=== PATIENT | male | born 1965 | race Two or more races ===

== ENCOUNTER 2020-04-27 15:51 | Outpatient (REF) | payer OTHER, SELFPAY | END 2020-04-27 15:52 | disposition home or self-care (01) | LOC: HO.LAB 15:51 | PROVIDERS: Visit Provider Internal Medicine | DX: Z20.828 Contact with and (suspected) exposure to other viral communicable diseases (principal) | CPT/HCPCS: 87635 ==

== ENCOUNTER 2021-02-22 12:59 | Outpatient (REF) | payer OTHER, SELFPAY ==
[2021-02-22 15:09] LABS: Syphilis Screen Reactive (Nonreactive)
[2021-02-23 03:35] LABS: ~HepC Num1 0.11 S/CO (0.00-0.79); ~Hepatitis C Antibody Nonreactive (Nonreactive)
[2021-02-23 04:58] LABS: CT PCR NOT DETECTED (Not Detect.); NG PCR NOT DETECTED (Not Detect.)
[2021-02-23 12:07] LABS: Absolute CD3 Count 1286 cells/uL (840-3060); Absolute CD4 Count 747 cells/uL (490-1740); Absolute CD8 Count 544 cells/uL (180-1170); Absolute Lymphocytes 1945 cells/uL (850-3900); CD4 CD8 Ratio 1.37 (0.86-5.00); Percent CD3 Cells 66 % (57-85); Percent CD4 Cells 38 % (30-61); Percent CD8 Cells 28 % (12-42)
[2021-02-24 18:51] LABS: HIV RNA PCR Qn Copies <20 DETECTED copies/mL (NOT DETECTED); HIV RNA PCR Qn Log Copies <1.30 DETECTED (NOT DETECTED)
[2021-03-03 10:35] LABS: RPR Quantitative Reactive 1:32 (Nonreactive); T.Pallidum Particle Agg Test Reactive (Nonreactive)
== END 2021-02-22 13:00 | disposition home or self-care (01) ==
LOC: HO.LAB 12:59
PROVIDERS: PCP Internal Medicine; Visit Provider Internal Medicine
DX: B20 Human immunodeficiency virus [HIV] disease (principal)
CPT/HCPCS: 36415; 86359; 86360; 86592; 86780; 86803; 87491; 87536; 87591; 88112; 99212

== ENCOUNTER 2021-03-01 10:39 | Outpatient (REF) | payer OTHER, SELFPAY ==
[2021-03-01 11:29] LABS: MANUAL DIFF FLAG NO
[2021-03-01 11:42] LABS: Basophils Percent Auto 0.4 % (0-2); Eosinophils Absolute Auto 0.2 X10*3/uL (0.0-0.4); Eosinophils Percent Auto 3.4 % (0-4); Hematocrit 44.2 % (42-52); Hemoglobin 15.4 g/dl (14.0-18.0); Imm Gran Abs Auto 0.01 X10*3/uL (0.00-0.03); Imm Gran Pct Auto 0.2 % (0.0-0.4); Lymphocytes Absolute Auto 2.5 X10*3/uL (1.2-4.9); Lymphocytes Percent Auto 46.9 % (20-40); Mean Corpuscular HGB Conc 34.8 g/dl (31.0-36.0); Mean Corpuscular Hemoglobin 32.6 pg (27.0-33.0); Mean Corpuscular Volume 93.6 fL (80-98); Mean Platelet Volume 10.1 fL (9.4-12.4); Monocytes Absolute Auto 0.5 X10*3/uL (0.1-1.2); Monocytes Percent Auto 8.5 % (2-11); Neutrophils Absolute Auto 2.2 X10*3/uL (2.0-8.3); Neutrophils Percent Auto 40.6 % (45-73); Platelet Count 171 X10*3/uL (160-400); Red Blood Count 4.72 X10*6/uL (4.60-5.80); White Blood Count 5.3 X10*3/uL (4.8-10.8)
[2021-03-01 11:52] LABS: Alanine Aminotransferase 21 U/L (0-40); Albumin Level 4.5 g/dL (3.5-5.0); Alkaline Phosphatase 111 U/L (39-117); Anion Gap 14 (12-20); Aspartate Amino Transferase 24 U/L (5-37); Bilirubin Total 0.7 mg/dL (0.0-1.0); Blood Urea Nitrogen 16 mg/dL (9-16); Calcium 9.5 mg/dL (8.4-10.2); Carbon Dioxide 25 mmol/L (22-29); Chloride 107 mmol/L (96-108); Cholesterol 174 mg/dL; Estimated Glomerular Filt Rate > 60; Glucose Fasting 106 mg/dL (60-99); HDL Cholesterol 37 mg/dL; LDL Cholesterol Calculated 105 mg/dl; Potassium 4.9 mmol/L (3.3-5.1); Sodium 141 mmol/L (135-145); Triglycerides 161 mg/dL; Uric Acid 8.1 mg/dL (3.4-7.0)
[2021-03-05 13:55] LABS: Vitamin D 25-OH, D2 <4 ng/mL; Vitamin D 25-OH, D3 29 ng/mL; Vitamin D 25-OH, Total 29 ng/mL (30-100)
== END 2021-03-01 10:40 | disposition home or self-care (01) ==
LOC: HO.LAB 10:39
PROVIDERS: PCP Internal Medicine; Visit Provider Internal Medicine
DX: E55.9 Vitamin D deficiency, unspecified (principal); M10.9 Gout, unspecified; E78.5 Hyperlipidemia, unspecified; B20 Human immunodeficiency virus [HIV] disease; D64.9 Anemia, unspecified
CPT/HCPCS: 36415; 80053; 80061; 82306; 84550; 85025

== ENCOUNTER → 2021-03-10 13:43 | Outpatient (BNVA) | payer OTHER, SELFPAY | PROVIDERS: Visit Provider Internal Medicine | DX: A53.9 Syphilis, unspecified (principal) | CPT/HCPCS: 96372; 99212 ==

== ENCOUNTER → 2021-08-03 14:01 | Outpatient (BNVA) | payer OTHER, SELFPAY | PROVIDERS: Visit Provider Internal Medicine | DX: B20 Human immunodeficiency virus [HIV] disease (principal) | CPT/HCPCS: 99212 ==

== ENCOUNTER 2021-08-18 14:05 | Outpatient (REF) | payer OTHER, SELFPAY ==
[2021-08-18 15:50] LABS: Syphilis Screen Reactive (Nonreactive)
[2021-08-19 14:46] LABS: Absolute CD3 Count 1901 cells/uL (840-3060); Absolute CD4 Count 1135 cells/uL (490-1740); Absolute CD8 Count 766 cells/uL (180-1170); Absolute Lymphocytes 2837 cells/uL (850-3900); CD4 CD8 Ratio 1.48 (0.86-5.00); Percent CD3 Cells 67 % (57-85); Percent CD4 Cells 40 % (30-61); Percent CD8 Cells 27 % (12-42)
[2021-08-21 14:06] LABS: HIV RNA PCR Qn Copies <20 Copies/mL; HIV RNA PCR Qn Log Copies <1.30 Log cps/mL
[2021-08-26 14:54] LABS: RPR Quantitative Reactive 1:16 (Nonreactive); T.Pallidum Particle Agg Test Reactive (Nonreactive)
== END 2021-08-18 14:06 | disposition home or self-care (01) ==
LOC: HO.LAB 14:05
PROVIDERS: PCP Internal Medicine; Visit Provider Internal Medicine
DX: B20 Human immunodeficiency virus [HIV] disease (principal)
CPT/HCPCS: 36415; 86359; 86360; 86592; 86780; 87536

== ENCOUNTER → 2021-08-31 14:10 | Outpatient (BNVA) | payer OTHER, SELFPAY | PROVIDERS: PCP Internal Medicine; Visit Provider Internal Medicine | DX: B20 Human immunodeficiency virus [HIV] disease (principal); A53.9 Syphilis, unspecified; Z23 Encounter for immunization | CPT/HCPCS: 90471; 90732; 99212 ==

== ENCOUNTER 2021-09-02 10:03 | Outpatient (REF) | payer OTHER, SELFPAY ==
--- NOTE | ~2021-09-02 | XR_ITS ---
EXAMINATION: XR CHEST CLINICAL INFORMATION: R06.00 - Dyspnea, unspecified COMPARISON: Chest radiographs 08/03/2019, 04/03/2019, CT abdomen 01/23/2018. TECHNIQUE: 2 views of the chest were obtained. FINDINGS: There is no airspace consolidation, groundglass opacity, or effusion. The heart is normal in size and the vascularity is normal. There are some old calcified granulomata again noted periphery left mid lung zone and left base similar to prior studies. The hilar and mediastinal contours are normal. No acute bony abnormality. XR/XR chest 2V IMPRESSION: No acute intrathoracic disease.
[2021-09-02 12:46] LABS: Alanine Aminotransferase 17 U/L (0-40); Albumin Level 4.5 g/dL (3.5-5.0); Alkaline Phosphatase 96 U/L (39-117); Anion Gap 14 (12-20); Aspartate Amino Transferase 24 U/L (5-37); Blood Urea Nitrogen 22 mg/dL (9-16); Calcium 9.4 mg/dL (8.4-10.2); Carbon Dioxide 25 mmol/L (22-29); Chloride 106 mmol/L (96-108); Cholesterol 169 mg/dL; Estimated Glomerular Filt Rate 57; Glucose Fasting 84 mg/dL (60-99); HDL Cholesterol 42 mg/dL; LDL Cholesterol Calculated 103 mg/dl; Potassium 4.9 mmol/L (3.3-5.1); Sodium 140 mmol/L (135-145); Total Protein 6.8 g/dL (6.5-8.0); Triglycerides 124 mg/dL
== END 2021-09-02 10:04 | disposition home or self-care (01) ==
LOC: HO.XRAY 10:03
PROVIDERS: PCP Internal Medicine; Visit Provider Internal Medicine
DX: R06.00 Dyspnea, unspecified (principal); B20 Human immunodeficiency virus [HIV] disease; E78.5 Hyperlipidemia, unspecified
CPT/HCPCS: 36415; 71046; 80053; 80061

== ENCOUNTER 2021-09-27 14:04 | Outpatient (REF) | payer OTHER, SELFPAY ==
[2021-09-27 14:27] LABS: MANUAL DIFF FLAG NO
[2021-09-27 14:55] LABS: Basophils Percent Auto 0.6 % (0-2); Eosinophils Absolute Auto 0.2 X10*3/uL (0.0-0.4); Eosinophils Percent Auto 2.9 % (0-4); Hematocrit 47.2 % (42.0-52.0); Hemoglobin 16.4 g/dl (14.0-18.0); Imm Gran Abs Auto 0.03 X10*3/uL (0.00-0.03); Imm Gran Pct Auto 0.5 % (0.0-0.4); Lymphocytes Absolute Auto 1.9 X10*3/uL (1.2-4.9); Lymphocytes Percent Auto 29.8 % (20-40); Mean Corpuscular HGB Conc 34.7 g/dl (31.0-36.0); Mean Corpuscular Hemoglobin 32.9 pg (27.0-33.0); Mean Corpuscular Volume 94.6 fL (80.0-98.0); Mean Platelet Volume 9.9 fL (9.4-12.4); Monocytes Absolute Auto 0.4 X10*3/uL (0.1-1.2); Monocytes Percent Auto 6.3 % (2-11); Neutrophils Absolute Auto 3.8 x10*3/uL (2.0-8.3); Neutrophils Percent Auto 59.9 % (45-73); Platelet Count 193 X10*3/uL (160-400); Red Blood Count 4.99 X10*6/uL (4.60-5.80); Red Cell Distribution Width 13.2 % (11.0-16.0); White Blood Count 6.3 X10*3/uL (4.8-10.8)
[2021-09-27 15:11] LABS: Appearance Urine CLEAR; Color Urine YELLOW; Glucose Urine UA NEG (NEG); Leukocyte Esterase Urine NEG (NEG); Nitrite Urine NEG (NEG); PH 5.5 (5.0-8.0); Specific Gravity - Urine >= 1.030 (1.005-1.025); Urine Blood NEG (NEG); Urine Ketones NEG (NEG); Urine Protein NEG (NEG-TRACE)
[2021-09-27 15:17] LABS: Uric Acid 8.6 mg/dL (3.4-7.0)
[2021-09-27 15:37] LABS: Vitamin D 25-OH Total 17.8 ng/mL (>30)
== END 2021-09-27 14:05 | disposition home or self-care (01) ==
LOC: HO.LAB 14:04
PROVIDERS: Absent Provider Internal Medicine; PCP Internal Medicine; Visit Provider Nurse Practitioner Family
DX: D64.9 Anemia, unspecified (principal); M10.9 Gout, unspecified; E55.9 Vitamin D deficiency, unspecified; M54.9 Dorsalgia, unspecified; R80.9 Proteinuria, unspecified
CPT/HCPCS: 36415; 81003; 82306; 84550; 85025

== ENCOUNTER 2021-12-07 16:45 | Outpatient (REF) | payer OTHER, SELFPAY ==
--- NOTE | ~2021-12-07 | XR_ITS ---
EXAMINATION: X-RAY RIGHT SHOULDER X-RAY LEFT SHOULDER CLINICAL INFORMATION: Pain. COMPARISON: Radiograph of the left shoulder dated from 07/25/2019. TECHNIQUE: 4 views of each shoulder were obtained. FINDINGS: Right shoulder: No acute fracture or malalignment. The humeral head is well-seated in the glenoid. The acromioclavicular joint is maintained. No abnormal soft tissue calcifications. Left shoulder: No acute fracture or malalignment. The humeral head is well-seated in the glenoid. The acromioclavicular joint is within normal limits. No abnormal soft tissue calcification. Others: Redemonstration of calcified granulomas in the lungs. XR/XR shoulder RT min 2V IMPRESSION: No significant radiographic abnormality in the shoulders. If pain persists, recommend correlation with a CT or MR if clinically indicated.
--- NOTE | ~2021-12-07 | XR_ITS ---
EXAMINATION: X-RAY RIGHT SHOULDER X-RAY LEFT SHOULDER CLINICAL INFORMATION: Pain. COMPARISON: Radiograph of the left shoulder dated from 07/25/2019. TECHNIQUE: 4 views of each shoulder were obtained. FINDINGS: Right shoulder: No acute fracture or malalignment. The humeral head is well-seated in the glenoid. The acromioclavicular joint is maintained. No abnormal soft tissue calcifications. Left shoulder: No acute fracture or malalignment. The humeral head is well-seated in the glenoid. The acromioclavicular joint is within normal limits. No abnormal soft tissue calcification. Others: Redemonstration of calcified granulomas in the lungs. XR/XR shoulder LT min 2V IMPRESSION: No significant radiographic abnormality in the shoulders. If pain persists, recommend correlation with a CT or MR if clinically indicated.
[2021-12-07 17:53] LABS: Alanine Aminotransferase 26 U/L (0-40); Albumin Level 4.5 g/dL (3.5-5.0); Alkaline Phosphatase 96 U/L (39-117); Anion Gap 13 (12-20); Aspartate Amino Transferase 25 U/L (5-37); Bilirubin Total 0.7 mg/dL (0.0-1.0); Blood Urea Nitrogen 21 mg/dL (9-16); Calcium 9.5 mg/dL (8.4-10.2); Carbon Dioxide 28 mmol/L (22-29); Chloride 104 mmol/L (96-108); Estimated Glomerular Filt Rate > 60; Glucose Fasting 102 mg/dL (60-99); Potassium 4.6 mmol/L (3.3-5.1); Sodium 140 mmol/L (135-145)
[2021-12-08 03:08] LABS: CT PCR NOT DETECTED (Not Detect.); NG PCR NOT DETECTED (Not Detect.)
[2021-12-08 06:49] LABS: HBS Num1 68.75 mIU/mL (0-7.99); HBc Num1 2.01 S/CO (0.00-0.79); HBsAGNum1 0.17 S/CO (0.00-0.99); Hepatitis B Surface Antigen Negative (Negative); ~HepC Num1 0.06 S/CO (0.00-0.79); ~Hepatitis B Surface Antibody REACTIVE (Nonreactive); ~Hepatitis C Antibody Nonreactive (Nonreactive)
[2021-12-08 06:55] LABS: HBc Num2 1.92 S/CO; HBc Num3 2.01 S/CO; Hepatitis B Core Antibody Reactive (Nonreactive)
== END 2021-12-07 16:46 | disposition home or self-care (01) ==
LOC: HO.LAB 16:45
PROVIDERS: PCP Internal Medicine; Visit Provider Internal Medicine
DX: Z11.3 Encounter for screening for infections with a predominantly sexual mode of transmission (principal); M54.9 Dorsalgia, unspecified; M25.511 Pain in right shoulder; M25.512 Pain in left shoulder
CPT/HCPCS: 73030; 80053; 86704; 86706; 86803; 87340; 87491; 87591

== ENCOUNTER 2022-01-01 14:11 | Emergency (ER) | payer OTHER, SELFPAY ==
--- NOTE | 2022-01-01 | ECG_ITS ---
Test Reason : PALPITATIONS Blood Pressure : / mmHG Vent. Rate : 086 BPM Atrial Rate : 086 BPM P-R Int : 164 ms QRS Dur : 090 ms QT Int : 354 ms P-R-T Axes : 055 -15 015 degrees QTc Int : 423 ms Normal sinus rhythm Normal ECG When compared with ECG of 04-JUN-2019 15:16, No significant change was found Referred By: Generic ED Physician Electronically Signed By:JOSE L ALANIS
--- NOTE | ~2022-01-01 | CT_ITS ---
EXAMINATION: CT ABDOMEN AND PELVIS WITHOUT CONTRAST CLINICAL INFORMATION: Epigastric pain COMPARISON: CT abdomen pelvis 01/23/2018 TECHNIQUE: Multidetector volumetric imaging was performed from the superior aspect of the liver through the pubic symphysis. Sagittal and coronal reformatted images were obtained on the technologist's workstation. This CT examination was performed using dose optimization techniques as appropriate, variously including the following: *Automated exposure control *Adjustment of mA and/or kV according to patient size (this includes techniques or standardized protocols for targeted exams where dose is matched to indication/reason for exam; i.e. extremities or head) *Use of iterative reconstruction technique DLP: 682 mGy-cm FINDINGS: LUNG BASES: Mild bibasilar atelectasis. Small calcified granulomas in the right and left lung are noted. LIVER, GALLBLADDER, AND BILIARY TREE: The liver is normal in size, shape, and attenuation. No focal hepatic lesion or biliary ductal dilatation is present. The gallbladder is unremarkable with no evidence of radiopaque gallstones, gallbladder wall thickening, or obvious pericholecystic inflammatory changes. PANCREAS: Unremarkable. SPLEEN: Unremarkable. ADRENAL GLANDS: Unremarkable. KIDNEYS AND URETERS: The kidneys are normal in size, shape, and attenuation. No hydronephrosis, hydroureter, or calculi seen. No perinephric stranding. BLADDER: Unremarkable. GASTROINTESTINAL TRACT: No dilated bowel loops. No bowel wall thickening. Mild luminal narrowing of the distal stomach/gastric antrum favored due to peristalsis. No surrounding inflammatory change or definite mural thickening. Moderate fluid and air-filled distention of the body the stomach. Small amount of fluid seen within the nondilated colon. Correlate clinically with diarrheal state. Appendix is normal. No ascites or free air. ABDOMINAL WALL: Small fat-containing inguinal hernias. LYMPH NODES: No lymphadenopathy. Slightly hazy simba appearance of the root of the mesentery, unchanged and nonspecific. VASCULAR: Normal caliber abdominal aorta. PELVIC VISCERA: Unremarkable. OSSEOUS STRUCTURES: No acute fracture or suspicious osseous lesion. Mild multilevel degenerative disc disease. Miscellaneous: Small 1.3 cm subdermal nodule in the midline lower abdominal wall/pelvis, likely sebaceous or epidermal inclusion cyst and unchanged. Correlate with exam. CT/CT abdomen pelvis wo con IMPRESSION: 1. No acute intra-abdominal process identified. 2. Apparent narrowing of the distal stomach, favored secondary to peristalsis. No appreciable perigastric inflammatory change or definite mural thickening. If concern for gastritis/peptic ulcer disease or partial gastric outlet obstruction. Consider GI consultation. 3. Small amount of fluid seen within the colon. Correlate clinically with diarrheal state.
[2022-01-01 14:31] VITALS: BP 131/64; PULSE 88; RESP 16; TEMP 36.8; O2SAT 98; BMI 29.0
[2022-01-01 20:00] VITALS: BP 120/67; PULSE 87; RESP 16; TEMP 36.7; O2SAT 96
--- NOTE | 2022-01-01 20:27 | ED_ITS ---
HPI - Chest Pain General Chief Complaint: Chest Pain Stated Complaint: heart palpitations Time Seen by Provider: 01/01/22 17:44 Source: patient Mode of arrival: ambulatory Limitations: no limitations History of Present Illness HPI narrative: Patient comes to the emergency room complaining of epigastric pain that started approximately 12 hours ago. Patient states is intermittent, at this time is very severe and sharp, burning sensation, radiating up the chest. Patient states that he usually binge drinks 2 days a week, last time was 2 days ago. Patient had episode of vomiting, no diarrhea. Related Data Home Medications Medication Instructions Recorded Confirmed colchicine 0.6 mg tablet 0.6 mg PO DAILY 06/23/20 12/07/21 hydrocortisone 2.5 % topical cream 1 appl topical BID PRN 06/23/20 12/07/21 triamcinolone acetonide 0.5 % 1 appl topical BID 06/23/20 12/07/21 topical cream Previous Rx's Medication Instructions Recorded clotrimazole 1 % topical cream 1 appl topical BID 30 days #45 02/22/21 (Lotrimin AF (clotrimazole)) grams albuterol sulfate 90 mcg/actuation 2 puff inhalation Q6H PRN 02/27/21 aerosol inhaler bronchospasm 30 days #8.5 grams omeprazole 20 mg capsule,delayed 20 mg PO BID #30 caps 03/01/21 release valacyclovir 1 gram tablet 1,000 mg PO TID 5 days #15 tabs 04/26/21 (Valtrex) pneumococcal 23-dwight ps vaccine 25 0.5 ml IM ONCE 30 days #0.5 mL 08/30/21 mcg/0.5 mL injection solution (Pneumovax-23) diclofenac sodium 75 mg 75 mg PO BID #20 tabs 09/02/21 tablet,delayed release tizanidine 2 mg tablet 2 mg PO Q12H PRN muscle spasticity 09/02/21 #10 tabs bictegravir 50 mg-emtricitabine 1 tab PO DAILY 90 days #90 tabs 09/08/21 200 mg-tenofovir alafenam 25 mg tablet (Biktarvy) allopurinol 100 mg tablet 100 mg PO DAILY 90 days #90 tabs 10/12/21 escitalopram oxalate 5 mg tablet 5 mg PO DAILY 90 days #90 tabs 10/23/21 nitroglycerin 0.4 % (w/w) rectal 1 inch TX BID 30 days #30 grams 12/07/21 ointment (Rectiv) cholecalciferol (vitamin D3) 25 25 mcg PO DAILY 90 days #90 caps 12/24/21 mcg (1,000 unit) capsule hydrocortisone 2.5 % topical cream 1 appl TX BID PRN hemorrhoids 30 12/27/21 with perineal applicator days #30 grams (Proctosol HC) pantoprazole 20 mg tablet,delayed 20 mg PO DAILY #20 tabs 01/02/22 release (Protonix) Allergies Allergy/AdvReac Type Severity Reaction Status Date / Time No Known Allergies Allergy Verified 12/07/21 16:24 [No Known Allergies*] Review of Systems Review of Systems: Constitutional : No Weight loss, No Fever, No Chills, No Night Sweats, No Fatigue, No Malaise ENT/Mouth : No Hearing loss, No Ear Pain, No Nasal Congestion, No Sinus Pain, No Hoarseness, No sore throat, No Rhinorrhea, No Swallowing Difficulty Eyes: No Eye Pain, No Swelling, No Redness, No Foreign Body, No Discharge, No Vision Changes Cardiovascular : No Chest Pain, No SOB, No Dyspnea on Exertion, No Orthopnea, No Edema, No Palpitations Respiratory : No Cough, No Sputum, No Wheezing, No Smoke Exposure, No Dyspnea Gastrointestinal : Complaining of nausea and 1 episode of vomiting No Diarrhea, No Constipation, complaining of epigastric pain, burning sensation radiating of the chest. No Hematochezia, No Melena Genitourinary : no irregular bleeding, No Dysuria, No Urinary Frequency, No Hematuria, No Urinary Incontinence, No Urgency, No Flank Pain, No Urinary Flow Changes, No Hesitancy Musculoskeletal : No joint pain, No Myalgias, No Joint Swelling Skin : No Skin Lesions, No rash Neuro : No Weakness, No Numbness, No Paresthesias, No Loss of Consciousness, No Dizziness, No Headache Psych : No Anxiety/Panic, No Depression, No SI/HI/AH/VH, No Social Issues, Heme/Lymph: No Bruising, No Bleeding,No Lymphadenopathy Endocrine : No Polyuria, No Polydipsia, No Temperature Intolerance PMFSH Past Medical History Medical History Anxiety Gout Hand numbness HIV (human immunodeficiency virus infection) Left shoulder pain Right shoulder pain Screen for STD (sexually transmitted disease) Syphilis Surgical History No pertinent past surgical history Family History Family History Father ALS (amyotrophic lateral sclerosis) Diabetes Hypertension Mother Liver cirrhosis Brother Liver cirrhosis Sister Hyperlipidemia Paternal Grandmother Cancer Paternal Aunt Cancer Family/Other FH: mental illness Social History Social History Household Members: Friend(s) Housing: House Alcohol intake: current Alcohol intake frequency: holidays/special occasions only Alcohol type: hard liquor Patient Tobacco Use Status: Current someday Tobacco user Cigarettes Per Day: 2 Years Smoked: 30 e-Cigarette/Vaping Use: Never Used Use of substances other than those prescribed or required for medical reasons: No Advance Directives: No Advance Directives Information Provided: Yes service: No Current occupational status: unemployed Cognitive needs: No Hearing needs: No Vision needs: No Physical Exam Vital Signs: Vital Signs: Last Vital Signs Temp 98.2 F 01/02/22 00:20 Pulse 79 01/02/22 00:20 Resp 16 01/02/22 00:20 BP 124/77 01/02/22 00:20 Pulse Ox 98 01/02/22 00:20 O2 Del Method 01/02/22 00:20 BMI result Body Mass Index 29.0 Const: Other: Appearance: Alert. Oriented X3. No acute distress. Eyes: Pupils equal, round and reactive to light. ENT: Pharynx normal. Neck: Normal inspection. Neck supple. No lymph nodes noted. No crepitus CVS: Normal heart rate and rhythm. Pulses normal. Normal S1 and S2 Respiratory: No respiratory distress. Breath sounds normal. No Wheezing. No rales Abdomen: Soft , tenderness to palpation in epigastric area, no guarding, no rebound, no peritoneal signs Skin: Skin warm and dry. Normal skin color. Normal skin turgor. Extremities: No lower extremity edema. No Lacerations. No Rash Neuro: Oriented X 3. No motor deficit. No sensory deficit. Moving all extremities. No slurred speech. CN 2 through 12 grossly intact Psych: calm, cooperative, normal affect Course Course Course Narrative: Patient is getting IV fluids. All the labs and imaging pending. Ulcer versus pancreatitis is suspected. Patient is known to binge drink occasionally and also is currently taking Biktary . Also, patient getting IV morphine, famotidine and Zofran. Patient has epigastric pain, likely secondary to alcohol intake. CT scan does not show acute pancreatitis, however he was not without contrast. I discussed the patient with Dr. Chauhan, patient does not meet any criteria for acute pancreatitis, patient likely has alcoholic gastritis. Patient will be sent home. MDM - Chest Pain Lab Data Result diagrams: 01/01/22 21:10 01/01/22 21:10 Labs: Lab Results 01/01/22 01/01/22 01/01/22 Range/Units 21:10 21:10 21:10 WBC 12.2 H (4.8-10.8) X10*3/uL RBC 4.92 (4.60-5.80) X10*6/uL Hgb 15.7 (14.0-18.0) g/dl Hct 44.8 (42.0-52.0) % MCV 91.1 (80.0-98.0) fL MCH 31.9 (27.0-33.0) pg MCHC 35.0 (31.0-36.0) g/dl RDW 12.5 (11.0-16.0) % Plt Count 169 (160-400) X10*3/uL MPV 10.0 (9.4-12.4) fL Immature Gran % (Auto) 0.4 (0.0-0.4) % Neut % (Auto) 84.9 H (45-73) % Lymph % (Auto) 9.5 L (20-40) % [place] % (Auto) 4.3 (2-11) % Eos % (Auto) 0.7 (0-4) % Baso % (Auto) 0.2 (0-2) % Lymph # (Auto) 1.2 (1.2-4.9) X10*3/uL [place] # (Auto) 0.5 (0.1-1.2) X10*3/uL Eos # (Auto) 0.1 (0.0-0.4) X10*3/uL Baso # (Auto) 0.0 (0.0-0.2) X10*3/uL Abs Immat Gran (auto) 0.05 H (0.00-0.03) X10*3/uL Absolute Neuts (auto) 10.3 H (2.0-8.3) x10*3/uL Absolute Nucleated RBC 0.000 (0.0-0.012) X10*3/uL Nucleated RBC % (auto) 0.0 (0.0-0.2) /100WBC Sodium 138 (135-145) mmol/L Potassium 4.3 (3.3-5.1) mmol/L Chloride 103 (96-108) mmol/L Carbon Dioxide 24 (22-29) mmol/L Anion Gap 15 (12-20) BUN 21 H (9-16) mg/dL Creatinine 1.06 (0.5-1.4) mg/dL Estim Creat Clear Calc 84.8 Estimated GFR > 60 Random Glucose 111 (60-115) mg/dL Calcium 9.1 (8.4-10.2) mg/dL Total Bilirubin 1.0 (0.0-1.0) mg/dL Direct Bilirubin 0.3 (0.0-0.5) mg/dL AST 29 (5-37) U/L ALT 24 (0-40) U/L Alkaline Phosphatase 106 (39-117) U/L Troponin I High Sens < 3.5 (<3.5-35.0) ng/L Total Protein 6.8 (6.5-8.0) g/dL Albumin 4.4 (3.5-5.0) g/dL Triglycerides 196 mg/dL Lipase 133 H (8-78) U/L Discharge Plan Discharge Clinical Impression: Gastritis Patient Disposition: Home, Self-Care Instructions: Gastritis (ED) Additional Instructions: Please follow-up with your primary care physician tomorrow. If you have any worsening or new symptoms, please return to the emergency room or call 911 Prescriptions: New pantoprazole [Protonix] 20 mg tablet,delayed release (DR/EC) 20 mg PO DAILY Qty: 20 0RF No Action albuterol sulfate 90 mcg/actuation HFA aerosol inhaler 2 puff inhalation Q6H PRN (Reason: bronchospasm) 30 Days Qty: 8.5 6RF omeprazole 20 mg capsule,delayed release(DR/EC) 20 mg PO BID Qty: 30 6RF valacyclovir [Valtrex] 1 gram tablet 1,000 mg PO TID 5 Days Qty: 15 0RF Pneumovax-23 25 mcg/0.5 mL solution 0.5 ml IM ONCE 30 Days Qty: 0.5 0RF Biktarvy 50-200-25 mg tablet 1 tab PO DAILY 90 Days Qty: 90 1RF allopurinol 100 mg tablet 100 mg PO DAILY 90 Days Qty: 90 1RF escitalopram oxalate 5 mg tablet 5 mg PO DAILY 90 Days Qty: 90 1RF cholecalciferol (vitamin D3) 25 mcg (1,000 unit) capsule 25 mcg PO DAILY 90 Days Qty: 90 0RF hydrocortisone [Proctosol HC] 2.5 % cream with perineal applicator 1 appl TX BID PRN (Reason: hemorrhoids) 30 Days Qty: 30 6RF triamcinolone acetonide 0.5 % cream 1 appl topical BID colchicine 0.6 mg tablet 0.6 mg PO DAILY hydrocortisone 2.5 % cream 1 appl topical BID PRN tizanidine 2 mg tablet 2 mg PO Q12H PRN (Reason: muscle spasticity) Qty: 10 0RF diclofenac sodium 75 mg tablet,delayed release (DR/EC) 75 mg PO BID Qty: 20 0RF Rectiv 0.4 % (w/w) ointment 1 inch TX BID 30 Days Qty: 30 0RF clotrimazole [Lotrimin AF (clotrimazole)] 1 % cream 1 appl topical BID 30 Days Qty: 45 11RF Referrals: Juan Luis Morton [Physician] - 5 days
[2022-01-01 21:19] LABS: MANUAL DIFF FLAG NO
[2022-01-01] MEDS: ondansetron HCL 4 MG/2 ML VIAL IVPUSH (21:22)
[2022-01-01] MEDS: Famotidine/PF 20 MG/2 ML VIAL IVPUSH (21:22)
[2022-01-01] MEDS: Morphine Sulfate 4 MG/ML CARTRIDGE IVPUSH (21:22)
[2022-01-01] MEDS: 0.9 % Sodium Chloride 1,000 ML 999 ML IVCONT (21:23)
--- NOTE | 2022-01-01 21:27 | PC.NURSE ---
patient a&ox3, residential monitor intact nsr 80s, vss, iv inserted, labs drawn, pt medicated per order, will continue to monitor.
[2022-01-01 21:32] LABS: Basophils Percent Auto 0.2 % (0-2); Eosinophils Absolute Auto 0.1 X10*3/uL (0.0-0.4); Eosinophils Percent Auto 0.7 % (0-4); Hematocrit 44.8 % (42.0-52.0); Hemoglobin 15.7 g/dl (14.0-18.0); Imm Gran Abs Auto 0.05 X10*3/uL (0.00-0.03); Imm Gran Pct Auto 0.4 % (0.0-0.4); Lymphocytes Absolute Auto 1.2 X10*3/uL (1.2-4.9); Lymphocytes Percent Auto 9.5 % (20-40); Mean Corpuscular Hemoglobin 31.9 pg (27.0-33.0); Mean Corpuscular Volume 91.1 fL (80.0-98.0); Monocytes Absolute Auto 0.5 X10*3/uL (0.1-1.2); Monocytes Percent Auto 4.3 % (2-11); Neutrophils Absolute Auto 10.3 x10*3/uL (2.0-8.3); Neutrophils Percent Auto 84.9 % (45-73); Platelet Count 169 X10*3/uL (160-400); Red Blood Count 4.92 X10*6/uL (4.60-5.80); Red Cell Distribution Width 12.5 % (11.0-16.0); White Blood Count 12.2 X10*3/uL (4.8-10.8)
[2022-01-01 21:39] LABS: Alanine Aminotransferase 24 U/L (0-40); Albumin Level 4.4 g/dL (3.5-5.0); Alkaline Phosphatase 106 U/L (39-117); Anion Gap 15 (12-20); Aspartate Amino Transferase 29 U/L (5-37); Bilirubin Direct 0.3 mg/dL (0.0-0.5); Blood Urea Nitrogen 21 mg/dL (9-16); Calcium 9.1 mg/dL (8.4-10.2); Carbon Dioxide 24 mmol/L (22-29); Chloride 103 mmol/L (96-108); Creatinine Clr Calc Pharmacy 84.8; Estimated Glomerular Filt Rate > 60; Glucose Random 111 mg/dL (60-115); Lipase 133 U/L (8-78); Potassium 4.3 mmol/L (3.3-5.1); Sodium 138 mmol/L (135-145); Total Protein 6.8 g/dL (6.5-8.0)
[2022-01-01 21:44] LABS: Troponin-I High Sensitivity < 3.5 ng/L (<3.5-35.0)
[2022-01-01 22:18] LABS: Triglycerides 196 mg/dL
[2022-01-02 00:20] VITALS: BP 124/77; PULSE 79; RESP 16; TEMP 36.8; O2SAT 98
== END 2022-01-02 03:09 | disposition home or self-care (01) ==
PROVIDERS: Emergency Provider Emergency Medicine; PCP Internal Medicine
DX: K29.70 Gastritis, unspecified, without bleeding (principal); R10.13 Epigastric pain; F17.200 Nicotine dependence, unspecified, uncomplicated; B20 Human immunodeficiency virus [HIV] disease
CPT/HCPCS: 36415; 74176; 80048; 80076; 83690; 84478; 84484; 85025; 93005; 96361; 96374; 96375; 99284; J2270; J2405

== ENCOUNTER 2022-01-02 14:17 | Emergency (ER) | payer OTHER, SELFPAY ==
[2022-01-02 15:15] VITALS: BP 124/72; PULSE 72; RESP 18; TEMP 36.7; O2SAT 98; BMI 27.8
[2022-01-02 15:32] LABS: MANUAL DIFF FLAG NO
[2022-01-02 15:37] LABS: Basophils Percent Auto 0.3 % (0-2); Eosinophils Absolute Auto 0.1 X10*3/uL (0.0-0.4); Eosinophils Percent Auto 1.7 % (0-4); Hematocrit 42.7 % (42.0-52.0); Hemoglobin 14.9 g/dl (14.0-18.0); Imm Gran Abs Auto 0.03 X10*3/uL (0.00-0.03); Imm Gran Pct Auto 0.5 % (0.0-0.4); Lymphocytes Absolute Auto 1.1 X10*3/uL (1.2-4.9); Lymphocytes Percent Auto 16.4 % (20-40); Mean Corpuscular HGB Conc 34.9 g/dl (31.0-36.0); Mean Corpuscular Hemoglobin 32.7 pg (27.0-33.0); Mean Corpuscular Volume 93.6 fL (80.0-98.0); Mean Platelet Volume 9.4 fL (9.4-12.4); Monocytes Absolute Auto 0.5 X10*3/uL (0.1-1.2); Monocytes Percent Auto 7.4 % (2-11); Neutrophils Absolute Auto 4.8 x10*3/uL (2.0-8.3); Neutrophils Percent Auto 73.7 % (45-73); Platelet Count 141 X10*3/uL (160-400); Red Blood Count 4.56 X10*6/uL (4.60-5.80); Red Cell Distribution Width 12.6 % (11.0-16.0); White Blood Count 6.5 X10*3/uL (4.8-10.8)
[2022-01-02 16:05] LABS: Alanine Aminotransferase 28 U/L (0-40); Albumin Level 4.3 g/dL (3.5-5.0); Alkaline Phosphatase 95 U/L (39-117); Anion Gap 13 (12-20); Aspartate Amino Transferase 31 U/L (5-37); Blood Urea Nitrogen 17 mg/dL (9-16); Calcium 8.8 mg/dL (8.4-10.2); Carbon Dioxide 25 mmol/L (22-29); Chloride 104 mmol/L (96-108); Creatinine Clr Calc Pharmacy 78.2; Estimated Glomerular Filt Rate > 60; Glucose Random 99 mg/dL (60-115); Potassium 4.2 mmol/L (3.3-5.1); Sodium 138 mmol/L (135-145); Total Protein 6.5 g/dL (6.5-8.0)
== END 2022-01-02 23:17 | disposition left against medical advice (07) ==
PROVIDERS: Emergency Medicine; Emergency Provider Emergency Medicine; PCP Internal Medicine
DX: K29.70 Gastritis, unspecified, without bleeding (principal); R10.9 Unspecified abdominal pain
CPT/HCPCS: 36415; 80053; 85025; 99281; 99283

== ENCOUNTER → 2022-01-04 15:22 | Outpatient (BNVA) | payer OTHER, SELFPAY | PROVIDERS: PCP Internal Medicine; Visit Provider Internal Medicine | DX: R10.9 Unspecified abdominal pain (principal) | CPT/HCPCS: 99212 ==

== ENCOUNTER 2022-02-11 09:28 | Outpatient (REF) | payer OTHER, SELFPAY ==
[2022-02-11 11:22] LABS: Alanine Aminotransferase 33 U/L (0-40); Albumin Level 4.3 g/dL (3.5-5.0); Alkaline Phosphatase 101 U/L (39-117); Anion Gap 14 (12-20); Aspartate Amino Transferase 34 U/L (5-37); Blood Urea Nitrogen 15 mg/dL (9-16); Calcium 8.9 mg/dL (8.4-10.2); Carbon Dioxide 23 mmol/L (22-29); Chloride 107 mmol/L (96-108); Estimated Glomerular Filt Rate > 60; Glucose Fasting 100 mg/dL (60-99); Potassium 4.2 mmol/L (3.3-5.1); Sodium 140 mmol/L (135-145); Total Protein 6.7 g/dL (6.5-8.0); Uric Acid 7.8 mg/dL (3.4-7.0)
[2022-02-11 11:41] LABS: Syphilis Screen Reactive (Nonreactive)
[2022-02-14 11:32] LABS: Absolute CD3 Count 1467 cells/uL (840-3060); Absolute CD4 Count 821 cells/uL (490-1740); Absolute CD8 Count 657 cells/uL (180-1170); Absolute Lymphocytes 2141 cells/uL (850-3900); CD4 CD8 Ratio 1.25 (0.86-5.00); Percent CD3 Cells 69 % (57-85); Percent CD4 Cells 38 % (30-61); Percent CD8 Cells 31 % (12-42)
[2022-02-15 13:32] LABS: HIV RNA PCR Qn Copies 30 copies/mL (NOT DETECTED); HIV RNA PCR Qn Log Copies 1.48 (NOT DETECTED)
[2022-02-18 09:24] LABS: RPR Quantitative Reactive 1:2 (Nonreactive)
[2022-02-18 09:25] LABS: T.Pallidum Particle Agg Test Reactive (Nonreactive)
== END 2022-02-11 09:29 | disposition home or self-care (01) ==
LOC: HO.LAB 09:28
PROVIDERS: Internal Medicine; PCP Internal Medicine; Visit Provider Internal Medicine
DX: Z13.89 Encounter for screening for other disorder (principal)
CPT/HCPCS: 36415; 80053; 84550; 86359; 86360; 86592; 86780; 87536

== ENCOUNTER 2022-02-11 09:34 | Day surgery (SDC) | payer OTHER, SELFPAY ==
[2022-02-07 12:36] VITALS: BMI 28.3
--- NOTE | 2022-02-10 10:03 | HO.ANESPROP2 ---
Documented by User: Eunice Yi NP 02/10/22 10:05 HPI - Anesthesia Eval Consult details Narrative: 56yo M for Upper Endoscopy and Colonoscopy [facility] Active Problems Active Problems: All Active Problems (Updated 02/07/22 @ 12:28 by Jing Singleton RN) Back pain (Acute) Abdominal pain (Acute) Anxiety (Acute) Gout (Acute) Right shoulder pain (Acute) Left shoulder pain (Acute) Hand numbness (Acute) Screen for STD (sexually transmitted disease) (Acute) HIV (human immunodeficiency virus infection) (Acute) Syphilis (Acute) Past Medical History Medical History Abdominal pain Anxiety Gout Hand numbness HIV (human immunodeficiency virus infection) HTN (hypertension) Left shoulder pain Right shoulder pain Screen for STD (sexually transmitted disease) Syphilis Family History Family History Father ALS (amyotrophic lateral sclerosis) Diabetes Hypertension Mother Liver cirrhosis Brother Liver cirrhosis Sister Hyperlipidemia Paternal Grandmother Cancer Paternal Aunt Cancer Family/Other FH: mental illness Surgical History Surgical History H/O colonoscopy History of bronchoscopy History of esophagogastroduodenoscopy (EGD) Social History Social History Household Members: Friend(s) Housing: House Alcohol intake: current Alcohol intake frequency: holidays/special occasions only Alcohol type: hard liquor Patient Tobacco Use Status: Current someday Tobacco user Cigarettes Per Day: 2 Years Smoked: 30 e-Cigarette/Vaping Use: Never Used Use of substances other than those prescribed or required for medical reasons: No Are you DNR?: No Advance Directives: No Advance Directives Information Provided: Yes service: No Current occupational status: unemployed Cognitive needs: No Hearing needs: No Vision needs: No Meds Allergies Allergy/AdvReac Type Severity Reaction Status Date / Time No Known Allergies Allergy Verified 01/02/22 15:14 [No Known Allergies*] Home Medications Medication Instructions Recorded Confirmed Last Taken Type colchicine 0.6 mg tablet 0.6 mg PO DAILY 06/23/20 02/07/22 Unknown History hydrocortisone 2.5 % topical cream 1 appl topical BID PRN Muscle Spasm 06/23/20 02/07/22 Unknown History triamcinolone acetonide 0.5 % 1 appl topical BID 06/23/20 12/07/21 Unknown History topical cream Exam Exam Date and Time: February 10, 2022 1003 Height,Weight and Vital Signs: Height 5 ft 9 in Weight 87.09 kg Pertinent Lab Results Pertinent Lab Results: Laboratory Tests 01/02/22 01/02/22 15:20 15:20 WBC 6.5 Hgb 14.9 Hct 42.7 Plt Count 141 L Sodium 138 Potassium 4.2 Chloride 104 Carbon Dioxide 25 BUN 17 H Creatinine 1.13 Narrative Narrative: EKG 12/2021 Vent. Rate : 086 BPM ? ? Atrial Rate : 086 BPM ?? P-R Int : 164 ms? QRS Dur : 090 ms ? ? QT Int : 354 ms ? ? ? P-R-T Axes : 055 -15 015 degrees ?? QTc Int : 423 ms ? Normal sinus rhythm Normal ECG When compared with ECG of 04-JUN-2019 15:16, No significant change was found Assessment and Plan Assessment Anesthesia Assessment: Chart Reviewed Documented by User: Geoffrey Ashby MD 02/11/22 10:24 [facility] Past Medical History Medical History Abdominal pain Anxiety Gout Hand numbness HIV (human immunodeficiency virus infection) HTN (hypertension) Left shoulder pain Right shoulder pain Screen for STD (sexually transmitted disease) Syphilis Family History Family History Father ALS (amyotrophic lateral sclerosis) Diabetes Hypertension Mother Liver cirrhosis Brother Liver cirrhosis Sister Hyperlipidemia Paternal Grandmother Cancer Paternal Aunt Cancer Family/Other FH: mental illness Family history of problems with anesthesia: No Surgical History Surgical History H/O colonoscopy History of bronchoscopy History of esophagogastroduodenoscopy (EGD) History of Problems with Anesthesia: No Social History Social History Household Members: Friend(s) Housing: House Alcohol intake: current Alcohol intake frequency: holidays/special occasions only Alcohol type: hard liquor Patient Tobacco Use Status: Current someday Tobacco user Cigarettes Per Day: 2 Years Smoked: 30 e-Cigarette/Vaping Use: Never Used Use of substances other than those prescribed or required for medical reasons: No Are you DNR?: No Advance Directives: No Advance Directives Information Provided: Yes service: No Current occupational status: unemployed Cognitive needs: No Hearing needs: No Vision needs: No Meds Allergies Allergy/AdvReac Type Severity Reaction Status Date / Time No Known Allergies Allergy Verified 01/02/22 15:14 [No Known Allergies*] Home Medications Medication Instructions Recorded Confirmed Last Taken Type colchicine 0.6 mg tablet 0.6 mg PO DAILY 06/23/20 02/07/22 Unknown History hydrocortisone 2.5 % topical cream 1 appl topical BID PRN Muscle Spasm 06/23/20 02/07/22 Unknown History triamcinolone acetonide 0.5 % 1 appl topical BID 06/23/20 12/07/21 Unknown History topical cream Exam Airway Mallampati Class: II TM Dist: >3cm Neck ROM: Full Assessment and Plan Assessment Anesthesia Assessment: Anesthesia Plan Discussed Final Anesthetic Review Family History of Problems with Anesthesia: No History of Problems with Anesthesia: No NPO: Yes ASA Class: II Final Preanesthetic Review: No Changes in Pt Med Stat, Meds/Allgs Chart Reviewed, Consent Obtained/Reviewed and Anes Risks/Benef Reviewed Patient Risk: Low Procedure Risk: Low Anesthetic Plan Anesthetic Plan: MAC: Disposition: Standard PACU
[2022-02-11 10:12] VITALS: BMI 28.3
[2022-02-11] MEDS: Lactated Ringers 1,000 ML 100 ML IVCONT (10:36)
--- NOTE | 2022-02-11 10:40 | MHC.SHP ---
Pre-Procedural Eval Section A Date of Service: 02/11/22 Section B Chief Complaint: rectal bleeding,abnormal findings Details of Present Illness: see H&P no changes Relevant Family History (Specify if Yes): No Relevant Social History: None Present Medications: see Short Stay Collaborative assessment Medical History: No relevant PMH History of Previous Operations: No relevant previous surgery Allergies: Allergies Allergy/AdvReac Type Severity Reaction Status Date / Time No Known Allergies Allergy Verified 01/02/22 15:14 [No Known Allergies*] Review of Systems Sugical H&P ROS: Negative: Constitution, Cardiovascular, Respiratory, Neurological, Psychiatric, Hem-Onc, Allergic/Immunologic, Gastrointestinal, Genitourinary, Musculoskeletal, Integumentary, Endocrine and Eyes/Ears/Nose/Throat Exam Surgical H&P Exam: Normal: HEENT, Normal: Heart, Normal: Lungs, Normal: Extremities, Normal: Abdomen, Normal: Skin and Normal: Neurological Plan Diagnosis/Plan: Unchanged I have reviewed the history and physical and performed a pertinent physical examination on my patient. No changes have occurred unless specified.
--- NOTE | 2022-02-11 11:23 | PM.OP ---
Brief Operative Note Date of Service: 02/11/22 Pre-op diagnosis: abnl ct, bleeding Post-op diagnosis: same Procedure: egd, colon Surgeon: Frankie Vences Anesthesia: MAC Was an Lunch Wagon Operator used for this Procedure?: No Estimated blood loss (mL): 5 Pathology: other Condition: stable Disposition: PACU
[2022-02-11 11:26] VITALS: BP 101/57; PULSE 94; RESP 16; TEMP 36.4; O2SAT 95
[2022-02-11 11:41] VITALS: BP 97/62; PULSE 73; RESP 18; O2SAT 96
[2022-02-11 11:56] VITALS: BP 143/87; PULSE 69; RESP 18; TEMP 36.4; O2SAT 99
--- NOTE | 2022-02-11 22:10 | OP_ITS ---
SURGEON: Frankie Vences MD INDICATIONS: 1. Abnormal CT scan of the stomach. 2. Rectal bleeding. PREOPERATIVE DIAGNOSIS: POSTOPERATIVE DIAGNOSIS: PROCEDURE PERFORMED: Upper endoscopy with biopsy, colonoscopy to the terminal ileum with biopsy. ESTIMATED BLOOD LOSS: COMPLICATIONS: ANESTHESIA: ASSISTANTS: SPECIMENS: MEDICATIONS: Monitored anesthesia care. DESCRIPTION OF PROCEDURE: History and physical was performed. The risks and benefits of the procedure were explained to the patient. Informed consent was obtained. The patient was placed in the left lateral decubitus position. The Olympus video gastroscope was introduced into the esophagus, stomach, and duodenum. Examination was performed. The scope was removed. He tolerated the procedure well and was repositioned for colonoscopy. Digital rectal exam was performed and was found to be normal. The Olympus pediatric video colonoscope was introduced into the rectum and advanced to the cecum without difficulty. The cecum was identified by transillumination, palpation, and identification of ileocecal valve. Examination was performed. The scope was removed. He tolerated both procedures well and was returned to recovery area in stable condition. FINDINGS: UPPER ENDOSCOPY: 1. Esophagus: The esophagus was normal. There was no esophagitis. 2. Stomach: The stomach was normal. 3. Duodenum: The bulb and second portion were normal. Biopsies were obtained from the antrum and the GE junction. COLONOSCOPY: The terminal ileum was normal. The visualized colonic mucosa was normal. There was some stool coating mucosa, that limiting sensitivity examination for detection of small polyps. This was washed and suctioned. No polyps were identified. Retroflexed examination showed moderate-sized internal hemorrhoids. There was mild sigmoid diverticulosis. IMPRESSION: 1. Normal upper endoscopy. 2. Normal colonoscopy. RECOMMENDATIONS: Follow up the biopsy results. 10 year screening colonoscopy. MD PB Barboza/WILLI / [id number] MTDD
== END 2022-02-11 12:43 | disposition home or self-care (01) ==
PROVIDERS: PCP Internal Medicine; Visit Provider Internal Medicine Gastroenterology
PROC: (CPT 45380; principal; 2022-02-11 10:50)
DX: R19.4 Change in bowel habit (principal); K62.5 Hemorrhage of anus and rectum; K57.30 Diverticulosis of large intestine without perforation or abscess without bleeding; K64.8 Other hemorrhoids; K29.50 Unspecified chronic gastritis without bleeding; K21.9 Gastro-esophageal reflux disease without esophagitis; K76.0 Fatty (change of) liver, not elsewhere classified; I10 Essential (primary) hypertension; B20 Human immunodeficiency virus [HIV] disease; M10.9 Gout, unspecified; F41.1 Generalized anxiety disorder; Z79.899 Other long term (current) drug therapy; Z87.01 Personal history of pneumonia (recurrent); F17.210 Nicotine dependence, cigarettes, uncomplicated
CPT/HCPCS: 45380; 43239; 36415; 80053; 84550; 86359; 86360; 86592; 86780; 87536; 88305; 88342; J2250

== ENCOUNTER 2022-02-17 09:00 | Outpatient (REF) | payer OTHER, SELFPAY ==
--- NOTE | 2022-02-17 09:04 | EMG_ITS ---
Bilateral median and ulnar, motor and sensory studies were performed. Bilateral radial sensory studies were performed and paraspinal muscles were tested. IMPRESSION: 1. 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 2. Mild bilateral ulnar neuropathy across cubital tunnel. MD JESI Evans/WILLI / [id number]
[2022-02-17 12:45] LABS: CT PCR NOT DETECTED (Not Detect.); NG PCR NOT DETECTED (Not Detect.)
== END 2022-02-17 09:01 | disposition home or self-care (01) ==
LOC: HO.NEURO 09:00
PROVIDERS: Absent Provider Internal Medicine; PCP Internal Medicine; Visit Provider Internal Medicine
DX: R20.0 Anesthesia of skin (principal)
CPT/HCPCS: 87491; 87591; 95886; 95911

== ENCOUNTER 2022-02-23 15:43 | Outpatient (REF) | payer OTHER, SELFPAY ==
[2022-02-23 17:15] LABS: Cholesterol 162 mg/dL; HDL Cholesterol 34 mg/dL; LDL Cholesterol Calculated 81 mg/dl; Triglycerides 235 mg/dL
[2022-02-23 17:32] LABS: PSA,Total (Free>4and<10) 0.49 ng/mL (0.00-4.00)
[2022-02-23 20:44] LABS: Reflex LDLD? No
[2022-02-25 06:59] LABS: Syphilis Screen Reactive (Nonreactive)
[2022-02-25 12:42] LABS: Absolute CD3 Count 1740 cells/uL (840-3060); Absolute CD4 Count 1020 cells/uL (490-1740); Absolute CD8 Count 729 cells/uL (180-1170); Absolute Lymphocytes 2496 cells/uL (850-3900); Percent CD3 Cells 70 % (57-85); Percent CD4 Cells 41 % (30-61); Percent CD8 Cells 29 % (12-42)
[2022-02-25 14:12] LABS: HIV RNA PCR Qn Copies NOT DETECTED copies/mL (NOT DETECTED); HIV RNA PCR Qn Log Copies NOT DETECTED (NOT DETECTED)
[2022-03-02 10:02] LABS: RPR Quantitative Reactive 1:2 (Nonreactive)
[2022-03-02 10:03] LABS: T.Pallidum Particle Agg Test Reactive (Nonreactive)
== END 2022-02-23 15:44 | disposition home or self-care (01) ==
LOC: HO.LAB 15:43
PROVIDERS: PCP Internal Medicine; Visit Provider Internal Medicine
DX: B20 Human immunodeficiency virus [HIV] disease (principal); R10.9 Unspecified abdominal pain; E78.5 Hyperlipidemia, unspecified; R20.0 Anesthesia of skin
CPT/HCPCS: 36415; 80061; 84153; 86359; 86360; 86592; 86780; 87536

== ENCOUNTER 2022-03-08 15:11 | Outpatient (REF) | payer OTHER, SELFPAY ==
[2022-03-08 17:43] LABS: Leukocytes Stool Qualitative NEGATIVE (NEGATIVE)
== END 2022-03-08 15:12 | disposition home or self-care (01) ==
LOC: HO.LNP 15:11
PROVIDERS: Visit Provider Internal Medicine
DX: B20 Human immunodeficiency virus [HIV] disease (principal); R19.7 Diarrhea, unspecified
CPT/HCPCS: 87338; 89055; 99212

== ENCOUNTER 2022-07-10 22:53 | Emergency (ER) | payer OTHER, SELFPAY ==
--- NOTE | ~2022-07-10 | CT_ITS ---
EXAMINATION: CT HEAD WITHOUT CONTRAST CLINICAL INFORMATION: Acute dizziness and left-sided weakness. COMPARISON: No similar priors. TECHNIQUE: Contiguous axial imaging was performed from the skull base to vertex without intravenous administration of contrast. This CT examination was performed using dose optimization techniques as appropriate, variously including the following: *Automated exposure control *Adjustment of mA and/or kV according to patient size (this includes techniques or standardized protocols for targeted exams where dose is matched to indication/reason for exam; i.e. extremities or head) *Use of iterative reconstruction technique DLP: 769 mGy-cm FINDINGS: There is no evidence of acute intracranial hemorrhage or edematous territorial infarction. There is no abnormal attenuation within the brain parenchyma. Parrish-white matter differentiation is preserved. The ventricles are normal in size and configuration. No evidence for obstructive hydrocephalus. No abnormal mass effect or midline shift. No extra-axial fluid collections. No acute soft tissue or osseous abnormalities. Mucosal thickening of the paranasal sinuses with partial opacification of the ethmoid air cells and inspissated mucus secretions in the left maxillary sinus. The mastoids and middle ear cavities are clear. CT/CT head/brain wo IV con IMPRESSION: No evidence of acute intracranial hemorrhage or edematous territorial infarction. Paranasal sinus disease.
[2022-07-10 22:58] VITALS: BP 126/71; BP 160/90; PULSE 88; PULSE 89; RESP 18; TEMP 36.6; O2SAT 97; O2SAT 99; BMI 27.8
--- NOTE | 2022-07-10 23:06 | ECG_ITS ---
Test Reason : DIZZINESS Blood Pressure : / mmHG Vent. Rate : 080 BPM Atrial Rate : 080 BPM P-R Int : 174 ms QRS Dur : 084 ms QT Int : 372 ms P-R-T Axes : 066 -01 042 degrees QTc Int : 429 ms Normal sinus rhythm Normal ECG When compared with ECG of 01-JAN-2022 14:28, No significant change was found Referred By: Andrea Contreras Electronically Signed By:Amado Mark
--- NOTE | 2022-07-10 23:09 | ED_ITS ---
HPI - Dizziness General Chief Complaint: Dizziness Stated Complaint: Dizziness Time Seen by Provider: 07/10/22 23:01 Source: patient Mode of arrival: ambulatory Limitations: no limitations History of Present Illness HPI Narrative: Patient with HIV undetectable viral load comes here with dizziness lightheadedness and left-sided feeling heavy. Apparently patient went to sleep at 21:00 woke up at 23:00 feeling left-sided heaviness with lightheadedness no chest pain or palpitation patient does have history of anxiety. In the ER patient was ambulatory without any weakness also had headache earlier no speech problem no shortness of breath or palpitation Related Data Home Medications Medication Instructions Recorded Confirmed colchicine 0.6 mg tablet 0.6 mg PO DAILY 06/23/20 03/30/22 hydrocortisone 2.5 % topical cream 1 appl topical BID PRN Muscle Spasm 06/23/20 03/30/22 triamcinolone acetonide 0.5 % 1 appl topical BID 06/23/20 03/30/22 topical cream valacyclovir 1 gram tablet 1,000 mg PO DAILY 03/30/22 03/30/22 (Valtrex) Previous Rx's Medication Instructions Recorded clotrimazole 1 % topical cream 1 appl topical BID 30 days #45 02/22/21 (Lotrimin AF (clotrimazole)) grams albuterol sulfate 90 mcg/actuation 2 puff inhalation Q6H PRN 02/27/21 aerosol inhaler bronchospasm 30 days #8.5 grams pneumococcal 23-dwight ps vaccine 25 0.5 ml IM ONCE 30 days #0.5 mL 08/30/21 mcg/0.5 mL injection solution (Pneumovax-23) nitroglycerin 0.4 % (w/w) rectal 1 inch OR BID 30 days #30 grams 12/07/21 ointment (Rectiv) pantoprazole 20 mg tablet,delayed 20 mg PO DAILY #20 tabs 01/02/22 release (Protonix) diclofenac sodium 75 mg 75 mg PO BID #20 tabs 02/23/22 tablet,delayed release tizanidine 2 mg tablet 2 mg PO Q12H PRN muscle spasticity 02/23/22 #10 tabs bictegravir 50 mg-emtricitabine 1 tab PO DAILY 90 days #90 tabs 03/08/22 200 mg-tenofovir alafenam 25 mg tablet (Biktarvy) fluconazole 100 mg tablet 100 mg PO DAILY 10 days #10 tabs 03/08/22 (Diflucan) cholecalciferol (vitamin D3) 25 25 mcg PO DAILY 90 days #90 caps 03/15/22 mcg (1,000 unit) capsule hydrocortisone 2.5 % topical cream 1 appl OR BID PRN hemorrhoids 30 03/30/22 with perineal applicator days #30 grams (Proctosol HC) lisinopril 2.5 mg tablet 2.5 mg PO DAILY 90 days #90 tabs 03/30/22 escitalopram oxalate 5 mg tablet 5 mg PO DAILY 90 days #90 tabs 04/25/22 allopurinol 100 mg tablet 100 mg PO DAILY 90 days #90 tabs 07/06/22 Allergies Allergy/AdvReac Type Severity Reaction Status Date / Time No Known Allergies Allergy Verified 03/30/22 12:48 [No Known Allergies*] Review of Systems Review of Systems: Yes all other systems are reviewed and are negative PMFSH Past Medical History Medical History Abdominal pain Anxiety Gout Hand numbness HIV (human immunodeficiency virus infection) HTN (hypertension) Hyperlipidemia Left shoulder pain Right shoulder pain Screen for STD (sexually transmitted disease) Syphilis Surgical History H/O colonoscopy History of bronchoscopy History of esophagogastroduodenoscopy (EGD) Family History Family History Father ALS (amyotrophic lateral sclerosis) Diabetes Hypertension Mother Liver cirrhosis Brother Liver cirrhosis Sister Hyperlipidemia Paternal Grandmother Cancer Paternal Aunt Cancer Family/Other FH: mental illness Social History Social History Household Members: Friend(s) Housing: House Alcohol intake: current Alcohol intake frequency: holidays/special occasions only Alcohol type: hard liquor Patient Tobacco Use Status: Current someday Tobacco user Cigarettes Per Day: 3 Years Smoked: 30 Smoked in Last 30 Days: Yes e-Cigarette/Vaping Use: Never Used Use of substances other than those prescribed or required for medical reasons: No Advance Directives: No Advance Directives Information Provided: Yes service: No Current occupational status: unemployed Cognitive needs: No Hearing needs: No Vision needs: No Physical Exam Vital Signs: Vital Signs: Last Vital Signs Temp 97.8 F 07/10/22 22:58 Pulse 89 07/10/22 22:58 Resp 18 07/10/22 22:58 BP 126/71 07/10/22 22:58 Pulse Ox 97 07/10/22 22:58 O2 Del Method 07/10/22 22:58 BMI result Body Mass Index 27.8 Appearance: Alert. Oriented X3. No acute distress. Eyes: PERRLA, No Nystagmus ENT: Pharynx normal. Oral Mucosa moist Neck: Normal inspection. Neck supple. CVS: Normal heart rate and rhythm. Pulses normal. Respiratory: No respiratory distress. Equal air entry bilateral, no wheezing/rales/rhonchi Abdomen: Soft and nontender. Bowel sounds are present, no mass palpable, no CVA tenderness Skin: Skin warm and dry. Normal skin color. Normal skin turgor. Extremities: No lower extremity edema. No calf tenderness Neuro: Oriented X 3. No motor deficit. No sensory deficit.No cerebellar signs , cranial nerves II-XII intact normal speech no pronator drift NIH Stroke Scale Internal: Initial- Upon Arrival Level of Consciousness: Alert Level of Consciousness Questions: Answers both questions correctly Level of Consciousness Commands: Performs both tasks correctly Best Gaze: Normal Visual: No visual loss Facial Palsy: Normal Motor Arm (Right): No drift Motor Arm (Left): No drift Motor Leg (Right): No drift Motor Leg (Left): No drift Limb Ataxia: Absent Sensory: Normal Best Language: No aphasia Dysarthia: Normal Extinction and Inattention: No abnormality Score: 0 Medical Decision Making Medical Decision Making [facility] Narrative: Patient nonspecific complaints with dizziness lightheadedness and left-sided numbness on examination there is no focal deficit no weakness noticed no sensory deficit CT scan of the head is negative. Will check the labs and will do orthostatics Lab Data [facility] Lab Attestation statement: I reviewed the patient's lab results. 07/10/22 23:25 07/10/22 23:25 Labs: Lab Results 07/10/22 07/10/22 07/10/22 Range/Units 23:25 23:25 23:25 WBC 8.5 (4.8-10.8) X10*3/uL RBC 4.74 (4.60-5.80) X10*6/uL Hgb 15.6 (14.0-18.0) g/dl Hct 43.7 (42.0-52.0) % MCV 92.2 (80.0-98.0) fL MCH 32.9 (27.0-33.0) pg MCHC 35.7 (31.0-36.0) g/dl RDW 12.7 (11.0-16.0) % Plt Count 195 D (160-400) X10*3/uL MPV 9.7 (9.4-12.4) fL Immature Gran % (Auto) 0.2 (0.0-0.4) % Neut % (Auto) 60.8 (45-73) % Lymph % (Auto) 30.3 (20-40) % Mccormick % (Auto) 6.0 (2-11) % Eos % (Auto) 2.0 (0-4) % Baso % (Auto) 0.7 (0-2) % Lymph # (Auto) 2.6 (1.2-4.9) X10*3/uL Mccormick # (Auto) 0.5 (0.1-1.2) X10*3/uL Eos # (Auto) 0.2 (0.0-0.4) X10*3/uL Baso # (Auto) 0.1 (0.0-0.2) X10*3/uL Abs Immat Gran (auto) 0.02 (0.00-0.03) X10*3/uL Absolute Neuts (auto) 5.2 (2.0-8.3) x10*3/uL Absolute Nucleated RBC 0.000 (0.0-0.012) X10*3/uL Nucleated RBC % (auto) 0.0 (0.0-0.2) /100WBC PT (10.0-13.1) SEC INR (0.9-1.1) Sodium 141 (135-145) mmol/L Potassium 4.3 (3.3-5.1) mmol/L Chloride 106 (96-108) mmol/L Carbon Dioxide 26 (22-29) mmol/L Anion Gap 13 (12-20) BUN 22 H (9-16) mg/dL Creatinine 1.36 (0.5-1.4) mg/dL Estim Creat Clear Calc 65.0 Estimated GFR 54 Random Glucose 94 (60-115) mg/dL Calcium 9.5 D (8.4-10.2) mg/dL Total Bilirubin 0.6 (0.0-1.0) mg/dL AST 31 (5-37) U/L ALT 30 (0-40) U/L Alkaline Phosphatase 114 (39-117) U/L Troponin I High Sens < 3.5 (<3.5-35.0) ng/L Total Protein 6.7 (6.5-8.0) g/dL Albumin 4.4 (3.5-5.0) g/dL 07/10/22 Range/Units 23:52 WBC (4.8-10.8) X10*3/uL RBC (4.60-5.80) X10*6/uL Hgb (14.0-18.0) g/dl Hct (42.0-52.0) % MCV (80.0-98.0) fL MCH (27.0-33.0) pg MCHC (31.0-36.0) g/dl RDW (11.0-16.0) % Plt Count (160-400) X10*3/uL MPV (9.4-12.4) fL Immature Gran % (Auto) (0.0-0.4) % Neut % (Auto) (45-73) % Lymph % (Auto) (20-40) % Mccormick % (Auto) (2-11) % Eos % (Auto) (0-4) % Baso % (Auto) (0-2) % Lymph # (Auto) (1.2-4.9) X10*3/uL Mccormick # (Auto) (0.1-1.2) X10*3/uL Eos # (Auto) (0.0-0.4) X10*3/uL Baso # (Auto) (0.0-0.2) X10*3/uL Abs Immat Gran (auto) (0.00-0.03) X10*3/uL Absolute Neuts (auto) (2.0-8.3) x10*3/uL Absolute Nucleated RBC (0.0-0.012) X10*3/uL Nucleated RBC % (auto) (0.0-0.2) /100WBC PT 11.3 (10.0-13.1) SEC INR 1.0 (0.9-1.1) Sodium (135-145) mmol/L Potassium (3.3-5.1) mmol/L Chloride (96-108) mmol/L Carbon Dioxide (22-29) mmol/L Anion Gap (12-20) BUN (9-16) mg/dL Creatinine (0.5-1.4) mg/dL Estim Creat Clear Calc Estimated GFR Random Glucose (60-115) mg/dL Calcium (8.4-10.2) mg/dL Total Bilirubin (0.0-1.0) mg/dL AST (5-37) U/L ALT (0-40) U/L Alkaline Phosphatase (39-117) U/L Troponin I High Sens (<3.5-35.0) ng/L Total Protein (6.5-8.0) g/dL Albumin (3.5-5.0) g/dL Independent Interpretation I performed an independent interpretation of an: EKG Interpretation: Normal sinus rhythm heart rate 80 beats per minute normal interval normal axis no acute ST-T changes no acute ischemia Discharge Plan Discharge Clinical Impression: Dizziness Patient Disposition: Home, Self-Care Instructions: Dizziness (ED) Additional Instructions: Cause of her dizziness not very clear likely anxiety Drink plenty of fluids Continue medications Follow-up with PCP Prescriptions: No Action albuterol sulfate 90 mcg/actuation HFA aerosol inhaler 2 puff inhalation Q6H PRN (Reason: bronchospasm) 30 Days Qty: 8.5 6RF Pneumovax-23 25 mcg/0.5 mL solution 0.5 ml IM ONCE 30 Days Qty: 0.5 0RF cholecalciferol (vitamin D3) 25 mcg (1,000 unit) capsule 25 mcg PO DAILY 90 Days Qty: 90 3RF escitalopram oxalate 5 mg tablet 5 mg PO DAILY 90 Days Qty: 90 1RF allopurinol 100 mg tablet 100 mg PO DAILY 90 Days Qty: 90 1RF pantoprazole [Protonix] 20 mg tablet,delayed release (DR/EC) 20 mg PO DAILY Qty: 20 0RF triamcinolone acetonide 0.5 % cream 1 appl topical BID colchicine 0.6 mg tablet 0.6 mg PO DAILY hydrocortisone 2.5 % cream 1 appl topical BID PRN (Reason: Muscle Spasm) Rectiv 0.4 % (w/w) ointment 1 inch OR BID 30 Days Qty: 30 0RF diclofenac sodium 75 mg tablet,delayed release (DR/EC) 75 mg PO BID Qty: 20 0RF tizanidine 2 mg tablet 2 mg PO Q12H PRN (Reason: muscle spasticity) Qty: 10 0RF valacyclovir [Valtrex] 1 gram tablet 1,000 mg PO DAILY lisinopril 2.5 mg tablet 2.5 mg PO DAILY 90 Days Qty: 90 1RF hydrocortisone [Proctosol HC] 2.5 % cream with perineal applicator 1 appl OR BID PRN (Reason: hemorrhoids) 30 Days Qty: 30 6RF clotrimazole [Lotrimin AF (clotrimazole)] 1 % cream 1 appl topical BID 30 Days Qty: 45 11RF fluconazole [Diflucan] 100 mg tablet 100 mg PO DAILY 10 Days Qty: 10 0RF Biktarvy 50-200-25 mg tablet 1 tab PO DAILY 90 Days Qty: 90 1RF
[2022-07-10 23:19] VITALS: BP 122/74; PULSE 74
[2022-07-10 23:30] LABS: Basophils Absolute Auto 0.1 X10*3/uL (0.0-0.2); Basophils Percent Auto 0.7 % (0-2); Eosinophils Absolute Auto 0.2 X10*3/uL (0.0-0.4); Hematocrit 43.7 % (42.0-52.0); Hemoglobin 15.6 g/dl (14.0-18.0); Imm Gran Abs Auto 0.02 X10*3/uL (0.00-0.03); Imm Gran Pct Auto 0.2 % (0.0-0.4); Lymphocytes Absolute Auto 2.6 X10*3/uL (1.2-4.9); Lymphocytes Percent Auto 30.3 % (20-40); MANUAL DIFF FLAG NO; Mean Corpuscular HGB Conc 35.7 g/dl (31.0-36.0); Mean Corpuscular Hemoglobin 32.9 pg (27.0-33.0); Mean Corpuscular Volume 92.2 fL (80.0-98.0); Mean Platelet Volume 9.7 fL (9.4-12.4); Monocytes Absolute Auto 0.5 X10*3/uL (0.1-1.2); Neutrophils Absolute Auto 5.2 x10*3/uL (2.0-8.3); Neutrophils Percent Auto 60.8 % (45-73); Platelet Count 195 X10*3/uL (160-400); Red Blood Count 4.74 X10*6/uL (4.60-5.80); Red Cell Distribution Width 12.7 % (11.0-16.0); White Blood Count 8.5 X10*3/uL (4.8-10.8)
[2022-07-10 23:46] LABS: Alanine Aminotransferase 30 U/L (0-40); Albumin Level 4.4 g/dL (3.5-5.0); Alkaline Phosphatase 114 U/L (39-117); Anion Gap 13 (12-20); Aspartate Amino Transferase 31 U/L (5-37); Bilirubin Total 0.6 mg/dL (0.0-1.0); Blood Urea Nitrogen 22 mg/dL (9-16); Calcium 9.5 mg/dL (8.4-10.2); Carbon Dioxide 26 mmol/L (22-29); Chloride 106 mmol/L (96-108); Estimated Glomerular Filt Rate 54; Glucose Random 94 mg/dL (60-115); Potassium 4.3 mmol/L (3.3-5.1); Sodium 141 mmol/L (135-145); Total Protein 6.7 g/dL (6.5-8.0)
[2022-07-10 23:53] LABS: Troponin-I High Sensitivity < 3.5 ng/L (<3.5-35.0)
[2022-07-11 00:02] LABS: Prothrombin Time 11.3 SEC (10.0-13.1)
[2022-07-11 00:17] VITALS: BP 121/65; PULSE 73; RESP 16; TEMP 36.4; O2SAT 97
[2022-07-11 00:18] VITALS: BP 133/80; PULSE 91
== END 2022-07-11 00:27 | disposition home or self-care (01) ==
PROVIDERS: Emergency Provider Internal Medicine
DX: R42 Dizziness and giddiness (principal); F17.210 Nicotine dependence, cigarettes, uncomplicated; Z71.6 Tobacco abuse counseling; Z79.899 Other long term (current) drug therapy
CPT/HCPCS: 36415; 70450; 80053; 84484; 85025; 85610; 93005; 99284

== ENCOUNTER 2022-07-13 14:07 | Outpatient (REF) | payer OTHER, SELFPAY ==
[2022-07-13 16:03] LABS: Uric Acid 7.6 mg/dL (3.4-7.0)
[2022-07-13 16:22] LABS: Vitamin D 25-OH Total 29.8 ng/mL (>30)
== END 2022-07-13 14:08 | disposition home or self-care (01) ==
LOC: HO.LAB 14:07
PROVIDERS: PCP Internal Medicine; Visit Provider Internal Medicine
DX: M10.9 Gout, unspecified (principal); E55.9 Vitamin D deficiency, unspecified
CPT/HCPCS: 36415; 82306; 84550

== ENCOUNTER 2022-08-01 13:40 | Outpatient (REF) | payer OTHER, SELFPAY ==
[2022-08-01 14:03] LABS: MANUAL DIFF FLAG NO
[2022-08-01 14:28] LABS: Basophils Percent Auto 0.6 % (0-2); Eosinophils Absolute Auto 0.2 X10*3/uL (0.0-0.4); Eosinophils Percent Auto 2.3 % (0-4); Hematocrit 44.1 % (42.0-52.0); Hemoglobin 15.7 g/dl (14.0-18.0); Imm Gran Abs Auto 0.03 X10*3/uL (0.00-0.03); Imm Gran Pct Auto 0.5 % (0.0-0.4); Lymphocytes Absolute Auto 2.2 X10*3/uL (1.2-4.9); Lymphocytes Percent Auto 33.1 % (20-40); Mean Corpuscular HGB Conc 35.6 g/dl (31.0-36.0); Mean Corpuscular Hemoglobin 32.8 pg (27.0-33.0); Mean Corpuscular Volume 92.1 fL (80.0-98.0); Mean Platelet Volume 10.1 fL (9.4-12.4); Monocytes Absolute Auto 0.3 X10*3/uL (0.1-1.2); Monocytes Percent Auto 5.2 % (2-11); Neutrophils Absolute Auto 3.8 x10*3/uL (2.0-8.3); Neutrophils Percent Auto 58.3 % (45-73); Platelet Count 184 X10*3/uL (160-400); Red Blood Count 4.79 X10*6/uL (4.60-5.80); Red Cell Distribution Width 12.2 % (11.0-16.0); White Blood Count 6.5 X10*3/uL (4.8-10.8)
[2022-08-01 14:29] LABS: Appearance Urine Clear; Color Urine Yellow; Glucose Urine UA Negative (Negative); Leukocyte Esterase Urine Negative (Negative); Nitrite Urine Negative (Negative); PH 5.5 (5.0-9.0); Urine Blood Negative (Negative); Urine Ketones Negative (Negative); Urine Protein Negative (Neg-Trace)
[2022-08-01 14:34] LABS: Bacteria Urine None Seen (None Seen); Hyaline Casts Urine 0-2 /LPF (0-2); RBC Urine 0-2 /HPF (0-2); Squamous Epithelial Cell Urine 0-2 /HPF (0-2); WBC Urine 0-5 /HPF (0-5)
[2022-08-01 15:07] LABS: Alanine Aminotransferase 19 U/L (0-40); Albumin Level 4.5 g/dL (3.5-5.0); Alkaline Phosphatase 107 U/L (39-117); Anion Gap 12 (12-20); Aspartate Amino Transferase 21 U/L (5-37); Bilirubin Direct 0.3 mg/dL (0.0-0.5); Bilirubin Total 1.1 mg/dL (0.0-1.0); Blood Urea Nitrogen 25 mg/dL (9-16); Calcium 9.4 mg/dL (8.4-10.2); Carbon Dioxide 24 mmol/L (22-29); Chloride 106 mmol/L (96-108); Cholesterol 198 mg/dL; Estimated Glomerular Filt Rate 56; Glucose Fasting 97 mg/dL (60-99); Glucose Random 97 mg/dL (60-115); HDL Cholesterol 35 mg/dL; LDL Cholesterol Calculated 128 mg/dl; Potassium 4.3 mmol/L (3.3-5.1); Sodium 138 mmol/L (135-145); Total Protein 6.9 g/dL (6.5-8.0); Triglycerides 178 mg/dL
[2022-08-01 15:20] LABS: Syphilis Screen Reactive (Nonreactive)
[2022-08-01 15:35] LABS: Leukocytes Stool Qualitative NEGATIVE (NEGATIVE)
[2022-08-01 16:38] LABS: Adenovirus F 40/41 Not Detected (Not Detect.); Astrovirus Not Detected (Not Detect.); Campylobacter Not Detected (Not Detect.); Cryptosporidium Not Detected (Not Detect.); Cyclospora cayetanensis Not Detected (Not Detect.); E. coli EAEC Not Detected (Not Detect.); E. coli EPEC Not Detected (Not Detect.); E. coli ETEC Not Detected (Not Detect.); E. coli STEC Not Detected (Not Detect.); Entamoeba histolytica Not Detected (Not Detect.); Giardia lamblia Not Detected (Not Detect.); Norovirus GI/GII Not Detected (Not Detect.); Plesiomonas shigelloides Not Detected (Not Detect.); Rotavirus A Not Detected (Not Detect.); Salmonella Not Detected (Not Detect.); Sapovirus Not Detected (Not Detect.); Shigella sp./EIEC Not Detected (Not Detect.); Vibrio Not Detected (Not Detect.); Vibrio Cholerae Not Detected (Not Detect.); Yersinia enterocolitica Not Detected (Not Detect.)
[2022-08-02 17:49] LABS: Hepatitis B Viral DNA Qn - cp <1.00 NOT DETECTED Log IU/mL (NOT DETECTED); Hepatitis B Viral DNA Qn-IU/mL <10 NOT DETECTED IU/mL (NOT DETECTED)
[2022-08-03 05:18] LABS: HBS Num1 58.66 mIU/mL (0-7.99); HBc Num1 2.57 S/CO (0.00-0.79); HBsAGNum1 0.27 S/CO (0.00-0.99); Hepatitis B Surface Antigen Negative (Negative); ~HepC Num1 0.06 S/CO (0.00-0.79); ~Hepatitis B Surface Antibody REACTIVE (Nonreactive); ~Hepatitis C Antibody Nonreactive (Nonreactive)
[2022-08-03 06:26] LABS: HBc Num2 2.64 S/CO; HBc Num3 2.57 S/CO; Hepatitis B Core Antibody Reactive (Nonreactive)
[2022-08-06 19:43] LABS: Hepatitis Delta Antibody NEGATIVE
[2022-08-07 15:11] LABS: RPR Quantitative Reactive 1:2 (Nonreactive); T.Pallidum Particle Agg Test Reactive (Nonreactive)
== END 2022-08-01 13:41 | disposition home or self-care (01) ==
LOC: HO.LAB 13:40
PROVIDERS: Internal Medicine Gastroenterology; Absent Provider Internal Medicine; PCP Internal Medicine; Visit Provider Internal Medicine
DX: B20 Human immunodeficiency virus [HIV] disease (principal); E78.5 Hyperlipidemia, unspecified
CPT/HCPCS: 36415; 80048; 80053; 80061; 80076; 81001; 82248; 85025; 86592; 86692; 86704; 86706; 86780; 86803; 87177; 87209; 87340; 87507; 87517; 89055

== ENCOUNTER 2022-08-12 14:06 | Outpatient (REF) | payer OTHER, SELFPAY ==
--- NOTE | ~2022-08-12 | US_ITS ---
EXAMINATION: US RETROPERITONEAL LIMITED (RENAL ONLY) CLINICAL INFORMATION: Chronic kidney disease stage III, proteinuria. COMPARISON: CT abdomen and pelvis 01/01/2022, x-ray of abdomen 11/30/2017, ultrasound abdomen 11/22/2017, ultrasound abdomen 03/29/2016 TECHNIQUE: Real-time imaging of the kidneys. FINDINGS: RIGHT KIDNEY: 10.7 x 6.5 x 5.8 cm (SAG x AP x TRV). The kidney is normal in size, contour, and echogenicity. Renal cortical thickness is normal. No focal parenchymal lesions or hydronephrosis. Nonobstructing 4 mm midpole stone. LEFT KIDNEY: 11.0 x 5.0 x 4.9 cm (SAG x AP x TRV). The kidney is normal in size, contour, and echogenicity. Renal cortical thickness is normal. No focal parenchymal lesions or hydronephrosis. Nonobstructing 4 mm midpole stone. ADDITIONAL FINDINGS: Incidentally seen splenomegaly with spleen measuring approximately 14.0 cm. US/US renal BI IMPRESSION: Bilateral nonobstructing nephrolithiasis. No hydronephrosis. Incidentally seen splenomegaly with spleen measuring approximately 14.0 cm.
--- NOTE | ~2022-08-12 | XR_ITS ---
EXAMINATION: XR CHEST 2 VIEWS CLINICAL INFORMATION: Cough. COMPARISON: Chest radiographs dated 09/02/2021. TECHNIQUE: Frontal and lateral views of the chest were obtained. FINDINGS: The heart, great vessels, pulmonary vasculature and mediastinum are normal. The lungs show no focal infiltrate, effusion or pneumothorax. There is no acute osseous abnormality. XR/XR chest 2V IMPRESSION: No active cardiopulmonary disease.
== END 2022-08-12 14:07 | disposition home or self-care (01) ==
LOC: HO.US 14:06
PROVIDERS: PCP Internal Medicine; Visit Provider Internal Medicine Nephrology
DX: R80.9 Proteinuria, unspecified (principal); N18.31 Chronic kidney disease, stage 3a; R05.9 Cough, unspecified; B20 Human immunodeficiency virus [HIV] disease
CPT/HCPCS: 71046; 76775; 99212

== ENCOUNTER 2022-09-27 06:48 | Outpatient (REF) | payer OTHER, SELFPAY ==
[2022-09-27 07:19] LABS: MANUAL DIFF FLAG NO
[2022-09-27 07:27] LABS: Basophils Absolute Auto 0.1 X10*3/uL (0.0-0.2); Basophils Percent Auto 0.7 % (0-2); Eosinophils Absolute Auto 0.2 X10*3/uL (0.0-0.4); Eosinophils Percent Auto 2.5 % (0-4); Hematocrit 43.4 % (42.0-52.0); Hemoglobin 15.3 g/dl (14.0-18.0); Imm Gran Abs Auto 0.02 X10*3/uL (0.00-0.03); Imm Gran Pct Auto 0.2 % (0.0-0.4); Lymphocytes Percent Auto 36.2 % (20-40); Mean Corpuscular HGB Conc 35.3 g/dl (31.0-36.0); Mean Corpuscular Hemoglobin 31.9 pg (27.0-33.0); Mean Corpuscular Volume 90.6 fL (80.0-98.0); Mean Platelet Volume 9.9 fL (9.4-12.4); Monocytes Absolute Auto 0.5 X10*3/uL (0.1-1.2); Monocytes Percent Auto 6.5 % (2-11); Neutrophils Absolute Auto 4.5 x10*3/uL (2.0-8.3); Neutrophils Percent Auto 53.9 % (45-73); Platelet Count 196 X10*3/uL (160-400); Red Blood Count 4.79 X10*6/uL (4.60-5.80); Red Cell Distribution Width 12.7 % (11.0-16.0); White Blood Count 8.3 X10*3/uL (4.8-10.8)
[2022-09-27 07:33] LABS: Prothrombin Time 11.3 SEC (10.0-13.1)
[2022-09-27 07:52] LABS: Anion Gap 13 (12-20); Blood Urea Nitrogen 19 mg/dL (9-16); Calcium 9.3 mg/dL (8.4-10.2); Carbon Dioxide 27 mmol/L (22-29); Chloride 105 mmol/L (96-108); Estimated Glomerular Filt Rate > 60; Phosphorus 3.4 mg/dL (2.7-4.5); Potassium 4.5 mmol/L (3.3-5.1); Sodium 140 mmol/L (135-145); Uric Acid 7.7 mg/dL (3.4-7.0)
[2022-09-27 08:06] LABS: Vitamin D 25-OH Total 35.1 ng/mL (>30)
[2022-09-27 08:37] LABS: Appearance Urine Clear; Color Urine Yellow; Glucose Urine UA Negative (Negative); Leukocyte Esterase Urine Negative (Negative); Nitrite Urine Negative (Negative); Urine Blood Negative (Negative); Urine Ketones Negative (Negative); Urine Protein Negative (Neg-Trace)
[2022-09-27 09:59] LABS: Creatinine Urine 128.14 mg/dL; Total Protein Urine Random < 7 mg/dL (<12)
[2022-09-28 04:48] LABS: Hepatitis B Surface Antigen Negative (Negative); ~HepC Num1 0.07 S/CO (0.00-0.79); ~Hepatitis C Antibody Nonreactive (Nonreactive)
[2022-09-29 11:19] LABS: Calcium (PTHI) 9.2 mg/dL (8.6-10.3); PTHI 85 pg/mL (16-77)
[2022-09-29 14:59] LABS: Complement C3 161 mg/dL (82-185)
[2022-09-30 22:54] LABS: Prot Elec - Albumin 4.6 g/dL (3.8-4.8); Prot Elec - Alpha1 0.3 g/dL (0.2-0.3); Prot Elec - Alpha2 0.8 g/dL (0.5-0.9); Prot Elec - Beta 1 0.4 g/dL (0.4-0.6); Prot Elec - Beta 2 0.3 g/dL (0.2-0.5); Prot Elec - Gamma 0.6 g/dL (0.8-1.7)
[2022-10-01 16:04] LABS: HIV RNA PCR Qn Copies 85 Copies/mL; HIV RNA PCR Qn Log Copies 1.93 Log cps/mL
[2022-10-06 16:03] LABS: Neutrophil Cyto Ab Screen NEGATIVE (NEGATIVE)
[2022-10-07 18:33] LABS: Phospholipase A2 IgG ELISA <4 RU/mL; Phospholipase A2 IgG IFA NEGATIVE (NEGATIVE)
== END 2022-09-27 06:49 | disposition home or self-care (01) ==
LOC: HO.LAB 06:48
PROVIDERS: PCP Internal Medicine; Visit Provider Internal Medicine Nephrology
DX: N18.31 Chronic kidney disease, stage 3a (principal)
CPT/HCPCS: 36415; 80051; 81003; 82306; 82310; 82550; 82565; 82595; 83520; 83970; 84100; 84156; 84165; 84520; 84550; 85025; 85610; 86036; 86037; 86160; 86255; 86803; 87340; 87536; 87900

== ENCOUNTER 2022-11-21 16:12 | Emergency (ER) | payer OTHER, SELFPAY ==
--- NOTE | ~2022-11-21 | XR_ITS ---
EXAMINATION: XR CHEST CLINICAL INFORMATION: Pneumonia. COMPARISON: Chest radiograph 08/12/2022. TECHNIQUE: Frontal view of the chest was obtained. FINDINGS: Normal appearance of the cardiomediastinal silhouette. Multiple new nodular-like opacities. No pleural effusion or pneumothorax. Redemonstration of scattered calcified granulomas. No acute osseous abnormalities. XR/XR chest 1V IMPRESSION: New nodular-like opacities favored to be infectious/inflammatory given rapid development compared to August 2022. Recommend a short-term follow-up chest CT to ensure resolution and rule out malignancy.
[2022-11-21 16:37] VITALS: BP 139/95; PULSE 90; RESP 20; TEMP 36.8; O2SAT 99; BMI 26.9
--- OUTSIDE RECORDS SUMMARY | 2022-11-21 17:31 | XMS_ITS ---
Author Name Frankie Vences Jr Address [address] [place] [address] Organization [facility] Address [address] [place] [address] Care Team Providers Care Windows Phone Developer Name Role Phone Frankie Vences Jr Unavailable PROBLEMS Type Condition ICD9-CM Code NEC32-QM Code Onset Dates Condition Status SNOMED Code Problem Diarrhea, unspecified type R19.7 Active 73601151 Problem Abnormal CT scan, stomach R93.3 Active [id number] 107 Problem Colon cancer screening Z12.11 Active 941031619 Problem Rectal bleeding K62.5 Active 11807711 Problem Epigastric pain R10.13 Active 29653469 ALLERGIES No Known Allergies ENCOUNTERS Encounter Location Date Diagnosis [facility] [address] [place] [phone] Aug, [facility] [address] [place] [phone] Jul, Diarrhea, unspecified type R19.7 [facility] [address] [place] [phone] Jul, [facility] [address] [place] [phone] Mar, [facility] [address] [place] [phone] Jan, Rectal bleeding K62.[address] scan R93.5 [facility] [address] [place] [phone] Dec, [facility] [address] [place] [phone] Dec, Abnormal CT scan, stomach R93.3 [facility] [address] [place] [phone] Dec, Rectal bleeding K62.5 [facility] [address] [place] [phone] Dec, [address] scan, stomach R93.3 and Rectal bleeding K62.5 [facility] [address] [place] [phone] Aug, [facility] [address] [place] [phone] Aug, [facility] [address] [place], [place] [phone] Jul, Rectal bleed K62.5 and Diarrhea R19.7 [facility] [address] [place] [phone] Jul, [facility] [address] [place] [phone] May, [facility] [address] [place] [phone] May, Diarrhea, unspecified type R19.7 and Rectal bleeding K62.5 [facility] [address] [place], [place] [id number] Jun, [facility] [address] [place] [phone] Jun, [facility] [address] [place] [phone] Mar, Epigastric pain R10.13 ; Rectal bleeding K62.5 and Colon cancer screening Z12.11 IMMUNIZATIONS No Known Immunizations SOCIAL HISTORY Qualifiers Date Current Smoker REASON FOR REFERRAL FUNCTIONAL STATUS PLAN OF CARE Activity Details VITAL SIGNS Weight 192 lbs 2022-01-05 Weight 195 lbs 2019-05-29 Weight 144 lbs 2016-03-24 Height 69 in 2022-01-05 Height 69 in 2019-05-29 Height 69 in 2016-03-24 BMI 28.35 kg/m2 2022-01-05 BMI 28.79 kg/m2 2019-05-29 BMI 21.26 kg/m2 2016-03-24 Heart Rate 76 /min 2016-03-24 Temperature 97.5 degrees Fahrenheit Blood pressure systolic 000 mm Hg Blood pressure diastolic 00 mm Hg 2021-12 MEDICATIONS Medication Instructions Dosage Frequency Start Date End Date Duration Status Allopurinol 100 MG 90 Active MiraLax (colon prep) 17 GM/SCOOP Orally begin at 5:00 p.m. the day before the procedure mixed with Gatorade or Crystal Light Dec, 1 day Active Biktarvy 50-200-25 MG TOME CALIXTO TABLETA TODOS LOS D? 30 Active Albuterol Sulfate 108 (90 Base) MCG/ACT Inhalation every 4 hrs 1 puff as needed 4h Active Pantoprazole Sodium 40 MG Orally Once a day 1 tablet 24h Dec, 90 days Active Flexeril 5 MG Orally Once a day 1 tablet at bedtime as needed 24h 30 day(s) Active Diclofenac Sodium 75 MG 10 Active Vitamin D High Potency 25 MCG (1000 UT) 90 Active valACYclovir HCl 1 GM TAKE 1 TABLET BY MOUTH TWICE A DAY 30 Active Omeprazole 20 MG Orally Once a day 1 24h Mar, Active Dulcolax (colon prep) 5 MG Orally two tablets twice a day for one day take at 3:00 p.m and 7:00p.m. Dec, 1 day Active Escitalopram Oxalate 5 MG 90 Active PROCEDURES Procedure Date Ordered Result Body Site Pt scrn tbco and id as user January 05, 2022 PATIENT NOT ELIG D/T ACTIVE DX HTN January 05, 2022 DOC MEDS VERIFIED W/PT OR RE January 05, 2022 UPPER GI ENDOSCOPY, BIOPSY Feb 11, 2022 COLORECTAL CA SCREEN DOC REV January 05, 2022 COLONOSCOPY AND BIOPSY Feb 11, 2022 COLONOSCOPY AND BIOPSY Aug 02, 2019 RESULTS Name Result Date Reference Range Leukocytes Stool Qualitative 2022-08-01 Leukocytes Stool Qualitative NEGATIVE NEGATIVE Ova and Parasite 2022-08-01 Ova and Parasite SEE NOTE GI PANEL 2022-08-01 Campylobacter Not Detected Not Detect. Plesiomonas shigelloides Not Detected Not Detect. Salmonella Not Detected Not Detect. Vibrio Not Detected Not Detect. Vibrio Cholerae Not Detected Not Detect. Yersinia enterocolitica Not Detected Not Detect. E. coli EAEC Not Detected Not Detect. E. coli EPEC Not Detected Not Detect. E. coli ETEC Not Detected Not Detect. E. coli STEC Not Detected Not Detect. E. coli O157 Not applicable Not Detect. Shigella sp./EIEC Not Detected Not Detect . Cryptosporidium Not Detected Not Detect. Cyclospora cayetanensis Not Detected Not Detect. Entamoeba histolytica Not Detected Not De tect. Giardia lamblia Not Detected Not Detect. Adenovirus F 40/41 Not Detected Not Detec t. Astrovirus Not Detected Not Detect. Norovirus GI/GII Not Detected Not Detect. Rotavirus A Not Detected Not Detect. Sapovirus Not Detected Not Detect. Pathology 2022-02-11 GI BIOPSY 2019-08-02 G.I. BIOPSY GI BIOPSY 2016-06-03 G.I. BIOPSY REASON FOR VISIT epigastric pain, stool tests, r/f request pantoprazole , pathology, abn ct stomach,rectal bleeding,please lock 01-05-2022 office note, medication, bowel prep, patient presents today for distal stomachnarrowing, recall colonoscopy, results, rectal bleeding, diarrhea, Miralax & Dulcolax, bowel prep, patient presents today for rectal bleeding, epigastric pain, screening, [phone], consultation Insurance Providers Health Insurance Type Health Plan Insurance Address Health Plan Insurance Phone Health Plan Insurance Name Health Plan Coverage Dates Member ID Patient Relationship to Subscriber Patient Address Patient Phone Patient Name Patient Date of Subscriber ID Subscriber Name Subscriber Date of Group No [facility] DON'T USE [address] DON'T USE DON'T USE [facility] [phone] [facility] DON'T USE eugenie MCDONALD [id number] [facility] [address] [address] [facility] [id number] [facility] self JACQUELINE MCDONALD [id number]
[2022-11-21 17:34] LABS: Hematocrit 44.7 % (42.0-52.0); Hemoglobin 15.5 g/dl (14.0-18.0); Mean Corpuscular HGB Conc 34.7 g/dl (31.0-36.0); Mean Corpuscular Hemoglobin 31.6 pg (27.0-33.0); Mean Platelet Volume 9.8 fL (9.4-12.4); Platelet Count 202 X10*3/uL (160-400); Red Blood Count 4.91 X10*6/uL (4.60-5.80); Red Cell Distribution Width 13.1 % (11.0-16.0); White Blood Count 10.9 X10*3/uL (4.8-10.8)
[2022-11-21 17:48] LABS: Anion Gap 11 (12-20); Blood Urea Nitrogen 19 mg/dL (9-16); Calcium 9.7 mg/dL (8.4-10.2); Carbon Dioxide 31 mmol/L (22-29); Chloride 104 mmol/L (96-108); Creatinine Clr Calc Pharmacy 61.4; Estimated Glomerular Filt Rate 56; Glucose Random 99 mg/dL (60-115); Potassium 4.9 mmol/L (3.3-5.1); Sodium 141 mmol/L (135-145)
--- NOTE | 2022-11-21 18:10 | ED.GENADULT ---
HPI - General Adult General Chief complaint: Weakness Stated complaint: weakness,anxiety Time Seen by Provider: 11/21/22 18:08 Source: patient Mode of arrival: ambulatory Limitations: no limitations History of Present Illness HPI narrative: Patient 57 years old with history of HIV CD4 count count of 1020 history of hypertension and anxiety with history of recurrent pneumonia patient was in [place] from 11/08-11/15 for pneumonia stayed in the hospital requiring antibiotics finished Zithromax 5 day course last week comes here as still having persistent cough which is mostly dry and slight shortness of breath no fever feels weak and tired. No fever Related Data Home Medications Medication Instructions Recorded Confirmed colchicine 0.6 mg tablet 0.6 mg PO DAILY 06/23/20 09/30/22 hydrocortisone 2.5 % topical cream 1 appl topical BID PRN Muscle Spasm 06/23/20 09/30/22 triamcinolone acetonide 0.5 % 1 appl topical BID 06/23/20 09/30/22 topical cream escitalopram oxalate 5 mg tablet 5 mg PO DAILY 11/21/22 (Lexapro) Previous Rx's Medication Instructions Recorded clotrimazole 1 % topical cream 1 appl topical BID 30 days #45 02/22/21 (Lotrimin AF (clotrimazole)) grams pneumococcal 23-dwight ps vaccine 25 0.5 ml IM ONCE 30 days #0.5 mL 08/30/21 mcg/0.5 mL injection solution (Pneumovax-23) nitroglycerin 0.4 % (w/w) rectal 1 inch NC BID 30 days #30 grams 12/07/21 ointment (Rectiv) pantoprazole 20 mg tablet,delayed 20 mg PO DAILY #20 tabs 01/02/22 release (Protonix) diclofenac sodium 75 mg 75 mg PO BID #20 tabs 02/23/22 tablet,delayed release cholecalciferol (vitamin D3) 25 25 mcg PO DAILY 90 days #90 caps 03/15/22 mcg (1,000 unit) capsule hydrocortisone 2.5 % topical cream 1 appl NC BID PRN hemorrhoids 30 03/30/22 with perineal applicator days #30 grams (Proctosol HC) bictegravir 50 mg-emtricitabine 1 tab PO DAILY 90 days #90 tabs 08/12/22 200 mg-tenofovir alafenam 25 mg tablet (Biktarvy) albuterol sulfate 90 mcg/actuation 2 puff inhalation Q6H PRN 09/30/22 aerosol inhaler bronchospasm 30 days #8.5 grams allopurinol 100 mg tablet 100 mg PO DAILY 90 days #90 tabs 09/30/22 diclofenac sodium 1 % topical gel 2 g topical QID PRN pain (scale 09/30/22 (Voltaren Arthritis Pain) score 7-10) 2 weeks #100 grams lisinopril 2.5 mg tablet 2.5 mg PO DAILY 90 days #90 tabs 09/30/22 prednisone 10 mg tablet 10 mg PO BID 5 days #10 tabs 09/30/22 valacyclovir 1 gram tablet 1,000 mg PO DAILY 30 days #30 tabs 09/30/22 (Valtrex) Allergies Allergy/AdvReac Type Severity Reaction Status Date / Time No Known Allergies Allergy Verified 09/30/22 14:13 [No Known Allergies*] Review of Systems Review of Systems: Yes all other systems are reviewed and are negative PMFSH Past Medical History Medical History Abdominal pain Anxiety Cough Gout Hand numbness HIV (human immunodeficiency virus infection) HTN (hypertension) Hyperlipidemia Left shoulder pain Right shoulder pain Screen for STD (sexually transmitted disease) Syphilis Surgical History H/O colonoscopy History of bronchoscopy History of esophagogastroduodenoscopy (EGD) Family History Family History Father ALS (amyotrophic lateral sclerosis) Diabetes Hypertension Mother Liver cirrhosis Brother Liver cirrhosis Sister Hyperlipidemia Paternal Grandmother Cancer Paternal Aunt Cancer Family/Other FH: mental illness Substance use disorder Social History Social History Household Members: Friend(s) and None Housing: Other Alcohol intake: current Alcohol intake frequency: holidays/special occasions only Alcohol type: hard liquor Patient Tobacco Use Status: Current someday Tobacco user Tobacco use type: Cigarette Years Smoked: 30 e-Cigarette/Vaping Use: Never Used Advance Directives: No Advance Directives Information Provided: Yes service: No Current occupational status: unemployed Cognitive needs: No Hearing needs: No Vision needs: No Physical Exam ED Vital Signs: Vital Signs - 24 hr 11/21/22 16:37 Temperature 98.3 F Pulse Rate 90 Respiratory Rate 20 Blood Pressure 139/95 H Pulse Oximetry 99 Oxygen Delivery Method Room Air BMI result Body Mass Index 26.9 Appearance: Alert. Oriented X3. No acute distress. Eyes: No pallor or icterus ENT: Pharynx normal. Oral Mucosa moist Neck: Normal inspection. Neck supple. CVS: Normal heart rate and rhythm. Pulses normal. Respiratory: No respiratory distress. Equal air entry bilateral, no wheezing/rales/rhonchi Abdomen: Soft and nontender. Bowel sounds are present, no mass palpable, no CVA tenderness Skin: Skin warm and dry. Normal skin color. Normal skin turgor. Extremities: No lower extremity edema. No calf tenderness Neuro: Oriented X 3. No motor deficit. Medical Decision Making Lab Data MDM Lab Attestation statement: I reviewed the patient's lab results. 11/21/22 17:28 11/21/22 17:28 Labs: Lab Results 11/21/22 11/21/22 Range/Units 17:28 17:28 WBC 10.9 H (4.8-10.8) X10*3/uL RBC 4.91 (4.60-5.80) X10*6/uL Hgb 15.5 (14.0-18.0) g/dl Hct 44.7 (42.0-52.0) % MCV 91.0 (80.0-98.0) fL MCH 31.6 (27.0-33.0) pg MCHC 34.7 (31.0-36.0) g/dl RDW 13.1 (11.0-16.0) % Plt Count 202 (160-400) X10*3/uL MPV 9.8 (9.4-12.4) fL Absolute Nucleated RBC 0.000 (0.0-0.012) X10*3/uL Nucleated RBC % (auto) 0.0 (0.0-0.2) /100WBC Sodium 141 (135-145) mmol/L Potassium 4.9 (3.3-5.1) mmol/L Chloride 104 (96-108) mmol/L Carbon Dioxide 31 H (22-29) mmol/L Anion Gap 11 L (12-20) BUN 19 H (9-16) mg/dL Creatinine 1.31 (0.5-1.4) mg/dL Estim Creat Clear Calc 61.4 Estimated GFR 56 Random Glucose 99 (60-115) mg/dL Calcium 9.7 (8.4-10.2) mg/dL Discharge Plan Discharge Clinical Impression: Acute bronchitis Patient Disposition: Home, Self-Care Instructions: Acute Bronchitis (ED) Additional Instructions: Continue inhaler 2 puffs every 4-6 hours as needed Continue cough drops Follow with PCP as needed Contin?e inhalando 2 inhalaciones cada 4-6 horas seg?n sea necesario Seguir pastillas para la tos Siga con PCP seg?n sea necesario Prescriptions: No Action Pneumovax-23 25 mcg/0.5 mL solution 0.5 ml IM ONCE 30 Days Qty: 0.5 0RF cholecalciferol (vitamin D3) 25 mcg (1,000 unit) capsule 25 mcg PO DAILY 90 Days Qty: 90 3RF pantoprazole [Protonix] 20 mg tablet,delayed release (DR/EC) 20 mg PO DAILY Qty: 20 0RF escitalopram oxalate [Lexapro] 5 mg tablet 5 mg PO DAILY triamcinolone acetonide 0.5 % cream 1 appl topical BID colchicine 0.6 mg tablet 0.6 mg PO DAILY hydrocortisone 2.5 % cream 1 appl topical BID PRN (Reason: Muscle Spasm) Rectiv 0.4 % (w/w) ointment 1 inch NC BID 30 Days Qty: 30 0RF diclofenac sodium 75 mg tablet,delayed release (DR/EC) 75 mg PO BID Qty: 20 0RF prednisone 10 mg tablet 10 mg PO BID 5 Days Qty: 10 0RF albuterol sulfate 90 mcg/actuation HFA aerosol inhaler 2 puff inhalation Q6H PRN (Reason: bronchospasm) 30 Days Qty: 8.5 6RF allopurinol 100 mg tablet 100 mg PO DAILY 90 Days Qty: 90 1RF valacyclovir [Valtrex] 1 gram tablet 1,000 mg PO DAILY 30 Days Qty: 30 5RF diclofenac sodium [Voltaren Arthritis Pain] 1 % gel 2 g topical QID PRN (Reason: pain (scale score 7-10)) 14 Days Qty: 100 0RF Rx Instructions: apply to single elbow, wrist or hand; for hand includes palm/fingers/back of hand lisinopril 2.5 mg tablet 2.5 mg PO DAILY 90 Days Qty: 90 1RF hydrocortisone [Proctosol HC] 2.5 % cream with perineal applicator 1 appl NC BID PRN (Reason: hemorrhoids) 30 Days Qty: 30 6RF clotrimazole [Lotrimin AF (clotrimazole)] 1 % cream 1 appl topical BID 30 Days Qty: 45 11RF Biktarvy 50-200-25 mg tablet 1 tab PO DAILY 90 Days Qty: 90 1RF Interventions: ED Discharge Assessment Last Done: 11/21/22 19:30 Discharge Date/Time: 11/21/22 19:31 Print Language: Setswana
== END 2022-11-21 19:31 | disposition home or self-care (01) ==
PROVIDERS: Emergency Provider Internal Medicine; PCP Internal Medicine
DX: J20.9 Acute bronchitis, unspecified (principal); I10 Essential (primary) hypertension; F17.210 Nicotine dependence, cigarettes, uncomplicated
CPT/HCPCS: 36415; 71045; 80048; 85027; 99282; 99283

== ENCOUNTER 2022-11-24 09:51 | Outpatient (REF) | payer OTHER, SELFPAY | END 2022-11-24 09:52 | disposition home or self-care (01) | LOC: HO.LAB 09:51 | PROVIDERS: PCP Internal Medicine; Visit Provider Internal Medicine | DX: Z13.89 Encounter for screening for other disorder (principal) ==

== ENCOUNTER 2022-12-05 11:44 | Outpatient (REF) | payer OTHER, SELFPAY ==
--- NOTE | ~2022-12-05 | CT_ITS ---
EXAMINATION: CT ABDOMEN AND PELVIS WITH CONTRAST CLINICAL INFORMATION: Evaluate for splenomegaly COMPARISON: Previous CT of the abdomen and pelvis December 2021 TECHNIQUE: Multidetector volumetric images were obtained from the superior aspect of the liver through the pubic symphysis following administration 85 mL of Omnipaque 350 intravenous contrast. Sagittal and coronal reformatted images were obtained on the technologist's workstation. Oral contrast: Yes This CT examination was performed using dose optimization techniques as appropriate, variously including the following: *Automated exposure control *Adjustment of mA and/or kV according to patient size (this includes techniques or standardized protocols for targeted exams where dose is matched to indication/reason for exam; i.e. extremities or head) *Use of iterative reconstruction technique DLP: 439 mGy-cm FINDINGS: LUNG BASES: See chest CT report from the same day LIVER, GALLBLADDER, AND BILIARY TREE: The liver is normal in size, shape, and attenuation. No focal hepatic lesion or biliary ductal dilatation is present. The gallbladder is unremarkable with no evidence of radiopaque gallstones, gallbladder wall thickening, or obvious pericholecystic inflammatory changes. PANCREAS: Unremarkable. SPLEEN: Unremarkable. The spleen is normal in size. No focal splenic lesion. ADRENAL GLANDS: Unremarkable. KIDNEYS AND URETERS: The kidneys are normal in size, shape, and attenuation. No hydronephrosis, hydroureter, or calculi seen. No perinephric stranding. BLADDER: Unremarkable. GASTROINTESTINAL TRACT: The small and large bowel are unremarkable. The appendix is unremarkable. ABDOMINAL WALL: Tiny umbilical hernia containing fat. Fat in both inguinal canals. Subcutaneous nodule in the anterior pelvis stable sagittal reconstructed image 67 series 5. LYMPH NODES: Normal. VASCULAR: Unremarkable. PELVIC VISCERA: Unremarkable. OSSEOUS STRUCTURES: Mild degenerative changes of the spine. CT/CT abdomen pelvis w IV con IMPRESSION: Normal-sized spleen. Fleischner guidelines were followed.
--- NOTE | ~2022-12-05 | CT_ITS ---
EXAMINATION: CT ANGIOGRAM OF THE CHEST WITH AND WITHOUT CONTRAST (CT PULMONARY ANGIOGRAM FOR PE) CLINICAL INFORMATION: Reason for Exam R06.02 - Shortness of breath COMPARISON: Previous chest x-ray most recent 12/05/2022 and chest CTA March 2016 TECHNIQUE: Prior to contrast administration, noncontrast localization images were obtained. Subsequently, multidetector volumetric imaging was performed from the thoracic inlet to below the diaphragms following the administration of 85 mL Omnipaque 350 intravenous contrast. No contrast reaction reported Sagittal, coronal, and MIP oblique sagittal reformatted images were obtained on the CT workstation, uploaded to PACS, and reviewed. This CT examination was performed using dose optimization techniques as appropriate, variously including the following: *Automated exposure control *Adjustment of mA and/or kV according to patient size (this includes techniques or standardized protocols for targeted exams where dose is matched to indication/reason for exam; i.e. extremities or head) *Use of iterative reconstruction technique Total exam dose-length product 124 mGy-cm FINDINGS: QUALITY OF STUDY/CONTRAST BOLUS: Satisfactory. PULMONARY ARTERIES: No pulmonary emboli. THORACIC AORTA: No aneurysm. LUNG: Calcified pulmonary nodules suggestive of calcified granulomas. These appear unchanged from March 2016 exam. There are increased interstitial markings with increased reticulation and parenchymal attenuation seen diffusely throughout the lungs. This appears improved from March 2016. There are scattered areas of mild bronchial wall thickening and increased peribronchial attenuation and small nodule or nodular opacities. For example, there is a 3 mm noncalcified right upper lobe nodule axial image 209 series 11 that is new and more ill-defined peribronchial nodular opacity in the right upper lobe measuring approximately 3 x 7 mm axial image 152 series 11. This may represent airways disease. There are 3 mm noncalcified right lower lobe nodule axial image 309 and 312 series 11. Comparison and with prior exam is limited due to dense airspace disease in this region on prior exam and nodule cannot be compared. Stable calcified nodules suggestive of calcified granulomas. PLEURA: No pleural effusion or pneumothorax. MEDIASTINUM: Normal heart size. No pericardial effusion. Diffuse shotty mediastinal lymphadenopathy. Small bilateral hilar lymph nodes. No enlarged lymph nodes seen. No evidence of septal bowing or right heart strain. CORONARY ARTERY CALCIFICATION: None visualized on this study. CHEST WALL/AXILLA: No axillary or internal mammary lymphadenopathy. OSSEOUS STRUCTURES: No acute or suspicious osseous abnormality. Mild degenerative changes of the spine. UPPER ABDOMEN: Unremarkable. No reflux of contrast into the hepatic veins to suggest elevated right heart pressures. CT/CT angio chest PE protocol IMPRESSION: No evidence of pulmonary embolism. Diffuse interstitial disease probably representing postinfectious or inflammatory scarring related to acute process March 2016. Question airways disease with scattered areas of the bronchial wall thickening and increased peribronchial attenuation and nodular opacities. Pulmonary consultation may be helpful. Small calcified pulmonary nodules probably representing calcified granulomas. Several small noncalcified nodules for example in the right upper lobe axial image 209 recent 11 and right lower lobe pulmonary nodules. These are difficult to compare with 2016 exam. VTE: negative
--- NOTE | ~2022-12-05 | XR_ITS ---
EXAMINATION: XR CHEST CLINICAL INFORMATION: Recent pneumonia COMPARISON: Previous chest x-ray most recent October 2022 TECHNIQUE: Frontal view of the chest was obtained. FINDINGS: The cardiac and mediastinal contours are stable. There is identified nodular opacities in the right lung appear less apparent. There is dense nodules seen in the left upper lobe measuring 4 mm that is stable compared to multiple prior exams and may represent a calcified granuloma. There are coarse lung markings questionable for interstitial lung disease. There is no pleural effusion or pneumothorax. No acute bone abnormality XR/XR chest 1V IMPRESSION: Small nodular opacities in the right lung on October 2022 chest x-ray to longer appreciated. Coarse lung markings and mild interstitial disease.
[2022-12-05] MEDS: iohexoL 350 MG/ML 100 ML INFUS..BTL 85 ML IV (15:14)
[2022-12-05] MEDS: Barium Sulfate Oral (Vanilla) 450 ML ORAL.SUSP 900 ML PO (15:15)
== END 2022-12-05 11:45 | disposition home or self-care (01) ==
LOC: HO.CT 11:44
PROVIDERS: PCP Internal Medicine; Visit Provider Internal Medicine
DX: R16.1 Splenomegaly, not elsewhere classified (principal); R06.02 Shortness of breath; J18.9 Pneumonia, unspecified organism
CPT/HCPCS: 71045; 71275; 74177; Q9967

== ENCOUNTER → 2022-12-12 13:48 | Outpatient (BNVA) | payer OTHER, SELFPAY | PROVIDERS: PCP Internal Medicine; Visit Provider Internal Medicine | DX: B20 Human immunodeficiency virus [HIV] disease (principal); R06.02 Shortness of breath; Z11.3 Encounter for screening for infections with a predominantly sexual mode of transmission | CPT/HCPCS: 99212 ==

== ENCOUNTER 2023-01-04 13:01 | Outpatient (REF) | payer OTHER, SELFPAY ==
--- NOTE | ~2023-01-04 | XR_ITS ---
EXAMINATION: XR KNEE, RIGHT CLINICAL INFORMATION: Right knee pain COMPARISON: None available. TECHNIQUE: Two views of the right knee. FINDINGS: Alignment is normal. Joint spaces are maintained. No joint effusion. There appears to be a subchondral cyst of the patella as well as small osteophyte of the inferior patella. No intra-articular osteochondral body. No fracture or subluxation. XR/XR knee RT 2V IMPRESSION: Mild osteoarthritis of the patellofemoral joint.
[2023-01-04 14:34] LABS: Anion Gap 14 (12-20); Blood Urea Nitrogen 23 mg/dL (9-16); Carbon Dioxide 27 mmol/L (22-29); Chloride 104 mmol/L (96-108); Estimated Glomerular Filt Rate > 60; Glucose Random 100 mg/dL (60-115); Potassium 4.9 mmol/L (3.3-5.1); Sodium 140 mmol/L (135-145); Uric Acid 6.2 mg/dL (3.4-7.0)
== END 2023-01-04 13:02 | disposition home or self-care (01) ==
LOC: HO.XRAY 13:01
PROVIDERS: PCP Internal Medicine; Visit Provider Physician Assistant
DX: M10.9 Gout, unspecified (principal); M25.561 Pain in right knee; R06.02 Shortness of breath; R91.8 Other nonspecific abnormal finding of lung field
CPT/HCPCS: 36415; 73560; 80048; 84550; 85025

== ENCOUNTER 2023-01-05 12:45 | Outpatient (REF) | payer OTHER, SELFPAY | END 2023-01-05 12:46 | disposition home or self-care (01) | LOC: HO.RESP 12:45 | PROVIDERS: PCP Internal Medicine; Visit Provider Physician Assistant | DX: R06.02 Shortness of breath (principal) | CPT/HCPCS: 94060; 94727; 94729 ==

== ENCOUNTER 2023-01-27 12:00 | Outpatient (REF) | payer OTHER, SELFPAY ==
[2023-01-27 12:17] LABS: MANUAL DIFF FLAG NO
[2023-01-27 12:50] LABS: Basophils Percent Auto 0.6 % (0-2); Eosinophils Absolute Auto 0.2 X10*3/uL (0.0-0.4); Eosinophils Percent Auto 3.2 % (0-4); Hemoglobin 14.5 g/dl (14.0-18.0); Imm Gran Abs Auto 0.02 X10*3/uL (0.00-0.03); Imm Gran Pct Auto 0.3 % (0.0-0.4); Lymphocytes Absolute Auto 2.5 X10*3/uL (1.2-4.9); Mean Corpuscular HGB Conc 35.4 g/dl (31.0-36.0); Mean Corpuscular Hemoglobin 32.7 pg (27.0-33.0); Mean Corpuscular Volume 92.3 fL (80.0-98.0); Monocytes Absolute Auto 0.4 X10*3/uL (0.1-1.2); Monocytes Percent Auto 5.8 % (2-11); Neutrophils Percent Auto 55.1 % (45-73); Platelet Count 182 X10*3/uL (160-400); Red Blood Count 4.44 X10*6/uL (4.60-5.80); Red Cell Distribution Width 12.7 % (11.0-16.0); White Blood Count 7.2 X10*3/uL (4.8-10.8)
[2023-01-27 13:31] LABS: Alanine Aminotransferase 33 U/L (0-40); Albumin Level 4.1 g/dL (3.5-5.0); Alkaline Phosphatase 99 U/L (39-117); Anion Gap 13 (12-20); Aspartate Amino Transferase 35 U/L (5-37); Bilirubin Direct 0.2 mg/dL (0.0-0.5); Bilirubin Total 0.7 mg/dL (0.0-1.0); Blood Urea Nitrogen 17 mg/dL (9-16); Calcium 9.1 mg/dL (8.4-10.2); Carbon Dioxide 24 mmol/L (22-29); Chloride 106 mmol/L (96-108); Estimated Glomerular Filt Rate > 60; Glucose Random 96 mg/dL (60-115); Potassium 4.1 mmol/L (3.3-5.1); Sodium 139 mmol/L (135-145); Total Protein 6.4 g/dL (6.5-8.0)
[2023-01-28 13:28] LABS: HIV RNA PCR Qn Copies <20 DETECTED copies/mL (NOT DETECTED); HIV RNA PCR Qn Log Copies <1.30 DETECTED (NOT DETECTED)
[2023-01-30 04:01] LABS: Syphilis Screen Reactive (Nonreactive)
[2023-01-30 04:15] LABS: ~HepC Num1 0.04 S/CO (0.00-0.79); ~Hepatitis C Antibody Nonreactive (Nonreactive)
[2023-01-30 10:38] LABS: Absolute CD3 Count 1836 cells/uL (840-3060); Absolute CD4 Count 1015 cells/uL (490-1740); Absolute CD8 Count 849 cells/uL (180-1170); Absolute Lymphocytes 2353 cells/uL (850-3900); Percent CD3 Cells 78 % (57-85); Percent CD4 Cells 43 % (30-61); Percent CD8 Cells 36 % (12-42)
[2023-02-06 10:59] LABS: RPR Quantitative Reactive 1:1 (Nonreactive)
[2023-02-06 11:00] LABS: T.Pallidum Particle Agg Test Reactive (Nonreactive)
== END 2023-01-27 12:01 | disposition home or self-care (01) ==
LOC: HO.LAB 12:00
PROVIDERS: PCP Internal Medicine; Visit Provider Internal Medicine
DX: B20 Human immunodeficiency virus [HIV] disease (principal)
CPT/HCPCS: 36415; 80048; 80076; 85025; 86359; 86360; 86592; 86780; 86803; 87536

== ENCOUNTER 2023-02-10 13:38 | Outpatient (AMB) | payer OTHER, SELFPAY ==
--- NOTE | 2023-02-10 13:37 | MHC.OFFVIS ---
Intake Vital Signs 02/10/23 13:45 Height 5 ft 9 in Weight 194 lb BMI 28.6 BP 138/80 Blood Pressure Location Lt brachial Position Sitting Pulse 100 Pulse Source Pulse Oximeter Pulse Oximetry (%) 98 Intake Visit Reasons: f/u 6 mth Stock Preparation Operator Required: Yes Stock Preparation Operator Name: Jf Jain CMA Information Interpreted: clinical only Allergies No Known Allergies [No Known Allergies*] Allergy (Verified 02/10/23 13:46) HPI f/u 6 mth HPI Details He is here for followup HIV care. He has no complaints. He takes Biktarvy. He has RPR 1:1 on 01/27 and has viral load undetectable and CD4 count 1015. He has creatinine unremarkable. [facility] Medical History Abdominal pain Anxiety Cough Gout Hand numbness HIV (human immunodeficiency virus infection) HTN (hypertension) Hyperlipidemia Left shoulder pain Right shoulder pain Screen for STD (sexually transmitted disease) Shortness of breath Syphilis Surgical History H/O colonoscopy History of bronchoscopy History of esophagogastroduodenoscopy (EGD) Family History Father ALS (amyotrophic lateral sclerosis) Diabetes Hypertension Mother Liver cirrhosis Brother Liver cirrhosis Sister Hyperlipidemia Paternal Grandmother Cancer Paternal Aunt Cancer Family/Other FH: mental illness Substance use disorder Social History Household Members: Friend(s) and None Housing: Other Alcohol intake: current Alcohol intake frequency: holidays/special occasions only Alcohol type: hard liquor Patient Tobacco Use Status: Current someday Tobacco user Tobacco use type: Cigarette Years Smoked: 30 e-Cigarette/Vaping Use: Never Used service: No Current occupational status: unemployed Cognitive needs: No Hearing needs: No Vision needs: No Review of Systems Const All systems reviewed & are unremarkable except as noted in HPI and below Physical Exam Vital Signs: Last Vital Signs Pulse 100 02/10/23 13:45 BP 138/80 02/10/23 13:45 Pulse Ox 98 02/10/23 13:45 BMI result Body Mass Index 28.6 Const General: cooperative Orientation/consciousness: patient oriented x3 HEENT Head: Yes normal to inspection Mouth: Normal oral and palatal mucosa present Eyes General: appearance normal, both eyes and all related structures Pupils: Equal, round and reactive pupils present Resp Effort & Inspection: normal respiratory effort Cardio Rate: regular rate Rhythm: regular rhythm GI Palpation (GI): Soft to palpation and nontender General: Yes no CVA tenderness Back/Spine/Pelvis Back: no CVA tenderness Skin General skin exam: no rashes or lesions noted Neuro General: patient oriented x3 Cranial nerves: Yes CN's II-XII intact bilaterally and Yes Equal, round and reactive pupils present Extrem General: Yes normal to inspection Psych Appearance: grossly normal Assessment & Plan Assessment & Plan (1) HIV (human immunodeficiency virus infection): Comment: He has been doing well and now has undetectable viral load. He is getting full STD check and rectal Pap today. Code(s): B20 - Human immunodeficiency virus [HIV] disease Plan: Check Pap test. Check oral,urine and rectal GC/chlamydia. Continue Biktarvy Check HIV viral load and CD4 count and syphilis testing end July. See in six months Orders: Orders Other Ref Test - [facility] [place], [place] 02/09/23 B20 - Human immunodeficiency virus [HIV] disease Other Ref Test - [facility] [place], [place] 02/10/23 B20 - Human immunodeficiency virus [HIV] disease Other Ref Test - [facility] [place], [place] 02/11/23 B20 - Human immunodeficiency virus [HIV] disease Other Ref Test - [facility] [place], [place] 07/13/23 B20 - Human immunodeficiency virus [HIV] disease Lymphocyte Subset Panel 3 5 Months B20 - Human immunodeficiency virus [HIV] disease Hepatitis C Antibody 5 Months B20 - Human immunodeficiency virus [HIV] disease HIV-1 RNA QN PCR Expanded 5 Months B20 - Human immunodeficiency virus [HIV] disease Syphilis Screen 5 Months B20 - Human immunodeficiency virus [HIV] disease Medications: Discontinued escitalopram oxalate 5 mg PO DAILY 90 days 90 tabs 1RF Coding Level of Care Code Est Pt Level 3 (13453) Diagnoses HIV (human immunodeficiency virus infection) B20
--- OUTSIDE RECORDS SUMMARY | 2023-02-10 13:40 | XMS_ITS ---
Author Name Frankie Vences Jr Address [address] [place] [address] Organization [facility] Address [address] [place] [address] Care Team Providers Care Purchasing And Claims Supervisor Name Role Phone Frankie Vences Jr Unavailable [phone] PROBLEMS Type Condition ICD9-CM Code XZO68-WX Code Onset Dates Condition Status SNOMED Code Problem Diarrhea, unspecified type R19.7 Active [id number] Problem Ab[address] CT scan, stomach R93.3 Active [id number] 107 Problem Colon cancer screening Z12.11 Active 781565486 Problem Rectal bleeding K62.5 Active 05852313 Problem Epigastric pain R10.13 Active [id number] ALLERGIES No Known Allergies ENCOUNTERS Encounter Location Date Diagnosis [facility] [address] [place] [phone] Aug, [facility] [address] [place] [phone] Jul, Diarrhea, unspecified type R19.7 [facility] [address] [place] [phone] Jul, [facility] [address] [place] [phone] Mar, [facility] Outpatient [address] [place] [id number] Jan, Rectal bleeding K62.[address] scan R93.5 [facility] [address] [place] [phone] Dec, [facility] [address] [place] [phone] Dec, Abnormal CT scan, stomach R93.3 [facility] [address] [place] [phone] Dec, Rectal bleeding K62.5 [facility] [address] [place] [phone] Dec, Abnormal CT scan, stomach R93.3 and Rectal bleeding K62.5 [facility] [address] [place] [phone] Aug, [facility] [address] [place] [phone] Aug, [facility] Outpatient [address] [place], [place] [id number] Jul, Rectal bleed K62.5 and Diarrhea R19.7 [facility] [address] [place] [phone] Jul, [facility] [address] [place] [phone] May, [facility] [address] [place] [phone] May, Diarrhea, unspecified type R19.7 and Rectal bleeding K62.5 [facility] Outpatient [address] [place], [place] [id number] Jun, [facility] [address] [place] [phone] Jun, [facility] [address] [place] [phone] Mar, Epigastric pain R10.13 ; Rectal bleeding [...] VERIFIED W/PT OR RE January 05, 2022 COLORECTAL CA SCREEN DOC REV January 05, 2022 UPPER GI ENDOSCOPY, BIOPSY Feb 11, 2022 COLONOSCOPY AND BIOPSY Aug 02, 2019 COLONOSCOPY AND BIOPSY Feb 11, 2022 RESULTS Name Result Date Reference Range Leukocytes [...] BIOPSY 2016-06-03 G.I. BIOPSY REASON FOR VISIT Patient presents today for epigastric pain, stool tests, r/f request pantoprazole , pathology, abn ct stomach,rectal bleeding, please lock 01-05-2022 office note, medication, bowel prep, patient presents today for distal stomach narrowing, recall colonoscopy, results, rectal bleeding, diarrhea, Miralax [...] Subscriber Name Subscriber Date of Group No [facility] [address] [address] [facility] [id number] [facility] self JACQUELINE MCDONALD [id number] [facility] DON'T USE [address] DON'T USE DON'T USE [facility] [address] [facility] DON'T USE self JACQUELINE MCDONALD [id number]
[2023-02-10 13:45] VITALS: BP 138/80; PULSE 100; O2SAT 98; BMI 28.6
== END 2023-02-10 14:18 | disposition home or self-care (01) ==
LOC: HO.HID 13:38
PROVIDERS: PCP Internal Medicine; Visit Provider Internal Medicine
DX: B20 Human immunodeficiency virus [HIV] disease (principal)
CPT/HCPCS: 99213

== ENCOUNTER 2023-02-10 13:38 | Outpatient (REF) | payer OTHER, SELFPAY ==
[2023-02-10 18:13] LABS: CT PCR NOT DETECTED (Not Detect.); NG PCR NOT DETECTED (Not Detect.)
== END 2023-02-10 13:39 | disposition home or self-care (01) ==
LOC: HO.LAB 13:38
PROVIDERS: PCP Internal Medicine; Visit Provider Internal Medicine
DX: B20 Human immunodeficiency virus [HIV] disease (principal); Z20.2 Contact with and (suspected) exposure to infections with a predominantly sexual mode of transmission
CPT/HCPCS: 0353U; 88112; 99212

== ENCOUNTER 2023-02-15 15:57 | Outpatient (AMB) | payer OTHER, SELFPAY ==
[2023-02-15 15:58] VITALS: BP 130/82; PULSE 75; O2SAT 99; BMI 28.5
--- NOTE | 2023-02-15 15:58 | A.OFFPC_ITS ---
Vital Signs 02/15/23 15:58 Height 5 ft 9 in Weight 193 lb BMI 28.5 BP 130/82 Blood Pressure Location Lt brachial Position Sitting Pulse 75 Pulse Source Pulse Oximeter Temp Source Skin Pulse Oximetry (%) 99 Oxygen Delivery Method Room Air Intake Visit Reasons: Physical Exam Intake Note: Patient is here today for a physical. 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 Ferryboat Ticket Taker Language: Sudanese Allergies No Known Allergies [No Known Allergies*] Allergy (Verified 02/15/23 16:33) Medication List - Last Reconciled 02/15/23 by ANNE-MARIE Rojo albuterol sulfate 90 mcg/actuation 2 puffs inhalation Q6H PRN 30 days allopurinol 100 mg PO DAILY 90 days qnbsjorva-jnqqmwaf-vcifwne ala 50-200-25 mg (Biktarvy) 1 tab PO DAILY 30 days cholecalciferol (vitamin D3) 25 mcg PO DAILY 90 days clotrimazole 1% (Lotrimin AF (clotrimazole)) 1 appl topical BID 30 days colchicine (gout) 0.6 mg PO DAILY diclofenac sodium 75 mg PO BID diclofenac sodium 1% (Voltaren Arthritis Pain) 2 grams topical QID PRN 2 weeks escitalopram oxalate (Lexapro) 5 mg PO DAILY hydrocortisone 2.5% 1 appl topical BID PRN hydrocortisone 2.5% (Proctosol HC) 1 appl [place] BID PRN 30 days nitroglycerin 0.4%(w/w) (Rectiv) 1 inch W[place] BID 30 days pantoprazole (Protonix) 20 mg PO DAILY pneumococcal 23-dwight ps vaccine (Pneumovax-23) 0.5 mL IM ONCE 30 days triamcinolone acetonide 0.5% 1 appl topical BID valacyclovir (Valtrex) 1,000 mg PO DAILY 30 days Tobacco use date assessed: 02/15/23 Dental Screening Dental Screen Date: 02/15/23 Did you have a dental visit in the last 12 months?: No Did you have a dental problem in the last 6 months where you did not have access to dental care?: No Was dental information given to patient?: Patient has dentist HPI Physical Exam HPI Details Patient is a 57-year-old male who presents today for physical exam. Patient of Dr. Dominique. Medical history significant for HIV-followed by infectious disease, anxiety, gout, hyperlipidemia, proteinuria-followed by nephrology Dr. Cardozo, lung nodules-will be seen pulmonology, right knee pain, back pain. Reports ongoing right knee pain, recently had x-ray with osteoarthritis interested in physical therapy referral, eating diclofenac with some improvement pain reports intermittent swelling of the knee. Pain is worse with ambulation. In addition he reports ongoing right lower back pain for long time now, reports intermittent spasming sensation, interested in physical therapy referral. Reports smoking 1.5 packs cigarettes per day, reports unable to tolerate nicotine gum, reports being on nicotine patch in the past, declined nicotine replacement therapy at present, encouraged smoking cessation. In addition patient reports ongoing right tongue lesion for very long time now which is not improving, reports not painful, reports some pain when bites on it. Reports hard time falling asleep and staying asleep for the past some time now, did not use anything for this. Up-to-date with tetanus vaccine. Colonoscopy normal 0 01/2022 and repeat in 10 years. Patient will call for an eye exam. Patient denies shortness of breath or chest pain. Patient is a Sudanese-speaking and [employer] was helping with interpretation. 12/2022 XR/XR knee RT 2V IMPRESSION: Mild osteoarthritis of the patellofemoral joint. [facility] Medical History (Updated 02/15/23 @ 16:59 by ANNE-MARIE Rojo) Abdominal pain Anxiety Cough Gout Hand numbness HIV (human immunodeficiency virus infection) HTN (hypertension) Hyperlipidemia Left shoulder pain Pneumonia Right shoulder pain Screen for STD (sexually transmitted disease) Shortness of breath Syphilis Surgical History (Updated 02/15/23 @ 17:17 by ANNE-MARIE Rojo) H/O colonoscopy History of bronchoscopy History of esophagogastroduodenoscopy (EGD) Family History Father ALS (amyotrophic lateral sclerosis) Diabetes Hypertension Mother Liver cirrhosis Brother Liver cirrhosis Sister Hyperlipidemia Paternal Grandmother Cancer Paternal Aunt Cancer Family/Other FH: mental illness Substance use disorder Social History Household Members: Friend(s) and None Housing: Other Alcohol intake: current Alcohol intake frequency: holidays/special occasions only Alcohol type: hard liquor Patient Tobacco Use Status: Current someday Tobacco user Tobacco use type: Cigarette Years Smoked: 30 e-Cigarette/Vaping Use: Never Used service: No Current occupational status: unemployed Cognitive needs: No Hearing needs: No Vision needs: No Questionnaire PHQ-9 Over the last 2 weeks, how often have you been bothered by any of the following problems? 1. Little interest or pleasure in doing things: not at all 2. Feeling down, depressed, or hopeless: several days 3. Trouble falling or staying asleep, or sleeping too much: several days 4. Feeling tired or having little energy: not at all 5. Poor appetite or overeating: several days 6. Feeling bad about yourself - or that you are a failure or have let yourself or your family down: not at all 7. Trouble concentrating on things, such as reading the newspaper or watching television: not at all 8. Moving or speaking so slowly that other people could have noticed. Or the opposite - being so fidgety or restless that you have been moving around a lot more than usual: not at all 9. Thoughts that you would be better off or of hurting yourself in some way: not at all Total score: 3 Depression Screening Interpretation: Negative 50144 - PHQ-9 Billing: Yes Source: Developed by Drs. Juan Luis Payne, Elsy Tadeo, Raymon Franco and colleagues, with an educational brinda from [employer]. Thrive Questionnaire Date Thrive assessed: 08/01/22 AUDIT C Alcohol Use Questionnaire (AUDIT-C) 1. How often do you have a drink containing alcohol?: 2-3 times a week 2. How many drinks containing alcohol do you have on a typical day when you are drinking?: 1 or 2 3. How often do you have six or more drinks on one occasion?: Never Total Score: 3 Score Reviewed/Action Taken: Yes CRISTOBAL-7 AMB Questionnaire CRISTOBAL-7 Date CRISTOBAL - 7 assessed: 02/15/23 Feeling nervous, anxious, or on edge: 3 = Nearly every day Not being able to stop or control worryin = Nearly every day Worrying too much about different things: 0 = Not at all Trouble relaxin = Not at all Being so restless that it is hard to sit still: 0 = Not at all Becoming easily annoyed or irritable: 0 = Not at all Feeling afraid as if something awful might happen: 0 = Not at all Total CRISTOBAL-7 score (0-4 normal; 5-9 mild; 10-14 moderate; 15-21 severe): 6 Source: Developed by Drs. Juan Luis Payne, Elsy Tadeo, Raymon Franco and colleagues, with an educational brinda from [employer]. CRISTOBAL-7 Assessment Billing CRISTOBAL-7 Assessment Tool: CRISTOBAL-7 Assessment 67936 Review of Systems Const Denies body aches, Denies chills, Denies fever(s) and Denies headache(s) Eyes Denies change in vision ENT Denies dizziness, Denies otalgia, Denies headache(s), Denies nasal discharge, Denies sinus pain and Denies sore throat Card Denies chest pain, Denies edema, Denies lightheadedness and Denies dyspnea Resp Denies cough, Denies dyspnea and Denies wheezing GI Denies abdominal pain, Denies constipation, Denies diarrhea, Denies nausea and Denies vomiting Denies dysuria Musc Reports back pain, Denies myalgias and Reports arthralgias Skin/Breast Denies rash Neuro Denies dizziness and Denies headache(s) Aller/Immun Denies wheezing Physical exam (Primary Care) Vital Signs: Last Vital Signs Pulse 75 02/15/23 15:58 BP 130/82 02/15/23 15:58 Pulse Ox 99 02/15/23 15:58 Oxygen Delivery Method Room Air 02/15/23 15:58 BMI result Body Mass Index 28.5 Tobacco/Smoking Status: Tobacco use Status Tobacco use date assessed 02/15/23 02/15/23 16:00 Patient Tobacco Use Status Current someday Tobacco 02/15/23 16:00 Tobacco use type Cigarette 02/15/23 16:00 e-Cigarette/Vaping Use Never Used 02/15/23 16:00 PHQ-9: PHQ-9 Score PHQ-9: Total score 3 02/15/23 16:38 Depression Screening Interpretation: Negative Thrive Assessment: Date of Thrive Assessment Date Thrive assessed 08/01/22 02/15/23 16:00 Const General: cooperative and no acute distress Orientation/consciousness: patient oriented x3 HENMT Other: Right lateral tongue with round raised lesion about 8mm, no discharge noted, no signs of infection noted Head: Yes normocephalic and Yes atraumatic Ears: TM's normal bilaterally Face and sinus: Yes sinuses nontender Mouth: oropharynx normal and moist mucous membranes Throat: Yes posterior oropharynx normal Eyes General: appearance normal, both eyes and all related structures Pupils: Equal, round and reactive pupils present EOM: EOMs intact bilaterally Neck Neck: Yes normal visual inspection, Yes full ROM and Yes no lymphadenopathy Thyroid: Thyroid normal Resp Effort & Inspection: normal respiratory effort and able to speak in complete sentences Auscultation: clear to auscultation bilaterally, no crackles, no rales, no rhonchi and no wheezes Cardio Rate: regular rate Rhythm: regular rhythm Heart sounds: S1 normal heart sound present, S2 normal heart sound present and no murmurs GI Palpation (GI): Soft to palpation, not firm, nontender, no guarding, not rigid and no hepatosplenomegaly Auscultation: normal bowel sounds General: No CVA tenderness Back/Spine/Pelvis Back: No CVA tenderness Thoracic/Lumbar Spine: No paraspinal muscle tenderness, No thoracic spinal tenderness and No lumbar spinal tenderness Skin General skin exam: no rashes or lesions noted Neuro General: patient oriented x3 Cranial nerves: Yes Equal, round and reactive pupils present Gait exam (Neuro): Normal gait present Extrem General: Yes full ROM and No edema Right lower extremity: knee Details: normal to inspection and normal ROM; no tenderness, no swelling, no crepitus and no unusual warmth Assessment and Plan Assessment & Plan (1) Tongue lesion: Code(s): K14.8 - Other diseases of tongue Plan: Right lateral tongue with round raised lesion about 8mm, no discharge noted, no signs of infection noted ENT referral for an evaluation and treatment (2) Screening for prostate cancer: Code(s): Z12.5 - Encounter for screening for malignant neoplasm of prostate (3) Adult general medical exam: Code(s): Z00.00 - Encounter for general adult medical examination without abnormal findings Plan: Patient would like to check his testosterone level as, blood work ordered (4) Right knee pain: Code(s): M25.561 - Pain in right knee Plan: Physical therapy referral Continue diclofenac b.i.d. p.r.n. Orthopedic referral (5) Proteinuria: Code(s): R80.9 - Proteinuria, unspecified Plan: Continue to follow-up with nephrology (6) Back pain: Code(s): M54.9 - Dorsalgia, unspecified Plan: Continue diclofenac b.i.d. p.r.n. Physical therapy referral (7) Anxiety: Code(s): F41.9 - Anxiety disorder, unspecified Plan: Continue escitalopram 5 mg daily Orders: Orders Prostate Specific Antigen Today Z12.5 - Encounter for screening for malignant neoplasm of prostate TSH reflex Free T4 Today Z00.00 - Encounter for general adult medical examination without abnormal findings Vitamin B12 and Folate Today Z00.00 - Encounter for general adult medical examination without abnormal findings Testosterone, Total Today Z00.00 - Encounter for general adult medical examination without abnormal findings PT Evaluation and Treatment Today M25.561 - Pain in right knee PT Evaluation and Treatment Today M54.9 - Dorsalgia, unspecified Referrals Orthopedics Referral M25.561 - Pain in right knee Ear/Nose/Throat Referral K14.8 - Other diseases of tongue Medications: Discontinued escitalopram oxalate 5 mg PO DAILY 90 days 90 tabs 1RF Coding Level of Care Code Est Pt Prev Care 40-64y(17562) Diagnoses Tongue lesion K14.8 Screening for prostate cancer Z12.5 Adult general medical exam Z00.00 Right knee pain M25.561 Proteinuria R80.9 Back pain M54.9 Anxiety F41.9 Additional Codes CRISTOBAL-7 Assessment Billing - CRISTOBAL-7 Assessment Tool: CRISTOBAL-7 Assessment 99942 ([id number])
== END 2023-02-15 17:08 | disposition home or self-care (01) ==
PROVIDERS: PCP Internal Medicine; Visit Provider Nurse Practitioner Family
DX: Z00.00 Encounter for general adult medical examination without abnormal findings (principal); F41.9 Anxiety disorder, unspecified; K14.8 Other diseases of tongue; Z12.5 Encounter for screening for malignant neoplasm of prostate; M25.561 Pain in right knee; R80.9 Proteinuria, unspecified; M54.9 Dorsalgia, unspecified
CPT/HCPCS: 99396

== ENCOUNTER 2023-02-21 08:45 | Outpatient (REF) | payer OTHER, SELFPAY ==
[2023-02-21 10:59] LABS: TSH reflex Free T4 2.31 uIU/mL (0.32-4.0)
[2023-02-21 11:24] LABS: Prostate Specific Antigen 0.53 ng/mL (<0.05-4.0); Vitamin B12 358 pg/mL (200-900)
[2023-02-25 12:32] LABS: Testosterone, Total 418 ng/dL (250-1100)
== END 2023-02-21 08:46 | disposition home or self-care (01) ==
LOC: HO.LAB 08:45
PROVIDERS: Absent Provider Nurse Practitioner Family; PCP Internal Medicine; Visit Provider Internal Medicine Pulmonary Disease
DX: Z00.00 Encounter for general adult medical examination without abnormal findings (principal); Z12.5 Encounter for screening for malignant neoplasm of prostate; J84.9 Interstitial pulmonary disease, unspecified; R91.8 Other nonspecific abnormal finding of lung field
CPT/HCPCS: 36415; 82607; 82746; 84153; 84403; 84443; 99202

== ENCOUNTER 2023-02-21 08:45 | Outpatient (AMB) | payer OTHER, SELFPAY ==
--- NOTE | 2023-02-21 08:53 | MHC.OFFVIS ---
Intake Vital Signs 02/21/23 08:54 Height 5 ft 9 in Weight 197 lb 5.019 oz BMI 29.1 BP 132/74 Blood Pressure Location Lt brachial Position Sitting Pulse 73 Pulse Source Pulse Oximeter Pulse Oximetry (%) 98 Oxygen Delivery Method Room Air Intake Visit Reasons: Abnormal CT scan Allergies No Known Allergies [No Known Allergies*] Allergy (Verified 02/21/23 08:59) HPI Abnormal CT scan HPI Details 57-year-old gentleman, active social smoker 1 pack lasting about a week, with underlying history of HIV on HAART, removed pneumonia in 2016 with post infection changes, referred after recent bout of pneumonia and a follow-up CT scan showed pulmonary nodules and interstitial changes, not significantly different from 2016. Patient denies any significant dyspnea on exertion, cough, or sputum production. He did have a pulmonary function testing that showed mild decrease in diffusion capacity. 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 He denies family history of lung disease. [facility] Medical History (Updated 02/21/23 @ 09:45 by David Jeong MD) Abdominal pain Anxiety Cough Gout Hand numbness HIV (human immunodeficiency virus infection) HTN (hypertension) Hyperlipidemia Left shoulder pain Pneumonia Right shoulder pain Screen for STD (sexually transmitted disease) Shortness of breath Syphilis Surgical History (Updated 02/15/23 @ 17:17 by ANNE-MARIE Rojo) H/O colonoscopy History of bronchoscopy History of esophagogastroduodenoscopy (EGD) Family History Father ALS (amyotrophic lateral sclerosis) Diabetes Hypertension Mother Liver cirrhosis Brother Liver cirrhosis Sister Hyperlipidemia Paternal Grandmother Cancer Paternal Aunt Cancer Family/Other FH: mental illness Substance use disorder Social History Household Members: Friend(s) and None Housing: Other Alcohol intake: current Alcohol intake frequency: holidays/special occasions only Alcohol type: hard liquor Patient Tobacco Use Status: Current someday Tobacco user Tobacco use type: Cigarette Years Smoked: 30 e-Cigarette/Vaping Use: Never Used service: No Current occupational status: unemployed Cognitive needs: No Hearing needs: No Vision needs: No Review of Systems Const Denies daytime sleepiness, Denies excessive sweating, Denies fatigue, Denies fever(s), Denies lethargy, Denies malaise, Denies night sweats, Denies snoring and Denies weight loss Eyes Denies blurry vision and Denies itchy eyes ENT Denies nasal congestion, Denies post nasal drip, Denies sinus pain, Denies sinus pressure and Denies other ( Thrush) Card Denies chest pain, Denies pedal edema, Denies dyspnea, Denies orthopnea and Denies paroxysmal nocturnal dyspnea Resp Denies cough, Denies hemoptysis, Denies excessive phlegm production, Denies dyspnea, Denies snoring and Denies wheezing GI Denies abdominal pain and Denies heartburn Musc Denies myalgias, Denies arthralgias and Denies joint swelling Skin/Breast Denies rash Neuro Denies memory loss and Denies seizure-like activity Psych Denies abnormal sleep pattern, Denies anxiety and Denies memory loss Endo Denies excessive sweating, Denies fatigue and Denies heat intolerance Ganga/Lymph Denies easy bruising Aller/Immun Denies itchy eyes, Denies seasonal rhinorrhea and Denies wheezing Physical Exam Vital Signs: Last Vital Signs Pulse 73 02/21/23 08:54 BP 132/74 02/21/23 08:54 Pulse Ox 98 02/21/23 08:54 Oxygen Delivery Method Room Air 02/21/23 08:54 BMI result Body Mass Index 29.1 Const General: no acute distress and alert Nutritional Appearance: not obese Orientation/consciousness: Other orientation findings ( oriented) HEENT Head: Yes atraumatic Eyes General: appearance normal, both eyes and all related structures Sclerae: sclerae normal EOM: EOMs intact bilaterally Neck Neck: Yes supple Lymphatic: no lymphadenopathy noted Resp Effort & Inspection: normal respiratory effort and no use of accessory muscles Auscultation: clear to auscultation bilaterally Cardio Rate: regular rate Rhythm: regular rhythm Heart sounds: no gallops, no murmurs and no rubs Skin General skin exam: other ( warm) Extrem General: No clubbing, No cyanosis and No edema Assessment & Plan Assessment & Plan (1) ILD (interstitial lung disease): Code(s): J84.9 - Interstitial pulmonary disease, unspecified (2) Lung nodules: Code(s): R91.8 - Other nonspecific abnormal finding of lung field Plan Results of CT chest and pulmonary function test reviewed. 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 Will repeat CT chest in 6 months. Orders: Orders CT chest wo IV con 08/14/23 J84.9 - Interstitial pulmonary disease, unspecified Medications: Discontinued escitalopram oxalate 5 mg PO DAILY 90 days 90 tabs 1RF Coding Level of Care Code New Pt Level 4 (46425) Diagnoses ILD (interstitial lung disease) J84.9 Lung nodules R91.8
[2023-02-21 08:54] VITALS: BP 132/74; PULSE 73; O2SAT 98; BMI 29.1
== END 2023-02-21 09:17 | disposition home or self-care (01) ==
PROVIDERS: PCP Internal Medicine; Visit Provider Internal Medicine Pulmonary Disease
DX: J84.9 Interstitial pulmonary disease, unspecified (principal); R91.8 Other nonspecific abnormal finding of lung field
CPT/HCPCS: 99204

== ENCOUNTER 2023-04-06 08:52 | Outpatient (REF) | payer OTHER, SELFPAY | END 2023-04-06 08:53 | disposition home or self-care (01) | LOC: HO.HOSX 08:52 | PROVIDERS: Visit Provider Physician Assistant | DX: M17.11 Unilateral primary osteoarthritis, right knee (principal); M25.562 Pain in left knee | CPT/HCPCS: 73560; 73565 ==

== ENCOUNTER 2023-04-06 08:58 | Outpatient (AMB) | payer OTHER, SELFPAY ==
--- NOTE | 2023-04-06 09:27 | MHC.OFFVIS ---
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 Patient reports pain has been present for many years. States suffering from gout and has been having flare ups in right knee. No other tx. Finds little relief with diclofenac. 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 His pain is aggravated with stair use. He also c/o flareups in his right knee. He finds mild relief with diclofenac. He has not had any treatment in the past. He has a history of gout. [facility] Medical History (Updated 04/06/23 @ 10:31 by Kalani Mancia PA-C) Pneumonia Shortness of breath Cough Hyperlipidemia HTN (hypertension) Abdominal pain Anxiety Gout Right shoulder pain Left shoulder pain Hand numbness Screen for STD (sexually transmitted disease) Syphilis HIV (human immunodeficiency virus infection) Surgical History History of bronchoscopy History of esophagogastroduodenoscopy (EGD) H/O colonoscopy Family History Father ALS (amyotrophic lateral sclerosis) Diabetes Hypertension Mother Liver cirrhosis Brother Liver cirrhosis Sister Hyperlipidemia Paternal Grandmother Cancer Paternal Aunt Cancer Family/Other FH: mental illness Substance use disorder Social History Household Members: Friend(s) and None Housing: Other Alcohol intake: current Alcohol intake frequency: holidays/special occasions only Alcohol type: hard liquor Patient Tobacco Use Status: Current someday Tobacco user Tobacco use type: Cigarette Years Smoked: 30 e-Cigarette/Vaping Use: Never Used service: No Current occupational status: unemployed Cognitive needs: No Hearing needs: No Vision needs: No Review of Systems Const All systems reviewed & are unremarkable except as noted in HPI and below Physical Exam Vital Signs: BMI result Body Mass Index 29.1 Const General: cooperative, healthy appearing, comfortable, no acute distress, well developed and alert Orientation/consciousness: patient oriented x3 HEENT Head: Yes normal to inspection, Yes normocephalic and Yes atraumatic Eyes General: appearance normal, both eyes and all related structures Resp Effort & Inspection: normal respiratory effort and able to speak in complete sentences Cardio Rate: regular rate Peripheral pulses: Peripheral pulses 2+ throughout GI Palpation (GI): Soft to palpation Skin Lesions: no lesions Rashes: no rashes Neuro General: patient oriented x3 Extrem Other: Right knee: Skin intact, no erythema or joint effusion. Medial and lateral retropatellar tenderness present. Full ROM with crepitus. Negative Luis Antonio?s. No ligamentous laxity. NVI. Results Reviewed Results Reviewed: Xrays were obtained in the office today and personally reviewed by me of the right knee show mild pf oa Assessment & Plan Assessment & Plan (1) Patellofemoral arthritis of right knee: Code(s): M17.11 - Unilateral primary osteoarthritis, right knee Plan We discussed options which include PT, NSAIDs and injections. The patient will defer on the injection today and proceed with PT and NSAIDs. He was also fit for a Janumet knee brace today. If symptoms persist, the patient will contact me for an injection, otherwise, PRN. Orders: Orders XR knee standing BI Today M25.561 - Pain in right knee, M25.562 - Pain in left knee XR knee RT 1V Today M25.561 - Pain in right knee PT Evaluation and Treatment Today M17.11 - Unilateral primary osteoarthritis, right knee Patient Instructions: Scribed for Kalani Mancia PA-C, by Glenn Pisano emergency medicine medical director, on 04/06/2023 at 10:00 AM EST. I, Kalani Mancia PA-C, have personally reviewed and agree with the information entered by the scribe. Coding Level of Care Code New Pt Level 3 (15419) Diagnoses Patellofemoral arthritis of right knee M17.11
[2023-04-06 10:06] VITALS: BMI 29.1
== END 2023-04-06 11:14 | disposition home or self-care (01) ==
PROVIDERS: PCP Internal Medicine; Visit Provider Physician Assistant
DX: M17.11 Unilateral primary osteoarthritis, right knee (principal)
CPT/HCPCS: 99203

== ENCOUNTER 2023-04-06 10:48 | Outpatient (REF) | payer OTHER, SELFPAY ==
[2023-04-06 11:02] LABS: MANUAL DIFF FLAG NO
[2023-04-06 11:22] LABS: Basophils Percent Auto 0.6 % (0-2); Eosinophils Absolute Auto 0.2 X10*3/uL (0.0-0.4); Eosinophils Percent Auto 2.4 % (0-4); Hematocrit 41.5 % (42.0-52.0); Hemoglobin 14.7 g/dl (14.0-18.0); Imm Gran Abs Auto 0.03 X10*3/uL (0.00-0.03); Imm Gran Pct Auto 0.4 % (0.0-0.4); Lymphocytes Absolute Auto 2.2 X10*3/uL (1.2-4.9); Lymphocytes Percent Auto 30.5 % (20-40); Mean Corpuscular HGB Conc 35.4 g/dl (31.0-36.0); Mean Corpuscular Hemoglobin 32.5 pg (27.0-33.0); Mean Corpuscular Volume 91.6 fL (80.0-98.0); Mean Platelet Volume 10.9 fL (9.4-12.4); Monocytes Absolute Auto 0.4 X10*3/uL (0.1-1.2); Monocytes Percent Auto 6.1 % (2-11); Neutrophils Absolute Auto 4.3 x10*3/uL (2.0-8.3); Platelet Count 171 X10*3/uL (160-400); Red Blood Count 4.53 X10*6/uL (4.60-5.80); White Blood Count 7.2 X10*3/uL (4.8-10.8)
[2023-04-06 12:23] LABS: Alanine Aminotransferase 34 U/L (0-40); Albumin Level 4.4 g/dL (3.5-5.0); Alkaline Phosphatase 103 U/L (39-117); Anion Gap 13 (12-20); Aspartate Amino Transferase 29 U/L (5-37); Bilirubin Direct 0.2 mg/dL (0.0-0.5); Bilirubin Total 0.8 mg/dL (0.0-1.0); Blood Urea Nitrogen 20 mg/dL (9-16); Calcium 9.3 mg/dL (8.4-10.2); Carbon Dioxide 25 mmol/L (22-29); Chloride 106 mmol/L (96-108); Estimated Glomerular Filt Rate > 60; Glucose Random 81 mg/dL (60-115); Potassium 3.8 mmol/L (3.3-5.1); Sodium 140 mmol/L (135-145); Total Protein 6.7 g/dL (6.5-8.0)
[2023-04-07 10:24] LABS: Absolute CD3 Count 1379 cells/uL (840-3060); Absolute CD4 Count 823 cells/uL (490-1740); Absolute CD8 Count 558 cells/uL (180-1170); Absolute Lymphocytes 2388 cells/uL (850-3900); CD4 CD8 Ratio 1.47 (0.86-5.00); Percent CD3 Cells 58 % (57-85); Percent CD4 Cells 34 % (30-61); Percent CD8 Cells 23 % (12-42)
[2023-04-07 10:45] LABS: Syphilis Screen Reactive (Nonreactive)
[2023-04-07 10:49] LABS: ~HepC Num1 0.03 S/CO (0.00-0.79); ~Hepatitis C Antibody Nonreactive (Nonreactive)
[2023-04-08 12:03] LABS: Hepatitis B Viral DNA Qn - cp NOT DETECTED Log IU/mL (NOT DETECTED); Hepatitis B Viral DNA Qn-IU/mL NOT DETECTED (NOT DETECTED)
[2023-04-08 21:13] LABS: HIV RNA PCR Qn Copies 26 copies/mL (NOT DETECTED); HIV RNA PCR Qn Log Copies 1.41 (NOT DETECTED)
[2023-04-16 14:43] LABS: RPR Quantitative Non-Reactive (Nonreactive)
[2023-04-16 14:44] LABS: T.Pallidum Particle Agg Test Reactive (Nonreactive)
== END 2023-04-06 10:49 | disposition home or self-care (01) ==
LOC: HO.LAB 10:48
PROVIDERS: PCP Internal Medicine; Visit Provider Internal Medicine
DX: B20 Human immunodeficiency virus [HIV] disease (principal); A53.9 Syphilis, unspecified
CPT/HCPCS: 36415; 80048; 80076; 85025; 86359; 86360; 86592; 86780; 86803; 87517; 87536

== ENCOUNTER 2023-04-11 11:02 | Outpatient (RCR) | payer OTHER, SELFPAY ==
--- NOTE | 2023-04-11 13:21 | MHC.PT.EP ---
[facility] [place] Office [place] Office [place] Office [address] [phone] F: [phone] F: [phone] F: [phone] F: [phone] Physical Therapy Plan of Care Date of Evaluation: 04/11/23 Date of Surgery: Diagnosis: pain in R knee Assessment: Patient is a 57 year old R handed male who presents with s/s consistent with R knee pain. He works with daily job demands including. Patient past medical history is.. Current impairments include pain, balance, ROM, strength, activity tolerance and functional mobility. Functional limitations include decreased ability to walk, stand, negotiate stairs and perform higher level activities. Patient is motivated with good rehab potential. Skilled PT will address impairments and functional limitations in order to achieve goals. Frequency and Duration: The patient will be seen 2x/week for 5 weeks Short Term Goals: I with HEP - 2 week Full pain free AROM - 3 weeks 90/90 lacking 20 or less - 3 weeks Clinical Laboratory Scientist Goals: LEFS 69/80 - 5 weeks Pain free stair negotiation - 5 weeks Able to stand and walk > 1 hour without increased pain - 5 weeks Knee strength 4+/5 grossly - 5 weeks Treatment Plan: Modalities to reduce pain, spasms and effusion. Manual therapy to restore motion and function. Therapeutic exercise to improve strength and flexibility. Neuromuscular re-education for posture and balance. Therapeutic activities to return to functional activities of daily living. Electronically signed by: Chaparro Lutz, PT Please sign and return to therapist. Thank you for your referral.
--- NOTE | 2023-07-18 08:02 | MHC.PT.DC ---
[facility] Office [place] [facility] [place] [facility] [address] Hector Santos [address] [facility] [phone] F: [phone] F: [phone] F: [phone] F: [phone] Physical Therapy Discharge Report Diagnosis: pain in R knee Date of Surgery: Date of Evaluation: 04/11/23 Date of Discharge: 04/19/23 Treatments to Date: 1 Cancellations to Date: No Shows to Date: Discharge Status: Patient Elected to Stop Discharge Summary: Pt did not return after evaluation. Electronically signed by: Chaparro Lutz PT Please sign and return to therapist. Thank you for your referral.
== END 2023-07-18 08:02 | disposition home or self-care (01) ==
LOC: HO.PTCHIC 11:02
PROVIDERS: PCP Internal Medicine; Visit Provider Nurse Practitioner Family
DX: M25.561 Pain in right knee (principal)
CPT/HCPCS: 97110; 97163

== ENCOUNTER 2023-04-13 11:26 | Emergency (ER) | payer OTHER, SELFPAY ==
--- NOTE | ~2023-04-13 | XR_ITS ---
EXAMINATION: XR CHEST CLINICAL INFORMATION: Chest pain. COMPARISON: 12/05/2022 TECHNIQUE: 2 views of the chest were obtained. FINDINGS: The lungs are moderately expanded. No focal consolidation. No pleural effusion. Cardiac silhouette is unchanged. XR/XR chest 2V IMPRESSION: No acute abnormality.
[2023-04-13 11:49] VITALS: BP 144/81; PULSE 86; RESP 19; TEMP 36.6; O2SAT 98; BMI 27.8
--- NOTE | 2023-04-13 11:52 | ECG_ITS ---
Test Reason : PAIN Blood Pressure : / mmHG Vent. Rate : 088 BPM Atrial Rate : 088 BPM P-R Int : 160 ms QRS Dur : 084 ms QT Int : 360 ms P-R-T Axes : 065 -10 051 degrees QTc Int : 435 ms Normal sinus rhythm Normal ECG When compared with ECG of 10-JUL-2022 23:04, No significant change was found Referred By: Cas Retana Electronically Signed By:LORENE DECKER MD
--- NOTE | 2023-04-13 11:52 | ED.GENADULT ---
HPI - General Adult General Chief complaint: Upper Respiratory Symptoms Stated complaint: cough,sob Time Seen by Provider: 04/13/23 17:04 Source: patient, RN notes reviewed and language interpreter Mode of arrival: ambulatory Limitations: language barrier History of Present Illness HPI narrative: 57-year-old male presents for evaluation of cough, shortness of breath. He reports he has chest pain worse with coughing His symptoms started 5 days ago. The patient reports a history of HIV but is currently being treated and his viral load is undetectable Denies any fevers, chills His cough productive Denies any recent travel, no leg swelling Related Data Home Medications Medication Instructions Recorded Confirmed colchicine (gout) 0.6 mg tablet 0.6 mg PO DAILY 06/23/20 02/15/23 hydrocortisone 2.5 % topical cream 1 appl topical BID PRN Muscle Spasm 06/23/20 02/15/23 triamcinolone acetonide 0.5 % 1 appl topical BID 06/23/20 02/15/23 topical cream escitalopram oxalate 5 mg tablet 5 mg PO DAILY 11/21/22 02/15/23 (Lexapro) Previous Rx's Medication Instructions Recorded clotrimazole 1 % topical cream 1 appl topical BID 30 days #45 02/22/21 (Lotrimin AF (clotrimazole)) grams pneumococcal 23-dwight ps vaccine 25 0.5 ml IM ONCE 30 days #0.5 mL 08/30/21 mcg/0.5 mL injection solution (Pneumovax-23) nitroglycerin 0.4 % (w/w) rectal 1 inch IA BID 30 days #30 grams 12/07/21 ointment (Rectiv) pantoprazole 20 mg tablet,delayed 20 mg PO DAILY #20 tabs 01/02/22 release (Protonix) hydrocortisone 2.5 % topical cream 1 appl IA BID PRN hemorrhoids 30 03/30/22 with perineal applicator days #30 grams (Proctosol HC) albuterol sulfate 90 mcg/actuation 2 puff inhalation Q6H PRN 09/30/22 aerosol inhaler bronchospasm 30 days #8.5 grams allopurinol 100 mg tablet 100 mg PO DAILY 90 days #90 tabs 09/30/22 diclofenac sodium 1 % topical gel 2 g topical QID PRN pain (scale 09/30/22 (Voltaren Arthritis Pain) score 7-10) 2 weeks #100 grams bictegravir 50 mg-emtricitabine 1 tab PO DAILY 30 days #30 tabs 12/12/22 200 mg-tenofovir alafenam 25 mg tablet (Biktarvy) valacyclovir 1 gram tablet 1,000 mg PO DAILY 30 days #30 tabs 12/12/22 (Valtrex) cholecalciferol (vitamin D3) 25 25 mcg PO DAILY 90 days #90 caps 01/28/23 mcg (1,000 unit) capsule diclofenac sodium 75 mg 75 mg PO BID #20 tabs 04/07/23 tablet,delayed release azithromycin 250 mg tablet See Rx Instructions PO .COMPLEX #6 04/13/23 tabs prednisone 20 mg tablet 40 mg (2 x 20 mg) PO DAILY #10 tabs 04/13/23 Allergies Allergy/AdvReac Type Severity Reaction Status Date / Time No Known Allergies Allergy Verified 02/21/23 08:59 [No Known Allergies*] Review of Systems Constitutional: Constitutional: Denies chills and Denies fever(s) Cardiovascular: Cardiovascular: Denies chest pain and Reports dyspnea Respiratory: Respiratory: Reports cough, Reports pain with cough and Reports dyspnea Gastrointestinal: Gastrointestinal: Denies abdominal pain, Denies nausea and Denies vomiting Musculoskeletal: Musculoskeletal: Denies back pain [facility] Past Medical History Medical History (Updated 04/13/23 @ 17:06 by Cas Retana) Pneumonia Shortness of breath Cough Hyperlipidemia HTN (hypertension) Abdominal pain Anxiety Gout Right shoulder pain Left shoulder pain Hand numbness Screen for STD (sexually transmitted disease) Syphilis HIV (human immunodeficiency virus infection) Surgical History History of bronchoscopy History of esophagogastroduodenoscopy (EGD) H/O colonoscopy Family History Family History Father ALS (amyotrophic lateral sclerosis) Diabetes Hypertension Mother Liver cirrhosis Brother Liver cirrhosis Sister Hyperlipidemia Paternal Grandmother Cancer Paternal Aunt Cancer Family/Other FH: mental illness Substance use disorder Social History Social History Household Members: Friend(s) and None Housing: Other Alcohol intake: current Alcohol intake frequency: holidays/special occasions only Alcohol type: hard liquor Patient Tobacco Use Status: Current someday Tobacco user Tobacco use type: Cigarette Years Smoked: 30 e-Cigarette/Vaping Use: Never Used service: No Current occupational status: unemployed Cognitive needs: No Hearing needs: No Vision needs: No Physical Exam ED Vital Signs: Vital Signs - 24 hr 04/13/23 11:49 Temperature 98 F Pulse Rate 86 Respiratory Rate 19 Blood Pressure 144/81 H Pulse Oximetry 98 Oxygen Delivery Method Room Air BMI result Body Mass Index 27.8 Const General: healthy appearing, comfortable, no acute distress, alert and awake Nutritional Appearance: well nourished Orientation/consciousness: patient oriented x3 HENMT Head: Yes normocephalic and Yes atraumatic Throat: Yes posterior oropharynx normal Eyes Eyelids: Yes eyelids normal Conjunctivae: conjunctivae normal Sclerae: sclerae normal Corneas: corneas normal Pupils: Equal, round and reactive pupils present EOM: EOMs intact bilaterally Neck Neck: Yes full ROM Resp Effort & Inspection: normal respiratory effort, able to speak in complete sentences, no audible wheezes and not labored Auscultation: clear to auscultation bilaterally Skin General skin exam: no rashes or lesions noted and elasticity normal Neuro General: patient oriented x3 Cranial nerves: Yes Equal, round and reactive pupils present and Yes Bilaterally intact EOM present Cognition (Neuro): normal cognition Extrem Other: Moving all extremities well without any obvious deformities Course Course Course Narrative: RME- 57 year old male presents for evaluation of cough and chest pain. He reports he was treated for pneumonia 3 months ago in [place]. Plan for covid test, chest x-ray and ekg. Patient reports he is HIV positive with an undetectable viral load Medical Decision Making Medical Decision Making [facility] Narrative: 57-year-old male presents for evaluation of cough, congestion and chest pain with coughing. His EKG is nonischemic and unchanged from July of this past year. Chest x-ray is clear, viral swab is negative for COVID. Plan to discharge the patient with azithromycin prednisone to treat upper respiratory infection. His vital signs are stable, no evidence of sepsis Differential Diagnosis Differential Diagnoses: The differential diagnosis associated with the presentation includes Upper respiratory infection Pneumonia Bronchitis COVID-19 Lab Data Labs: Lab Results 04/13/23 Range/Units 11:58 COVID-19 (RONALD) Negative (Negative) COVID-19 Clin Com See Note Independent Interpretation I performed an independent interpretation of an: EKG (Normal sinus rhythm with a rate of [address] changes) and Plain X-Ray (No infiltrates) Radiology Impression Discussion of test interpretation with radiology: I have reviewed the radiologist's reading. (No acute abnormality) Discharge Plan Discharge Clinical Impression: Upper respiratory infection Patient Disposition: Home, Self-Care Instructions: Upper Respiratory Infection (ED) Additional Instructions: Your workup in the emergency department today was reassuring Take the azithromycin and prednisone as directed Follow-up with your primary doctor Return for new or worsening symptoms Prescriptions: New azithromycin 250 mg tablet See Rx Instructions .ROUTE .COMPLEX Qty: 6 0RF Rx Instructions: For 250 mg dose pack: take 500 mg today (day 1), then 250 mg for 4 days (days 2-5) prednisone 20 mg tablet 40 mg PO DAILY Qty: 10 0RF No Action Pneumovax-23 25 mcg/0.5 mL solution 0.5 ml IM ONCE 30 Days Qty: 0.5 0RF cholecalciferol (vitamin D3) 25 mcg (1,000 unit) capsule 25 mcg PO DAILY 90 Days Qty: 90 3RF diclofenac sodium 75 mg tablet,delayed release (DR/EC) 75 mg PO BID Qty: 20 0RF pantoprazole [Protonix] 20 mg tablet,delayed release (DR/EC) 20 mg PO DAILY Qty: 20 0RF escitalopram oxalate [Lexapro] 5 mg tablet 5 mg PO DAILY triamcinolone acetonide 0.5 % cream 1 appl topical BID colchicine (gout) 0.6 mg tablet 0.6 mg PO DAILY hydrocortisone 2.5 % cream 1 appl topical BID PRN (Reason: Muscle Spasm) Rectiv 0.4 % (w/w) ointment 1 inch IA BID 30 Days Qty: 30 0RF albuterol sulfate 90 mcg/actuation HFA aerosol inhaler 2 puff inhalation Q6H PRN (Reason: bronchospasm) 30 Days Qty: 8.5 6RF allopurinol 100 mg tablet 100 mg PO DAILY 90 Days Qty: 90 1RF diclofenac sodium [Voltaren Arthritis Pain] 1 % gel 2 g topical QID PRN (Reason: pain (scale score 7-10)) 14 Days Qty: 100 0RF Rx Instructions: apply to single elbow, wrist or hand; for hand includes palm/fingers/back of hand hydrocortisone [Proctosol HC] 2.5 % cream with perineal applicator 1 appl IA BID PRN (Reason: hemorrhoids) 30 Days Qty: 30 6RF clotrimazole [Lotrimin AF (clotrimazole)] 1 % cream 1 appl topical BID 30 Days Qty: 45 11RF Biktarvy 50-200-25 mg tablet 1 tab PO DAILY 30 Days Qty: 30 5RF valacyclovir [Valtrex] 1 gram tablet 1,000 mg PO DAILY 30 Days Qty: 30 5RF
[2023-04-13 12:31] LABS: COVID-19 Test Negative (Negative); IDNOW Serial# BCCEAD1C
--- OUTSIDE RECORDS SUMMARY | 2023-04-13 17:12 | XMS_ITS | Patient Health Record ---
Author Name Unknown Organization [facility] Address [address] [place] [address] Care Team Providers Care Story Editor Name Role Phone Meagan De La Cruz Primary Care Provider Unavailab Grace Avila Frankie Unavailable ALLERGIES No Known Allergies RESULTS Component Value Reference Range Notes Leukocytes Stool Qualitative Reviewed date:08/04/2022 08:38:08 AM Interpretation: Performing Lab:[facility], [address] [place] [id number] Notes/Report: Leukocytes Stool Qualitative NEGATIVE NEGATIVE Ova and Parasite Reviewed date:08/15/2022 08:19:53 AM Interpretation: Performing Lab:[address] [id number] Notes/Report: Ova and Parasite SEE NOTE OVA AND PARASITES, CONC AND PERM SMEAR Micro Number: [id number] Test Status: Final Specimen Source: Stool Specimen Quality: Adequate CONCENTRATION 1: No ova or parasites seen TRICHROME 1: No ova or parasites seen Routine Ova and Parasite exam may not detect some parasites that occasionally cause diarrheal illness. Cryptosporidium Antigen and/or Cyclospora and Isospora Exam may be ordered to detect these parasites. One negative sample does not necessarily rule out the presence of a parasitic infection. For additional information, please refer to https://education.[employer]/faq/KGX795 (This link is being provided for informational/ educational purposes only.) THIS TEST WAS PERFORMED AT: [employer] [facility] [address] [place] [phone] WISAM HANKS MD GI PANEL Reviewed date:08/04/2022 08:38:18 AM Interpretation: Performing Lab:[facility], [address] [place] [address], [place] [address] Notes/Report: Campylobacter Not Detected Not Detect. Plesiomonas shigelloides [...] E. coli O157 Not applicable Not Detect. E. coli containing the O157 antigen are a subset of Shiga-like toxin-producing E. coli (STEC). Shigella sp./EIEC Not Detected Not Detect. Cryptosporidium Not Detected Not Detect. Cyclospora cayetanensis Not Detected Not Detect. Entamoeba histolytica Not Detected Not Detect. Giardia lamblia Not Detected Not Detect. Adenovirus F 40/41 Not Detected Not Detect. Astrovirus Not Detected Not Detect. Norovirus GI/GII Not Detected Not Detect. Rotavirus A Not Detected Not Detect. Sapovirus Not Detected Not Detect. All results must be correlated with clinical findings. Negative results do not exclude the possibility of gastrointestinal infection and should not be used as the sole basis for diagnosis, treatment, or other management decisions. Virus, bacteria, and parasite nucleic acid may persist in vivo independently of organism viability. Additionally, some organisms may be carried symptomatically. Detection of organism targets does not imply that the corresponding organisms are infectious or are the causative agents for clinical symptoms. There is a risk of false negative values due to the presence of sequence variants in the gene targets of the assay, amplification inhibitors in specimens, or inadequate numbers of organisms for amplification. The identification of several diarrheagenic E. coli pathotypes has historically relied upon phenotypic characteristics. This panel targets genetic determinants characteristic of most pathogenic strains, but may not detect all strains having phenotypic characteristics of a pathotype. The performance of this test has not been established for monitoring treatment of infection with any of the panel organisms. This assay is performed by Multiplexed PCR, utilizing the [employer] Array. REASON FOR REFERRAL No Information MEDICATIONS Medication SIG (Take, Route, Frequency, Duration) Notes Start Date End Date Status Diclofenac Sodium 75 MG Oral for 10 Active Dulcolax (colon prep) 5 MG take at 3:00 p.m and 7:00p.m. Orally two tablets twice a day for one day for 1 day 01/06/2022 Active Allopurinol 100 MG Oral for 90 Active MiraLax (colon prep) 17 GM/SCOOP mixed with Gatorade or Crystal Light Orally begin at 5:00 p.m. the day before the procedure for 1 day 01/05/2022 Active Escitalopram Oxalate 5 MG Oral for 90 Active Vitamin D High Potency 25 MCG (1000 UT) Oral for 90 Active valACYclovir HCl 1 GM TAKE 1 TABLET BY M OUTH TWICE A DAY Oral for 30 Active Pantoprazole Sodium 40 MG 1 tablet Orall y Once a day for 90 days 01/11/2022 Active Biktarvy 50-200-25 MG TOME CALIXTO TABLETA T ODOS LOS D? Oral for 30 Active Omeprazole 20 MG 1 Orally Once a day 03/24/2016 Active Albuterol Sulfate 108 (90 Base) MCG/ACT 1 puff as needed Inhalation every 4 hrs Active Flexeril 5 MG 1 tablet at bedtime as needed Orally Once a day for 30 day(s) Active IMMUNIZATIONS Vaccine Route Administration Date Status Comme nts Influenza Unknown 01/05/2022 Refused SOCIAL HISTORY Tobacco Use: Social History Observation Description Date Details (start date - stop date) Current Smoker NA - NA Sex Assigned At : Social History Observation Description Sex Assigned At Unknown Tobacco Use/Smoking Question Answer Notes Patient is a current smoker How often do you smoke cigarettes? some days, bu t not every day How many cigarettes a day do you smoke? 5 or les s Alcohol Screen Question Answer Notes Did you have a drink contain ing alcohol in the past year? Yes How often did you have a dri nk containing alcohol in the past year? 2 to 3 times a week (3 points) How many drinks did you have on a typical day when you were drinking in the past year? 5 or 6 drinks (2 points) Points 5 Interpretation Positive PROBLEMS Problem Type ICD Code Onset Dates Problem Status W/U Status Risk SNOMED Code Notes Problem Epigastric pain (R10.13) Active confirmed 97048600 Problem Rectal bleeding (K62.5) Active confirmed 67258144 Problem Colon cancer screening (Z12.11) Active confirmed 174596529 Problem Diarrhea, unspecified type (R19.7) Active confirmed 07982960 Problem Abnormal CT scan, stomach (R93.3) Active confirmed 890218990 Encounters Encounter Location Date Provider Diagnosis [facility] [address] [place] [phone] 03/09/[address] [facility] [address] [place] [address] 07/06/[address] [facility] [address] [place] [phone] 07/12/2022 Frankie Vences Jr Diarrhea, unspecified type R19.7 [facility] [address] [place] [phone] 08/04/[address] [facility] [address] [place] [phone] 02/14/[address] [facility] [address] [place] [phone] 03/07/2023 Frankie Vences Jr ASSESSMENTS Encounter Date Diagnosis Assessment Notes Treatment Notes Treatment Clinical Notes 07/12/2022 Diarrhea, unspecified type (ICD-10 - R19.7) PLAN OF TREATMENT Pending Test Test Name Order Date STOOL WBC 07/12/2022 OVA & PARASITES (O&P) 07/12/2022 GI PANEL 07/12/2022 Future Test Test Name Order Date UPPER GI ENDOSCOPY 03/24/2016 COLONOSCOPY 03/24/2016 COLONOSCOPY 05/29/2019 UPPER GI ENDOSCOPY 01/05/2022 COLONOSCOPY 01/05/2022 Next Appt Details Provider Name:Frankie queen Jr, 08/09/2023 09:00:00 AM, [address], [address], [place], [address], Insurance Providers Payer Name Payer Address Payer Phone Subscriber Number Group Number Insured Name Patient Relationship to Insured Coverage Start Date Coverage End Date [facility] [employer] [facility] [address] [address] [place], [place] [id number] JACQUELINE MCDONALD Self - patient is the insured MEDICAL (GENERAL) HISTORY Medical History History ICD Code hypertension HIV fatty liver Pneumonia Gout Anxiety Surgical History Surgery Date(Month/Year)
== END 2023-04-13 17:34 | disposition home or self-care (01) ==
PROVIDERS: Physician Assistant; Emergency Provider Emergency Medicine; PCP Internal Medicine
DX: J06.9 Acute upper respiratory infection, unspecified (principal); R05.9 Cough, unspecified; Z11.52 Encounter for screening for COVID-19; B20 Human immunodeficiency virus [HIV] disease; E78.5 Hyperlipidemia, unspecified; F17.210 Nicotine dependence, cigarettes, uncomplicated
CPT/HCPCS: 71046; 87635; 93005; 99283

== ENCOUNTER 2023-04-14 14:21 | Emergency (ER) | payer OTHER, SELFPAY ==
[2023-04-14 14:48] VITALS: BP 156/98; PULSE 90; PULSE 94; RESP 19; TEMP 36.3; O2SAT 98; BMI 28.0
--- NOTE | 2023-04-14 14:52 | ECG_ITS ---
Test Reason : shortness of breath Blood Pressure : / mmHG Vent. Rate : 088 BPM Atrial Rate : 088 BPM P-R Int : 194 ms QRS Dur : 090 ms QT Int : 356 ms P-R-T Axes : 074 -10 028 degrees QTc Int : 430 ms Normal sinus rhythm Normal ECG When compared with ECG of 13-APR-2023 11:54, No significant change was found Referred By: Cas Retana Electronically Signed By:LORENE DECKER MD
--- NOTE | 2023-04-14 14:52 | ED.GENADULT ---
HPI - General Adult General Chief complaint: Allergic Reaction Stated complaint: INCREASED WORK OF BREATHING Time Seen by Provider: 04/14/23 15:20 Source: patient, EMS and science interpreter Mode of arrival: EMS Limitations: language barrier History of Present Illness HPI narrative: Patient is a 57 year old assigned male at with a history of HIV presenting to the emergency department today after feeling like he was going to pass out. Patient states that he took is prescribed medication for his lung infection and felt like he was going to pass out. Patient states that his throat got tight and his body felt heavy. Patient denies any dizziness, lightheadedness, abdominal pain, nausea, vomiting, fever, chills, blurry vision, double vision, loss of vision, chest pain, difficulty breathing, shortness of breath, back pain, night sweats, pain with urination, increased urinary frequency, increased urinary urgency, blood in his urine or stool, syncope, recent trauma or falls, bowel incontinence, bladder incontinence, bowel retention, bladder retention, or any other complaints at this time. Relieving factors: none Exacerbating factors: none Associated symptoms: denies other symptoms Treatments prior to arrival: none Related Data Home Medications Medication Instructions Recorded Confirmed colchicine (gout) 0.6 mg tablet 0.6 mg PO DAILY 06/23/20 02/15/23 hydrocortisone 2.5 % topical cream 1 appl topical BID PRN Muscle Spasm 06/23/20 02/15/23 triamcinolone acetonide 0.5 % 1 appl topical BID 06/23/20 02/15/23 topical cream escitalopram oxalate 5 mg tablet 5 mg PO DAILY 11/21/22 02/15/23 (Lexapro) Previous Rx's Medication Instructions Recorded clotrimazole 1 % topical cream 1 appl topical BID 30 days #45 02/22/21 (Lotrimin AF (clotrimazole)) grams pneumococcal 23-dwight ps vaccine 25 0.5 ml IM ONCE 30 days #0.5 mL 08/30/21 mcg/0.5 mL injection solution (Pneumovax-23) nitroglycerin 0.4 % (w/w) rectal 1 inch IA BID 30 days #30 grams 12/07/21 ointment (Rectiv) pantoprazole 20 mg tablet,delayed 20 mg PO DAILY #20 tabs 01/02/22 release (Protonix) hydrocortisone 2.5 % topical cream 1 appl IA BID PRN hemorrhoids 30 03/30/22 with perineal applicator days #30 grams (Proctosol HC) albuterol sulfate 90 mcg/actuation 2 puff inhalation Q6H PRN 09/30/22 aerosol inhaler bronchospasm 30 days #8.5 grams allopurinol 100 mg tablet 100 mg PO DAILY 90 days #90 tabs 09/30/22 diclofenac sodium 1 % topical gel 2 g topical QID PRN pain (scale 09/30/22 (Voltaren Arthritis Pain) score 7-10) 2 weeks #100 grams bictegravir 50 mg-emtricitabine 1 tab PO DAILY 30 days #30 tabs 12/12/22 200 mg-tenofovir alafenam 25 mg tablet (Biktarvy) valacyclovir 1 gram tablet 1,000 mg PO DAILY 30 days #30 tabs 12/12/22 (Valtrex) cholecalciferol (vitamin D3) 25 25 mcg PO DAILY 90 days #90 caps 01/28/23 mcg (1,000 unit) capsule diclofenac sodium 75 mg 75 mg PO BID #20 tabs 04/07/23 tablet,delayed release azithromycin 250 mg tablet See Rx Instructions PO .COMPLEX #6 04/13/23 tabs prednisone 20 mg tablet 40 mg (2 x 20 mg) PO DAILY #10 tabs 04/13/23 Allergies Allergy/AdvReac Type Severity Reaction Status Date / Time No Known Allergies Allergy Verified 02/21/23 08:59 [No Known Allergies*] Review of Systems Constitutional: Constitutional: Reports no additional constitutional complaints, Denies chills, Denies fever(s) and Denies night sweats Eyes: Eyes: Reports no additional eye complaints, Denies blurry vision, Denies change in vision, Denies diplopia, Denies eye discharge, Denies loss of vision and Denies eye pain ENT: Denies dizziness Cardiovascular: Cardiovascular: Reports no additional cardiovascular complaints, Denies chest pain, Denies lightheadedness, Denies Loss of Consciousness and Denies dyspnea Respiratory: Respiratory: Reports no additional respiratory complaints and Denies dyspnea Gastrointestinal: Gastrointestinal: Reports no additional gastrointestinal complaints, Denies abdominal pain, Denies melena, Denies hematochezia, Denies change in bowel habits and Denies change in stool character Genitourinary: Genitourinary: Reports no additional male genitourinary complaints, Denies hematuria, Denies oliguria, Denies difficulty urinating, Denies dysuria, Denies urinary frequency, Denies urinary hesitancy, Denies urinary incontinence and Denies urinary urgency Musculoskeletal: Musculoskeletal: Reports no additional musculoskeletal complaints, Denies numbness and Denies tingling Neurologic: Denies dizziness, Denies loss of vision, Denies numbness and Denies tingling Psychiatric: Psychiatric: Reports no additional psychiatric complaints Endocrine: Endocrine: Reports no additional endocrine complaints Hematologic/Lymphatic: Hematologic/Lymphatic: Reports no additional hematologic/lymphatic complaints Allergic/Immunologic: Allergic/Immunologic: Reports no additional allergic/immunologic complaints [facility] Past Medical History Attestation statement: The following information was validated with the patient. Source: old records reviewed and nursing notes reviewed Medical History Pneumonia Shortness of breath Cough Hyperlipidemia HTN (hypertension) Abdominal pain Anxiety Gout Right shoulder pain Left shoulder pain Hand numbness Screen for STD (sexually transmitted disease) Syphilis HIV (human immunodeficiency virus infection) Surgical History History of bronchoscopy History of esophagogastroduodenoscopy (EGD) H/O colonoscopy Family History Family History Father ALS (amyotrophic lateral sclerosis) Diabetes Hypertension Mother Liver cirrhosis Brother Liver cirrhosis Sister Hyperlipidemia Paternal Grandmother Cancer Paternal Aunt Cancer Family/Other FH: mental illness Substance use disorder Social History Social History Household Members: Friend(s) and None Housing: Other Alcohol intake: current Alcohol intake frequency: holidays/special occasions only Alcohol type: hard liquor Patient Tobacco Use Status: Current someday Tobacco user Tobacco use type: Cigarette Years Smoked: 30 e-Cigarette/Vaping Use: Never Used Advance Directives: No Advance Directives Information Provided: No service: No Current occupational status: unemployed Cognitive needs: No Hearing needs: No Vision needs: No Physical Exam ED Vital Signs: Vital Signs - 24 hr 04/14/23 14:48 Temperature 97.4 F Pulse Rate 90 Respiratory Rate 19 Blood Pressure 156/98 H Pulse Oximetry 98 Oxygen Delivery Method Room Air BMI result Body Mass Index 28.0 Const General: cooperative, no acute distress, alert and awake Nutritional Appearance: well nourished Orientation/consciousness: patient oriented x3 Limitations: no limitations HENMT Head: Yes normal to inspection and Yes atraumatic Ears: hearing grossly normal bilaterally and external ears normal General nose exam: Normal external nose present, no nasal discharge noted and no epistaxis Face and sinus: Yes normal facial exam, No abrasion and No laceration Mouth: Normal oral and palatal mucosa present, no drooling and no muffled voice Eyes General: appearance normal, both eyes and all related structures Periorbital: periorbital findings normal Eyelids: Yes eyelids normal Conjunctivae: conjunctivae normal Pupils: Equal, round and reactive pupils present EOM: EOMs intact bilaterally Neck Neck: Yes normal visual inspection, Yes full ROM and Yes no lymphadenopathy Chest Chest palpation & inspection: normal inspection of the chest Resp Effort & Inspection: normal respiratory effort and able to speak in complete sentences GI Inspection: Yes normal to inspection Neuro General: patient oriented x3 and moves all extremities Cranial nerves: Yes Equal, round and reactive pupils present Cognition (Neuro): normal cognition Motor exam (neuro): 5/5 motor strength present throughout Sensory Exam: Normal double simultaneous stimulation for sensation Coordination: [id number] test normal Extrem General: Yes normal to inspection, Yes full ROM and Yes capillary refill normal Psych Appearance: grossly normal Mental Status: mental status grossly normal Affect: normal affect Attitude: cooperative Thought process: Normal thought process present Thought content: Normal thought content present Insight: Good insight present (Psych) Course Course Course Narrative: RME- 57 year old male presents for evaluation of I felt like I was going to pass out. Patient was seen here yesterday and diagnosed with an upper respiratory infection. He was discharged with prednisone and Azithromycin. He reports that after taking them today, he felt like he was going to pass out and still feels that way. Plan for labs and ekg. Chest x-ray and viral swabs comepleted yesterday. Medical Decision Making Medical Decision Making [facility] Narrative: Patient is a 57 year old assigned male at with a history of HIV presenting to the emergency department today after an episode of near syncope. Patient's physical exam was unremarkable. Patient's blood work was unremarkable. Patient's EKG was unremarkable. Patient's clinical presentation is most consistent with anxiety. I explained my physical exam findings as well as all test results to the patient. I answered all questions asked by the patient. I stressed the importance of the patient taking his medication as prescribed. I stressed the importance of the patient following up with his primary care provider. I stressed the importance of the patient returning to the emergency department immediately if his symptoms were to worsen or if he were to develop any dizziness, shortness of breath, difficulty breathing, chest pain, blurry vision, loss of vision, nausea, vomiting, abdominal pain, fever, chills, back pain, or any other complaints. Patient verbalized agreement and understanding with this treatment plan and discharge. Differential Diagnosis Differential Diagnoses: The differential diagnosis associated with the presentation includes Anxiety Medication reaction Lab Data MDM Lab Attestation statement: I reviewed the patient's lab results. My interpretation of these studies and their corresponding values is that they are grossly normal. 04/14/23 15:15 04/14/23 15:15 Labs: Lab Results 04/14/23 Range/Units 15:15 WBC 8.7 (4.8-10.8) X10*3/uL RBC 4.70 (4.60-5.80) X10*6/uL Hgb 15.2 (14.0-18.0) g/dl Hct 42.0 (42.0-52.0) % MCV 89.4 (80.0-98.0) fL MCH 32.3 (27.0-33.0) pg MCHC 36.2 H (31.0-36.0) g/dl RDW 12.5 (11.0-16.0) % Plt Count 156 L (160-400) X10*3/uL MPV 9.8 (9.4-12.4) fL Immature Gran % (Auto) 0.3 (0.0-0.4) % Neut % (Auto) 76.0 H (45-73) % Lymph % (Auto) 20.7 (20-40) % Billings % (Auto) 2.7 (2-11) % Eos % (Auto) 0.1 (0-4) % Baso % (Auto) 0.2 (0-2) % Lymph # (Auto) 1.8 (1.2-4.9) X10*3/uL Billings # (Auto) 0.2 (0.1-1.2) X10*3/uL Eos # (Auto) 0.0 (0.0-0.4) X10*3/uL Baso # (Auto) 0.0 (0.0-0.2) X10*3/uL Abs Immat Gran (auto) 0.03 (0.00-0.03) X10*3/uL Absolute Neuts (auto) 6.6 (2.0-8.3) x10*3/uL Absolute Nucleated RBC 0.000 (0.0-0.012) X10*3/uL Nucleated RBC % (auto) 0.0 (0.0-0.2) /100WBC Sodium 139 (135-145) mmol/L Potassium 4.1 (3.3-5.1) mmol/L Chloride 107 (96-108) mmol/L Carbon Dioxide 23 (22-29) mmol/L Anion Gap 13 (12-20) BUN 17 H (9-16) mg/dL Creatinine 1.06 (0.5-1.4) mg/dL Estim Creat Clear Calc 82.5 Estimated GFR > 60 Random Glucose 125 H (60-115) mg/dL Calcium 9.9 D (8.4-10.2) mg/dL Total Bilirubin 0.6 (0.0-1.0) mg/dL AST 31 (5-37) U/L ALT 34 (0-40) U/L Alkaline Phosphatase 107 (39-117) U/L Total Protein 7.3 (6.5-8.0) g/dL Albumin 4.5 (3.5-5.0) g/dL Lipase 59 (8-78) U/L Independent Interpretation I performed an independent interpretation of an: EKG Interpretation: Vent. Rate: 088 BPM Atrial Rate: 088 BPM P-R Int: 194 ms QRS Dur: 090 ms QT Int: 356 ms P-R-T Axes: 074 -10 028 degrees QTc Int: 430 ms Normal sinus rhythm Normal ECG When compared with ECG of 13-APR-2023 11:54, No significant change was found DD/ 1509 Independent Historian Clinical information obtained from an independent historian. History obtained from or confirmed by: EMS (EMS provided additional history and confirmed the history provided by the patient.) Discharge Plan Discharge Clinical Impression: Anxiety Patient Disposition: Home, Self-Care Instructions: Anxiety (ED) Additional Instructions: Follow up with your primary care provider. Return to the emergency department immediately if your symptoms worsen or if you develop any dizziness, shortness of breath, difficulty breathing, chest pain, blurry vision, loss of vision, nausea, vomiting, abdominal pain, fever, chills, back pain, or any other complaints. Shamika un seguimiento con mai proveedor de atenci?n primaria. Regrese al departamento de emergencias inmediatamente si nelson s?ntomas empeoran o si presenta mareos, dificultad para respirar, dificultad para respirar, dolor en el pecho, visi?n borrosa, p?rdida de la visi?n, n?useas, v?mitos, dolor abdominal, fiebre, escalofr?os, dolor de espalda o cualquier otras quejas. Prescriptions: No Action Pneumovax-23 25 mcg/0.5 mL solution 0.5 ml IM ONCE 30 Days Qty: 0.5 0RF cholecalciferol (vitamin D3) 25 mcg (1,000 unit) capsule 25 mcg PO DAILY 90 Days Qty: 90 3RF diclofenac sodium 75 mg tablet,delayed release (DR/EC) 75 mg PO BID Qty: 20 0RF pantoprazole [Protonix] 20 mg tablet,delayed release (DR/EC) 20 mg PO DAILY Qty: 20 0RF escitalopram oxalate [Lexapro] 5 mg tablet 5 mg PO DAILY azithromycin 250 mg tablet See Rx Instructions .ROUTE .COMPLEX Qty: 6 0RF Rx Instructions: For 250 mg dose pack: take 500 mg today (day 1), then 250 mg for 4 days (days 2-5) prednisone 20 mg tablet 40 mg PO DAILY Qty: 10 0RF triamcinolone acetonide 0.5 % cream 1 appl topical BID colchicine (gout) 0.6 mg tablet 0.6 mg PO DAILY hydrocortisone 2.5 % cream 1 appl topical BID PRN (Reason: Muscle Spasm) Rectiv 0.4 % (w/w) ointment 1 inch IA BID 30 Days Qty: 30 0RF albuterol sulfate 90 mcg/actuation HFA aerosol inhaler 2 puff inhalation Q6H PRN (Reason: bronchospasm) 30 Days Qty: 8.5 6RF allopurinol 100 mg tablet 100 mg PO DAILY 90 Days Qty: 90 1RF diclofenac sodium [Voltaren Arthritis Pain] 1 % gel 2 g topical QID PRN (Reason: pain (scale score 7-10)) 14 Days Qty: 100 0RF Rx Instructions: apply to single elbow, wrist or hand; for hand includes palm/fingers/back of hand hydrocortisone [Proctosol HC] 2.5 % cream with perineal applicator 1 appl IA BID PRN (Reason: hemorrhoids) 30 Days Qty: 30 6RF clotrimazole [Lotrimin AF (clotrimazole)] 1 % cream 1 appl topical BID 30 Days Qty: 45 11RF Biktarvy 50-200-25 mg tablet 1 tab PO DAILY 30 Days Qty: 30 5RF valacyclovir [Valtrex] 1 gram tablet 1,000 mg PO DAILY 30 Days Qty: 30 5RF Referrals: Meagan De La Cruz MD [Primary Care Provider] - Interventions: ED Discharge Assessment Last Done: 04/14/23 16:21 Discharge Date/Time: 04/14/23 16:23 Print Language: Latvian
[2023-04-14 15:19] LABS: MANUAL DIFF FLAG NO
--- OUTSIDE RECORDS SUMMARY | 2023-04-14 15:21 | XMS_ITS | Patient Health Record ---
Author Name Unknown Organization [facility] Address [address] [place] [address] Care Team Providers Care Technical Support Representative Name Role Phone Meagan De La Cruz Primary Care Provider Unavailab Grace Avila Frankie Unavailable [phone] ALLERGIES No Known Allergies RESULTS Component Value Reference Range Notes Leukocytes Stool Qualitative Reviewed date:08/04/2022 08:38:08 AM Interpretation: Performing Lab:[facility], [address] [place] [id number] Notes/Report: Leukocytes Stool Qualitative NEGATIVE NEGATIVE Ova and Parasite Reviewed date:08/15/2022 08:19:53 AM Interpretation: Performing Lab:[address] [phone] Notes/Report: Ova and Parasite SEE NOTE OVA AND PARASITES, CONC AND PERM SMEAR Micro Number: [id number] Test Status: Final Specimen Source: Stool Specimen [...] infection. For additional information, please refer to https://education.[employer]estander/faq/QUX109 (This link is being provided for informational/ educational purposes only.) THIS TEST WAS PERFORMED AT: [facility] [address] [place] [phone] WISAM HANKS MD GI PANEL Reviewed date:08/04/2022 08:38:18 AM Interpretation: Performing Lab:[facility], [address] [place] [address], [place] [address] Notes/Report: Campylobacter Not Detected Not Detect. Plesiomonas [...] is performed by Multiplexed PCR, utilizing the Pramana Array. REASON FOR REFERRAL No Information MEDICATIONS [...] Notes Problem Epigastric pain (R10.13) Active confirmed 62431071 Problem Rectal bleeding (K62.5) Active confirmed 62697958 Problem Colon cancer screening (Z12.11) Active confirmed 313177155 Problem Diarrhea, unspecified type (R19.7) Active confirmed 76107453 Problem Abnormal CT scan, stomach (R93.3) Active confirmed [id number] Encounters Encounter Location Date Provider Diagnosis [facility] [address] [place] [phone] 03/09/2023 Frankie Vences Jr [facility] [address] [place] [address] 07/06/2022 Frankie Vences Jr [facility] [address] [place] [phone] 07/12/2022 Frankie Vences Jr Diarrhea, unspecified type R19.7 [facility] [address] [place] [phone] 08/04/2022 Frankie Vences Jr [facility] [address] [place] [phone] 02/14/2023 Frankie Vences Jr [facility] [address] [place] [phone] 03/07/2023 Frankie Vences Jr ASSESSMENTS Encounter Date [...] Name:Frankie queen Jr, 08/09/2023 09:00:00 AM, [address] [facility], [address], [place], [address], Insurance Providers Payer Name Payer Address Payer Phone Subscriber Number Group Number Insured Name Patient Relationship to Insured Coverage Start Date Coverage End Date [facility] [employer] [facility] [address] [address] [place], [place] [id number] JACQUELINE MCDONALD Self - patient is the insured MEDICAL (GENERAL) HISTORY Medical History History ICD Code hypertension HIV fatty liver Pneumonia Gout Anxiety Surgical History Surgery Date(Month/Year)
[2023-04-14 15:22] LABS: Basophils Percent Auto 0.2 % (0-2); Eosinophils Percent Auto 0.1 % (0-4); Hemoglobin 15.2 g/dl (14.0-18.0); Imm Gran Abs Auto 0.03 X10*3/uL (0.00-0.03); Imm Gran Pct Auto 0.3 % (0.0-0.4); Lymphocytes Absolute Auto 1.8 X10*3/uL (1.2-4.9); Lymphocytes Percent Auto 20.7 % (20-40); Mean Corpuscular HGB Conc 36.2 g/dl (31.0-36.0); Mean Corpuscular Hemoglobin 32.3 pg (27.0-33.0); Mean Corpuscular Volume 89.4 fL (80.0-98.0); Mean Platelet Volume 9.8 fL (9.4-12.4); Monocytes Absolute Auto 0.2 X10*3/uL (0.1-1.2); Monocytes Percent Auto 2.7 % (2-11); Neutrophils Absolute Auto 6.6 x10*3/uL (2.0-8.3); Platelet Count 156 X10*3/uL (160-400); Red Cell Distribution Width 12.5 % (11.0-16.0); White Blood Count 8.7 X10*3/uL (4.8-10.8)
[2023-04-14 15:37] LABS: Alanine Aminotransferase 34 U/L (0-40); Albumin Level 4.5 g/dL (3.5-5.0); Alkaline Phosphatase 107 U/L (39-117); Anion Gap 13 (12-20); Aspartate Amino Transferase 31 U/L (5-37); Bilirubin Total 0.6 mg/dL (0.0-1.0); Blood Urea Nitrogen 17 mg/dL (9-16); Calcium 9.9 mg/dL (8.4-10.2); Carbon Dioxide 23 mmol/L (22-29); Chloride 107 mmol/L (96-108); Creatinine Clr Calc Pharmacy 82.5; Estimated Glomerular Filt Rate > 60; Glucose Random 125 mg/dL (60-115); Lipase 59 U/L (8-78); Potassium 4.1 mmol/L (3.3-5.1); Sodium 139 mmol/L (135-145); Total Protein 7.3 g/dL (6.5-8.0)
== END 2023-04-14 16:23 | disposition home or self-care (01) ==
PROVIDERS: Physician Assistant; Emergency Provider Emergency Medicine; PCP Internal Medicine
DX: F41.9 Anxiety disorder, unspecified (principal); B20 Human immunodeficiency virus [HIV] disease; I10 Essential (primary) hypertension; E78.5 Hyperlipidemia, unspecified; J84.9 Interstitial pulmonary disease, unspecified; F17.210 Nicotine dependence, cigarettes, uncomplicated
CPT/HCPCS: 36415; 80053; 83690; 85025; 93005; 99283

== ENCOUNTER 2023-04-17 13:28 | Outpatient (AMB) | payer OTHER, SELFPAY ==
--- NOTE | 2023-04-17 13:34 | A.OFFVIS_ITS ---
Intake Vital Signs 04/17/23 13:48 Height 5 ft 9 in Weight 192 lb BMI 28.4 BP 140/88 H Blood Pressure Location Lt brachial Position Sitting Pulse 72 Pulse Source Pulse Oximeter Pulse Oximetry (%) 96 Intake Visit Reasons: rectal pap/gc test repeat Interactive Art Director Required: Yes Interactive Art Director Name: Jf Jain CMA Allergies No Known Allergies [No Known Allergies*] Allergy (Verified 04/17/23 13:50) HPI rectal pap/gc test repeat HPI Details He is here for followup rectal discomfort and Pap. He has had Pap with not enough cells in January. He has STD risk and wants GC and chlamydia testing due to discomfort/screening. He has had cough and saw ER twice and had Zmax and steroids and CXR normal. [facility]LY [facility], [facility] Medical History Pneumonia Shortness of breath Cough Hyperlipidemia HTN (hypertension) Abdominal pain Anxiety Gout Right shoulder pain Left shoulder pain Hand numbness Screen for STD (sexually transmitted disease) Syphilis HIV (human immunodeficiency virus infection) Surgical History History of bronchoscopy History of esophagogastroduodenoscopy (EGD) H/O colonoscopy Family History Father ALS (amyotrophic lateral sclerosis) Diabetes Hypertension Mother Liver cirrhosis Brother Liver cirrhosis Sister Hyperlipidemia Paternal Grandmother Cancer Paternal Aunt Cancer Family/Other FH: mental illness Substance use disorder Social History Household Members: Friend(s) and None Housing: Other Alcohol intake: current Alcohol intake frequency: holidays/special occasions only Alcohol type: hard liquor Patient Tobacco Use Status: Current someday Tobacco user Tobacco use type: Cigarette Years Smoked: 30 e-Cigarette/Vaping Use: Never Used service: No Current occupational status: unemployed Cognitive needs: No Hearing needs: No Vision needs: No Review of Systems Const All systems reviewed & are unremarkable except as noted in HPI and below Physical Exam Vital Signs: Last Vital Signs Pulse 72 04/17/23 13:48 BP 140/88 H 04/17/23 13:48 Pulse Ox 96 04/17/23 13:48 BMI result Body Mass Index 28.4 Const General: cooperative Orientation/consciousness: patient oriented x3 HEENT Head: Yes normal to inspection Mouth: Normal oral and palatal mucosa present Eyes General: appearance normal, both eyes and all related structures Pupils: Equal, round and reactive pupils present Resp Effort & Inspection: normal respiratory effort Cardio Rate: regular rate Rhythm: regular rhythm GI Palpation (GI): Soft to palpation and nontender Rectal Exam - Male: Yes Visual inspection abnormal (hemorrhoids,difficult to insert Pap swab) General: Yes no CVA tenderness Back/Spine/Pelvis Back: no CVA tenderness Skin General skin exam: no rashes or lesions noted Neuro General: patient oriented x3 Cranial nerves: Yes CN's II-XII intact bilaterally and Yes Equal, round and reactive pupils present Extrem General: Yes normal to inspection Psych Appearance: grossly normal Assessment & Plan Assessment & Plan (1) HIV (human immunodeficiency virus infection): Comment: He has been doing well and now has undetectable viral load. He is getting full STD check and rectal Pap today. Code(s): B20 - Human immunodeficiency virus [HIV] disease Plan: See in August or September 2023 with labs before. If rectal Pap still not enough cells see [facility] [place] or [place]. Orders: Orders Other Ref Test - Misc 2 Days B20 - Human immunodeficiency virus [HIV] disease Other Ref Test - Misc Today B20 - Human immunodeficiency virus [HIV] disease Other Ref Test - Misc 1 Day B20 - Human immunodeficiency virus [HIV] disease Pap Smear Today B20 - Human immunodeficiency virus [HIV] disease Coding Level of Care Code Est Pt Level 3 (03070) Diagnoses HIV (human immunodeficiency virus infection) B20
[2023-04-17 13:48] VITALS: BP 140/88; PULSE 72; O2SAT 96; BMI 28.4
== END 2023-04-17 14:12 | disposition home or self-care (01) ==
PROVIDERS: PCP Internal Medicine; Visit Provider Internal Medicine
DX: B20 Human immunodeficiency virus [HIV] disease (principal)
CPT/HCPCS: 99213

== ENCOUNTER 2023-04-17 13:28 | Outpatient (REF) | payer OTHER, SELFPAY ==
[2023-04-17 18:22] LABS: CT PCR NOT DETECTED (Not Detect.); NG PCR NOT DETECTED (Not Detect.)
== END 2023-04-17 13:29 | disposition home or self-care (01) ==
LOC: HO.LAB 13:28
PROVIDERS: PCP Internal Medicine; Visit Provider Internal Medicine
DX: B20 Human immunodeficiency virus [HIV] disease (principal); R05.9 Cough, unspecified
CPT/HCPCS: 0353U; 99212

== ENCOUNTER 2023-04-17 15:30 | Outpatient (REF) | payer OTHER, SELFPAY | END 2023-04-17 15:31 | disposition home or self-care (01) | LOC: HO.LNP 15:30 | PROVIDERS: Visit Provider Internal Medicine | DX: B20 Human immunodeficiency virus [HIV] disease (principal) | CPT/HCPCS: 87491; 87591; 88112 ==

== ENCOUNTER 2023-05-05 14:45 | Outpatient (AMB) | payer OTHER, SELFPAY ==
--- OUTSIDE RECORDS SUMMARY | 2023-05-05 14:47 | XMS_ITS | Patient Health Record ---
Author Name Unknown Organization [facility] Address [address] [place] [address] Care Team Providers Care Gas Station Manager Name Role Phone Meagan De La Cruz Primary Care Provider Unavailab Garce Avila Frankie Unavailable ALLERGIES No Known Allergies RESULTS Component Value Reference Range Notes Leukocytes Stool Qualitative Reviewed date:08/04/2022 08:38:08 AM Interpretation: Performing Lab:[facility], [address] [place] [id number] Notes/Report: Leukocytes Stool Qualitative NEGATIVE NEGATIVE Ova and Parasite Reviewed date:08/15/2022 08:19:53 AM Interpretation: Performing Lab:[address] [address] Notes/Report: Ova and Parasite SEE NOTE OVA AND PARASITES, CONC AND PERM SMEAR Micro Number: [id number] Test Status: Final Specimen Source: Stool Specimen [...] infection. For additional information, please refer to https://education.Cabeo/faq/QXH683 (This link is being provided for informational/ educational purposes only.) THIS TEST WAS PERFORMED AT: [facility] [address] [place] [phone] WISAM HANKS MD GI PANEL Reviewed date:08/04/2022 08:38:18 AM Interpretation: Performing Lab:[facility], [address] [place] [address], [place] [address] Notes/Report: Campylobacter Not Detected Not Detect. Plesiomonas [...] is performed by Multiplexed PCR, utilizing the Logical Lighting Array. REASON FOR REFERRAL No Information MEDICATIONS [...] Notes Problem Epigastric pain (R10.13) Active confirmed 36385550 Problem Rectal bleeding (K62.5) Active confirmed 40124805 Problem Colon cancer screening (Z12.11) Active confirmed 702283047 Problem Diarrhea, unspecified type (R19.7) Active confirmed 08599499 Problem Abnormal CT scan, stomach (R93.3) Active confirmed [id number] Encounters Encounter Location Date Provider Diagnosis [facility] [address] [place] [phone] 03/09/2023 Frankie Vences Jr [facility] [address] [place] [address] 07/06/2022 Frankie Vences Jr [facility] [address] [place] [phone] 07/12/2022 Frankie Vences Jr Diarrhea, unspecified type R19.7 [facility] [address] [place] [phone] 08/04/2022 Frankie Vences Jr [facility] [address] [place] [phone] 02/14/2023 Frankie Vences Jr [facility] [address] [place] [phone] 03/07/2023 Frankie Vences Jr ASSESSMENTS Encounter Date [...] Name:Frankie queen Jr, 08/09/2023 09:00:00 AM, [address] [address] [facility], [address], [place], [address], Insurance Providers Payer Name Payer Address Payer Phone Subscriber Number Group Number Insured Name Patient Relationship to Insured Coverage Start Date Coverage End Date [facility] [address] [address] [place], [place] [id number] JACQUELINE MCDONALD Self - patient is the insured MEDICAL (GENERAL) HISTORY Medical History History ICD Code hypertension HIV fatty liver Pneumonia Gout Anxiety Surgical History Surgery Date(Month/Year)
[2023-05-05 14:55] VITALS: BP 124/80; PULSE 65; BMI 28.4
--- NOTE | 2023-05-05 14:55 | HO.NEPHOV ---
Intake Vital Signs 05/05/23 14:55 Height 5 ft 9 in Weight 192 lb 2 oz BMI 28.4 BP 124/80 Blood Pressure Location Rt brachial Position Sitting Pulse 65 Pulse Source Pulse Oximeter Intake Visit Reasons: CKD - Conf through CW Gasoline Tester Required: Yes Gasoline Tester Name: Octavio [id number] Accompanied by: Self / Same As Patient Allergies No Known Allergies [No Known Allergies*] Allergy (Verified 05/05/23 15:00) HPI HPI Comments History of Present Illness Details I had the privilege of seeing Brian in follow up for proteinuria. Gasoline Tester was available throughout the patient encounter. He has HIV and is on anti retrovirals which he claims to be compliant .He denies neuropathy , retinopathy, CAD, CVA, CHF, KISHAN , PAD , hepatitis or carotid stenosis. He is not on ACEI. He has H/O gout but does not take NSAID's regularly. He denies any nausea, vomiting, diarrhea, SOB, edema, PND, orthopnea, hematuria, hearing deficits. He does not take SGLT2i. He has no sinusitis, epistaxis, photosensitivity, bone pain, sore throat , hemoptysis, skin lesions or recent antibiotic intake. He denied any active complaints at the time of this office visit Assessment & Plan Assessment & Plan (1) Proteinuria: Code(s): R80.9 - Proteinuria, unspecified Qualifiers: Proteinuria type: other Qualified Code(s): R80.8 - Other proteinuria (2) HIV (human immunodeficiency virus infection): Code(s): B20 - Human immunodeficiency virus [HIV] disease Plan Has had some protein in the urine BP has been at goal; Last urine no significant protein Doesn't take NSAID's. On uric acid lowering medications DDx- HIVAN vs other etiology; Last serum creatinine 1.06 Not on ACEI. NO renal stones; Maintain good hydration No medication changes done today; Labs ordered Answered all questions; F/U given Time spent reviewing all data/encounter/ documentation 31 minutes Orders: Orders Hepatitis B Surface Antibody 05/05/23 R80.9 - Proteinuria, unspecified Hepatitis B Core Antibody 05/05/23 R80.9 - Proteinuria, unspecified Hepatitis C Antibody Reflex 05/05/23 R80.9 - Proteinuria, unspecified Blood Urea Nitrogen 05/05/23 R80.9 - Proteinuria, unspecified Creatinine 05/05/23 R80.9 - Proteinuria, unspecified Protein, 24 Hr Urine Group 05/05/23 B20 - Human immunodeficiency virus [HIV] disease, R80.9 - Proteinuria, unspecified Hepatitis B Surface Antigen 05/05/23 R80.9 - Proteinuria, unspecified Electrolytes 05/05/23 R80.9 - Proteinuria, unspecified Calcium 05/05/23 R80.9 - Proteinuria, unspecified Coding Level of Care Code Est Pt Level 3 (76637) Diagnoses Other proteinuria R80.8 Proteinuria type: other HIV (human immunodeficiency virus infection) B20 [facility] Medical History Pneumonia Shortness of breath Cough Hyperlipidemia HTN (hypertension) Abdominal pain Anxiety Gout Right shoulder pain Left shoulder pain Hand numbness Screen for STD (sexually transmitted disease) Syphilis HIV (human immunodeficiency virus infection) Surgical History History of bronchoscopy History of esophagogastroduodenoscopy (EGD) H/O colonoscopy Family History Father ALS (amyotrophic lateral sclerosis) Diabetes Hypertension Mother Liver cirrhosis Brother Liver cirrhosis Sister Hyperlipidemia Paternal Grandmother Cancer Paternal Aunt Cancer Family/Other FH: mental illness Substance use disorder Social History Household Members: Friend(s) and None Housing: Other Alcohol intake: current Alcohol intake frequency: holidays/special occasions only Alcohol type: hard liquor Patient Tobacco Use Status: Current someday Tobacco user Tobacco use type: Cigarette Years Smoked: 30 e-Cigarette/Vaping Use: Never Used service: No Current occupational status: unemployed Cognitive needs: No Hearing needs: No Vision needs: No
== END 2023-05-05 15:56 | disposition home or self-care (01) ==
LOC: HO.HKA 14:45
PROVIDERS: PCP Internal Medicine; Visit Provider Internal Medicine Nephrology
DX: R80.8 Other proteinuria (principal); B20 Human immunodeficiency virus [HIV] disease
CPT/HCPCS: 99214

== ENCOUNTER → 2023-05-05 14:45 | Outpatient (BNVA) | payer OTHER, SELFPAY | PROVIDERS: PCP Internal Medicine; Visit Provider Internal Medicine Nephrology | DX: R80.8 Other proteinuria (principal); B20 Human immunodeficiency virus [HIV] disease | CPT/HCPCS: 99212 ==

== ENCOUNTER 2023-05-24 15:00 | Outpatient (AMB) | payer OTHER, SELFPAY ==
--- NOTE | 2023-05-24 15:04 | A.OFFVIS_ITS ---
Intake Vital Signs 05/24/23 15:37 Height 5 ft 9 in Weight 194 lb BMI 28.6 BP 127/75 Blood Pressure Location Lt brachial Position Sitting Pulse 80 Intake Visit Reasons: Diseases of anus- Anal pap Intake Note: Patient is seen in office for evaluation and treatment of disease of the anus/anal pap. Patient c/o: Allergies No Known Allergies [No Known Allergies*] Allergy (Verified 05/24/23 15:12) Medication List - Last Reconciled 05/24/23 by Kentrell Tse MD albuterol sulfate 90 mcg/actuation 2 puffs inhalation Q6H PRN 30 days allopurinol 100 mg PO DAILY 90 days nqyemxcwr-qzwjeton-kcxwrpk ala 50-200-25 mg (Biktarvy) 1 tab PO DAILY 30 days cholecalciferol (vitamin D3) 25 mcg PO DAILY 90 days clotrimazole 1% (Lotrimin AF (clotrimazole)) 1 appl topical BID 30 days colchicine (gout) 0.6 mg PO DAILY diclofenac sodium 75 mg PO BID diclofenac sodium 1% (Voltaren Arthritis Pain) 2 grams topical QID PRN 2 weeks escitalopram oxalate (Lexapro) 5 mg PO DAILY hydrocortisone 2.5% 1 appl topical BID PRN hydrocortisone 2.5% (Proctosol HC) 1 appl AK BID PRN 30 days lorazepam (Ativan) 1 mg (2 x 0.5 mg) PO DAILY PRN 1 day nitroglycerin 0.4%(w/w) (Rectiv) 1 inch AK BID 30 days pantoprazole (Protonix) 20 mg PO DAILY valacyclovir (Valtrex) 1,000 mg PO DAILY 30 days HPI Diseases of anus- Anal pap HPI Details 57-year-old male referred to me for an a nal Pap smear. He has known HIV and apparently had a history of an anal lesion in the past. He is being followed by Dr. Villatoro and referred for a Pap smear. He had Pap smears before which were nonconclusive. He admits to engaging in receptive intercourse. He had a colonoscopy last year with Dr. Vences and this was unremarkable. He says he has hemorrhoids and says that he has periodic passage of bright blood per rectum. Denies any frequent swelling or pain. [facility] Medical History (Updated 05/24/23 @ 15:35 by Kentrell Tse MD) Bleeding hemorrhoids Pneumonia Shortness of breath Cough Hyperlipidemia HTN (hypertension) Abdominal pain Anxiety Gout Right shoulder pain Left shoulder pain Hand numbness Screen for STD (sexually transmitted disease) Syphilis HIV (human immunodeficiency virus infection) Surgical History History of bronchoscopy History of esophagogastroduodenoscopy (EGD) H/O colonoscopy Family History Father ALS (amyotrophic lateral sclerosis) Diabetes Hypertension Mother Liver cirrhosis Brother Liver cirrhosis Sister Hyperlipidemia Paternal Grandmother Cancer Paternal Aunt Cancer Family/Other FH: mental illness Substance use disorder Household Members: Friend(s) and None Housing: Other Alcohol intake: current Alcohol intake frequency: holidays/special occasions only Alcohol type: hard liquor Patient Tobacco Use Status: Current someday Tobacco user Tobacco use type: Cigarette Years Smoked: 30 e-Cigarette/Vaping Use: Never Used service: No Current occupational status: unemployed Cognitive needs: No Hearing needs: No Vision needs: No Review of Systems Const Denies chills and Denies fever(s) Card Denies chest pain, Denies dyspnea and Denies dyspnea on exertion Resp Denies cough, Denies dyspnea and Denies dyspnea on exertion GI Reports hematochezia and Denies change in bowel habits Denies hematuria and Denies difficulty urinating Musc Denies back pain and Denies limited range of motion Neuro Denies focal weakness and Denies convulsions Psych Denies depression and Denies mood swings Physical Exam Const General: comfortable and no acute distress Orientation/consciousness: patient oriented x3 Neck Neck: Yes no lymphadenopathy Resp Auscultation: clear to auscultation bilaterally Cardio Rhythm: regular rhythm GI Other: Rectal exam shows internal external margins, moderate-sized, no bleeding, anoscopy as described Anal Pap also done Palpation (GI): Soft to palpation, nontender and no guarding Neuro General: patient oriented x3 Office Procedures Anoscopy He was in dell-knife position. An anal Pap was done using a Cytobrush prior to anoscopy. The anoscope was gently inserted. A full examination of the anal canal was done. Internal external hemorrhoids which were moderate size, no other lesions, no bleeding, no induration. No fissures or ulcers. [id number] Assessment & Plan Assessment & Plan (1) Anal lesion: Code(s): K62.9 - Disease of anus and rectum, unspecified Plan: He was referred to me for anal Pap. Anoscopy did not reveal any obvious anal lesions except for hemorrhoids. This was done in the office. I will forward the results to his primary care physician as well as to Dr. Villatoro. (2) Bleeding hemorrhoids: Code(s): K64.9 - Unspecified hemorrhoids Plan: He has prominent internal and external hemorrhoids. I explained to him the option of hemorrhoidectomy. I reviewed the risks, benefits, and alternatives. He will follow up with me down the line if he feels that he will go for hemorrhoidectomy with severe symptoms. Orders: Orders Pap Smear Today K62.9 - Disease of anus and rectum, unspecified Coding Level of Care Code New Pt Level 4 (84662) Diagnoses Anal lesion K62.9 Bleeding hemorrhoids K64.9 CPT Codes Details - CPT: 57267-Jdpshvyk ([id number])
[2023-05-24 15:37] VITALS: BP 127/75; PULSE 80; BMI 28.6
== END 2023-05-24 15:37 | disposition home or self-care (01) ==
PROVIDERS: PCP Internal Medicine; Referring Provider Internal Medicine; Visit Provider Surgery
DX: K62.9 Disease of anus and rectum, unspecified (principal); K64.9 Unspecified hemorrhoids
CPT/HCPCS: 46600; 99204

== ENCOUNTER 2023-05-24 15:00 | Outpatient (REF) | payer OTHER, SELFPAY ==
[2023-06-04 04:24] LABS: HPV MRNA E6/E7 Rectal DETECTED
[2023-06-07 09:23] LABS: HPV 16 RNA, Rectal NOT DETECTED; HPV 18/45 RNA Rectal NOT DETECTED
== END 2023-05-24 15:01 | disposition home or self-care (01) ==
LOC: HO.LNP 15:00
PROVIDERS: PCP Internal Medicine; Referring Provider Internal Medicine; Visit Provider Surgery
DX: Z11.51 Encounter for screening for human papillomavirus (HPV) (principal); K62.9 Disease of anus and rectum, unspecified; K64.9 Unspecified hemorrhoids
CPT/HCPCS: 46600; 87624; 87625; 88112; 99202

== ENCOUNTER 2023-08-04 11:45 | Outpatient (AMB) | payer OTHER, SELFPAY ==
--- NOTE | 2023-08-04 11:47 | HO.NEPHOV_ITS ---
HPI HPI Comments History of Present Illness Details I had the privilege of seeing Brian in follow up for proteinuria. Per Assessment Nurse was available throughout the patient encounter. He has HIV and is on anti retrovirals which he claims to be compliant .He denies neuropathy , retinopathy, CAD, CVA, CHF, KISHAN , PAD , hepatitis or carotid stenosis. He is not on ACEI. He has H/O gout but does not take NSAID's regularly. He denies any nausea, vomiting, diarrhea, SOB, edema, PND, orthopnea, hematuria, hearing deficits. He does not take SGLT2i. He has no sinusitis, epistaxis, photosensitivity, bone pain, sore throat , hemoptysis, skin lesions or recent antibiotic intake. He denied any active complaints at the time of this office visit . He has not had any blood work or urine studies recently [facility] Medical History (Updated 08/04/23 @ 12:00 by Jose J Cardozo MD) Bleeding hemorrhoids Pneumonia Shortness of breath Cough Hyperlipidemia HTN (hypertension) Abdominal pain Anxiety Gout Right shoulder pain Left shoulder pain Hand numbness Screen for STD (sexually transmitted disease) Syphilis HIV (human immunodeficiency virus infection) Surgical History History of bronchoscopy History of esophagogastroduodenoscopy (EGD) H/O colonoscopy Family History Father ALS (amyotrophic lateral sclerosis) Diabetes Hypertension Mother Liver cirrhosis Brother Liver cirrhosis Sister Hyperlipidemia Paternal Grandmother Cancer Paternal Aunt Cancer Family/Other FH: mental illness Substance use disorder Social History Household Members: Friend(s) and None Housing: Other Alcohol intake: current Alcohol intake frequency: holidays/special occasions only Alcohol type: hard liquor Patient Tobacco Use Status: Current someday Tobacco user Tobacco use type: Cigarette Years Smoked: 30 e-Cigarette/Vaping Use: Never Used service: No Current occupational status: unemployed Cognitive needs: No Hearing needs: No Vision needs: No Vital Signs 08/04/23 11:48 Height 5 ft 9 in Weight 193 lb 4 oz BMI 28.5 BP 124/82 Blood Pressure Location Lt brachial Position Sitting Pulse 82 Pulse Source Pulse Oximeter Pulse Oximetry (%) 99 Oxygen Delivery Method Room Air Physical Exam Vital Signs: Last Vital Signs Pulse 82 08/04/23 11:48 BP 124/82 08/04/23 11:48 Pulse Ox 99 08/04/23 11:48 Oxygen Delivery Method Room Air 08/04/23 11:48 BMI result Body Mass Index 28.5 Const General: comfortable and no acute distress Orientation/consciousness: patient oriented x3 HEENT Head: Yes normocephalic Mouth: Normal oral and palatal mucosa present Eyes EOM: EOMs intact bilaterally Neck Neck: Yes supple Resp Auscultation: clear to auscultation bilaterally Cardio Jugular venous distension: no JVD Rate: regular rate GI Palpation (GI): Soft to palpation Auscultation: normal bowel sounds General: Yes no CVA tenderness Back/Spine/Pelvis Back: no CVA tenderness Skin General skin exam: no rashes or lesions noted Neuro General: patient oriented x3 and moves all extremities Extrem General: Yes no pedal edema Assessment & Plan Assessment & Plan (1) CKD (chronic kidney disease) stage 2, GFR 60-89 ml/min: Code(s): N18.2 - Chronic kidney disease, stage 2 (mild) Plan Has had some protein in the urine BP has been at goal; Last urine no significant protein Doesn't take NSAID's. On uric acid lowering medications DDx- HIVAN vs other etiology; Last serum creatinine 1.06 Not on ACEI. NO renal stones; Maintain good hydration No medication changes done today; Labs ordered Answered all questions; F/U given Orders: Orders Creatinine Today N18.2 - Chronic kidney disease, stage 2 (mild) Electrolytes Today N18.2 - Chronic kidney disease, stage 2 (mild) Protein Creatinine Ratio, Ur Today N18.2 - Chronic kidney disease, stage 2 (mild) Blood Urea Nitrogen Today N18.2 - Chronic kidney disease, stage 2 (mild) Uric Acid Today N18.2 - Chronic kidney disease, stage 2 (mild) Medications: Discontinued diclofenac sodium Discontinued Reason: Doctor's Order 75 mg PO BID 20 tabs 0RF M54.9 - Dorsalgia, unspecified Coding Level of Care Code Est Pt Level 3 (92030) Diagnoses CKD (chronic kidney disease) stage 2, GFR 60-89 ml/min N18.2 Results Reviewed Nephrology Results: Hgb 15.2 g/dl (14.0-18.0) 04/14/23 WBC 8.7 X10*3/uL (4.8-10.8) 04/14/23 Plt Count 156 X10*3/uL (160-400) L 04/14/23 Sodium 139 mmol/L (135-145) 04/14/23 Potassium 4.1 mmol/L (3.3-5.1) 04/14/23 Chloride 107 mmol/L (96-108) 04/14/23 Carbon Dioxide 23 mmol/L (22-29) 04/14/23 BUN 17 mg/dL (9-16) H 04/14/23 Creatinine 1.06 mg/dL (0.5-1.4) 04/14/23 Calcium 9.9 mg/dL (8.4-10.2) 04/14/23
[2023-08-04 11:48] VITALS: BP 124/82; PULSE 82; O2SAT 99; BMI 28.5
== END 2023-08-04 12:06 | disposition home or self-care (01) ==
PROVIDERS: PCP Internal Medicine; Visit Provider Internal Medicine Nephrology
DX: N18.2 Chronic kidney disease, stage 2 (mild) (principal)
CPT/HCPCS: 99213

== ENCOUNTER 2023-08-04 12:12 | Outpatient (REF) | payer OTHER, SELFPAY ==
[2023-08-04 15:01] LABS: Creatinine Urine 49.53 mg/dL; Total Protein Urine Random < 7 mg/dL (<12)
[2023-08-04 15:11] LABS: Anion Gap 11 (12-20); Blood Urea Nitrogen 21 mg/dL (9-16); Carbon Dioxide 28 mmol/L (22-29); Chloride 103 mmol/L (96-108); Estimated Glomerular Filt Rate > 60; Potassium 4.3 mmol/L (3.3-5.1); Sodium 138 mmol/L (135-145)
== END 2023-08-04 12:13 | disposition home or self-care (01) ==
LOC: HO.LAB 12:12
PROVIDERS: Visit Provider Internal Medicine Nephrology
DX: N18.2 Chronic kidney disease, stage 2 (mild) (principal); J84.9 Interstitial pulmonary disease, unspecified
CPT/HCPCS: 36415; 80051; 82565; 82570; 84156; 84520; 84550

== ENCOUNTER 2023-08-04 12:40 | Outpatient (REF) | payer OTHER, SELFPAY ==
--- NOTE | ~2023-08-04 | CT_ITS ---
EXAMINATION: CT CHEST WITHOUT CONTRAST CLINICAL INFORMATION: Interstitial pulmonary disease. COMPARISON: 12/05/2022 TECHNIQUE: Multidetector volumetric CT imaging of the chest was done. Axial MIP volume rendering provided. Sagittal and coronal reformatted images were obtained. This CT examination was performed using dose optimization techniques as appropriate, variously including the following: *Automated exposure control *Adjustment of mA and/or kV according to patient size (this includes techniques or standardized protocols for targeted exams where dose is matched to indication/reason for exam; i.e. extremities or head) *Use of iterative reconstruction technique DLP: 170 mGy-cm FINDINGS: LUNGS: Mild to moderate centrilobular emphysema. Bilateral subpleural reticular changes with interstitial thickening, bronchiectasis and peripheral/subpleural groundglass opacities. No evidence of honeycombing. Few small nodules seen on the prior exam have resolved. No suspicious pulmonary nodule. No airspace consolidation. Central airways are patent. MEDIASTINUM: Imaged thyroid gland is heterogeneous. No bulky axillary, hilar or mediastinal lymphadenopathy. Great vessels are of normal caliber. Heart size is normal. No pericardial effusion. CORONARY ARTERY CALCIFICATION: None visualized on this study. PLEURA: There is no pleural effusion. No pleural mass or thickening. CHEST WALL: Gynecomastia. UPPER ABDOMEN: Unremarkable. OSSEOUS STRUCTURES: No destructive bone lesions. CT/CT chest wo IV con IMPRESSION: Interstitial lung disease in a pattern suggestive of nonspecific interstitial pneumonitis. No suspicious pulmonary nodule. No airspace consolidation.
== END 2023-08-04 12:41 | disposition home or self-care (01) ==
LOC: HO.CT 12:40
PROVIDERS: PCP Internal Medicine; Visit Provider Internal Medicine Pulmonary Disease
DX: J84.9 Interstitial pulmonary disease, unspecified (principal); R80.9 Proteinuria, unspecified; N18.2 Chronic kidney disease, stage 2 (mild); Z79.899 Other long term (current) drug therapy
CPT/HCPCS: 71250; 99212

== ENCOUNTER 2023-08-14 09:23 | Outpatient (REF) | payer OTHER, SELFPAY | END 2023-08-14 09:24 | disposition home or self-care (01) | LOC: HO.LNP 09:23 | PROVIDERS: Visit Provider Surgery | DX: K62.9 Disease of anus and rectum, unspecified (principal); B20 Human immunodeficiency virus [HIV] disease | CPT/HCPCS: 88112 ==

== ENCOUNTER 2023-08-14 13:20 | Outpatient (AMB) | payer OTHER, SELFPAY ==
--- NOTE | 2023-08-14 14:38 | A.OFFVIS_ITS ---
Intake Vital Signs 08/14/23 14:39 Height 5 ft 9 in Weight 193 lb BMI 28.5 BP 142/76 H Blood Pressure Location Rt brachial Position Sitting Pulse 74 Intake Visit Reasons: yearly follow-up anal pap Intake Note: This patient presents for a yearly follow-up assessment for anal pap. Pt c/o; reports rectal bleeding. Die Maker Apprentice Required: Yes Die Maker Apprentice Language: Machine Operator General Name: Keerthi Information Interpreted: non-clinical & clinical Accompanied by: Self / Same As Patient Allergies No Known Allergies [No Known Allergies*] Allergy (Verified 08/14/23 14:40) HPI yearly follow-up anal pap HPI0 Details He is here for an anal Pap smear. He has known HIV and apparently had a history of an anal lesion in the past. He is being followed by Dr. Irving bryan nd referred for a Pap smear. He had Pap smears before which were nonconclusive. I actually had done an anal Pap smear last May, but this was inconclusive. He admits to engaging in receptive intercourse. He had a colonoscopy in [address] Vences and this was unremarkable. He says he has hemorrhoids and says that he has periodic passage of bright blood per rectum. He denies any anal pain. [facility] Medical History Bleeding hemorrhoids Pneumonia Shortness of breath Cough Hyperlipidemia HTN (hypertension) Abdominal pain Anxiety Gout Right shoulder pain Left shoulder pain Hand numbness Screen for STD (sexually transmitted disease) Syphilis HIV (human immunodeficiency virus infection) Surgical History History of bronchoscopy History of esophagogastroduodenoscopy (EGD) H/O colonoscopy Family History Father ALS (amyotrophic lateral sclerosis) Diabetes Hypertension Mother Liver cirrhosis Brother Liver cirrhosis Sister Hyperlipidemia Paternal Grandmother Cancer Paternal Aunt Cancer Family/Other FH: mental illness Substance use disorder Social History Household Members: Friend(s) and None Housing: Other Alcohol intake: current Alcohol intake frequency: holidays/special occasions only Alcohol type: hard liquor Patient Tobacco Use Status: Current someday Tobacco user Tobacco use type: Cigarette Years Smoked: 30 e-Cigarette/Vaping Use: Never Used service: No Current occupational status: unemployed Cognitive needs: No Hearing needs: No Vision needs: No Review of Systems Const Denies chills and Denies fever(s) Card Denies chest pain, Denies dyspnea and Denies dyspnea on exertion Resp Denies cough, Denies dyspnea and Denies dyspnea on exertion GI Reports hematochezia and Denies change in bowel habits Denies hematuria and Denies difficulty urinating Musc Denies back pain and Denies limited range of motion Neuro Denies focal weakness and Denies convulsions Psych Denies depression and Denies mood swings Physical Exam Vital Signs: Last Vital Signs Pulse 74 08/14/23 14:39 BP 142/76 H 08/14/23 14:39 BMI result Body Mass Index 28.5 Const General: comfortable and no acute distress Orientation/consciousness: patient oriented x3 Neck Neck: Yes no lymphadenopathy Resp Auscultation: clear to auscultation bilaterally Cardio Rhythm: regular rhythm GI Other: Rectal exam shows external hemorrhoids both the left and right side Palpation (GI): Soft to palpation, nontender and no guarding Neuro General: patient oriented x3 Office Procedures Anoscopy Before doing the anoscopy, I had done anal Pap smear. He was in prone dell- knife position. I used the cytology brush started this into the anal canal. This was rotated multiple times into the anal canal to collect epithelial cells. This was then removed and was dipped into the thin prep. I then proceeded to do the anoscopic exam. I inserted the anoscopy carefully. I examined the entire anal canal. He did moderate-sized internal external hemorrhoids on both the left and right side. There was no bleeding. There were no obvious lesions. There was no induration on digital exam. There were no ulcers or fissures. [id number] Assessment & Plan Assessment & Plan (1) Anal lesion: Code(s): K62.9 - Disease of anus and rectum, unspecified Plan: He has history of anal lesion. He is HIV positive. I had done the anal Pap smear as described above. Anoscopic exam after the Pap smear did not reveal any lesion except for internal external hemorrhoids I will review his Pap smear results. We will send this to his primary care physician as well as Dr. Villatoro. Orders: Orders Pap Smear Today K62.9 - Disease of anus and rectum, unspecified Coding Level of Care Code Est Pt Level 3 (59389) Diagnoses Anal lesion K62.9 CPT Codes Details - CPT: 37613-[id number] ([id number])
[2023-08-14 14:39] VITALS: BP 142/76; PULSE 74; BMI 28.5
== END 2023-08-14 15:17 | disposition home or self-care (01) ==
PROVIDERS: PCP Internal Medicine; Visit Provider Surgery
DX: K62.9 Disease of anus and rectum, unspecified (principal); K64.8 Other hemorrhoids
CPT/HCPCS: 46600; 99213

== ENCOUNTER → 2023-08-14 13:20 | Outpatient (BNVA) | payer OTHER, SELFPAY | PROVIDERS: PCP Internal Medicine; Visit Provider Surgery | DX: K62.9 Disease of anus and rectum, unspecified (principal) | CPT/HCPCS: 46600; 99212 ==

== ENCOUNTER 2023-08-14 15:02 | Outpatient (AMB) | payer OTHER, SELFPAY ==
--- NOTE | 2023-08-14 15:33 | MHC.PC.OV ---
Vital Signs 08/14/23 15:34 Height 5 ft 9 in Weight 193 lb 2 oz BMI 28.5 BP 134/78 Blood Pressure Location Lt brachial Position Sitting Pulse 70 Pulse Source Pulse Oximeter Pulse Oximetry (%) 99 Oxygen Delivery Method Room Air Intake Visit Reasons: ulcer inside mouth Intake Note: Dr. Dominique's patient is here regarding a possible ulcer on the right side of the mouth, present for one week. The patient also mentioned that the dentist couldn't proceed with placing a crown due to potential pain or infection. 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: Yes 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 Helper Language: Faroese Accompanied by: Self / Same As Patient Allergies No Known Allergies [No Known Allergies*] Allergy (Verified 08/14/23 15:53) Medication List - Last Reconciled 08/14/23 by Jasmeet Chahal PA-C albuterol sulfate 90 mcg/actuation 2 puffs inhalation Q6H PRN 30 days allopurinol 100 mg PO DAILY 90 days nzfyumyob-vtehxvlb-ngtercf ala 50-200-25 mg (Biktarvy) 1 tab PO DAILY 30 days cholecalciferol (vitamin D3) 25 mcg PO DAILY 90 days clotrimazole 1% (Lotrimin AF (clotrimazole)) 1 appl topical BID 30 days colchicine 0.6 mg PO DAILY diclofenac sodium 1% (Voltaren Arthritis Pain) 2 grams topical QID PRN 2 weeks escitalopram oxalate (Lexapro) 5 mg PO DAILY hydrocortisone 2.5% 1 appl topical BID PRN hydrocortisone 2.5% (Proctosol HC) 1 appl MI BID PRN 30 days lorazepam (Ativan) 1 mg (2 x 0.5 mg) PO DAILY PRN 1 day nitroglycerin 0.4%(w/w) (Rectiv) 1 inch MI BID 30 days pantoprazole (Protonix) 20 mg PO DAILY valacyclovir (Valtrex) 1,000 mg PO DAILY 30 days Tobacco use date assessed: 08/14/23 Dental Screening Dental Screen Date: 08/14/23 Did you have a dental visit in the last 12 months?: Yes Did you have a dental problem in the last 6 months where you did not have access to dental care?: No Was dental information given to patient?: Patient has dentist HPI ulcer inside mouth HPI Details Patient is a 57 year old male here today for a problem visit. Patient is Faroese-speaking only thus used a remote optical store manager. This is the 1st time I am meeting this 57-year-old male with a past medical history significant for HIV, hyperlipidemia, gout, interstitial lung disease. He reports he has noted a oral lesion in his mouth over last several months that has gotten bigger. He has seen his dentist tried and was told to follow-up with his PCP. He reports he has a molar that is bothering him on the same side of his tongue lesion. He has upcoming appointment with ENT specialty in September of 2023 to evaluate this tongue lesion. [facility] Medical History Bleeding hemorrhoids Pneumonia Shortness of breath Cough Hyperlipidemia HTN (hypertension) Abdominal pain Anxiety Gout Right shoulder pain Left shoulder pain Hand numbness Screen for STD (sexually transmitted disease) Syphilis HIV (human immunodeficiency virus infection) Surgical History History of bronchoscopy History of esophagogastroduodenoscopy (EGD) H/O colonoscopy Family History Father ALS (amyotrophic lateral sclerosis) Diabetes Hypertension Mother Liver cirrhosis Brother Liver cirrhosis Sister Hyperlipidemia Paternal Grandmother Cancer Paternal Aunt Cancer Family/Other FH: mental illness Substance use disorder Social History Household Members: Friend(s) and None Housing: Other Alcohol intake: current Alcohol intake frequency: holidays/special occasions only Alcohol type: hard liquor Patient Tobacco Use Status: Current someday Tobacco user Tobacco use type: Cigarette Years Smoked: 30 e-Cigarette/Vaping Use: Never Used service: No Current occupational status: unemployed Cognitive needs: No Hearing needs: No Vision needs: No Questionnaire PHQ-9 Over the last 2 weeks, how often have you been bothered by any of the following problems? 1. Little interest or pleasure in doing things: not at all 2. Feeling down, depressed, or hopeless: not at all 3. Trouble falling or staying asleep, or sleeping too much: not at all 4. Feeling tired or having little energy: not at all 5. Poor appetite or overeating: not at all 6. Feeling bad about yourself - or that you are a failure or have let yourself or your family down: not at all 7. Trouble concentrating on things, such as reading the newspaper or watching television: not at all 8. Moving or speaking so slowly that other people could have noticed. Or the opposite - being so fidgety or restless that you have been moving around a lot more than usual: not at all 9. Thoughts that you would be better off or of hurting yourself in some way: not at all Total score: 0 Depression Screening Interpretation: Negative Depression Screening Done: Yes Source: Developed by Drs. Juan Luis Payne, Elsy Tadeo, Raymon Franco and colleagues, with an educational brinda from [employer]. Thrive Questionnaire Date Thrive assessed: 08/14/23 I am a: Patient What is your living situation today?: I have a steady place to live Within the past 12 months, did the food you bought not last and you didn't have the money to get more?: Never true Within the past 12 months, did you worry whether your food would run out before you got money to buy more?: Never true Do you have trouble paying for medicines?: No Do you have trouble getting transportation to medical appointments?: No Do you have trouble paying your heating and electricity bill?: No Do you have trouble taking care of your child, family member or friend?: No Do you have trouble with day-to-day activities such as bathing, preparing meals, shopping, managing finances, etc.?: No Are you currently unemployed and looking for a job?: No Are you interested in more education?: No Please select the resources that you would like help with: None Currently or been in a relationship where the following occur: no concerns reported THRIVE Score: 0 AUDIT C Alcohol Use Questionnaire (AUDIT-C) 1. How often do you have a drink containing alcohol?: 2-3 times a week 2. How many drinks containing alcohol do you have on a typical day when you are drinking?: 1 or 2 3. How often do you have six or more drinks on one occasion?: Never Total Score: 3 Score Reviewed/Action Taken: Yes CRISTOBAL-7 AMB Questionnaire CRISTOBAL-7 Date CRISTOBAL - 7 assessed: 02/12/24 Feeling nervous, anxious, or on edge: 0 = Not at all Not being able to stop or control worryin = Not at all Worrying too much about different things: 0 = Not at all Trouble relaxin = Not at all Being so restless that it is hard to sit still: 0 = Not at all Becoming easily annoyed or irritable: 0 = Not at all Feeling afraid as if something awful might happen: 0 = Not at all Total CRISTOBAL-7 score (0-4 normal; 5-9 mild; 10-14 moderate; 15-21 severe): 0 Source: Developed by Drs. Juan Luis Payne, Elsy Tadeo, Raymon Franco and colleagues, with an educational brinda from [employer]. CRISTOBAL-7 Assessment Billing CRISTOBAL-7 Assessment Tool: CRISTOBAL-7 Assessment 09609 Review of Systems Const Denies headache(s) Eyes Denies loss of vision ENT Denies vertigo, Denies dizziness, Denies headache(s) and Denies sore throat Card Denies chest pain, Denies leg edema and Denies lightheadedness Resp Denies cough, Denies hemoptysis and Denies wheezing GI Denies abdominal pain, Denies melena, Denies constipation, Denies diarrhea and Denies vomiting Denies dysuria, Denies urinary frequency and Denies urinary urgency Musc Denies arthralgias, Denies joint swelling, Denies numbness and Denies tingling Neuro Denies Abnormal speech present, Denies behavioral changes, Denies vertigo, Denies dizziness, Denies headache(s), Denies loss of vision, Denies memory loss, Denies numbness and Denies tingling Psych Denies anxiety, Denies behavioral changes, Denies depression, Denies memory loss and Denies panic attacks Ganga/Lymph Denies easy bleeding and Denies easy bruising Aller/Immun Denies wheezing Physical exam (Primary Care) Vital Signs: Last Vital Signs Pulse 70 08/14/23 15:34 BP 134/78 08/14/23 15:34 Pulse Ox 99 08/14/23 15:34 Oxygen Delivery Method Room Air 08/14/23 15:34 BMI result Body Mass Index 28.5 Tobacco/Smoking Status: Tobacco use Status Tobacco use date assessed 08/14/23 08/14/23 15:42 Patient Tobacco Use Status Current someday Tobacco 08/14/23 15:34 Tobacco use type Cigarette 08/14/23 15:34 e-Cigarette/Vaping Use Never Used 08/14/23 15:34 PHQ-9: PHQ-9 Score PHQ-9: Total score 0 08/15/23 07:23 Depression Screening Interpretation: Negative Thrive Assessment: Date of Thrive Assessment Date Thrive assessed 08/14/23 08/14/23 15:42 Currently or been in a relationship where the following occur: no concerns reported Const General: healthy appearing, no acute distress, alert and awake Nutritional Appearance: well nourished Orientation/consciousness: oriented to person, oriented to place and oriented to time HENMT Ears: TM's normal bilaterally General nose exam: Normal nasal mucous membranes and turbinates present Mouth/tongue images: 1. CIRCULAR RAISED SMOOTH APPEARING CYSTIC LIKE LESION OVER RIGHT LATERAL ASPECT OF TONGUE Eyes Conjunctivae: conjunctivae normal Sclerae: sclerae normal Pupils: Equal, round and reactive pupils present Neck Neck: Yes no lymphadenopathy and Yes no JVD Thyroid: Thyroid normal Carotids: no bruits Resp Effort & Inspection: normal respiratory effort and not tachypneic Auscultation: no crackles, no rales, no rhonchi and no wheezes Cardio Rate: regular rate Rhythm: regular rhythm Heart sounds: no murmurs and normal S1 and S2 GI Palpation (GI): Soft to palpation, nontender, no hepatomegaly and no splenomegaly Auscultation: normal bowel sounds Skin General skin exam: no rashes or lesions noted and dry skin Neuro General: oriented to person, oriented to place and oriented to time Cranial nerves: Yes Equal, round and reactive pupils present Speech: No Abnormal speech present Gait exam (Neuro): Normal gait present Motor exam (neuro): no tremor noted Extrem Right upper extremity: full ROM Left upper extremity: full ROM Right lower extremity: full ROM; no edema Left lower extremity: full ROM; no edema Psych Mental Status: mental status grossly normal Speech and movement: Normal speech and movement present Affect: normal affect Attitude: cooperative Thought process: Normal thought process present Assessment and Plan Assessment & Plan (1) Tongue lesion: Code(s): K14.8 - Other diseases of tongue Plan: As noted physical exam has had a right tongue lesion over last several months. Has upcoming appointment with ENT for evaluation and possible removal. (2) Pain, dental: Code(s): K08.89 - Other specified disorders of teeth and supporting structures Plan: Due to dental pain will supply patient with antibiotic and prednisone to help reduce his pain. Willing to supply patient with short-term script for tramadol to use on a p.r.n. basis for his dental pain. Advised on using NSAID and/or Tylenol as first-line agent for his pain Medications: New prednisone take 3 tabs 3 days , take 2 tabs x 3 days take 1 tabs x 3 days 10 mg PO DIRECTED 9 days 18 tabs 0RF K08.89 - Other specified disorders of teeth and supporting structures tramadol 50 mg PO DAILY 10 days PRN 10 tabs 0RF pain K08.89 - Other specified disorders of teeth and supporting structures amoxicillin 500 mg PO Q8H 7 days 21 tabs 0RF K08.89 - Other specified disorders of teeth and supporting structures Coding Level of Care Code Est Pt Level 3 (15896) Diagnoses Tongue lesion K14.8 Pain, dental K08.89 Additional Codes CRISTOBAL-7 Assessment Billing - CRISTOBAL-7 Assessment Tool: CRISTOBAL-7 Assessment 93376 ([id number])
[2023-08-14 15:34] VITALS: BP 134/78; PULSE 70; O2SAT 99; BMI 28.5
== END 2023-08-14 16:14 | disposition home or self-care (01) ==
PROVIDERS: PCP Internal Medicine; Visit Provider Physician Assistant
DX: B20 Human immunodeficiency virus [HIV] disease (principal); K14.8 Other diseases of tongue; K08.89 Other specified disorders of teeth and supporting structures
CPT/HCPCS: 99213

== ENCOUNTER 2023-08-30 13:02 | Outpatient (AMB) | payer OTHER, SELFPAY ==
[2023-08-30 13:51] VITALS: BP 122/77; PULSE 83; O2SAT 97; BMI 29.1
--- NOTE | 2023-08-30 13:51 | A.OFFVIS_ITS ---
Intake Vital Signs 08/30/23 13:51 Height 5 ft 9 in Weight 197 lb 5.019 oz BMI 29.1 BP 122/77 Blood Pressure Location Rt brachial Position Sitting Pulse 83 Pulse Source Doppler Pulse Oximetry (%) 97 Oxygen Delivery Method Room Air Intake Visit Reasons: Abnormal CT scan Light Rail Train Operator Required: Yes Light Rail Train Operator Name: Lala Carter Allergies No Known Allergies [No Known Allergies*] Allergy (Verified 08/30/23 13:54) HPI Abnormal CT scan HPI Details 57-year-old gentleman, active social smo ker 1 pack lasting about a week, with underlying history of HIV on HAART, remote pneumonia in 2016 with post infection changes, referred after recent bout of pneumonia and a follow-up CT scan showed pulmonary nodules and interstitial changes, not significantly different from 2016. Patient denies any significant dyspnea on exertion, cough, or sputum production. He did have a pulmonary function testing that showed mild decrease in diffusion capacity. 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 He denies family history of lung disease. After the last office visit he had a follow-up CT chest with no significant changes from prior and no changes in his symptoms. [facility] Medical History Bleeding hemorrhoids Pneumonia Shortness of breath Cough Hyperlipidemia HTN (hypertension) Abdominal pain Anxiety Gout Right shoulder pain Left shoulder pain Hand numbness Screen for STD (sexually transmitted disease) Syphilis HIV (human immunodeficiency virus infection) Surgical History History of bronchoscopy History of esophagogastroduodenoscopy (EGD) H/O colonoscopy Family History Father ALS (amyotrophic lateral sclerosis) Diabetes Hypertension Mother Liver cirrhosis Brother Liver cirrhosis Sister Hyperlipidemia Paternal Grandmother Cancer Paternal Aunt Cancer Family/Other FH: mental illness Substance use disorder Social History Household Members: Friend(s) and None Housing: Other Alcohol intake: current Alcohol intake frequency: holidays/special occasions only Alcohol type: hard liquor Patient Tobacco Use Status: Current someday Tobacco user Tobacco use type: Cigarette Years Smoked: 30 e-Cigarette/Vaping Use: Never Used service: No Current occupational status: unemployed Cognitive needs: No Hearing needs: No Vision needs: No Review of Systems Const Denies daytime sleepiness, Denies excessive sweating, Denies fatigue, Denies fever(s), Denies lethargy, Denies malaise, Denies night sweats, Denies snoring and Denies weight loss Eyes Denies blurry vision and Denies itchy eyes ENT Denies nasal congestion, Denies post nasal drip, Denies sinus pain, Denies sinus pressure and Denies other ( Thrush) Card Denies chest pain, Denies pedal edema, Denies dyspnea, Denies orthopnea and Denies paroxysmal nocturnal dyspnea Resp Denies cough, Denies hemoptysis, Denies excessive phlegm production, Denies dyspnea, Denies snoring and Denies wheezing GI Denies abdominal pain and Denies heartburn Musc Denies myalgias, Denies arthralgias and Denies joint swelling Skin/Breast Denies rash Neuro Denies memory loss and Denies seizure-like activity Psych Denies abnormal sleep pattern, Denies anxiety and Denies memory loss Endo Denies excessive sweating, Denies fatigue and Denies heat intolerance Ganga/Lymph Denies easy bruising Aller/Immun Denies itchy eyes, Denies seasonal rhinorrhea and Denies wheezing Physical Exam Vital Signs: Last Vital Signs Pulse 83 08/30/23 13:51 BP 122/77 08/30/23 13:51 Pulse Ox 97 08/30/23 13:51 Oxygen Delivery Method Room Air 08/30/23 13:51 BMI result Body Mass Index 29.1 Const General: no acute distress and alert Nutritional Appearance: not obese Orientation/consciousness: Other orientation findings ( oriented) HEENT Head: Yes atraumatic Eyes General: appearance normal, both eyes and all related structures Sclerae: sclerae normal EOM: EOMs intact bilaterally Neck Neck: Yes supple Lymphatic: no lymphadenopathy noted Resp Effort & Inspection: normal respiratory effort and no use of accessory muscles Auscultation: clear to auscultation bilaterally Cardio Rate: regular rate Rhythm: regular rhythm Heart sounds: no gallops, no murmurs and no rubs Skin General skin exam: other ( warm) Extrem General: No clubbing, No cyanosis and No edema Assessment & Plan Assessment & Plan (1) ILD (interstitial lung disease): Code(s): J84.9 - Interstitial pulmonary disease, unspecified Plan: 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 Will repeat CT chest and pulmonary function test in 12 months. Orders: Orders PFT pulmonary function test 08/22/24 J84.9 - Interstitial pulmonary disease, unspecified CT chest wo IV con 08/22/24 J84.9 - Interstitial pulmonary disease, unspecified Coding Level of Care Code Est Pt Level 3 (46692) Diagnoses ILD (interstitial lung disease) J84.9
== END 2023-08-30 14:09 | disposition home or self-care (01) ==
PROVIDERS: PCP Internal Medicine; Visit Provider Internal Medicine Pulmonary Disease
DX: J84.9 Interstitial pulmonary disease, unspecified (principal)
CPT/HCPCS: 99213

== ENCOUNTER → 2023-08-30 13:02 | Outpatient (BNVA) | payer OTHER, SELFPAY | PROVIDERS: PCP Internal Medicine; Visit Provider Internal Medicine Pulmonary Disease | DX: J84.9 Interstitial pulmonary disease, unspecified (principal) | CPT/HCPCS: 99212 ==

== ENCOUNTER 2023-09-15 10:45 | Outpatient (REF) | payer OTHER, SELFPAY ==
[2023-09-15 13:12] LABS: Syphilis Screen Reactive (Nonreactive); ~HepC Num1 0.08 S/CO (0.00-0.79); ~Hepatitis C Antibody Nonreactive (Nonreactive)
[2023-09-15 17:13] LABS: CT PCR NOT DETECTED (Not Detect.); NG PCR NOT DETECTED (Not Detect.)
[2023-09-18 09:59] LABS: Absolute CD3 Count 1631 cells/uL (840-3060); Absolute CD4 Count 953 cells/uL (490-1740); Absolute CD8 Count 694 cells/uL (180-1170); Absolute Lymphocytes 2560 cells/uL (850-3900); CD4 CD8 Ratio 1.37 (0.86-5.00); Percent CD3 Cells 64 % (57-85); Percent CD4 Cells 37 % (30-61); Percent CD8 Cells 27 % (12-42)
[2023-09-18 18:08] LABS: HIV RNA PCR Qn Copies <20 DETECTED copies/mL (NOT DETECTED); HIV RNA PCR Qn Log Copies <1.30 DETECTED (NOT DETECTED)
[2023-09-22 16:19] LABS: RPR Quantitative Reactive 1:1 (Nonreactive); T.Pallidum Particle Agg Test Reactive (Nonreactive)
== END 2023-09-15 10:46 | disposition home or self-care (01) ==
LOC: HO.LAB 10:45
PROVIDERS: PCP Internal Medicine; Visit Provider Internal Medicine
DX: B20 Human immunodeficiency virus [HIV] disease (principal)
CPT/HCPCS: 0353U; 36415; 86359; 86360; 86592; 86780; 86803; 87536

== ENCOUNTER 2023-10-02 12:46 | Outpatient (REF) | payer OTHER, SELFPAY ==
[2023-10-02 14:26] LABS: Alanine Aminotransferase 26 U/L (0-40); Albumin Level 4.4 g/dL (3.5-5.0); Alkaline Phosphatase 100 U/L (39-117); Anion Gap 12 (12-20); Aspartate Amino Transferase 22 U/L (5-37); Bilirubin Total 0.6 mg/dL (0.0-1.0); Blood Urea Nitrogen 21 mg/dL (9-16); Calcium 9.6 mg/dL (8.4-10.2); Carbon Dioxide 28 mmol/L (22-29); Chloride 105 mmol/L (96-108); Cholesterol 158 mg/dL (<200); Estimated Glomerular Filt Rate > 60; Glucose Fasting 104 mg/dL (60-99); HDL Cholesterol 43 mg/dL (>40); LDL Cholesterol Calculated 80 mg/dL (<100); Potassium 4.2 mmol/L (3.3-5.1); Sodium 141 mmol/L (135-145); Triglycerides 176 mg/dL (<150); Uric Acid 5.5 mg/dL (3.4-7.0)
== END 2023-10-02 12:47 | disposition home or self-care (01) ==
LOC: HO.LAB 12:46
PROVIDERS: PCP Internal Medicine; Visit Provider Internal Medicine
DX: R07.89 Other chest pain (principal); M10.9 Gout, unspecified; N18.2 Chronic kidney disease, stage 2 (mild); E55.9 Vitamin D deficiency, unspecified; E78.5 Hyperlipidemia, unspecified
CPT/HCPCS: 36415; 80053; 80061; 82306; 84550; 99212

== ENCOUNTER 2023-10-02 13:27 | Outpatient (AMB) | payer OTHER, SELFPAY ==
[2023-10-02 13:36] VITALS: BP 129/79; PULSE 76; O2SAT 99; BMI 29.2
--- NOTE | 2023-10-02 13:36 | MHC.OFFVIS ---
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 He is going to [place]. He has CD4 count 953 and viral load undetectable on 09/14. He has rectal Pap unremarkable. He has RPR 1:1 ,unremarkable. He has no complaints. [facility] Medical History Bleeding hemorrhoids Pneumonia Shortness of breath Cough Hyperlipidemia HTN (hypertension) Abdominal pain Anxiety Gout Right shoulder pain Left shoulder pain Hand numbness Screen for STD (sexually transmitted disease) Syphilis HIV (human immunodeficiency virus infection) Surgical History History of bronchoscopy History of esophagogastroduodenoscopy (EGD) H/O colonoscopy Family History Father ALS (amyotrophic lateral sclerosis) Diabetes Hypertension Mother Liver cirrhosis Brother Liver cirrhosis Sister Hyperlipidemia Paternal Grandmother Cancer Paternal Aunt Cancer Family/Other FH: mental illness Substance use disorder Social History Household Members: Friend(s) and None Housing: Other Alcohol intake: current Alcohol intake frequency: holidays/special occasions only Alcohol type: hard liquor Patient Tobacco Use Status: Current someday Tobacco user Tobacco use type: Cigarette Years Smoked: 30 e-Cigarette/Vaping Use: Never Used service: No Current occupational status: unemployed Cognitive needs: No Hearing needs: No Vision needs: No Review of Systems Const All systems reviewed & are unremarkable except as noted in HPI and below Physical Exam Vital Signs: Last Vital Signs Pulse 76 10/02/23 13:36 BP 129/79 10/02/23 13:36 Pulse Ox 99 10/02/23 13:36 BMI result Body Mass Index 29.2 Const General: cooperative Orientation/consciousness: patient oriented x3 HEENT Head: Yes normal to inspection Mouth: Normal oral and palatal mucosa present Eyes General: appearance normal, both eyes and all related structures Pupils: Equal, round and reactive pupils present Resp Effort & Inspection: normal respiratory effort Cardio Rate: regular rate Rhythm: regular rhythm GI Palpation (GI): Soft to palpation and nontender General: Yes no CVA tenderness Back/Spine/Pelvis Back: no CVA tenderness Skin General skin exam: no rashes or lesions noted Neuro General: patient oriented x3 Cranial nerves: Yes CN's II-XII intact bilaterally and Yes Equal, round and reactive pupils present Extrem General: Yes normal to inspection Psych Appearance: grossly normal Assessment & Plan Assessment & Plan (1) HIV (human immunodeficiency virus infection): Comment: He is doing well. His viral load is undetectable and CD4 count good at 953. Continue Biktarvy. See in six months Code(s): B20 - Human immunodeficiency virus [HIV] disease Plan: Rectal Pap unremarkable Orders: Orders Complete Blood Count Auto Diff 5 Months B20 - Human immunodeficiency virus [HIV] disease Liver Panel 5 Months B20 - Human immunodeficiency virus [HIV] disease HIV-1 RNA QN PCR Expanded 5 Months B20 - Human immunodeficiency virus [HIV] disease Lymphocyte Subset Panel 3 5 Months B20 - Human immunodeficiency virus [HIV] disease Basic Metabolic Panel 5 Months B20 - Human immunodeficiency virus [HIV] disease Syphilis Screen 5 Months B20 - Human immunodeficiency virus [HIV] disease Medications: Refilled qnjysowwd-pgaadqzm-gyzoktx ala 50-200-25 mg (Biktarvy) 1 tab PO DAILY 30 days 30 tabs 5RF Coding Level of Care Code Est Pt Level 4 (27079) Diagnoses HIV (human immunodeficiency virus infection) B20
== END 2023-10-02 14:23 | disposition home or self-care (01) ==
PROVIDERS: PCP Internal Medicine; Visit Provider Internal Medicine
DX: B20 Human immunodeficiency virus [HIV] disease (principal)
CPT/HCPCS: 99214

== ENCOUNTER 2023-11-28 13:41 | Outpatient (AMB) | payer OTHER, SELFPAY ==
--- NOTE | 2023-11-28 14:50 | A.OFFPC_ITS ---
Vital Signs 11/28/23 14:51 Height 5 ft 9 in Weight 193 lb BMI 28.5 BP 130/80 Blood Pressure Location Lt brachial Position Sitting Intake Visit Reasons: 5M. F/U-Gout/Anxiety Intake Note: Patient here for a 5 month follow up Gout, Anxiety Permaculture Contractor Required: No Accompanied by: Self / Same As Patient Allergies No Known Allergies [No Known Allergies*] Allergy (Verified 11/28/23 15:15) Medication List - Last Reconciled 11/28/23 by Meagan Marte MD albuterol sulfate 90 mcg/actuation 2 puffs inhalation Q6H PRN 30 days allopurinol 100 mg PO DAILY 90 days fcfybxhxk-iinhxhgi-veynutb ala 50-200-25 mg (Biktarvy) 1 tab PO DAILY 30 days cholecalciferol (vitamin D3) 25 mcg PO DAILY 90 days clotrimazole 1% (Lotrimin AF (clotrimazole)) 1 appl topical BID 30 days colchicine 0.6 mg PO DAILY escitalopram oxalate (Lexapro) 5 mg PO DAILY hydrocortisone 2.5% 1 appl topical BID PRN hydrocortisone 2.5% (Proctosol HC) 1 appl MI BID PRN 30 days nitroglycerin 0.4%(w/w) (Rectiv) 1 inch MI BID 30 days pantoprazole (Protonix) 20 mg PO DAILY valacyclovir (Valtrex) 1,000 mg PO DAILY 30 days Tobacco use date assessed: 08/14/23 Dental Screening Dental Screen Date: 08/14/23 HPI HPI Comments History of Present Illness Details This is a 58-year-old male with HIV, gout, dyslipidemia, GERD, mild major depression and anxiety that comes today for follow-up on his conditions. HIV is follow by ID and has been well controlled with medication. He is [place] risk score is 11% and this is why I am adding a statin. GERD stable with PPIs. He does have interstitial lung disease follow by pulmonology and does not complain of chest pain or shortness on breath. Has mild major depression and anxiety and is not completely compliant with escitalopram. Has a papular skin lesion in left lower leg and will be referred to Dermatology. Also complains of low back pain and has bilateral 1st toe pain with numbness and will be referred to [facility] Medical History (Updated 11/28/23 @ 17:24 by Meagan Marte MD) Bleeding hemorrhoids Pneumonia Shortness of breath Cough Hyperlipidemia HTN (hypertension) Abdominal pain Anxiety Gout Right shoulder pain Left shoulder pain Hand numbness Screen for STD (sexually transmitted disease) Syphilis HIV (human immunodeficiency virus infection) Surgical History History of bronchoscopy History of esophagogastroduodenoscopy (EGD) H/O colonoscopy Family History Father ALS (amyotrophic lateral sclerosis) Diabetes Hypertension Mother Liver cirrhosis Brother Liver cirrhosis Sister Hyperlipidemia Paternal Grandmother Cancer Paternal Aunt Cancer Family/Other FH: mental illness Substance use disorder Social History Household Members: Friend(s) and None Housing: Other Alcohol intake: current Alcohol intake frequency: holidays/special occasions only Alcohol type: hard liquor Patient Tobacco Use Status: Current someday Tobacco user Tobacco use type: Cigarette Years Smoked: 30 e-Cigarette/Vaping Use: Never Used service: No Current occupational status: unemployed Cognitive needs: No Hearing needs: No Vision needs: No Questionnaire Thrive Questionnaire Date Thrive assessed: 08/14/23 CRISTOBAL-7 AMB Questionnaire CRISTOBAL-7 Date CRISTOBAL - 7 assessed: 08/14/23 Source: Developed by Drs. Juan Luis Payne, Elsy Tadeo, Raymon Franco and colleagues, with an educational brinda from [employer] Review of Systems Const All systems reviewed & are unremarkable except as noted in HPI and below Card Denies chest pain at rest, Denies chest pain with activity, Denies edema, Denies irregular heart rhythm, Denies claudication, Denies dyspnea, Denies dyspnea on exertion, Denies orthopnea, Denies paroxysmal nocturnal dyspnea and Denies slow heart rate Resp Denies cough, Denies dyspnea and Denies dyspnea on exertion Musc Reports back pain Skin/Breast Reports lesions Physical exam (Primary Care) Vital Signs: Last Vital Signs BP 130/80 11/28/23 14:51 BMI result Body Mass Index 28.5 Tobacco/Smoking Status: Tobacco use Status Tobacco use date assessed 02/12/24 05/28/24 14:56 Patient Tobacco Use Status Current someday Tobacco 11/28/23 14:56 Tobacco use type Cigarette 11/28/23 14:56 e-Cigarette/Vaping Use Never Used 11/28/23 14:56 Are you ready to quit: Yes Tobacco cessation counseling provided: Yes Items discussed: QuitWorks Relapse Prevention: discussed the importance of a supportive environment, discussed extending NRT, discussed negative mood or depression after quitting, weight gain after smoking is common and discussed dietary, exercise and/or lifestyle changes Number of minutes spent counselin CPT code: 57616 - 4-10 Minutes Thrive Assessment: Date of Thrive Assessment Date Thrive assessed 08/14/23 11/28/23 14:56 Const Orientation/consciousness: patient oriented x3 Resp Effort & Inspection: normal respiratory effort Auscultation: clear to auscultation bilaterally Cardio Jugular venous distension: no JVD Rate: regular rate Rhythm: regular rhythm Heart sounds: S1 normal heart sound present and S2 normal heart sound present Skin Lesions: lesion noted Neuro General: patient oriented x3 and no focal motor deficits Extrem General: Yes full ROM Psych Appearance: grossly normal Assessment and Plan Assessment & Plan (1) Lumbar degenerative disc disease: Code(s): M51.36 - Other intervertebral disc degeneration, lumbar region Plan: Referred to [facility]. (2) Dyslipidemia: Code(s): E78.5 - Hyperlipidemia, unspecified Plan: Start statin. (3) Skin lesion: Code(s): L98.9 - Disorder of the skin and subcutaneous tissue, unspecified Plan: Referred to dermatology. (4) ILD (interstitial lung disease): Code(s): J84.9 - Interstitial pulmonary disease, unspecified Plan: Follow-up with pulmonology. (5) HIV (human immunodeficiency virus infection): Comment: He is doing well. His viral load is undetectable and CD4 count good at 953. Continue Biktarvy. See in six months Code(s): B20 - Human immunodeficiency virus [HIV] disease Plan: Start Byktarvi. Follow-up with ID. (6) GERD (gastroesophageal reflux disease): Code(s): K21.9 - Gastro-esophageal reflux disease without esophagitis Qualifiers: Esophagitis presence: esophagitis presence not specified Qualified Code(s): K21.9 - Gastro-esophageal reflux disease without esophagitis Plan: Continue PPIs (7) Mild major depression: Code(s): F32.0 - Major depressive disorder, single episode, mild Plan: Be compliant with escitalopram. Orders: Orders Comprehensive [place]. Panel Fast 4 Months N18.2 - Chronic kidney disease, stage 2 (mild) Lipid Panel 4 Months E78.5 - Hyperlipidemia, unspecified Vitamin D 25-OH Total 4 Months E55.9 - Vitamin D deficiency, unspecified Uric Acid 4 Months M10.9 - Gout, unspecified Referrals Pain Management Referral M51.36 - Other intervertebral disc degeneration, lumbar region Dermatology Referral L98.9 - Disorder of the skin and subcutaneous tissue, unspecified Medications: New atorvastatin 20 mg PO BEDTIME 90 tabs 1RF 90 days E78.5 - Hyperlipidemia, unspecified Changed From colchicine 0.6 mg PO DAILY To colchicine 0.6 mg PO DAILY PRN 90 tabs 0RF gout 90 days Refilled 2 cholecalciferol (vitamin D3) 25 mcg PO DAILY 90 caps 3RF 90 days valacyclovir (Valtrex) 1,000 mg PO DAILY 30 tabs 5RF 30 days allopurinol 100 mg PO DAILY 90 tabs 1RF 90 days Coding Level of Care Code Est Pt Level 4 (18663) Diagnoses Lumbar degenerative disc disease M51.36 Dyslipidemia E78.5 Skin lesion L98.9 ILD (interstitial lung disease) J84.9 HIV (human immunodeficiency virus infection) B20 Gastroesophageal reflux disease, unspecified whether esophagitis present K21.9 Esophagitis presence: esophagitis presence not specified Mild major depression F32.0 Additional Codes Vital Signs *Quality* - CPT code: 07611 - 4-10 Minutes ([id number]) Time Spent (min) 25
[2023-11-28 14:51] VITALS: BP 130/80; BMI 28.5
== END 2023-11-28 15:42 | disposition home or self-care (01) ==
PROVIDERS: PCP Internal Medicine; Visit Provider Internal Medicine
DX: J84.9 Interstitial pulmonary disease, unspecified (principal); B20 Human immunodeficiency virus [HIV] disease; F32.0 Major depressive disorder, single episode, mild; F17.210 Nicotine dependence, cigarettes, uncomplicated; M51.36 Other intervertebral disc degeneration, lumbar region; F41.9 Anxiety disorder, unspecified; E78.5 Hyperlipidemia, unspecified; L98.9 Disorder of the skin and subcutaneous tissue, unspecified; K21.9 Gastro-esophageal reflux disease without esophagitis
CPT/HCPCS: 99214; 99406

== ENCOUNTER 2023-12-08 11:43 | Outpatient (AMB) | payer OTHER, SELFPAY ==
[2023-12-08 11:47] VITALS: BP 118/88; PULSE 84; O2SAT 97; BMI 28.5
--- NOTE | 2023-12-08 11:47 | HO.NEPHOV ---
Vital Signs 12/08/23 11:47 Height 5 ft 9 in Weight 193 lb 2 oz BMI 28.5 BP 118/88 Blood Pressure Location Lt brachial Position Sitting Pulse 84 Pulse Source Pulse Oximeter Pulse Oximetry (%) 97 Oxygen Delivery Method Room Air Intake Visit Reasons: CKD/ Conf Bindery Production Manager Required: Yes Bindery Production Manager Name: Kristie [id number] Accompanied by: Self / Same As Patient Allergies No Known Allergies [No Known Allergies*] Allergy (Verified 12/08/23 11:49) HPI Comments Details: I had the privilege of seeing Brian in follow up for proteinuria. Bindery Production Manager was available throughout the patient encounter. He has HIV and is on anti retrovirals which he claims to be compliant .He denies neuropathy , retinopathy, CAD, CVA, CHF, KISHAN , PAD , hepatitis or carotid stenosis. He is not on ACEI. He has H/O gout but does not take NSAID's regularly. He denies any nausea, vomiting, diarrhea, SOB, edema, PND, orthopnea, hematuria, hearing deficits. He does not take SGLT2i. He has no sinusitis, epistaxis, photosensitivity, bone pain, sore throat , hemoptysis, skin lesions or recent antibiotic intake. He denied any active complaints at the time of this office visit [facility] Medical History Bleeding hemorrhoids Pneumonia Shortness of breath Cough Hyperlipidemia HTN (hypertension) Abdominal pain Anxiety Gout Right shoulder pain Left shoulder pain Hand numbness Screen for STD (sexually transmitted disease) Syphilis HIV (human immunodeficiency virus infection) Surgical History History of bronchoscopy History of esophagogastroduodenoscopy (EGD) H/O colonoscopy Family History Father ALS (amyotrophic lateral sclerosis) Diabetes Hypertension Mother Liver cirrhosis Brother Liver cirrhosis Sister Hyperlipidemia Paternal Grandmother Cancer Paternal Aunt Cancer Family/Other FH: mental illness Substance use disorder Social History Household Members: Friend(s) and None Housing: Other Alcohol intake: current Alcohol intake frequency: holidays/special occasions only Alcohol type: hard liquor Patient Tobacco Use Status: Current someday Tobacco user Tobacco use type: Cigarette Years Smoked: 30 e-Cigarette/Vaping Use: Never Used service: No Current occupational status: unemployed Cognitive needs: No Hearing needs: No Vision needs: No Physical Exam Vital Signs: Last Vital Signs Pulse 84 12/08/23 11:47 BP 118/88 12/08/23 11:47 Pulse Ox 97 12/08/23 11:47 Oxygen Delivery Method Room Air 12/08/23 11:47 BMI result Body Mass Index 28.5 Const General: comfortable and no acute distress Orientation/consciousness: patient oriented x3 HEENT Head: Yes normocephalic Mouth: Normal oral and palatal mucosa present Eyes EOM: EOMs intact bilaterally Neck Neck: Yes supple Resp Auscultation: clear to auscultation bilaterally Cardio Jugular venous distension: no JVD Rate: regular rate GI Palpation (GI): Soft to palpation Auscultation: normal bowel sounds General: Yes no CVA tenderness Back/Spine/Pelvis Back: no CVA tenderness Skin General skin exam: no rashes or lesions noted Neuro General: patient oriented x3 and moves all extremities Extrem General: Yes no pedal edema Results Reviewed Nephrology Results: Sodium 141 mmol/L (135-145) 10/02/23 Potassium 4.2 mmol/L (3.3-5.1) 10/02/23 Chloride 105 mmol/L (96-108) 10/02/23 Carbon Dioxide 28 mmol/L (22-29) 10/02/23 BUN 21 mg/dL (9-16) H 10/02/23 Creatinine 1.15 mg/dL (0.5-1.4) 10/02/23 Calcium 9.6 mg/dL (8.4-10.2) 10/02/23 Urine Creatinine 49.53 mg/dL 08/04/23 Protein/Creatinin Ratio TNP 08/04/23 Assessment & Plan Assessment & Plan (1) CKD (chronic kidney disease) stage 2, GFR 60-89 ml/min: Code(s): N18.2 - Chronic kidney disease, stage 2 (mild) Category: Medical (2) Proteinuria: Code(s): R80.9 - Proteinuria, unspecified Category: Medical Qualifiers: Proteinuria type: other Qualified Code(s): R80.8 - Other proteinuria Plan Has had some protein in the urine BP has been at goal; Last urine no significant protein Doesn't take NSAID's. On uric acid lowering medications DDx- HIVAN vs other etiology; Last serum creatinine 1.15 Not on ACEI. NO renal stones; Maintain good hydration No medication changes done today; Labs ordered including 24 hour for cr cl Answered all questions; F/U given Orders: Orders Electrolytes Today N18.2 - Chronic kidney disease, stage 2 (mild) Creatinine Today N18.2 - Chronic kidney disease, stage 2 (mild) Creatinine Clearance Urine 24U Today N18.2 - Chronic kidney disease, stage 2 (mild) Blood Urea Nitrogen Today N18.2 - Chronic kidney disease, stage 2 (mild) Calcium Today N18.2 - Chronic kidney disease, stage 2 (mild) Coding Level of Care Code Est Pt Level 4 (38026) Diagnoses CKD (chronic kidney disease) stage 2, GFR 60-89 ml/min N18.2 Other proteinuria R80.8 Proteinuria type: other
== END 2023-12-08 11:59 | disposition home or self-care (01) ==
PROVIDERS: PCP Internal Medicine; Visit Provider Internal Medicine Nephrology
DX: N18.2 Chronic kidney disease, stage 2 (mild) (principal); R80.8 Other proteinuria
CPT/HCPCS: 99214

== ENCOUNTER → 2023-12-08 11:43 | Outpatient (BNVA) | payer OTHER, SELFPAY | PROVIDERS: PCP Internal Medicine; Visit Provider Internal Medicine Nephrology | DX: N18.2 Chronic kidney disease, stage 2 (mild) (principal); R80.8 Other proteinuria | CPT/HCPCS: 99212 ==

== ENCOUNTER 2023-12-22 16:34 | Emergency (ER) | payer OTHER, SELFPAY ==
[2023-12-22 16:53] VITALS: BP 169/108; PULSE 64; RESP 16; TEMP 36.6; O2SAT 100; BMI 29.0
--- NOTE | 2023-12-22 16:53 | ED_ITS ---
HPI - General Adult General Chief complaint: Dental/Oral Stated complaint: Dental pain and headache Time Seen by Provider: 12/22/23 17:00 Source: patient and terrazzo layer (all interactions with this patient were facilitated via an [facility] buzzle buffer) Mode of arrival: ambulatory Limitations: language barrier (all interactions with this patient were facilitated via an [facility] buzzle buffer) History of Present Illness ED Provider: Luana Rajan PA-C HPI narrative: Patient is a 58 year old assigned male at with a history of HIV presenting to the emergency department today with right lower dental pain. Patient states that he had teeth prepared for a crown with a temporary crown put on and has been having pain ever since. Patient states that he has an appointment on 12/25/2023 with his dentist. Patient denies any dizziness, lightheadedness, abdominal pain, nausea, vomiting, fever, chills, blurry vision, double vision, loss of vision, chest pain, difficulty breathing, shortness of breath, back pain, night sweats, pain with urination, increased urinary frequency, increased urinary urgency, blood in his urine or stool, syncope or a near syncopal episode, recent trauma or falls, bowel incontinence, bladder incontinence, or any other complaints at this time. Onset (ago): day(s) Location: mouth and right Radiation: non-radiation Severity: mild Severity scale (1-10): 3 Quality: aching and dull Pain Consistency: constant Relieving factors: none Exacerbating factors: none Associated symptoms: denies other symptoms Treatments prior to arrival: none Related Data Home Medications ?Medication ?Instructions ?Recorded ?Confirmed hydrocortisone 2.5 % topical cream 1 appl topical BID PRN Muscle Spasm 06/23/20 11/28/23 escitalopram oxalate 5 mg tablet 5 mg PO DAILY 11/21/22 11/28/23 (Lexapro) Previous Rx's ?Medication ?Instructions ?Recorded clotrimazole 1 % topical cream 1 appl topical BID 30 days #45 02/22/21 (Lotrimin AF (clotrimazole)) grams nitroglycerin 0.4 % (w/w) rectal 1 inch DC BID 30 days #30 grams 12/07/21 ointment (Rectiv) albuterol sulfate 90 mcg/actuation 2 puff inhalation Q6H PRN 09/30/22 aerosol inhaler bronchospasm 30 days #8.5 grams hydrocortisone 2.5 % topical cream 1 appl DC BID PRN hemorrhoids 30 08/11/23 with perineal applicator days #30 grams (Proctosol HC) bictegravir 50 mg-emtricitabine 1 tab PO DAILY 30 days #30 tabs 10/02/23 200 mg-tenofovir alafenam 25 mg tablet (Biktarvy) pantoprazole 20 mg tablet,delayed 20 mg PO DAILY #90 tabs 11/18/23 release (Protonix) allopurinol 100 mg tablet 100 mg PO DAILY 90 days #90 tabs 11/28/23 atorvastatin 20 mg tablet 20 mg PO BEDTIME 90 days #90 tabs 11/28/23 cholecalciferol (vitamin D3) 25 25 mcg PO DAILY 90 days #90 caps 11/28/23 mcg (1,000 unit) capsule colchicine 0.6 mg tablet 0.6 mg PO DAILY PRN gout 90 days 11/28/23 #90 tabs valacyclovir 1 gram tablet 1,000 mg PO DAILY 30 days #30 tabs 11/28/23 (Valtrex) chlorhexidine gluconate 0.12 % 15 ml buccal BID #118 mL 12/22/23 mouthwash (Peridex) naproxen 500 mg tablet 500 mg PO BID 7 days #14 tabs 12/22/23 penicillin V potassium 500 mg 500 mg PO BID 10 days #20 tabs 12/22/23 tablet Allergies Allergy/AdvReac Type Severity Reaction Status Date / Time No Known Allergies Allergy Verified 12/22/23 16:54 [No Known Allergies*] Review of Systems Constitutional: Constitutional: Reports no additional constitutional complaints, Denies chills, Denies fever(s) and Denies night sweats Eyes: Eyes: Reports no additional eye complaints, Denies blurry vision, Denies change in vision, Denies diplopia, Denies eye discharge, Denies loss of vision and Denies eye pain ENT: Denies dizziness Comments: right lower dental pain Cardiovascular: Cardiovascular: Reports no additional cardiovascular complaints, Denies chest pain, Denies lightheadedness, Denies Loss of Consciousness and Denies dyspnea Respiratory: Respiratory: Reports no additional respiratory complaints and Denies dyspnea Gastrointestinal: Gastrointestinal: Reports no additional gastrointestinal complaints, Denies abdominal pain, Denies melena, Denies hematochezia, Denies change in bowel habits and Denies change in stool character Genitourinary: Genitourinary: Reports no additional male genitourinary complaints, Denies hematuria, Denies oliguria, Denies difficulty urinating, Denies dysuria, Denies urinary frequency, Denies urinary hesitancy, Denies urinary incontinence and Denies urinary urgency Musculoskeletal: Musculoskeletal: Reports no additional musculoskeletal complaints, Denies numbness and Denies tingling Neurologic: Denies dizziness, Denies loss of vision, Denies numbness and Denies tingling Psychiatric: Psychiatric: Reports no additional psychiatric complaints Endocrine: Endocrine: Reports no additional endocrine complaints Hematologic/Lymphatic: Hematologic/Lymphatic: Reports no additional hematologic/lymphatic complaints Allergic/Immunologic: Allergic/Immunologic: Reports no additional allergic/immunologic complaints [facility] Past Medical History Attestation statement: The following information was validated with the patient. Source: old records reviewed and nursing notes reviewed Medical History Bleeding hemorrhoids Pneumonia Shortness of breath Cough Hyperlipidemia HTN (hypertension) Abdominal pain Anxiety Gout Right shoulder pain Left shoulder pain Hand numbness Screen for STD (sexually transmitted disease) Syphilis HIV (human immunodeficiency virus infection) Surgical History History of bronchoscopy History of esophagogastroduodenoscopy (EGD) H/O colonoscopy Family History Family History Father ALS (amyotrophic lateral sclerosis) Diabetes Hypertension Mother Liver cirrhosis Brother Liver cirrhosis Sister Hyperlipidemia Paternal Grandmother Cancer Paternal Aunt Cancer Family/Other FH: mental illness Substance use disorder Social History Social History Household Members: Friend(s) and None Housing: Other Alcohol intake: current Alcohol intake frequency: holidays/special occasions only Alcohol type: hard liquor Patient Tobacco Use Status: Current someday Tobacco user Tobacco use type: Cigarette Years Smoked: 30 e-Cigarette/Vaping Use: Never Used Advance Directives: No Advance Directives Information Provided: No Do you have a plan to hurt others: No Plan service: No Current occupational status: unemployed Cognitive needs: No Hearing needs: No Vision needs: No Physical Exam ED Vital Signs: Vital Signs - 24 hr 12/22/23 16:53 12/22/23 17:03 Temperature 97.9 F 97.9 F Pulse Rate 64 64 Respiratory Rate 16 16 Blood Pressure 169/108 H 169/108 H Pulse Oximetry 100 100 Oxygen Delivery Method Room Air Room Air BMI result Body Mass Index 29.0 Const General: cooperative, no acute distress, alert and awake Nutritional Appearance: well nourished Orientation/consciousness: patient oriented x3 Limitations: no limitations HENMT Head: Yes normal to inspection and Yes atraumatic Ears: hearing grossly normal bilaterally and external ears normal General nose exam: Normal external nose present, no nasal discharge noted and no epistaxis Face and sinus: Yes normal facial exam, No abrasion and No laceration Mouth: Normal oral and palatal mucosa present, no drooling and no muffled voice Teeth and gingiva: other (minimal erythema around tooth 31) Eyes General: appearance normal, both eyes and all related structures Periorbital: periorbital findings normal Eyelids: Yes eyelids normal Conjunctivae: conjunctivae normal Pupils: Equal, round and reactive pupils present EOM: EOMs intact bilaterally Neck Neck: Yes normal visual inspection, Yes full ROM and Yes no lymphadenopathy Chest Chest palpation & inspection: normal inspection of the chest Resp Effort & Inspection: normal respiratory effort and able to speak in complete sentences GI Inspection: Yes normal to inspection Neuro General: patient oriented x3 and moves all extremities Cranial nerves: Yes Equal, round and reactive pupils present Cognition (Neuro): normal cognition Motor exam (neuro): 5/5 motor strength present throughout Sensory Exam: Normal double simultaneous stimulation for sensation Coordination: [id number] test normal Extrem General: Yes normal to inspection, Yes full ROM and Yes capillary refill normal Psych Appearance: grossly normal Mental Status: mental status grossly normal Affect: normal affect Attitude: cooperative Thought process: Normal thought process present Thought content: Normal thought content present Insight: Good insight present (Psych) Medical Decision Making Medical Decision Making MDM Narrative: Patient is a 58 year old assigned male at with a history of HIV presenting to the emergency department today with right lower dental pain. Patient's physical exam was as noted in the physical exam portion of this note. I explained my physical exam findings to the patient. I answered all questions asked by the patient. I stressed the importance of the patient taking his medication as prescribed. I stressed the importance of the patient following up with his primary care provider and his dentist - as scheduled. I stressed the importance of the patient returning to the emergency department immediately if his symptoms were to worsen or if he were to develop any dizziness, shortness of breath, difficulty breathing, chest pain, blurry vision, loss of vision, nausea, vomiting, abdominal pain, fever, chills, back pain, or any other complaints. Patient verbalized agreement and understanding with this treatment plan and discharge. Differential Diagnosis Differential Diagnoses: The differential diagnosis associated with the presentation includes Dental pain Dental abscess Dental infection Admission/Observation Consideration of admission/observation: Escalation of care including admission/observation considered Patient would have been admitted to the hospital had his clinical presentation warranted hospital admission. Prescription Management I considered prescription management with: Pain Medication (prescribed pain medication for dental pain) and Antibiotic (prescribed an antibiotic for possible dental infection) Chronic Conditions Patient?s care impacted by: Other (HIV) Discharge Plan Discharge Clinical Impression: Pain, dental, Dental infection Patient Disposition: Home, Self-Care Instructions: Dental Abscess (ED), Toothache (ED) Additional Instructions: Follow up with your primary care provider and your dentist on 12/25/2023 as siomara duled. Return to the emergency department immediately if your symptoms worsen or if you develop any dizziness, shortness of breath, difficulty breathing, chest pain, blurry vision, loss of vision, nausea, vomiting, abdominal pain, fever, chills, back pain, or any other complaints. Acuda a mai m?dico de cabecera y a mai dentista el 25/12/2023 seg?n lo previsto. Vuelva al servicio de urgencias inmediatamente si nelson s?ntomas empeoran o si presenta mareos, falta de aliento, dificultad para respirar, dolor tor?cico, visi?n borrosa, p?rdida de visi?n, n?useas, v?mitos, dolor abdominal, fiebre, escalofr?os, dolor de espalda o cualquier otra molestia. Prescriptions: New penicillin V potassium 500 mg tablet 500 mg PO BID 10 Days Qty: 20 0RF naproxen 500 mg tablet 500 mg PO BID 7 Days Qty: 14 0RF chlorhexidine gluconate [Peridex] 0.12 % mouthwash 15 ml buccal BID Qty: 118 0RF No Action hydrocortisone [Proctosol HC] 2.5 % cream with perineal applicator 1 appl DC BID PRN (Reason: hemorrhoids) 30 Days Qty: 30 6RF pantoprazole [Protonix] 20 mg tablet,delayed release (DR/EC) 20 mg PO DAILY Qty: 90 0RF escitalopram oxalate [Lexapro] 5 mg tablet 5 mg PO DAILY hydrocortisone 2.5 % cream 1 appl topical BID PRN (Reason: Muscle Spasm) Rectiv 0.4 % (w/w) ointment 1 inch DC BID 30 Days Qty: 30 0RF albuterol sulfate 90 mcg/actuation HFA aerosol inhaler 2 puff inhalation Q6H PRN (Reason: bronchospasm) 30 Days Qty: 8.5 6RF allopurinol 100 mg tablet 100 mg PO DAILY 90 Days Qty: 90 1RF cholecalciferol (vitamin D3) 25 mcg (1,000 unit) capsule 25 mcg PO DAILY 90 Days Qty: 90 3RF colchicine 0.6 mg tablet 0.6 mg PO DAILY PRN (Reason: gout) 90 Days Qty: 90 0RF valacyclovir [Valtrex] 1 gram tablet 1,000 mg PO DAILY 30 Days Qty: 30 5RF atorvastatin 20 mg tablet 20 mg PO BEDTIME 90 Days Qty: 90 1RF clotrimazole [Lotrimin AF (clotrimazole)] 1 % cream 1 appl topical BID 30 Days Qty: 45 11RF Biktarvy 50-200-25 mg tablet 1 tab PO DAILY 30 Days Qty: 30 5RF Referrals: Meagan De La Cruz MD [Primary Care Provider] - Interventions: ED Discharge Assessment Last Done: 12/22/23 17:03 Discharge Date/Time: 12/22/23 17:04 Print Language: Malagasy
[2023-12-22 17:03] VITALS: BP 169/108; PULSE 64; RESP 16; TEMP 36.6; O2SAT 100
--- OUTSIDE RECORDS SUMMARY | 2023-12-28 06:59 | XMS_ITS | Patient Health Record ---
Author Organization [facility] Address [address] [place] [address] Care Team Providers Care Manager Manufacturing Name Role Phone Meagan De La Cruz Primary Care Provider UnavailFrankie Monaco Jr Unavailable ALLERGIES No Known Allergies REASON FOR REFERRAL No Information MEDICATIONS Medication SIG (Take, Route, Frequency, Duration) Notes Start Date End Date Status valACYclovir HCl 1 GM TAKE 1 TABLET BY M OUT TWICE A DAY Oral for 30 Active Biktarvy 50-200-25 MG TOME CALIXTO TABLETA T ODOS LOS D? Oral for 30 Active Pantoprazole Sodium 40 MG 1 tablet Orall y Once a day 90 days Active Albuterol Sulfate 108 (90 Base) MCG/ACT 1 puff as needed Inhalation every 4 hrs Active Flexeril 5 MG 1 tablet at bedtime as needed Orally Once a day for 30 day(s) Active Escitalopram Oxalate 5 MG Oral for 90 Active Vitamin D High Potency 25 MCG (1000 UT) Oral for 90 Active Allopurinol 100 MG Oral for 90 Active IMMUNIZATIONS Vaccine Route Administration Date Status [...] Notes Problem Epigastric pain (R10.13) Active confirmed 93299281 Problem Rectal bleeding (K62.5) Active confirmed 56613026 Problem Colon cancer screening (Z12.11) Active confirmed 409458244 Problem Diarrhea, unspecified type (R19.7) Active confirmed 58387983 Problem Abnormal CT scan, stomach (R93.3) Active confirmed 208205633 Problem Gastroesophageal reflux disease without esophagitis (K21.9) Active confirmed 903634833 VITAL SIGNS Temperature 97.3 degrees Fahrenheit 08/09/2023 Blood pressure diastolic 00 mm Hg 08/09/2023 Height 69 in 08/09/2023 Blood pressure systolic 00 mm Hg 08/09/2023 Weight 197 lbs 08/09/2023 BMI 29.09 kg/m2 08/09/2023 Encounters Encounter Location Date Provider Diagnosis [facility] [address] [place] [phone] 03/09/2023 Frankie Vences Jr [facility] [address] [place] [phone] 05/29/2023 Frankie Vences Jr [facility] [address] [place] [phone] 08/09/2023 Frankie Vences Jr Gastroesophageal reflux disease without esophagitis K21.9 and Colon cancer screening Z12.11 [facility] [address] [place] [phone] 02/14/2023 Frankie Vences Jr [facility] [address] [place] [phone] 03/07/2023 Frankie Vences Jr ASSESSMENTS Encounter Date Diagnosis Assessment Notes Treatment Notes Treatment Clinical Notes 08/09/2023 Colon cancer screening (ICD-10 - Z12.11) 08/09/2023 Gastroesophageal reflux disease without esophagitis (ICD-10 - K21.9) Gastroesophageal reflux disease material was printed PLAN OF TREATMENT Pending Test Test Name Order Date STOOL WBC 07/12/2022 OVA & PARASITES (O&P) 07/12/2022 GI PANEL 07/12/2022 Future Test Test Name Order Date UPPER GI ENDOSCOPY 03/24/2016 COLONOSCOPY 03/24/2016 COLONOSCOPY 05/29/2019 UPPER GI ENDOSCOPY 01/05/2022 COLONOSCOPY 01/05/2022 Insurance Providers Payer Name Payer Address Payer Phone Subscriber Number Group Number Insured Name Patient Relationship to Insured Coverage Start Date Coverage End Date [facility] [address] [address] [place], [place] [id number] JACQUELINE MCDONALD Self - patient is the insured MEDICAL (GENERAL) HISTORY Medical History History ICD Code Hypertension HIV Fatty liver Pneumonia Gout Anxiety Gastroesophageal reflux dise ase, EGD 02/21, no Horne's esophagus or H. pylori Colonoscopy 02/21, no polyps, ten-year fo llowup Surgical History Surgery Date(Month/Year)
== END 2023-12-22 17:04 | disposition home or self-care (01) ==
PROVIDERS: Emergency Provider Emergency Medicine; PCP Internal Medicine
DX: K04.7 Periapical abscess without sinus (principal); F17.210 Nicotine dependence, cigarettes, uncomplicated; Z79.899 Other long term (current) drug therapy
CPT/HCPCS: 99282; 99283

== ENCOUNTER 2024-01-03 09:25 | Outpatient (REF) | payer OTHER, SELFPAY ==
--- NOTE | ~2024-01-03 | XR_ITS ---
EXAMINATION: XR LUMBOSACRAL SPINE WITH OBLIQUES CLINICAL INFORMATION: Intermittent low back pain and paresthesias into great toe. COMPARISON: None available. TECHNIQUE: 5 views of the lumbar spine. FINDINGS: Mild dextroscoliosis of the lumbar spine. Facet arthritis at L5-S1. Multilevel lumbar spondylosis with moderate loss of disc space height at L5-S1. XR/XR lumbar spine 4V min IMPRESSION: Multilevel lumbar spondylosis with moderate loss of disc space height at L5-S1.
== END 2024-01-03 09:26 | disposition home or self-care (01) ==
LOC: HO.XRAY 09:25
PROVIDERS: PCP Internal Medicine; Visit Provider Nurse Practitioner Family
DX: M54.50 Low back pain, unspecified (principal); R20.2 Paresthesia of skin
CPT/HCPCS: 72110

== ENCOUNTER 2024-01-26 14:22 | Outpatient (AMB) | payer OTHER, SELFPAY ==
--- OUTSIDE RECORDS SUMMARY | 2024-01-26 14:24 | XMS_ITS ---
Author Organization [facility] Address [address] [place] [address] Care Team Providers Care Log Yard Manager Name Role Phone Meagan De La Cruz Primary Care Provider Unavailab Frankie Edwards Jr REASON FOR VISIT epigastric pain Encounters Encounter Location Date Provider Diagnosis [facility] [address] [place] [address] 05/29/2023 Frankie Vences Jr PLAN OF TREATMENT No Information
--- OUTSIDE RECORDS SUMMARY | 2024-01-26 14:24 | XMS_ITS ---
Author Organization [facility] Address [address] [place] [address] Care Team Providers Care Swiss Machinist Name Role Phone Meagan De La Cruz Primary Care Provider UnavailFrankie Monaco Jr Unavailable ALLERGIES No Known Allergies REASON FOR VISIT Patient presents today for epigastric pain MEDICATIONS Medication SIG (Take, Route, Frequency, Duration) Notes Start Date End Date Status valACYclovir HCl 1 GM TAKE 1 TABLET BY M OUTH TWICE A DAY Oral for 30 Active Biktarvy 50-200-25 MG TOME CALIXTO TABLETA T ODOS LOS D? Oral for 30 Active Escitalopram Oxalate 5 MG Oral for 90 Active Vitamin D High Potency 25 MCG (1000 UT) Oral for 90 Active Albuterol Sulfate 108 (90 Base) MCG/ACT 1 puff as needed Inhalation every 4 hrs Active Flexeril 5 MG 1 tablet at bedtime as needed Orally Once a day for 30 day(s) Active Pantoprazole Sodium 40 MG 1 tablet Orall y Once a day for 90 days 01/11/2022 Active Allopurinol 100 MG Oral for 90 Active SOCIAL HISTORY Tobacco Use: Social History Observation [...] W/U Status Risk SNOMED Code Notes Problem Gastroesophageal reflux disease without esophagitis (K21.9) Active confirmed [id number] VITAL SIGNS BMI 29.09 kg/m2 08/09/2023 Blood pressure systolic 00 mm Hg 08/09/19 24 Blood pressure diastolic 00 mm Hg 024 Height 69 in 08/09/2023 Temperature 97.3 degrees Fahrenheit 08/09/19 24 Weight 197 lbs 08/09/2023 Encounters Encounter Location Date Provider Diagnosis [facility] [address] [place] [address] 08/09/2023 Frankie Vences Jr Gastroesophageal reflux disease without esophagitis K21.9 and Colon cancer screening Z12.11 ASSESSMENTS Encounter Date Diagnosis Assessment Notes Treatment Notes Treatment Clinical Notes 08/09/2023 Gastroesophageal reflux disease without esophagitis (ICD-10 - K21.9) Gastroesophageal reflux disease material was printed 08/09/2023 Colon cancer screening (ICD-10 - Z12.11) PLAN OF TREATMENT Treatment Notes Assessment Notes Gastroesophageal reflux dise ase without esophagitis Gastroesophageal reflux disease material was printed Next Appt Details Follow Up: 1 Year, Reason:
--- OUTSIDE RECORDS SUMMARY | 2024-01-26 14:25 | XMS_ITS ---
Author Organization [facility] Address [address] [place] [address] Care Team Providers Care Concrete Grinder Operator Name Role Phone Meagan De La Cruz Primary Care Provider Unavailab Frankie Edwards Jr REASON FOR VISIT Patient presents today for epigastric pain Encounters Encounter Location Date Provider Diagnosis [facility] [address] [place] [address] 03/09/2023 Frankie Vences Jr PLAN OF TREATMENT No Information
--- OUTSIDE RECORDS SUMMARY | 2024-01-26 14:25 | XMS_ITS | Patient Health Record ---
Author Organization [facility] Address [address] [place] [address] Care Team Providers Care Helper Teacher Name Role Phone Meagan De La Cruz Primary Care Provider UnavailFrankie Monaco Jr Unavailable [phone] ALLERGIES No Known Allergies REASON FOR REFERRAL [...] Notes Problem Epigastric pain (R10.13) Active confirmed 81109722 Problem Rectal bleeding (K62.5) Active confirmed 44229007 Problem Colon cancer screening (Z12.11) Active confirmed 350856289 Problem Diarrhea, unspecified type (R19.7) Active confirmed 59633202 Problem Abnormal CT scan, stomach (R93.3) Active confirmed 278793283 Problem Gastroesophageal reflux disease without esophagitis (K21.9) Active confirmed 309797934 VITAL SIGNS Temperature 97.3 degrees Fahrenheit 08/09/2023 Blood pressure diastolic 00 mm Hg 08/09/2023 Height 69 in 08/09/2023 Blood pressure systolic 00 mm Hg 08/09/2023 Weight 197 lbs 08/09/2023 BMI 29.09 kg/m2 08/09/2023 Encounters Encounter Location Date Provider Diagnosis [facility] [address] [place] [phone] 03/09/2023 Frankie Vences Jr [facility] [address] [place] [phone] 05/29/2023 Frankie Vences Jr [facility] [address] [place] [phone] 08/09/2023 Frankie Vences Jr Gastroesophageal reflux disease without esophagitis K21.9 and Colon cancer screening Z12.11 [facility] [address] [place] [phone] 02/14/2023 Frankie Vences Jr [facility] [address] [place] [phone] 03/07/2023 Frankie Vences Jr ASSESSMENTS Encounter Date [...] Insured Coverage Start Date Coverage End Date [facility] [address] [address] [place], [place] [id number] JACQUELINE MCDONALD Self - patient is the insured MEDICAL (GENERAL) HISTORY Medical History History ICD Code Hypertension HIV Fatty liver Pneumonia Gout Anxiety Gastroesophageal reflux dise ase, EGD 02/21, no Horne's esophagus or H. pylori Colonoscopy 02/21, no polyps, ten-year fo llowup Surgical History Surgery Date(Month/Year)
--- NOTE | 2024-01-26 14:32 | MHC.OFFWIV ---
Intake Vital Signs 01/26/24 14:34 Height 5 ft 9 in Weight 185 lb BMI 27.3 BP 142/86 H Blood Pressure Location Lt brachial Position Sitting Pulse 83 Pulse Source Pulse Oximeter Temp 98.4 F Temp Source Oral Pulse Oximetry (%) 98 Oxygen Delivery Method Room Air Intake Visit Reasons: bump/bubble on left hand and leg Intake Note: pt here c/o bump on left hand and leg Patient Tobacco Use Status: Current someday Tobacco user Allergies No Known Allergies [No Known Allergies*] Allergy (Verified 01/26/24 14:32) Do you need a note to return to daycare/school/sports/work: No HPI bump/bubble on left hand and leg HPI Details This note is constructed using voice recognition software. While every effort has been made to ensure accuracy, certified fire investigator errors may have been included. Theatre Instructor using video tablet. The patient is a 58 year old male who presents to the clinic today with rash onset 1 week ago. He notes the rash to have started as bump that opens and is itchy. He has not noted any dishcarge. He has a history of syphillis and was treated by infectious disease 2 years ago. He has no fever, chills. [facility] Medical History Bleeding hemorrhoids Pneumonia Shortness of breath Cough Hyperlipidemia HTN (hypertension) Abdominal pain Anxiety Gout Right shoulder pain Left shoulder pain Hand numbness Screen for STD (sexually transmitted disease) Syphilis HIV (human immunodeficiency virus infection) Surgical History History of bronchoscopy History of esophagogastroduodenoscopy (EGD) H/O colonoscopy Family History Father ALS (amyotrophic lateral sclerosis) Diabetes Hypertension Mother Liver cirrhosis Brother Liver cirrhosis Sister Hyperlipidemia Paternal Grandmother Cancer Paternal Aunt Cancer Family/Other FH: mental illness Substance use disorder Social History Household Members: Friend(s) and None Housing: Other Alcohol intake: current Alcohol intake frequency: holidays/special occasions only Alcohol type: hard liquor Patient Tobacco Use Status: Current someday Tobacco user Tobacco use type: Cigarette Years Smoked: 30 e-Cigarette/Vaping Use: Never Used service: No Current occupational status: unemployed Cognitive needs: No Hearing needs: No Vision needs: No Review of Systems Const All systems reviewed & are unremarkable except as noted in HPI and below Physical Exam Vital Signs: Last Vital Signs Temp 98.4 F 01/26/24 14:34 Pulse 83 01/26/24 14:34 BP 142/86 H 01/26/24 14:34 Pulse Ox 98 01/26/24 14:34 Oxygen Delivery Method Room Air 01/26/24 14:34 BMI result Body Mass Index 27.3 Const General: cooperative, healthy appearing, comfortable, no acute distress and alert Orientation/consciousness: patient oriented x3 Limitations: no limitations Resp Effort & Inspection: normal respiratory effort and able to speak in complete sentences Auscultation: clear to auscultation bilaterally Cardio Jugular venous distension: no JVD Palpation: normal PMI Rate: regular rate Heart sounds: S1 normal heart sound present, S2 normal heart sound present, no click, no gallops, no murmurs and no rubs Skin Other: Small fluid-filled 2-3 mm raised round lesions surrounded by minimal erythema to left lower extremity. Additionally open area to right leg, with yellow crust and minimal surrounding erythema. Similar lesion to left wrist. General skin exam: elasticity normal and turgor normal Neuro General: patient oriented x3 Psych Appearance: grossly normal Mental Status: mental status grossly normal Speech and movement: Normal speech and movement present Affect: normal affect Assessment & Plan Assessment & Plan (1) Impetigo: Code(s): L01.00 - Impetigo, unspecified Plan: Physical examination likely consistent with impetigo given yellow crust. Advised patient to treat with topical antibiotic sent to pharmacy. Additionally advised patient to continue to follow should this have ongoing effects or not resolve with treatment. He does have an appointment with his batch tester next week which is excellent timing for follow-up on this. Plan See above for full details and plan. Medications: New mupirocin 2% 1 appl topical TID 7 days 15 grams 0RF Coding Level of Care Code Est Pt Level 3 (07031) Diagnoses Impetigo L01.00
[2024-01-26 14:34] VITALS: BP 142/86; PULSE 83; TEMP 36.9; O2SAT 98; BMI 27.3
== END 2024-01-26 17:47 | disposition home or self-care (01) ==
PROVIDERS: PCP Internal Medicine; Visit Provider Registered Nurse
DX: L01.00 Impetigo, unspecified (principal)
CPT/HCPCS: 99213

== ENCOUNTER 2024-01-27 08:01 | Emergency (ER) | payer OTHER, SELFPAY ==
[2024-01-27 08:06] VITALS: BP 149/100; PULSE 79; RESP 18; TEMP 36.7; O2SAT 98; BMI 27.7
--- OUTSIDE RECORDS SUMMARY | 2024-01-27 08:29 | XMS_ITS ---
Author Organization [facility] Address [address] [place] [address] Care Team Providers Care Forklift Technician Name Role Phone Meagan De La Cruz Primary Care Provider Unavailab Frankie Edwards Jr [phone] REASON FOR VISIT Patient presents today for epigastric pain Encounters Encounter Location Date Provider Diagnosis [facility] [address] [place] [address] 03/09/2023 Frankie Vences Jr PLAN OF TREATMENT No Information
--- OUTSIDE RECORDS SUMMARY | 2024-01-27 08:29 | XMS_ITS ---
Author Organization [facility] Address [address] [place] [address] Care Team Providers Care Field Talent Qualification Specialist Name Role Phone Meagan De La Cruz [...] reflux disease without esophagitis (K21.9) Active confirmed [id number] VITAL SIGNS BMI 29.09 kg/m2 08/09/2023 Blood pressure systolic 00 mm Hg 08/09/19 24 Blood pressure diastolic 00 mm Hg 024 Height 69 in 08/09/2023 Temperature 97.3 degrees Fahrenheit 08/09/19 24 Weight 197 lbs 08/09/2023 Encounters Encounter Location Date Provider Diagnosis [facility] [address] [place] [address] 08/09/2023 Frankie Vences Jr Gastroesophageal reflux disease [...]
--- OUTSIDE RECORDS SUMMARY | 2024-01-27 08:29 | XMS_ITS ---
Author Organization [facility] Address [address] [place] [address] Care Team Providers Care Joinery Machinist Name Role Phone Meagan De La Cruz Primary Care Provider Unavailab Frankie Edwards Jr REASON FOR VISIT epigastric pain Encounters Encounter Location Date Provider Diagnosis [facility] [address] [place] [address] 05/29/2023 Frankie Vences Jr PLAN OF TREATMENT No Information
--- OUTSIDE RECORDS SUMMARY | 2024-01-27 08:30 | XMS_ITS | Patient Health Record ---
Author Organization [facility] Address [address] [place] [address] Care Team Providers Care Paste Mixer Liquid Name Role Phone Meagan De La Cruz [...] Notes Problem Epigastric pain (R10.13) Active confirmed 60679063 Problem Rectal bleeding (K62.5) Active confirmed 39046911 Problem Colon cancer screening (Z12.11) Active confirmed [id number] Problem Diarrhea, unspecified type (R19.7) Active confirmed 79047474 Problem Abnormal CT scan, stomach (R93.3) Active confirmed 478802427 Problem Gastroesophageal reflux disease without esophagitis (K21.9) Active confirmed 276056532 VITAL SIGNS Temperature 97.3 degrees Fahrenheit 08/09/2023 Blood pressure diastolic 00 mm Hg 08/09/2023 Height 69 in 08/09/2023 Blood pressure systolic 00 mm Hg 08/09/2023 Weight 197 lbs 08/09/2023 BMI 29.09 kg/m2 08/09/2023 Encounters Encounter Location Date Provider Diagnosis [facility] [address] [place] [phone] 03/09/2023 Frankie Vences Jr [facility] [address] [place] [address] 05/29/2023 Frankie Vences Jr [facility] [address] [place] [address] 08/09/2023 Frankie Vences Jr Gastroesophageal reflux disease without esophagitis K21.9 and Colon cancer screening Z12.11 [facility] [address] [place] [address] 02/14/2023 Frankie Vences Jr [facility] [address] [place] [address] 03/07/2023 Frankie Vences Jr ASSESSMENTS Encounter Date [...] Insured Coverage Start Date Coverage End Date [facility] [address] [address] [place], [place] [id number] JACQUELINE MCDONALD Self - patient is the insured MEDICAL (GENERAL) HISTORY Medical History History ICD Code Hypertension HIV Fatty liver Pneumonia Gout Anxiety Gastroesophageal reflux dise ase, EGD 02/21, no Horne's esophagus or H. pylori Colonoscopy 02/21, no polyps, ten-year fo llowup Surgical History Surgery Date(Month/Year)
--- NOTE | 2024-01-27 09:11 | ED.SKABFB ---
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 Patient reports that he went to urgent care yesterday and was diagnosed with a staph infection. He was just prescribed mupirocin which he use 3 times before coming into the emergency room today. He reports the rash initially began on a lesion on his right lower extremity and then he noticed the rash on his left lower extremity and his bilateral upper extremities over the last week. The rash is itchy. It is not painful or burning. He denies any associated flu-like symptoms. Denies any recent travel. No recent antibiotic use. No changes in his products, medications, detergents. He did have a new sexual partner 2 weeks ago. Denies any symptoms. He would like STI testing. per last ID note (10/2023) patient has been doing well on Biktarvy with undetectable viral load and CD4 count 953 Related Data Home Medications ?Medication ?Instructions ?Recorded ?Confirmed hydrocortisone 2.5 % topical cream 1 appl topical BID PRN Muscle Spasm 06/23/20 11/28/23 escitalopram oxalate 5 mg tablet 5 mg PO DAILY 11/21/22 11/28/23 (Lexapro) Previous Rx's ?Medication ?Instructions ?Recorded clotrimazole 1 % topical cream 1 appl topical BID 30 days #45 02/22/21 (Lotrimin AF (clotrimazole)) grams nitroglycerin 0.4 % (w/w) rectal 1 inch SC BID 30 days #30 grams 12/07/21 ointment (Rectiv) albuterol sulfate 90 mcg/actuation 2 puff inhalation Q6H PRN 09/30/22 aerosol inhaler bronchospasm 30 days #8.5 grams hydrocortisone 2.5 % topical cream 1 appl SC BID PRN hemorrhoids 30 08/11/23 with perineal applicator days #30 grams (Proctosol HC) bictegravir 50 mg-emtricitabine 1 tab PO DAILY 30 days #30 tabs 10/02/23 200 mg-tenofovir alafenam 25 mg tablet (Biktarvy) pantoprazole 20 mg tablet,delayed 20 mg PO DAILY #90 tabs 11/18/23 release (Protonix) allopurinol 100 mg tablet 100 mg PO DAILY 90 days #90 tabs 11/28/23 atorvastatin 20 mg tablet 20 mg PO BEDTIME 90 days #90 tabs 11/28/23 cholecalciferol (vitamin D3) 25 25 mcg PO DAILY 90 days #90 caps 11/28/23 mcg (1,000 unit) capsule colchicine 0.6 mg tablet 0.6 mg PO DAILY PRN gout 90 days 11/28/23 #90 tabs valacyclovir 1 gram tablet 1,000 mg PO DAILY 30 days #30 tabs 11/28/23 (Valtrex) chlorhexidine gluconate 0.12 % 15 ml buccal BID #118 mL 12/22/23 mouthwash (Peridex) naproxen 500 mg tablet 500 mg PO BID 7 days #14 tabs 12/22/23 lorazepam 0.5 mg tablet 0.5 mg PO ONCE PRN anxiety 1 day 01/09/24 #2 tabs mupirocin 2 % topical ointment 1 appl topical TID 7 days #15 grams 01/26/24 cephalexin 500 mg capsule 500 mg PO BID #14 caps 01/27/24 hydroxyzine HCl 25 mg tablet 25 mg PO TID PRN itching #15 tabs 01/27/24 prednisone 20 mg tablet 20 mg PO DAILY #5 tabs 01/27/24 Allergies Allergy/AdvReac Type Severity Reaction Status Date / Time No Known Allergies Allergy Verified 01/27/24 08:11 [No Known Allergies*] Review of Systems Review of Systems: Yes all other systems are reviewed and are negative Constitutional: Constitutional: Reports no additional constitutional complaints, Denies body ache(s), Denies chills, Denies fever(s), Denies headache(s) and Denies weakness Eyes: Eyes: Reports no additional eye complaints and Denies change in vision ENT: Reports system reviewed and no additional complaints, except as documented, Denies dizziness, Denies headache(s), Denies nasal congestion, Denies nasal discharge and Denies neck pain Cardiovascular: Cardiovascular: Reports no additional cardiovascular complaints, Denies chest pain, Denies leg edema and Denies dyspnea Respiratory: Respiratory: Reports no additional respiratory complaints, Denies cough and Denies dyspnea Gastrointestinal: Gastrointestinal: Reports no additional gastrointestinal complaints, Denies abdominal pain, Denies diarrhea, Denies nausea and Denies vomiting Genitourinary: Genitourinary: Denies urinary incontinence Musculoskeletal: Musculoskeletal: Reports no additional musculoskeletal complaints, Denies back pain, Denies arthralgias, Denies joint swelling, Denies neck pain, Denies numbness and Denies tingling Integumentary/Breasts: Skin/Breast: Reports system reviewed and no additional complaints, except as docu and Reports rash Neurologic: Reports system reviewed and no additional complaints, except as documented, Denies Abnormal speech present, Denies dizziness, Denies headache(s), Denies numbness, Denies tingling and Denies weakness PMFSH Past Medical History Attestation statement: The following information was validated with the patient. Source: old records reviewed and nursing notes reviewed Medical History Bleeding hemorrhoids Pneumonia Shortness of breath Cough Hyperlipidemia HTN (hypertension) Abdominal pain Anxiety Gout Right shoulder pain Left shoulder pain Hand numbness Screen for STD (sexually transmitted disease) Syphilis HIV (human immunodeficiency virus infection) Surgical History History of bronchoscopy History of esophagogastroduodenoscopy (EGD) H/O colonoscopy Family History Family History Father ALS (amyotrophic lateral sclerosis) Diabetes Hypertension Mother Liver cirrhosis Brother Liver cirrhosis Sister Hyperlipidemia Paternal Grandmother Cancer Paternal Aunt Cancer Family/Other FH: mental illness Substance use disorder Social History Social History Household Members: Friend(s) and None Housing: Other Alcohol intake: current Alcohol intake frequency: holidays/special occasions only Alcohol type: hard liquor Patient Tobacco Use Status: Current someday Tobacco user Tobacco use type: Cigarette Years Smoked: 30 e-Cigarette/Vaping Use: Never Used Advance Directives: No Advance Directives Information Provided: No Do you have a plan to hurt others: No Plan service: No Current occupational status: unemployed Cognitive needs: No Hearing needs: No Vision needs: No Physical Exam Vital Signs: Vital Signs: Last Vital Signs Temp 97.4 F 01/27/24 11:10 Pulse 67 01/27/24 11:10 Resp 17 01/27/24 11:10 BP 130/79 01/27/24 11:10 Pulse Ox 100 01/27/24 11:10 O2 Del Method Room Air 01/27/24 11:10 BMI result Body Mass Index 27.7 Const: General: cooperative, healthy appearing, comfortable and no acute distress Orientation/consciousness: patient oriented x3 Limitations: no limitations HEENT: Head: Yes normal to inspection Ears: hearing grossly normal bilaterally General nose exam: Normal external nose present Face and sinus: Yes normal facial exam Mouth: Normal oral and palatal mucosa present Throat: Yes posterior oropharynx normal Eyes: General: appearance normal, both eyes and all related structures Pupils: Equal, round and reactive pupils present Neck: Neck: Yes normal visual inspection Chest: Chest palpation & inspection: normal inspection of the chest Resp: Effort & Inspection: normal respiratory effort Auscultation: clear to auscultation bilaterally Cardio: Rate: regular rate Rhythm: regular rhythm Peripheral pulses: Peripheral pulses 2+ throughout GI: Inspection: Yes normal to inspection Palpation (GI): Soft to palpation and nontender Auscultation: normal bowel sounds Back/Spine/Pelvis: Thoracic/Lumbar Spine: thoracic and lumbar spine normal to inspection Skin: Other: Rash is not blanchable, No sloughing. There are several small pustules noted Neuro: General: patient oriented x3, no focal motor deficits and normal sensation to monofilament Cranial nerves: Yes Equal, round and reactive pupils present Cognition (Neuro): normal cognition Speech: No Abnormal speech present Gait exam (Neuro): Normal gait present Motor exam (neuro): 5/5 motor strength present throughout Extrem: General: Yes normal to inspection Course Course Course Narrative: The patient's labs are unremarkable. I did review his case with my attending. We will treat him for presumed staph infection while his STI testing and wound culture are pending. Reviewed all this with the patient with a rest room maid. All questions answered. Reviewed worrisome signs and symptoms of when to return to the emergency room. Comfortable plan for discharge home. Medical Decision Making Medical Decision Making [facility] Narrative: 58-year-old male with a history of HIV on Biktarvy, anxiety, depression, GERD, chronic kidney disease, high cholesterol presents to the emergency room with complaints of itching rash to his arms and legs with the last 1 week. Patient reports that he went to urgent care yesterday and was diagnosed with a staph infection. He was just prescribed mupirocin which he use 3 times before coming into the emergency room today. He reports the rash initially began on a lesion on his right lower extremity and then he noticed the rash on his left lower extremity and his bilateral upper extremities over the last week. The rash is itchy. It is not painful or burning. He denies any associated flu-like symptoms. Denies any recent travel. No recent antibiotic use. No changes in his products, medications, detergents. He did have a new sexual partner 2 weeks ago. Denies any symptoms. He would like STI testing. See PE findings Rash is not blanchable, No sloughing. There are several small pustules noted. ?staph infection. Will send wound culture of the lower leg lesion. D/t concern for new partner and seeking STI testing will send labs, CT NG. Does not have appearance of STI. Differential Diagnosis Differential Diagnoses: The differential diagnosis associated with the presentation includes STI, staph infection, fungal infection Low suspicion for SJS, tEN, DRESS syndrome Admission/Observation Consideration of admission/observation: Escalation of care including admission/observation considered Low suspicion for SJS, TN, dress syndrome requiring inpatient hospitalization for further management Lab Data [facility] Lab Attestation statement: I reviewed the patient's lab results. 01/27/24 09:51 01/27/24 09:51 Labs: Lab Results 01/27/24 Range/Units 09:51 WBC 7.4 (4.8-10.8) X10*3/uL RBC 4.64 (4.60-5.80) X10*6/uL Hgb 15.3 (14.0-18.0) g/dl Hct 41.6 L (42.0-52.0) % MCV 89.7 (80.0-98.0) fL MCH 33.0 (27.0-33.0) pg MCHC 36.8 H (31.0-36.0) g/dl RDW 12.9 (11.0-16.0) % Plt Count 171 (160-400) X10*3/uL MPV 9.9 (9.4-12.4) fL Immature Gran % (Auto) 0.4 (0.0-0.4) % Neut % (Auto) 56.0 (45-73) % Lymph % (Auto) 34.9 (20-40) % Faulk % (Auto) 5.7 (2-11) % Eos % (Auto) 2.6 (0-4) % Baso % (Auto) 0.4 (0-2) % Lymph # (Auto) 2.6 (1.2-4.9) X10*3/uL Faulk # (Auto) 0.4 (0.1-1.2) X10*3/uL Eos # (Auto) 0.2 (0.0-0.4) X10*3/uL Baso # (Auto) 0.0 (0.0-0.2) X10*3/uL Abs Immat Gran (auto) 0.03 (0.00-0.03) X10*3/uL Absolute Neuts (auto) 4.1 (2.0-8.3) x10*3/uL Absolute Nucleated RBC 0.000 (0.0-0.012) X10*3/uL Nucleated RBC % (auto) 0.0 (0.0-0.2) /100WBC Sodium 141 (135-145) mmol/L Potassium 3.9 (3.3-5.1) mmol/L Chloride 109 H (96-108) mmol/L Carbon Dioxide 21 L (22-29) mmol/L Anion Gap 15 (12-20) BUN 17 H (9-16) mg/dL Creatinine 1.16 (0.5-1.4) mg/dL Estim Creat Clear Calc 74.1 Estimated GFR > 60 Random Glucose 102 (60-115) mg/dL Calcium 9.5 (8.4-10.2) mg/dL Total Bilirubin 0.7 (0.0-1.0) mg/dL Direct Bilirubin 0.2 (0.0-0.5) mg/dL AST 24 (5-37) U/L ALT 29 (0-40) U/L Alkaline Phosphatase 103 (39-117) U/L C-Reactive Protein 0.27 (< or = 0.50) mg/dL Total Protein 6.8 (6.5-8.0) g/dL Albumin 4.4 (3.5-5.0) g/dL External Record Review External record reviewed: Outpatient record Reviewed infectious disease note Prescription Management I considered prescription management with: Antibiotic Discharge Plan Discharge Clinical Impression: Rash Patient Disposition: Home, Self-Care Instructions: Acute Rash (ED) Additional Instructions: We did send testing for sexually transmitted disease including gonorrhea, chlamydia and syphilis. These results take several days and we will call you if they are positive and you need to return for treatment. We also sent a wound culture and will call you with abnormal results Take the medications as prescribed. Return for worsening symptoms Prescriptions: New cephalexin 500 mg capsule 500 mg PO BID Qty: 14 0RF prednisone 20 mg tablet 20 mg PO DAILY Qty: 5 0RF hydroxyzine HCl 25 mg tablet 25 mg PO TID PRN (Reason: itching) Qty: 15 0RF No Action hydrocortisone [Proctosol HC] 2.5 % cream with perineal applicator 1 appl SC BID PRN (Reason: hemorrhoids) 30 Days Qty: 30 6RF pantoprazole [Protonix] 20 mg tablet,delayed release (DR/EC) 20 mg PO DAILY Qty: 90 0RF lorazepam 0.5 mg tablet 0.5 mg PO ONCE PRN (Reason: anxiety) 1 Days Qty: 2 0RF Rx Instructions: Take 1 to 2 tabs 45 minutes before the dentist. escitalopram oxalate [Lexapro] 5 mg tablet 5 mg PO DAILY naproxen 500 mg tablet 500 mg PO BID 7 Days Qty: 14 0RF chlorhexidine gluconate [Peridex] 0.12 % mouthwash 15 ml buccal BID Qty: 118 0RF hydrocortisone 2.5 % cream 1 appl topical BID PRN (Reason: Muscle Spasm) Rectiv 0.4 % (w/w) ointment 1 inch SC BID 30 Days Qty: 30 0RF albuterol sulfate 90 mcg/actuation HFA aerosol inhaler 2 puff inhalation Q6H PRN (Reason: bronchospasm) 30 Days Qty: 8.5 6RF allopurinol 100 mg tablet 100 mg PO DAILY 90 Days Qty: 90 1RF cholecalciferol (vitamin D3) 25 mcg (1,000 unit) capsule 25 mcg PO DAILY 90 Days Qty: 90 3RF colchicine 0.6 mg tablet 0.6 mg PO DAILY PRN (Reason: gout) 90 Days Qty: 90 0RF valacyclovir [Valtrex] 1 gram tablet 1,000 mg PO DAILY 30 Days Qty: 30 5RF atorvastatin 20 mg tablet 20 mg PO BEDTIME 90 Days Qty: 90 1RF mupirocin 2 % ointment 1 appl topical TID 7 Days Qty: 15 0RF clotrimazole [Lotrimin AF (clotrimazole)] 1 % cream 1 appl topical BID 30 Days Qty: 45 11RF Biktarvy 50-200-25 mg tablet 1 tab PO DAILY 30 Days Qty: 30 5RF Referrals: Meagan De La Cruz MD [Primary Care Provider] - 1 week Interventions: ED Discharge Assessment Last Done: 01/27/24 11:10 Discharge Date/Time: 01/27/24 11:10 Print Language: Mongolian
[2024-01-27 09:56] LABS: MANUAL DIFF FLAG NO
[2024-01-27 10:04] LABS: Basophils Percent Auto 0.4 % (0-2); Eosinophils Absolute Auto 0.2 X10*3/uL (0.0-0.4); Eosinophils Percent Auto 2.6 % (0-4); Hematocrit 41.6 % (42.0-52.0); Hemoglobin 15.3 g/dl (14.0-18.0); Imm Gran Abs Auto 0.03 X10*3/uL (0.00-0.03); Imm Gran Pct Auto 0.4 % (0.0-0.4); Lymphocytes Absolute Auto 2.6 X10*3/uL (1.2-4.9); Lymphocytes Percent Auto 34.9 % (20-40); Mean Corpuscular HGB Conc 36.8 g/dl (31.0-36.0); Mean Corpuscular Volume 89.7 fL (80.0-98.0); Mean Platelet Volume 9.9 fL (9.4-12.4); Monocytes Absolute Auto 0.4 X10*3/uL (0.1-1.2); Monocytes Percent Auto 5.7 % (2-11); Neutrophils Absolute Auto 4.1 x10*3/uL (2.0-8.3); Platelet Count 171 X10*3/uL (160-400); Red Blood Count 4.64 X10*6/uL (4.60-5.80); Red Cell Distribution Width 12.9 % (11.0-16.0); White Blood Count 7.4 X10*3/uL (4.8-10.8)
[2024-01-27 10:26] LABS: Alanine Aminotransferase 29 U/L (0-40); Albumin Level 4.4 g/dL (3.5-5.0); Alkaline Phosphatase 103 U/L (39-117); Anion Gap 15 (12-20); Aspartate Amino Transferase 24 U/L (5-37); Bilirubin Direct 0.2 mg/dL (0.0-0.5); Bilirubin Total 0.7 mg/dL (0.0-1.0); Blood Urea Nitrogen 17 mg/dL (9-16); C Reactive Protein 0.27 mg/dL (< or = 0.50); Calcium 9.5 mg/dL (8.4-10.2); Carbon Dioxide 21 mmol/L (22-29); Chloride 109 mmol/L (96-108); Creatinine Clr Calc Pharmacy 74.1; Estimated Glomerular Filt Rate > 60; Glucose Random 102 mg/dL (60-115); Potassium 3.9 mmol/L (3.3-5.1); Sodium 141 mmol/L (135-145); Total Protein 6.8 g/dL (6.5-8.0)
[2024-01-27 11:07] VITALS: BP 130/79; PULSE 67; RESP 17; TEMP 36.3; O2SAT 100
[2024-01-27 11:10] VITALS: BP 130/79; PULSE 67; RESP 17; TEMP 36.3; O2SAT 100
[2024-01-27 12:01] LABS: CT PCR NOT DETECTED (Not Detect.); NG PCR NOT DETECTED (Not Detect.)
[2024-01-29 03:43] LABS: Syphilis Screen Reactive (Nonreactive)
[2024-02-01 13:17] LABS: RPR Quantitative Reactive 1:1 (Nonreactive); T.Pallidum Particle Agg Test Reactive (Nonreactive)
== END 2024-01-27 11:10 | disposition home or self-care (01) ==
PROVIDERS: Nurse Practitioner Family; Emergency Provider Emergency Medicine; PCP Internal Medicine
DX: R21 Rash and other nonspecific skin eruption (principal); B20 Human immunodeficiency virus [HIV] disease; A53.9 Syphilis, unspecified; F41.9 Anxiety disorder, unspecified; K21.9 Gastro-esophageal reflux disease without esophagitis; E78.5 Hyperlipidemia, unspecified; F17.210 Nicotine dependence, cigarettes, uncomplicated
CPT/HCPCS: 36415; 80048; 80076; 85025; 86140; 86592; 86780; 87070; 87205; 87491; 87591; 99283

== ENCOUNTER 2024-02-05 13:06 | Outpatient (AMB) | payer OTHER, SELFPAY ==
--- OUTSIDE RECORDS SUMMARY | 2024-02-05 13:08 | XMS_ITS ---
Author Organization [facility] Address [address] [place] [address] Care Team Providers Care Weigher And Grader Name Role Phone Meagan De La Cruz Primary Care Provider Unavailab Frankie Edwards Jr REASON FOR VISIT Patient presents today for epigastric pain Encounters Encounter Location Date Provider Diagnosis [facility] [address] [place] [address] 03/09/2023 Frankie Vences Jr PLAN OF TREATMENT No Information
--- OUTSIDE RECORDS SUMMARY | 2024-02-05 13:08 | XMS_ITS ---
Author Organization [facility] Address [address] [place] [address] Care Team Providers Care Party Plan Sales Director Name Role Phone Meagan De La Cruz Primary Care Provider Unavailab Frankie Edwards Jr REASON FOR VISIT epigastric pain Encounters Encounter Location Date Provider Diagnosis [facility] [address] [place] [address] 05/29/2023 Frankie Vences Jr PLAN OF TREATMENT No Information
--- OUTSIDE RECORDS SUMMARY | 2024-02-05 13:08 | XMS_ITS | Patient Health Record ---
Author Organization [facility] Address [address] [place] [address] Care Team Providers Care Retail Shift Supervisor Name Role Phone Meagan De La Cruz [...] Notes Problem Epigastric pain (R10.13) Active confirmed 65789559 Problem Rectal bleeding (K62.5) Active confirmed 94308440 Problem Colon cancer screening (Z12.11) Active confirmed 211404654 Problem Diarrhea, unspecified type (R19.7) Active confirmed 88855574 Problem Abnormal CT scan, stomach (R93.3) Active confirmed 558095453 Problem Gastroesophageal reflux disease without esophagitis (K21.9) Active confirmed 758435897 VITAL SIGNS Temperature 97.3 degrees Fahrenheit 08/09/2023 Blood pressure diastolic 00 mm Hg 08/09/2023 Height 69 in 08/09/2023 Blood pressure systolic 00 mm Hg 08/09/2023 Weight 197 lbs 08/09/2023 BMI 29.09 kg/m2 08/09/2023 Encounters Encounter Location Date Provider Diagnosis [facility] [address] [place] [phone] 03/09/2023 Frankie Vences Jr [facility] [address] [place] [phone] 05/29/2023 Frankie Vences Jr [facility] [address] [place] [phone] 08/09/2023 Frankie Vences Jr Gastroesophageal reflux disease without esophagitis K21.9 and Colon cancer screening Z12.11 [facility] [address] [place] [phone] 02/14/2023 Frankie Vences Jr [facility] [address] [place] [phone] 03/07/2023 Frankie Vences Jr ASSESSMENTS Encounter Date [...] Insured Coverage Start Date Coverage End Date [facility] [address] [address] [place], [place] [id number] JACQUELINE MCDONALD Self - patient is the insured MEDICAL (GENERAL) HISTORY Medical History History ICD Code Hypertension HIV Fatty liver Pneumonia Gout Anxiety Gastroesophageal reflux dise ase, EGD 02/21, no Horne's esophagus or H. pylori Colonoscopy 02/21, no polyps, ten-year fo llowup Surgical History Surgery Date(Month/Year)
--- OUTSIDE RECORDS SUMMARY | 2024-02-05 13:08 | XMS_ITS ---
Author Organization [facility] Address [address] [place] [address] Care Team Providers Care Frog Farmer Name Role Phone Meagan De La Cruz Primary Care Provider UnavailFrankie Monaco Jr Unavailable [phone] ALLERGIES No Known Allergies REASON FOR VISIT [...] reflux disease without esophagitis (K21.9) Active confirmed [id number] VITAL SIGNS BMI 29.09 kg/m2 08/09/2023 Blood pressure systolic 00 mm Hg 08/09/19 24 Blood pressure diastolic 00 mm Hg 024 Height 69 in 08/09/2023 Temperature 97.3 degrees Fahrenheit 08/09/19 24 Weight 197 lbs 08/09/2023 Encounters Encounter Location Date Provider Diagnosis [facility] [address] [place] [address] 08/09/2023 Frankie Vences Jr Gastroesophageal reflux disease [...]
[2024-02-05 13:10] VITALS: PULSE 88; O2SAT 98; BMI 28.2
--- NOTE | 2024-02-05 13:10 | A.OFFVIS_ITS ---
Vital Signs 02/05/24 13:10 Height 5 ft 9 in Weight 191 lb BMI 28.2 Pulse 88 Pulse Source Pulse Oximeter Pulse Oximetry (%) 98 Intake Visit Reasons: lab follow up Cupola Melting Supervisor Required: Yes Cupola Melting Supervisor Services: Cupola Melting Supervisor Present Cupola Melting Supervisor Name: Jf Jain CMA Information Interpreted: clinical only Allergies No Known Allergies [No Known Allergies*] Allergy (Verified 02/05/24 13:10) HPI HPI lab follow up: Details: He has viral load undetectable. He has no complaints He continues to take Biktarvy. [facility]LY [facility], [facility] Medical History Bleeding hemorrhoids Pneumonia Shortness of breath Cough Hyperlipidemia HTN (hypertension) Abdominal pain Anxiety Gout Right shoulder pain Left shoulder pain Hand numbness Screen for STD (sexually transmitted disease) Syphilis HIV (human immunodeficiency virus infection) Surgical History History of bronchoscopy History of esophagogastroduodenoscopy (EGD) H/O colonoscopy Family History Father ALS (amyotrophic lateral sclerosis) Diabetes Hypertension Mother Liver cirrhosis Brother Liver cirrhosis Sister Hyperlipidemia Paternal Grandmother Cancer Paternal Aunt Cancer Family/Other FH: mental illness Substance use disorder Social History Household Members: Friend(s) and None Housing: Other Alcohol intake: current Alcohol intake frequency: holidays/special occasions only Alcohol type: hard liquor Patient Tobacco Use Status: Current someday Tobacco user Tobacco use type: Cigarette Years Smoked: 30 e-Cigarette/Vaping Use: Never Used service: No Current occupational status: unemployed Cognitive needs: No Hearing needs: No Vision needs: No Review of Systems Const All systems reviewed & are unremarkable except as noted in HPI and below Physical Exam Vital Signs: Last Vital Signs Pulse 88 02/05/24 13:10 Pulse Ox 98 02/05/24 13:10 BMI result Body Mass Index 28.2 Const General: cooperative Orientation/consciousness: patient oriented x3 HEENT Head: Yes normal to inspection Mouth: Normal oral and palatal mucosa present Eyes General: appearance normal, both eyes and all related structures Pupils: Equal, round and reactive pupils present Resp Effort & Inspection: normal respiratory effort Cardio Rate: regular rate Rhythm: regular rhythm GI Palpation (GI): Soft to palpation and nontender General: Yes no CVA tenderness Back/Spine/Pelvis Back: no CVA tenderness Skin General skin exam: no rashes or lesions noted Neuro General: patient oriented x3 Cranial nerves: Yes CN's II-XII intact bilaterally and Yes Equal, round and reactive pupils present Extrem General: Yes normal to inspection Psych Appearance: grossly normal Assessment & Plan Assessment & Plan (1) HIV (human immunodeficiency virus infection): Comment: He is doing well. His viral load is undetectable and CD4 count good at 953. Continue Biktarvy. See in six months Code(s): B20 - Human immunodeficiency virus [HIV] disease Category: Medical Plan: na Coding Level of Care Code Est Pt Level 4 (42199) Diagnoses HIV (human immunodeficiency virus infection) B20
== END 2024-02-05 14:39 | disposition home or self-care (01) ==
LOC: HO.HID 13:06
PROVIDERS: PCP Internal Medicine; Visit Provider Internal Medicine
DX: B20 Human immunodeficiency virus [HIV] disease (principal)
CPT/HCPCS: 99214

== ENCOUNTER → 2024-02-05 13:06 | Outpatient (BNVA) | payer OTHER, SELFPAY | PROVIDERS: PCP Internal Medicine; Visit Provider Internal Medicine | DX: B20 Human immunodeficiency virus [HIV] disease (principal) | CPT/HCPCS: 99212 ==

== ENCOUNTER 2024-03-18 12:10 | Outpatient (REF) | payer OTHER, SELFPAY ==
[2024-03-18 12:34] LABS: MANUAL DIFF FLAG NO
[2024-03-18 12:53] LABS: Basophils Percent Auto 0.5 % (0-2); Eosinophils Absolute Auto 0.3 X10*3/uL (0.0-0.4); Eosinophils Percent Auto 3.5 % (0-4); Hematocrit 40.4 % (42.0-52.0); Hemoglobin 14.8 g/dl (14.0-18.0); Imm Gran Abs Auto 0.02 X10*3/uL (0.00-0.03); Imm Gran Pct Auto 0.3 % (0.0-0.4); Lymphocytes Absolute Auto 2.3 X10*3/uL (1.2-4.9); Mean Corpuscular HGB Conc 36.6 g/dl (31.0-36.0); Mean Corpuscular Volume 90.2 fL (80.0-98.0); Mean Platelet Volume 10.3 fL (9.4-12.4); Monocytes Absolute Auto 0.5 X10*3/uL (0.1-1.2); Monocytes Percent Auto 5.9 % (2-11); Neutrophils Absolute Auto 4.6 x10*3/uL (2.0-8.3); Neutrophils Percent Auto 59.8 % (45-73); Platelet Count 168 X10*3/uL (160-400); Red Blood Count 4.48 X10*6/uL (4.60-5.80); Red Cell Distribution Width 13.1 % (11.0-16.0); White Blood Count 7.8 X10*3/uL (4.8-10.8)
[2024-03-18 13:30] LABS: Alanine Aminotransferase 17 U/L (0-40); Albumin Level 4.2 g/dL (3.5-5.0); Alkaline Phosphatase 96 U/L (39-117); Anion Gap 11 (12-20); Aspartate Amino Transferase 17 U/L (5-37); Bilirubin Direct 0.1 mg/dL (0.0-0.5); Bilirubin Total 0.4 mg/dL (0.0-1.0); Blood Urea Nitrogen 21 mg/dL (9-16); Calcium 9.4 mg/dL (8.4-10.2); Carbon Dioxide 27 mmol/L (22-29); Chloride 106 mmol/L (96-108); Estimated Glomerular Filt Rate 57; Glucose Random 103 mg/dL (60-115); Potassium 4.2 mmol/L (3.3-5.1); Sodium 140 mmol/L (135-145); Total Protein 6.7 g/dL (6.5-8.0)
[2024-03-18 13:48] LABS: Syphilis Screen Reactive (Nonreactive)
[2024-03-20 08:14] LABS: HIV RNA PCR Qn Copies NOT DETECTED copies/mL (NOT DETECTED); HIV RNA PCR Qn Log Copies NOT DETECTED (NOT DETECTED)
[2024-03-22 14:52] LABS: Absolute CD3 Count 1844 cells/uL (840-3060); Absolute CD4 Count 1031 cells/uL (490-1740); Absolute CD8 Count 832 cells/uL (180-1170); Absolute Lymphocytes 2418 cells/uL (850-3900); CD4 CD8 Ratio 1.24 (0.86-5.00); Percent CD3 Cells 76 % (57-85); Percent CD4 Cells 43 % (30-61); Percent CD8 Cells 34 % (12-42)
[2024-03-23 12:02] LABS: RPR Quantitative Non-Reactive (Nonreactive); T.Pallidum Particle Agg Test Reactive (Nonreactive)
== END 2024-03-18 12:11 | disposition home or self-care (01) ==
LOC: HO.LAB 12:10
PROVIDERS: PCP Internal Medicine; Visit Provider Internal Medicine
DX: B20 Human immunodeficiency virus [HIV] disease (principal)
CPT/HCPCS: 36415; 80048; 80076; 85025; 86359; 86360; 86592; 86780; 87536

== ENCOUNTER 2024-03-18 13:00 | Outpatient (RCR) | payer OTHER, SELFPAY | END 2024-04-01 09:01 | disposition home or self-care (01) | LOC: HO.PT 13:00 | PROVIDERS: PCP Internal Medicine; Visit Provider Nurse Practitioner Family | DX: M47.816 Spondylosis without myelopathy or radiculopathy, lumbar region (principal) | CPT/HCPCS: 97110; 97140; 97161 ==

== ENCOUNTER 2024-04-03 13:54 | Outpatient (AMB) | payer OTHER, SELFPAY ==
--- NOTE | 2024-04-03 13:55 | A.OFFVIS_ITS ---
Vital Signs 04/03/24 13:56 Height 5 ft 9 in Weight 192 lb BMI 28.4 BP 120/80 Blood Pressure Location Lt brachial Position Sitting Pulse 72 Pulse Source Pulse Oximeter Pulse Oximetry (%) 98 Oxygen Delivery Method Room Air Intake Visit Reasons: 6 mth f/u Mushroom Cutter Required: Yes Mushroom Cutter Services: Mushroom Cutter Present Mushroom Cutter Name: Jf Jain CMA Information Interpreted: clinical only Allergies No Known Allergies [No Known Allergies*] Allergy (Verified 04/03/24 14:07) HPI Comments Details: He has been on Biktarvy. He has CD4 count of 1031 and viral load undetectable on 03/18. He has rectal Pap unremarkable 08/2023. STANISLAV was negative. He has some right hip pain. [facility] Medical History Right hip pain Bleeding hemorrhoids Pneumonia Shortness of breath Cough Hyperlipidemia HTN (hypertension) Abdominal pain Anxiety Gout Right shoulder pain Left shoulder pain Hand numbness Screen for STD (sexually transmitted disease) Syphilis HIV (human immunodeficiency virus infection) Surgical History History of bronchoscopy History of esophagogastroduodenoscopy (EGD) H/O colonoscopy Family History Father ALS (amyotrophic lateral sclerosis) Diabetes Hypertension Mother Liver cirrhosis Brother Liver cirrhosis Sister Hyperlipidemia Paternal Grandmother Cancer Paternal Aunt Cancer Family/Other FH: mental illness Substance use disorder Social History Household Members: Friend(s) and None Housing: Other Alcohol intake: current Alcohol intake frequency: holidays/special occasions only Alcohol type: hard liquor Patient Tobacco Use Status: Current someday Tobacco user Tobacco use type: Cigarette Years Smoked: 30 e-Cigarette/Vaping Use: Never Used service: No Current occupational status: unemployed Cognitive needs: No Hearing needs: No Vision needs: No Review of Systems Const All systems reviewed & are unremarkable except as noted in HPI and below Physical Exam Vital Signs: Last Vital Signs Pulse 72 04/03/24 13:56 BP 120/80 04/03/24 13:56 Pulse Ox 98 04/03/24 13:56 Oxygen Delivery Method Room Air 04/03/24 13:56 BMI result Body Mass Index 28.4 Const General: cooperative HEENT Head: Yes normal to inspection Face and sinus: Yes normal facial exam Mouth: Normal oral and palatal mucosa present Teeth and gingiva: dentition normal Eyes General: appearance normal, both eyes and all related structures Pupils: Equal, round and reactive pupils present Resp Effort & Inspection: normal respiratory effort Cardio Rate: regular rate Rhythm: regular rhythm GI Palpation (GI): Soft to palpation and nontender General: Yes no CVA tenderness Back/Spine/Pelvis Back: no CVA tenderness Skin General skin exam: no rashes or lesions noted Neuro General: moves all extremities Cranial nerves: Yes Equal, round and reactive pupils present Extrem General: Yes normal to inspection Psych Appearance: grossly normal Assessment & Plan Assessment & Plan (1) HIV (human immunodeficiency virus infection): Comment: He is doing well. His viral load is undetectable and CD4 count good at 953. Continue Biktarvy. See in six months Code(s): B20 - Human immunodeficiency virus [HIV] disease Category: Medical Plan: n/a (2) Right hip pain: Comment: HIV viral load is undetectable on 03/18 and CD4 count excellent on 03/18/2024. Syphilis titer is nonreactive. Code(s): M25.551 - Pain in right hip Category: Medical Plan: Continue Biktarvy. Check labs in six months. PSA with next blood work. Colonoscopy Hip XR evaluate avascular necrosis or other concerns. Bone density if didnt have before. Orders: Orders Complete Blood Count Auto Diff 5 Months B20 - Human immunodeficiency virus [HIV] disease Basic Metabolic Panel 5 Months B20 - Human immunodeficiency virus [HIV] disease Liver Panel 5 Months B20 - Human immunodeficiency virus [HIV] disease HIV-1 RNA QN PCR Expanded 5 Months B20 - Human immunodeficiency virus [HIV] disease Lymphocyte Subset Panel 3 5 Months B20 - Human immunodeficiency virus [HIV] disease XR hip RT min 2V 04/03/24 M25.551 - Pain in right hip Syphilis Screen 5 Months B20 - Human immunodeficiency virus [HIV] disease PSA,Total (Free>4and<10) 5 Months B20 - Human immunodeficiency virus [HIV] disease Medications: Refilled hesqcyrve-bpypltap-uvaxica ala 50-200-25 mg (Biktarvy) 1 tab PO DAILY 30 tabs 5RF 30 days Coding Level of Care Code Est Pt Level 4 (27609) Diagnoses HIV (human immunodeficiency virus infection) B20 Right hip pain M25.551
[2024-04-03 13:56] VITALS: BP 120/80; PULSE 72; O2SAT 98; BMI 28.4
--- OUTSIDE RECORDS SUMMARY | 2024-04-03 13:56 | XMS_ITS ---
Author Organization [facility] Address [address] [place] [address] Care Team Providers Care Sound Mixer Name Role Phone Meagan De La Cruz [...] reflux disease without esophagitis (K21.9) Active confirmed [id number] VITAL SIGNS BMI 29.09 kg/m2 08/09/2023 Blood pressure systolic 00 mm Hg 08/09/19 24 Blood pressure diastolic 00 mm Hg 024 Height 69 in 08/09/2023 Temperature 97.3 degrees Fahrenheit 08/09/19 24 Weight 197 lbs 08/09/2023 Encounters Encounter Location Date Provider Diagnosis [facility] [address] [place] [address] 08/09/2023 Frankie Vences Jr Gastroesophageal reflux disease [...]
--- OUTSIDE RECORDS SUMMARY | 2024-04-03 13:56 | XMS_ITS ---
Author Organization [facility] Address [address] [place] [address] Care Team Providers Care Account Planner Name Role Phone Meagan De La Cruz Primary Care Provider Unavailab Frankie Edwards Jr REASON FOR VISIT epigastric pain Encounters Encounter Location Date Provider Diagnosis [facility] [address] [place] [address] 05/29/2023 Frankie Vences Jr PLAN OF TREATMENT No Information
--- OUTSIDE RECORDS SUMMARY | 2024-04-03 13:56 | XMS_ITS ---
Author Organization [facility] Address [address] [place] [address] Care Team Providers Care Automatic Profile Shaper Operator Name Role Phone Meagan De La Cruz Primary Care Provider Unavailab Frankie Edwards Jr REASON FOR VISIT Patient presents today for epigastric pain Encounters Encounter Location Date Provider Diagnosis [facility] [address] [place] [address] 03/09/2023 Frankie Vences Jr PLAN OF TREATMENT No Information
--- OUTSIDE RECORDS SUMMARY | 2024-04-03 13:56 | XMS_ITS | Patient Health Record ---
Author Organization [facility] Address [address] [place] [address] Care Team Providers Care Heel Caser Name Role Phone Meagan De La Cruz Primary Care Provider UnavailFrankie Monaco Jr Unavailable [phone] ALLERGIES No Known Allergies REASON FOR [...] Notes Problem Epigastric pain (R10.13) Active confirmed 38129146 Problem Rectal bleeding (K62.5) Active confirmed 88057592 Problem Colon cancer screening (Z12.11) Active confirmed 938268197 Problem Diarrhea, unspecified type (R19.7) Active confirmed 89309097 Problem Abnormal CT scan, stomach (R93.3) Active confirmed 215980211 Problem Gastroesophageal reflux disease without esophagitis (K21.9) Active confirmed 131169255 VITAL SIGNS Temperature 97.3 degrees Fahrenheit 08/09/2023 Blood pressure diastolic 00 mm Hg 08/09/2023 Height 69 in 08/09/2023 Blood pressure systolic 00 mm Hg 08/09/2023 Weight 197 lbs 08/09/2023 BMI 29.09 kg/m2 08/09/2023 Encounters Encounter Location Date Provider Diagnosis [facility] [address] [place] [phone] 05/29/2023 Frankie Vences Jr [facility] [address] [place] [phone] 08/09/2023 Frankie Vences Jr Gastroesophageal reflux disease [...] Insured Coverage Start Date Coverage End Date [facility] [address] [address] [place], [place] [id number] JACQUELINE MCDONALD Self - patient is the insured MEDICAL (GENERAL) HISTORY Medical History History ICD Code Hypertension HIV Fatty liver Pneumonia Gout Anxiety Gastroesophageal reflux dise ase, EGD 02/21, no Horne's esophagus or H. pylori Colonoscopy 02/21, no polyps, ten-year fo llowup Surgical History Surgery Date(Month/Year)
== END 2024-04-03 15:00 | disposition home or self-care (01) ==
LOC: HO.HID 13:54
PROVIDERS: PCP Internal Medicine; Visit Provider Internal Medicine
DX: B20 Human immunodeficiency virus [HIV] disease (principal); M25.551 Pain in right hip
CPT/HCPCS: 99214

== ENCOUNTER → 2024-04-03 13:54 | Outpatient (BNVA) | payer OTHER, SELFPAY | PROVIDERS: PCP Internal Medicine; Visit Provider Internal Medicine | DX: B20 Human immunodeficiency virus [HIV] disease (principal); M25.551 Pain in right hip | CPT/HCPCS: 99212 ==

== ENCOUNTER 2024-04-16 08:40 | Outpatient (REF) | payer OTHER, SELFPAY ==
[2024-04-16 09:54] LABS: Alanine Aminotransferase 16 U/L (0-40); Albumin Level 4.2 g/dL (3.5-5.0); Alkaline Phosphatase 102 U/L (39-117); Anion Gap 12 (12-20); Aspartate Amino Transferase 18 U/L (5-37); Bilirubin Total 0.3 mg/dL (0.0-1.0); Blood Urea Nitrogen 26 mg/dL (9-16); Calcium 9.6 mg/dL (8.4-10.2); Carbon Dioxide 25 mmol/L (22-29); Chloride 106 mmol/L (96-108); Cholesterol 159 mg/dL (<200); Estimated Glomerular Filt Rate > 60; Glucose Fasting 104 mg/dL (60-99); HDL Cholesterol 35 mg/dL (>40); LDL Cholesterol Calculated 79 mg/dL (<100); Potassium 4.3 mmol/L (3.3-5.1); Sodium 139 mmol/L (135-145); Total Protein 6.6 g/dL (6.5-8.0); Triglycerides 226 mg/dL (<150)
[2024-04-16 10:10] LABS: Vitamin D 25-OH Total 41.7 ng/mL (>30)
[2024-04-16 10:21] LABS: Uric Acid 7.9 mg/dL (3.4-7.0)
== END 2024-04-16 08:41 | disposition home or self-care (01) ==
LOC: HO.XRAY 08:40
PROVIDERS: Absent Provider Internal Medicine; PCP Internal Medicine; Visit Provider Internal Medicine
DX: N18.2 Chronic kidney disease, stage 2 (mild) (principal); E78.5 Hyperlipidemia, unspecified; E55.9 Vitamin D deficiency, unspecified; M10.9 Gout, unspecified; M25.551 Pain in right hip
CPT/HCPCS: 36415; 73502; 80053; 80061; 82306; 84550

== ENCOUNTER 2024-04-25 13:00 | Outpatient (AMB) | payer OTHER, SELFPAY ==
[2024-04-25 13:12] VITALS: BP 126/80; BMI 27.2
--- NOTE | 2024-04-25 13:12 | A.OFFPC_ITS ---
Vital Signs 04/25/24 13:12 Height 5 ft 9 in Weight 184 lb BMI 27.2 BP 126/80 Blood Pressure Location Lt brachial Position Sitting Intake Visit Reasons: pe Intake Note: Patient here for a physical exam Baking Powder Mixer Required: No Accompanied by: Self / Same As Patient Allergies No Known Allergies [No Known Allergies*] Allergy (Verified 04/25/24 13:45) Medication List - Last Reconciled 04/25/24 by Meagan Marte MD albuterol sulfate 90 mcg/actuation 2 puffs inhalation Q6H PRN 30 days allopurinol 100 mg PO DAILY 90 days atorvastatin 20 mg PO BEDTIME 90 days sqnyxusnr-pebrihkl-ggcisoe ala 50-200-25 mg (Biktarvy) 1 tab PO DAILY 30 days cholecalciferol (vitamin D3) 25 mcg PO DAILY 90 days clotrimazole 1% (Lotrimin AF (clotrimazole)) 1 appl topical BID 30 days colchicine 0.6 mg PO DAILY PRN 90 days escitalopram oxalate (Lexapro) 5 mg PO DAILY hydrocortisone 2.5% 1 appl topical BID PRN hydrocortisone 2.5% (Proctosol HC) 1 appl UT BID PRN 30 days hydroxyzine HCl 25 mg PO TID PRN mupirocin 2% 1 appl topical TID 7 days nitroglycerin 0.4%(w/w) (Rectiv) 1 inch UT BID 30 days pantoprazole (Protonix) 20 mg PO DAILY valacyclovir (Valtrex) 1,000 mg PO DAILY 30 days Tobacco use date assessed: 08/14/23 Dental Screening Dental Screen Date: 04/25/24 Did you have a dental visit in the last 12 months?: Yes Did you have a dental problem in the last 6 months where you did not have access to dental care?: No Was dental information given to patient?: Patient has dentist HPI HPI Comments History of Present Illness Details This is a 58-year-old male with HIV that comes for his physical exam. HIV is follow by ID and has been stable with medications. Colonoscopy done 2021 was normal. He complains of right knee pain and right foot pain that has been bothering him for a few weeks and x-ray will be ordered. He also complains of some urinary dribbling and will be referred to Urology. Labs were discussed and had mild elevation of uric acid but he admits not being compliant with allopurinol. Also triglycerides are elevated and fenofibrate will be started. He has mild major depression and complains of insomnia. I will start him on mirtazapine. [facility] Medical History Right hip pain Bleeding hemorrhoids Pneumonia Shortness of breath Cough Hyperlipidemia HTN (hypertension) Abdominal pain Anxiety Gout Right shoulder pain Left shoulder pain Hand numbness Screen for STD (sexually transmitted disease) Syphilis HIV (human immunodeficiency virus infection) Surgical History History of bronchoscopy History of esophagogastroduodenoscopy (EGD) H/O colonoscopy Family History Father ALS (amyotrophic lateral sclerosis) Diabetes Hypertension Mother Liver cirrhosis Brother Liver cirrhosis Sister Hyperlipidemia Paternal Grandmother Cancer Paternal Aunt Cancer Family/Other FH: mental illness Substance use disorder Social History (Updated 04/25/24 @ 13:56 by Meagan Marte MD) Household Members: Friend(s) and None Housing: Other Alcohol intake: current Alcohol intake frequency: a few times a month Alcohol type: hard liquor Patient Tobacco Use Status: Current someday Tobacco user Tobacco use type: Cigarette Years Smoked: 30 e-Cigarette/Vaping Use: Never Used Second Hand Smoke Exposure: No service: No Current occupational status: unemployed Cognitive needs: No Hearing needs: No Vision needs: No Questionnaire PHQ-9 Over the last 2 weeks, how often have you been bothered by any of the following problems? 1. Little interest or pleasure in doing things: not at all 2. Feeling down, depressed, or hopeless: several days 3. Trouble falling or staying asleep, or sleeping too much: several days 4. Feeling tired or having little energy: several days 5. Poor appetite or overeating: several days 6. Feeling bad about yourself - or that you are a failure or have let yourself or your family down: not at all 7. Trouble concentrating on things, such as reading the newspaper or watching television: not at all 8. Moving or speaking so slowly that other people could have noticed. Or the opposite - being so fidgety or restless that you have been moving around a lot more than usual: not at all 9. Thoughts that you would be better off or of hurting yourself in some way: not at all Total score: 4 Depression Screening Interpretation: Positive Depression Screening Follow-up: Existing condition and Follow-up Visit Requested Depression Screening Done: Yes 09904 - PHQ-9 Billing: Yes Source: Developed by Drs. Juan Luis Payne, Elsy Tadeo, Raymon Franco and colleagues, with an educational brinda from [employer]. Thrive Questionnaire Date Thrive assessed: 04/25/24 I am a: Patient What is your living situation today?: I have a steady place to live Within the past 12 months, did the food you bought not last and you didn't have the money to get more?: Sometimes True Within the past 12 months, did you worry whether your food would run out before you got money to buy more?: Sometimes True Do you have trouble paying for medicines?: No Do you have trouble getting transportation to medical appointments?: No Do you have trouble paying your heating and electricity bill?: No Do you have trouble taking care of your child, family member or friend?: No Do you have trouble with day-to-day activities such as bathing, preparing meals, shopping, managing finances, etc.?: No Are you currently unemployed and looking for a job?: I choose not to answer this question Are you interested in more education?: I choose not to answer this question Please select the resources that you would like help with: None Currently or been in a relationship where the following occur: I choose not to answer THRIVE Score: 2 AUDIT C Alcohol Use Questionnaire (AUDIT-C) 1. How often do you have a drink containing alcohol?: 2-4 times a month 2. How many drinks containing alcohol do you have on a typical day when you are drinking?: 7 to 9 3. How often do you have six or more drinks on one occasion?: Weekly Total Score: 8 CRISTOBAL-7 AMB Questionnaire CRISTOBAL-7 Date CRISTOBAL - 7 assessed: 04/25/24 Feeling nervous, anxious, or on edge: 1 = Several days Not being able to stop or control worryin = Several days Worrying too much about different things: 1 = Several days Trouble relaxin = Several days Being so restless that it is hard to sit still: 1 = Several days Becoming easily annoyed or irritable: 0 = Not at all Feeling afraid as if something awful might happen: 1 = Several days Total CRISTOBAL-7 score (0-4 normal; 5-9 mild; 10-14 moderate; 15-21 severe): 6 Source: Developed by Drs. Juan Luis Payne, Elsy Tadeo, Raymon Franco and colleagues, with an educational brinda from [employer]. CRISTOBAL-7 Assessment Billing CRISTOBAL-7 Assessment Tool: CRISTOBAL-7 Assessment 43283 Review of Systems Const All systems reviewed & are unremarkable except as noted in HPI and below Card Denies chest pain at rest, Denies chest pain with activity, Denies edema, Denies irregular heart rhythm, Denies claudication, Denies dyspnea, Denies dyspnea on exertion, Denies orthopnea, Denies paroxysmal nocturnal dyspnea and Denies slow heart rate Resp Denies cough, Denies dyspnea and Denies dyspnea on exertion Denies urinary hesitancy, Denies urinary incontinence and Denies urinary urgency Musc Denies atrophy, Denies deformity and Denies limited range of motion Skin/Breast Denies bleeding lesions, Denies changing lesions and Denies rash Physical exam (Primary Care) Vital Signs: Last Vital Signs BP 126/80 04/25/24 13:12 BMI result Body Mass Index 27.2 Tobacco/Smoking Status: Tobacco use Status Tobacco use date assessed 08/14/23 04/25/24 13:16 Patient Tobacco Use Status Current someday Tobacco 04/25/24 13:56 Tobacco use type Cigarette 04/25/24 13:56 e-Cigarette/Vaping Use Never Used 04/25/24 13:56 Are you ready to quit: No Tobacco cessation counseling provided: Yes Relapse Prevention: discussed negative mood or depression after quitting and weight gain after smoking is common Number of minutes spent counselin CPT code: Less than 3 minutes PHQ-9: PHQ-9 Score PHQ-9: Total score 4 04/25/24 15:37 Depression Screening Interpretation: Positive Depression Screening Follow-up: Existing condition and Follow-up Visit Requested Thrive Assessment: Date of Thrive Assessment Date Thrive assessed 04/25/24 04/25/24 13:19 Currently or been in a relationship where the following occur: I choose not to answer HENMT Head: Yes normal to inspection, Yes normocephalic and Yes atraumatic Ears: external ears normal Eyes General: appearance normal, both eyes and all related structures Eyelids: Yes eyelids normal Conjunctivae: conjunctivae normal Neck Neck: Yes normal visual inspection and Yes supple Resp Effort & Inspection: normal respiratory effort Auscultation: clear to auscultation bilaterally Cardio Jugular venous distension: no JVD Rate: regular rate Rhythm: regular rhythm Heart sounds: S1 normal heart sound present and S2 normal heart sound present GI Inspection: Yes normal to inspection Palpation (GI): Soft to palpation and nontender Auscultation: normal bowel sounds Skin General skin exam: no rashes or lesions noted Neuro General: no focal motor deficits Extrem General: Yes full ROM Psych Appearance: grossly normal Coding Level of Care Code Est Pt Level 4 (17611) Est Pt Prev Care 40-64y(40166) Diagnoses Adult general medical exam Z00.00 Asymptomatic HIV infection, with no history of HIV-related illness Z21 HIV symptom status: asymptomatic, with no history of HIV-related illness Mild major depression F32.0 Acute pain of right knee M25.561 Chronicity: acute Right foot pain M79.671 Urinary dribbling N39.43 Additional Codes CRISTOBAL-7 Assessment Billing - CRISTOBAL-7 Assessment Tool: CRISTOBAL-7 Assessment 02182 ([id number]) Time Spent (min) 35 Assessment & Plan Assessment & Plan (1) Adult general medical exam: Code(s): Z00.00 - Encounter for general adult medical examination without abnormal findings Category: Medical Plan: Repeat in a year. (2) HIV (human immunodeficiency virus infection): Comment: He is doing well. His viral load is undetectable and CD4 count good at 953. Continue Biktarvy. See in six months Code(s): B20 - Human immunodeficiency virus [HIV] disease Category: Medical Qualifiers: HIV symptom status: asymptomatic, with no history of HIV-related illness Qualified Code(s): Z21 - Asymptomatic human immunodeficiency virus [HIV] infection status Plan: Continue medication. Follow-up with ID. (3) Mild major depression: Code(s): F32.0 - Major depressive disorder, single episode, mild Category: Medical Plan: Start mirtazapine. (4) Right knee pain: Code(s): M25.561 - Pain in right knee Category: Medical Qualifiers: Chronicity: acute Qualified Code(s): M25.561 - Pain in right knee Plan: X-ray ordered. (5) Right foot pain: Code(s): M79.671 - Pain in right foot Category: Medical Plan: X-ray ordered. (6) Urinary dribbling: Code(s): N39.43 - Post-void dribbling Category: Medical Plan: Referred to Urology. Orders: Orders PSA,Total (Free>4and<10) 6 Weeks R35.1 - Nocturia Comprehensive [place]. Panel Fast 6 Weeks F32.0 - Major depressive disorder, single episode, mild Lipid Panel 6 Weeks E78.5 - Hyperlipidemia, unspecified XR knee RT 2V 04/25/24 M25.561 - Pain in right knee XR foot RT 2V 04/25/24 M79.671 - Pain in right foot Uric Acid 6 Weeks M10.9 - Gout, unspecified Referrals Urology Referral N39.43 - Post-void dribbling Medications: New mirtazapine 15 mg PO BEDTIME 30 days 30 tabs 0RF fenofibrate 54 mg PO DAILY 90 days 90 tabs 1RF Refilled mupirocin 2% 1 appl topical TID 7 days 15 grams 0RF Discontinued atorvastatin Discontinued Reason: Patient Completed Course 20 mg PO BEDTIME 90 days 90 tabs 1RF E78.5 - Hyperlipidemia, unspecified
== END 2024-04-25 14:13 | disposition home or self-care (01) ==
PROVIDERS: PCP Internal Medicine; Visit Provider Internal Medicine
DX: Z00.00 Encounter for general adult medical examination without abnormal findings (principal); M25.561 Pain in right knee; Z21 Asymptomatic human immunodeficiency virus [HIV] infection status; F32.0 Major depressive disorder, single episode, mild; M79.671 Pain in right foot; N39.43 Post-void dribbling

== ENCOUNTER → 2024-04-25 13:00 | Outpatient (BNVA) | payer OTHER, SELFPAY | PROVIDERS: PCP Internal Medicine; Visit Provider Internal Medicine | DX: Z00.01 Encounter for general adult medical examination with abnormal findings (principal); F32.0 Major depressive disorder, single episode, mild; M25.561 Pain in right knee; M79.671 Pain in right foot; N39.43 Post-void dribbling | CPT/HCPCS: 96127; 99212; 99396 ==

== ENCOUNTER 2024-06-05 09:18 | Outpatient (REF) | payer OTHER, SELFPAY ==
[2024-06-05 11:15] LABS: Uric Acid 7.1 mg/dL (3.4-7.0)
[2024-06-05 11:18] LABS: Alanine Aminotransferase 18 U/L (0-40); Alkaline Phosphatase 94 U/L (39-117); Anion Gap 11 (12-20); Aspartate Amino Transferase 33 U/L (5-37); Bilirubin Total 0.5 mg/dL (0.0-1.0); Blood Urea Nitrogen 20 mg/dL (9-16); Calcium 9.4 mg/dL (8.4-10.2); Carbon Dioxide 27 mmol/L (22-29); Chloride 108 mmol/L (96-108); Cholesterol 161 mg/dL (<200); Estimated Glomerular Filt Rate > 60; Glucose Fasting 108 mg/dL (60-99); HDL Cholesterol 39 mg/dL (>40); LDL Cholesterol Calculated 90 mg/dL (<100); Sodium 142 mmol/L (135-145); Total Protein 6.3 g/dL (6.5-8.0); Triglycerides 163 mg/dL (<150)
[2024-06-05 11:33] LABS: PSA,Total (Free>4and<10) 0.64 ng/mL (0.00-4.00)
== END 2024-06-05 09:19 | disposition home or self-care (01) ==
LOC: HO.LAB 09:18
PROVIDERS: PCP Internal Medicine; Visit Provider Internal Medicine Nephrology
DX: F32.0 Major depressive disorder, single episode, mild (principal); R35.1 Nocturia; E78.5 Hyperlipidemia, unspecified; M10.9 Gout, unspecified
CPT/HCPCS: 36415; 80053; 80061; 84153; 84550

== ENCOUNTER 2024-06-07 12:03 | Outpatient (AMB) | payer OTHER, SELFPAY ==
--- NOTE | 2024-06-07 12:07 | HO.NEPHOV_ITS ---
Vital Signs 06/07/24 12:10 Height 5 ft 9 in Weight 189 lb 8 oz BMI 28.0 BP 110/60 Blood Pressure Location Rt brachial Position Sitting Pulse 79 Pulse Source Pulse Oximeter Pulse Oximetry (%) 97 Oxygen Delivery Method Room Air Intake Visit Reasons: CKD/ 6 MO FU-Conf Tool Planer Set Up Operator Required: Yes Tool Planer Set Up Operator Language: [employer]: Tool Planer Set Up Operator Present Tool Planer Set Up Operator Name: Bina [id number] Accompanied by: Self / Same As Patient Allergies No Known Allergies [No Known Allergies*] Allergy (Verified 06/07/24 12:09) HPI Comments Details: Brian in follow up for proteinuria. Tool Planer Set Up Operator was available throughout the patient encounter. He has HIV and is on anti retrovirals which he claims to be compliant .He denies neuropathy , retinopathy, CAD, CVA, CHF, KISHAN , PAD , hepatitis or carotid stenosis. He has H/O gout but does not take NSAID's regularly. He denies any nausea, vomiting, diarrhea, SOB, edema, PND, orthopnea, hematuria, hearing deficits. He does not take SGLT2i. He has no sinusitis, epistaxis, photosensitivity, bone pain, sore throat , hemoptysis, skin lesions or recent antibiotic intake. He denied any active complaints at the time of this office visit [facility] Medical History Right hip pain Bleeding hemorrhoids Pneumonia Shortness of breath Cough Hyperlipidemia HTN (hypertension) Abdominal pain Anxiety Gout Right shoulder pain Left shoulder pain Hand numbness Screen for STD (sexually transmitted disease) Syphilis HIV (human immunodeficiency virus infection) Surgical History History of bronchoscopy History of esophagogastroduodenoscopy (EGD) H/O colonoscopy Family History Father ALS (amyotrophic lateral sclerosis) Diabetes Hypertension Mother Liver cirrhosis Brother Liver cirrhosis Sister Hyperlipidemia Paternal Grandmother Cancer Paternal Aunt Cancer Family/Other FH: mental illness Substance use disorder Social History Household Members: Friend(s) and None Housing: Other Alcohol intake: current Alcohol intake frequency: a few times a month Alcohol type: hard liquor Patient Tobacco Use Status: Current someday Tobacco user Tobacco use type: Cigarette Years Smoked: 30 e-Cigarette/Vaping Use: Never Used Second Hand Smoke Exposure: No service: No Current occupational status: unemployed Cognitive needs: No Hearing needs: No Vision needs: No Review of Systems Const All systems reviewed & are unremarkable except as noted in HPI and below Physical Exam Vital Signs: Last Vital Signs Pulse 79 06/07/24 12:10 BP 110/60 06/07/24 12:10 Pulse Ox 97 06/07/24 12:10 Oxygen Delivery Method Room Air 06/07/24 12:10 BMI result Body Mass Index 28.0 Const General: comfortable and no acute distress Orientation/consciousness: patient oriented x3 HEENT Head: Yes normocephalic Mouth: Normal oral and palatal mucosa present Eyes EOM: EOMs intact bilaterally Neck Neck: Yes supple Resp Auscultation: clear to auscultation bilaterally Cardio Jugular venous distension: no JVD Rate: regular rate GI Palpation (GI): Soft to palpation Auscultation: normal bowel sounds General: Yes no CVA tenderness Back/Spine/Pelvis Back: no CVA tenderness Skin General skin exam: no rashes or lesions noted Neuro General: patient oriented x3 and moves all extremities Extrem General: Yes no pedal edema Results Reviewed Nephrology Results: Hgb 14.8 g/dl (14.0-18.0) 03/18/24 WBC 7.8 X10*3/uL (4.8-10.8) 03/18/24 Plt Count 168 X10*3/uL (160-400) 03/18/24 Sodium 142 mmol/L (135-145) 06/05/24 Potassium 4.0 mmol/L (3.3-5.1) 06/05/24 Chloride 108 mmol/L (96-108) 06/05/24 Carbon Dioxide 27 mmol/L (22-29) 06/05/24 BUN 20 mg/dL (9-16) H 06/05/24 Creatinine 1.09 mg/dL (0.5-1.4) 06/05/24 Calcium 9.4 mg/dL (8.4-10.2) 06/05/24 Assessment & Plan Assessment & Plan (1) CKD (chronic kidney disease) stage 2, GFR 60-89 ml/min: Code(s): N18.2 - Chronic kidney disease, stage 2 (mild) Category: Medical Plan Has had some protein in the urine BP has been at goal; Last urine no significant protein Doesn't take NSAID's. On uric acid lowering medications DDx- HIVAN vs other etiology; Last serum creatinine 1.09 Not on ACEI. NO renal stones; Maintain good hydration No medication changes done today; 24 hour for cr cl pending Answered all questions; F/U given Orders: Orders Creatinine 7 Months N18.2 - Chronic kidney disease, stage 2 (mild) Blood Urea Nitrogen 7 Months N18.2 - Chronic kidney disease, stage 2 (mild) Electrolytes 7 Months N18.2 - Chronic kidney disease, stage 2 (mild) Coding Level of Care Code Est Pt Level 4 (17496) Diagnoses CKD (chronic kidney disease) stage 2, GFR 60-89 ml/min N18.2
[2024-06-07 12:10] VITALS: BP 110/60; PULSE 79; O2SAT 97; BMI 28.0
== END 2024-06-07 12:24 | disposition home or self-care (01) ==
PROVIDERS: PCP Internal Medicine; Visit Provider Internal Medicine Nephrology
DX: N18.2 Chronic kidney disease, stage 2 (mild) (principal)
CPT/HCPCS: 99214

== ENCOUNTER → 2024-06-07 12:03 | Outpatient (BNVA) | payer OTHER, SELFPAY | PROVIDERS: PCP Internal Medicine; Visit Provider Internal Medicine Nephrology | DX: N18.2 Chronic kidney disease, stage 2 (mild) (principal) | CPT/HCPCS: 99212 ==

== ENCOUNTER 2024-06-08 09:18 | Outpatient (REF) | payer OTHER, SELFPAY ==
[2024-06-08 10:42] LABS: Anion Gap 13 (12-20); Blood Urea Nitrogen 23 mg/dL (9-16); Calcium 9.1 mg/dL (8.4-10.2); Carbon Dioxide 24 mmol/L (22-29); Chloride 109 mmol/L (96-108); Estimated Glomerular Filt Rate > 60; Potassium 4.1 mmol/L (3.3-5.1); Sodium 142 mmol/L (135-145)
[2024-06-08 11:29] LABS: Creatinine, mg/dL 136.83
[2024-06-08 12:14] LABS: Creatinine, 24Hr Urine 1.8 G/Day (1.0-2.0); Total Volume 24 Hour Urine 1350 mL
[2024-06-08 14:25] LABS: Creatinine (CrCl) 1.07 mg/dL (0.5-1.4); Creatinine Clearance 119.8 mL/min (85-125)
== END 2024-06-08 09:19 | disposition home or self-care (01) ==
LOC: HO.LAB 09:18
PROVIDERS: PCP Internal Medicine; Visit Provider Internal Medicine Nephrology
DX: N18.2 Chronic kidney disease, stage 2 (mild) (principal)
CPT/HCPCS: 36415; 80051; 82310; 82565; 82575; 84520

== ENCOUNTER 2024-07-15 08:37 | Outpatient (AMB) | payer OTHER, SELFPAY ==
--- NOTE | 2024-07-15 09:42 | MHC.OFFVIS ---
Intake Visit Reasons: 1965 Intake Note: New patient is present to establish care for Post void Any Urology Medications: Allopurinol Antibiotic Allergy: None Blood Thinner: None PVR:11mL Family History: Bladder Cancer? No Prostate Cancer? 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 Clerk Required: Yes Computer Forwarding System Markup Clerk Language: Bulgarian Accompanied by: Self / Same As Patient Allergies No Known Allergies [No Known Allergies*] Allergy (Verified 07/15/24 11:18) Medication List - Last Reconciled 07/15/24 by Efren Alanis MD albuterol sulfate 90 mcg/actuation 2 puffs inhalation Q6H PRN 30 days allopurinol 100 mg PO DAILY 90 days amoxicillin 500 mg PO BID 10 days uljbkoklb-bjrnndbq-jxjjwkk ala 50-200-25 mg (Biktarvy) 1 tab PO DAILY 30 days cholecalciferol (vitamin D3) 25 mcg PO DAILY 90 days clotrimazole 1% (Lotrimin AF (clotrimazole)) 1 appl topical BID 30 days colchicine 0.6 mg PO DAILY PRN 90 days escitalopram oxalate (Lexapro) 5 mg PO DAILY fenofibrate 54 mg PO DAILY 90 days hydrocortisone 2.5% 1 appl topical BID PRN hydrocortisone 2.5% (Proctosol HC) 1 appl [place] BID PRN 30 days hydroxyzine HCl 25 mg PO TID PRN lorazepam 1 mg (2 x 0.5 mg) PO DAILY PRN 1 day mirtazapine 15 mg PO BEDTIME 30 days mupirocin 2% 1 appl topical TID 7 days nitroglycerin 0.4%(w/w) (Rectiv) 1 inch [place] BID 30 days pantoprazole (Protonix) 20 mg PO DAILY tamsulosin (Flomax) 0.4 mg PO BEDTIME valacyclovir (Valtrex) 1,000 mg PO DAILY 30 days HPI Comments Details: Brian is a 58-year-old Bulgarian-speaking male who complains of slowing of urinary stream and dribbling. Bladder scan PVR today was within normal limits. I have discussed trial of tamsulosin. Discussed side effects of dizziness and retrograde ejaculation. We will check a screening PSA. Renal/bladder ultrasound. Follow-up in 2-3 months. The patient states he has had some swelling and pain in his neck. He was advised to go to urgent care. [facility] Medical History Right hip pain Bleeding hemorrhoids Pneumonia Shortness of breath Cough Hyperlipidemia HTN (hypertension) Abdominal pain Anxiety Gout Right shoulder pain Left shoulder pain Hand numbness Screen for STD (sexually transmitted disease) Syphilis HIV (human immunodeficiency virus infection) Surgical History History of bronchoscopy History of esophagogastroduodenoscopy (EGD) H/O colonoscopy Family History Father ALS (amyotrophic lateral sclerosis) Diabetes Hypertension Mother Liver cirrhosis Brother Liver cirrhosis Sister Hyperlipidemia Paternal Grandmother Cancer Paternal Aunt Cancer Family/Other FH: mental illness Substance use disorder Social History Household Members: Friend(s) and None Housing: Other Alcohol intake: current Alcohol intake frequency: a few times a month Alcohol type: hard liquor Patient Tobacco Use Status: Current someday Tobacco user Tobacco use type: Cigarette Years Smoked: 30 e-Cigarette/Vaping Use: Never Used Second Hand Smoke Exposure: No Advance Directives: No Advance Directives Information Provided: No Do you have a plan to hurt others: No Plan service: No Current occupational status: unemployed Cognitive needs: No Hearing needs: No Vision needs: No Review of Systems Const All systems reviewed & are unremarkable except as noted in HPI and below Reports no additional complaints Eyes Reports no additional complaints ENT Reports no additional complaints Card Reports no additional complaints Resp Reports no additional complaints GI Reports no additional complaints Reports as per HPI Musc Reports no additional complaints Skin/Breast Reports system reviewed and no additional complaints, except as documented Neuro Reports no additional complaints Psych Reports no additional complaints Endo Reports no additional complaints Ganga/Lymph Reports no additional complaints Aller/Immun Reports no additional complaints Physical Exam Const General: healthy appearing, no acute distress and well developed Orientation/consciousness: patient oriented x3 HEENT Head: Yes normocephalic and Yes atraumatic Eyes Conjunctivae: conjunctivae normal Neck Neck: Yes normal visual inspection Chest Chest palpation & inspection: normal inspection of the chest Resp Effort & Inspection: normal respiratory effort Cardio Rate: regular rate GI Inspection: Yes normal to inspection Palpation (GI): Soft to palpation Neuro General: patient oriented x3 Extrem General: No pedal edema Psych Appearance: grossly normal Affect: normal affect Office Procedures Post Void Residual Post Residual Void Post Void Residual (PVR): 11 [id number] Void Residual by ultrasound Results AMB Urinalysis, Automated UA Leukoctes 0 Noemy/uL Last Edit by Karen Gallego, EUGENE on 07/15/24 10:51 UA Nitrite Negative Last Edit by Karen Gallego, CLIENT SERVICES ACCOUNT MANAGER on 07/15/24 10:51 UA Urobilinogen 0.2 mg/dL Last Edit by Karen Gallego, CLIENT SERVICES ACCOUNT MANAGER on 07/15/24 10:51 UA Protein 0 mg/dL Last Edit by Karen Gallego, [facility] on 07/15/24 10:51 UA pH 6.0 Last Edit by Karen Gallego, [facility] on 07/15/24 10:51 UA Blood 0 Jovanni/uL Last Edit by Karen Gallego, [facility] on 07/15/24 10:51 UA Specific [place] 1.015 Last Edit by Karen Gallego, [facility] on 07/15/24 10:51 UA Ketone Negative Last Edit by Karen Gallego, [facility] on 07/15/24 10:51 UA Bilirubin 0 mg/dL Last Edit by Karen Gallego, [facility] on 07/15/24 10:51 UA Glucose 0 mg/dL Last Edit by Karen Gallego, [facility] on 07/15/24 10:51 Results Reviewed Results Reviewed: Laboratory Last Values Urine pH (Auto) 6.0 07/15/24 09:53 Specific [place] (Auto) 1.015 07/15/24 09:53 Urine Protein (Auto) 0 mg/dL 07/15/24 09:53 Glucose (UA)(Auto) 0 mg/dL 07/15/24 09:53 Urine Ketones (Auto) Negative 07/15/24 09:53 Urine Blood (Auto) 0 Jovanni/uL 07/15/24 09:53 Urine Nitrite (Auto) Negative 07/15/24 09:53 Urine Bilirubin (Auto) 0 mg/dL 07/15/24 09:53 Urine Urobilinogen (Auto) 0.2 mg/dL 07/15/24 09:53 Leukocyte Esterase (Auto) 0 Noemy/uL 07/15/24 09:53 Assessment & Plan Assessment & Plan (1) Screening for prostate cancer: Code(s): Z12.5 - Encounter for screening for malignant neoplasm of prostate Category: Medical (2) BPH loc w urin obs/LUTS: Code(s): N40.1 - Benign prostatic hyperplasia with lower urinary tract symptoms Category: Medical Plan Will check a screening PSA. Renal/bladder ultrasound. Follow-up in 2-3 months Orders: Orders AMB Urinalysis Automated Today Z13.9 - Encounter for screening, unspecified PSA,Total (Free>4and<10) Today Z12.5 - Encounter for screening for malignant neoplasm of prostate US retroperitoneal comp Today N40.1 - Benign prostatic hyperplasia with lower urinary tract symptoms AMB Post Void Residual by ultrasound Today N39.43 - Post-void dribbling Medications: New tamsulosin (Flomax) 0.4 mg PO BEDTIME 30 caps 3RF Patient Instructions: The patient had an opportunity to ask questions regarding treatment plan. The patient expressed understanding and agreement with the above treatment plan. The patient is aware they should contact our office by phone for worsening of their current condition or the appearance of new symptoms. Compliance is encouraged with any medications and followup testing that is ordered. It is a privilege to be allowed the opportunity to participate in the urologic care of your patient. If you have any questions or concerns regarding treatment for the above conditions please do not hesitate to contact me. The office telephone contact is [phone]. This note is constructed in part using voice recognition software. While every effort has been made to ensure accuracy tire servicer errors may have been included. Yours sincerely, Efren grade so you can take them from her out take them so the other anita is in yet or was before right ongoing see her MD Zeke Coding Level of Care Code New Pt Level 4 (31736) Diagnoses Screening for prostate cancer Z12.5 BPH loc w urin obs/LUTS N40.1 CPT Codes Post Residual Void - PVR CPT Code: 19407-[id number] Void Residual by ultrasound ([id number])
== END 2024-07-15 10:13 | disposition home or self-care (01) ==
PROVIDERS: PCP Internal Medicine; Visit Provider Urology
DX: Z12.5 Encounter for screening for malignant neoplasm of prostate (principal); N40.1 Benign prostatic hyperplasia with lower urinary tract symptoms; Z13.9 Encounter for screening, unspecified
CPT/HCPCS: 99204

== ENCOUNTER 2024-07-15 08:37 | Outpatient (REF) | payer OTHER, SELFPAY ==
[2024-07-15 12:08] LABS: Alanine Aminotransferase 19 U/L (0-40); Albumin Level 4.1 g/dL (3.5-5.0); Alkaline Phosphatase 103 U/L (39-117); Anion Gap 7 (12-20); Aspartate Amino Transferase 24 U/L (5-37); Bilirubin Total 0.6 mg/dL (0.0-1.0); Blood Urea Nitrogen 15 mg/dL (9-16); Calcium 9.2 mg/dL (8.4-10.2); Carbon Dioxide 29 mmol/L (22-29); Chloride 109 mmol/L (96-108); Cholesterol 161 mg/dL (<200); Estimated Glomerular Filt Rate > 60; Glucose Fasting 94 mg/dL (60-99); HDL Cholesterol 38 mg/dL (>40); LDL Cholesterol Calculated 105 mg/dL (<100); Potassium 4.3 mmol/L (3.3-5.1); Sodium 141 mmol/L (135-145); Triglycerides 93 mg/dL (<150)
== END 2024-07-15 08:38 | disposition home or self-care (01) ==
LOC: HO.LAB 08:37
PROVIDERS: PCP Internal Medicine; Referring Provider Internal Medicine; Visit Provider Urology
DX: Z13.89 Encounter for screening for other disorder (principal)
CPT/HCPCS: 36415; 51798; 80053; 80061; 81003; 99202

== ENCOUNTER 2024-07-15 10:36 | Emergency (ER) | payer OTHER, SELFPAY ==
--- NOTE | ~2024-07-15 | XR_ITS ---
EXAMINATION: XR CHEST CLINICAL INFORMATION: cough COMPARISON: 04/13/2023 chest x-ray. CT chest 08/04/2023. TECHNIQUE: 2 views of the chest were obtained. FINDINGS: The cardiac, hilar, and mediastinal contours are normal. The lungs are somewhat hyperaerated and hyperlucent, however clear bilaterally. There is no pneumothorax or pleural effusion. There is no focal osseous or soft tissue abnormality. XR/XR chest 2V IMPRESSION: No active pulmonary disease. No change. Electronically signed by: Jayson Adams MD 07/15/2024 12:[address] [facility]
[2024-07-15 11:17] VITALS: BP 133/77; PULSE 72; RESP 18; TEMP 37.2; O2SAT 99; BMI 27.9
--- NOTE | 2024-07-15 11:18 | ED_ITS ---
HPI - URI/Sore Throat General Chief Complaint: Upper Respiratory Symptoms Stated Complaint: sore throat Time Seen by Provider: 07/15/24 12:10 Source: patient and old records reviewed Mode of arrival: ambulatory Limitations: no limitations History of Present Illness ED Provider: DOMINGUEZ PADILLA Narrative: 58 yo male with PMH of HIV negative viral load, HLD, CKD, ILD, depression, GERD here with c/o sore throat, dry cough, lymph nodes in neck. No known sick contacts. taking motrin with relief. He has no other symptoms and is able to tolerating PO. MD elicited complaint: cough and sore throat Onset (ago): day(s) (last ) Consistency: intermittent Severity: moderate Description of mucous: clear Able to tolerate fluids by mouth: Yes Exacerbating factors: swallowing Relieving factors: nothing Context: recent travel Associated symptoms: fever, chills, sore throat and cough Treatments prior to arrival: ibuprofen Related Data Home Medications ?Medication ?Instructions ?Recorded ?Confirmed hydrocortisone 2.5 % topical cream 1 appl topical BID PRN Muscle Spasm 06/23/20 04/25/24 escitalopram oxalate 5 mg tablet 5 mg PO DAILY 11/21/22 04/25/24 (Lexapro) Previous Rx's ?Medication ?Instructions ?Recorded clotrimazole 1 % topical cream 1 appl topical BID 30 days #45 02/22/21 (Lotrimin AF (clotrimazole)) grams nitroglycerin 0.4 % (w/w) rectal 1 inch [place] BID 30 days #30 grams 12/07/21 ointment (Rectiv) albuterol sulfate 90 mcg/actuation 2 puff inhalation Q6H PRN 09/30/22 aerosol inhaler bronchospasm 30 days #8.5 grams hydrocortisone 2.5 % topical cream 1 appl [place] BID PRN hemorrhoids 30 08/11/23 with perineal applicator days #30 grams (Proctosol HC) pantoprazole 20 mg tablet,delayed 20 mg PO DAILY #90 tabs 11/18/23 release (Protonix) valacyclovir 1 gram tablet 1,000 mg PO DAILY 30 days #30 tabs 11/28/23 (Valtrex) hydroxyzine HCl 25 mg tablet 25 mg PO TID PRN itching #15 tabs 01/27/24 bictegravir 50 mg-emtricitabine 1 tab PO DAILY 30 days #30 tabs 04/03/24 200 mg-tenofovir alafenam 25 mg tablet (Biktarvy) cholecalciferol (vitamin D3) 25 25 mcg PO DAILY 90 days #90 caps 04/03/24 mcg (1,000 unit) capsule fenofibrate 54 mg tablet 54 mg PO DAILY 90 days #90 tabs 04/25/24 lorazepam 0.5 mg tablet 1 mg (2 x 0.5 mg) PO DAILY PRN 04/25/24 anxiety 1 day #2 tabs mupirocin 2 % topical ointment 1 appl topical TID 7 days #15 grams 04/25/24 allopurinol 100 mg tablet 100 mg PO DAILY 90 days #90 tabs 05/29/24 colchicine 0.6 mg tablet 0.6 mg PO DAILY PRN gout 90 days 05/29/24 #90 tabs mirtazapine 15 mg tablet 15 mg PO BEDTIME 30 days #30 tabs 06/23/24 amoxicillin 500 mg capsule 500 mg PO BID 10 days #20 caps 07/15/24 tamsulosin 0.4 mg capsule (Flomax) 0.4 mg PO BEDTIME #30 caps 07/15/24 Allergies Allergy/AdvReac Type Severity Reaction Status Date / Time No Known Allergies Allergy Verified 07/15/24 11:18 [No Known Allergies*] Review of Systems Review of Systems: Constitutional : pos Fever, pos Chills, No Fatigue ENT/Mouth : pos sore throat, No Rhinorrhea Eyes: No Eye Pain, No Swelling, No Redness Cardiovascular : No Chest Pain, No SOB, No Dyspnea on Exertion Respiratory : pos Cough, No Sputum Gastrointestinal : No Nausea, No Vomiting, No Diarrhea, No abdominal Pain Genitourinary : No Dysuria, No Urinary Frequency, No Hematuria, Musculoskeletal : No joint pain, No Myalgias, No Joint Swelling Skin : No Skin Lesions, No rash Neuro : No Weakness, No Numbness, No Dizziness, no Headache Psych : No Anxiety/Panic, No Depression Heme/Lymph: No Bruising, No Bleeding, pos Lymphadenopathy All other systems reviewed and are negative [facility] Past Medical History Attestation statement: The following information was validated with the patient. Source: old records reviewed Medical History Right hip pain Bleeding hemorrhoids Pneumonia Shortness of breath Cough Hyperlipidemia HTN (hypertension) Abdominal pain Anxiety Gout Right shoulder pain Left shoulder pain Hand numbness Screen for STD (sexually transmitted disease) Syphilis HIV (human immunodeficiency virus infection) Surgical History History of bronchoscopy History of esophagogastroduodenoscopy (EGD) H/O colonoscopy Family History Family History Father ALS (amyotrophic lateral sclerosis) Diabetes Hypertension Mother Liver cirrhosis Brother Liver cirrhosis Sister Hyperlipidemia Paternal Grandmother Cancer Paternal Aunt Cancer Family/Other FH: mental illness Substance use disorder Social History Social History Household Members: Friend(s) and None Housing: Other Alcohol intake: current Alcohol intake frequency: a few times a month Alcohol type: hard liquor Patient Tobacco Use Status: Current someday Tobacco user Tobacco use type: Cigarette Years Smoked: 30 e-Cigarette/Vaping Use: Never Used Second Hand Smoke Exposure: No Do you have a plan to hurt others: No Plan service: No Current occupational status: unemployed Cognitive needs: No Hearing needs: No Vision needs: No Physical Exam Vital Signs: Vital Signs: Last Vital Signs Temp 98.9 F 07/15/24 11:17 Pulse 72 07/15/24 11:17 Resp 18 07/15/24 11:17 BP 133/77 07/15/24 11:17 Pulse Ox 99 07/15/24 11:17 O2 Del Method Room Air 07/15/24 11:17 BMI result Body Mass Index 27.9 Appearance: Alert. Oriented X3. No acute distress. Eyes: Pupils equal, round and reactive to light. ENT: Pharynx erythema uvula midline Neck: Normal inspection. Neck supple. small shotty anterior and posterior soft lymph noes CVS: Normal heart rate and rhythm. Pulses normal. Respiratory: No respiratory distress. Breath sounds normal. Abdomen: Soft and nontender. Skin: Skin warm and dry. Normal skin color. Normal skin turgor. Extremities: No lower extremity edema. No calf ttp Neuro: Oriented X 3. No motor deficit. No sensory deficit. CN2-12 intact Medical Decision Making Medical Decision Making MDM Narrative: 58 yo male with PMH of HIV negative viral load, HLD, CKD, ILD, depression, GERD here with c/o here with abrupt onset on days of sore throat, subj fevers, swollen glands he takes motrin which helps, he notes swollen glands in his throat. He states he is eating and drinking okay. No CP/SOB, n/v/d. He states the pain has improved. his exam is bilateral very shotty lymph nodes. Will obtain swabs and CXR. Recently came back from [place] on 06/29, suspect viral syndrome vs strep throat. Has normal ROM voice and swallowing doubt OVERHEAD IRRIGATOR or deeper space infection Differential Diagnosis Differential Diagnoses: The differential diagnosis associated with the presentation includes suspect viral syndrome vs strep throat. Admission/Observation Consideration of admission/observation: Escalation of care including admission/observation considered not toxic can be managed as outpatient Lab Data MDM Lab Attestation statement: I reviewed the patient's lab results. Labs: Lab Results 07/15/24 Range/Units 11:37 Influenza Type A (PCR) NEGATIVE (Negative) Influenza Type B (PCR) NEGATIVE (Negative) RSV RNA Qual (PCR) NEGATIVE (Negative) SARS-CoV-2 RNA (RT-PCR) NEGATIVE (Negative) S. pyogenes GrpA DAMIAN Positive A (Negative) Independent Interpretation I performed an independent interpretation of an: Plain X-Ray (normal ) Radiology Impression Discussion of test interpretation with radiology: I have reviewed the radiologist's reading. External Record Review External record reviewed: Outpatient record Prescription Management I considered prescription management with: Antibiotic Discharge Plan Discharge Clinical Impression: Pharyngitis, streptococcal, acute Patient Disposition: Home, Self-Care Instructions: Strep Throat (ED) Additional Instructions: positive for strep throat finish all antibiotics return for any worsening symptoms such as worsening pain, difficulty swallowing, trouble breathing or any other concerns chest xray negative no flu, covid, rsv On amoxicillin, softer bowel movements are to be expected. Call your provider if you move your bowels more than 4 times a day, your bowel movements are almost all liquid, or you get a rash.? Prescriptions: New amoxicillin 500 mg capsule 500 mg PO BID 10 Days Qty: 20 0RF No Action hydrocortisone [Proctosol HC] 2.5 % cream with perineal applicator 1 appl [place] BID PRN (Reason: hemorrhoids) 30 Days Qty: 30 6RF pantoprazole [Protonix] 20 mg tablet,delayed release (DR/EC) 20 mg PO DAILY Qty: 90 0RF cholecalciferol (vitamin D3) 25 mcg (1,000 unit) capsule 25 mcg PO DAILY 90 Days Qty: 90 0RF lorazepam 0.5 mg tablet 1 mg PO DAILY PRN (Reason: anxiety) 1 Days Qty: 2 0RF allopurinol 100 mg tablet 100 mg PO DAILY 90 Days Qty: 90 0RF colchicine 0.6 mg tablet 0.6 mg PO DAILY PRN (Reason: gout) 90 Days Qty: 90 0RF mirtazapine 15 mg tablet 15 mg PO BEDTIME 30 Days Qty: 30 0RF escitalopram oxalate [Lexapro] 5 mg tablet 5 mg PO DAILY hydroxyzine HCl 25 mg tablet 25 mg PO TID PRN (Reason: itching) Qty: 15 0RF hydrocortisone 2.5 % cream 1 appl topical BID PRN (Reason: Muscle Spasm) Rectiv 0.4 % (w/w) ointment 1 inch [place] BID 30 Days Qty: 30 0RF albuterol sulfate 90 mcg/actuation HFA aerosol inhaler 2 puff inhalation Q6H PRN (Reason: bronchospasm) 30 Days Qty: 8.5 6RF valacyclovir [Valtrex] 1 gram tablet 1,000 mg PO DAILY 30 Days Qty: 30 5RF clotrimazole [Lotrimin AF (clotrimazole)] 1 % cream 1 appl topical BID 30 Days Qty: 45 11RF Biktarvy 50-200-25 mg tablet 1 tab PO DAILY 30 Days Qty: 30 5RF fenofibrate 54 mg tablet 54 mg PO DAILY 90 Days Qty: 90 1RF mupirocin 2 % ointment 1 appl topical TID 7 Days Qty: 15 0RF tamsulosin [Flomax] 0.4 mg capsule 0.4 mg PO BEDTIME Qty: 30 3RF Print Language: South African
[2024-07-15 11:52] LABS: IDNOW Serial# 58CA691E; Strep A Nucleic Acid Positive (Negative)
[2024-07-15 12:30] LABS: Influenza A PCR NEGATIVE (Negative); Influenza B PCR NEGATIVE (Negative); Resp Syncy Virus RNA Qual PCR NEGATIVE (Negative); SARS COV2 PCR INHOUSE NEGATIVE (Negative)
== END 2024-07-16 07:53 | disposition home or self-care (01) ==
LOC: HO.ED 13:09
PROVIDERS: Emergency Provider Emergency Medicine; PCP Internal Medicine
DX: J02.0 Streptococcal pharyngitis (principal); R05.9 Cough, unspecified; B20 Human immunodeficiency virus [HIV] disease; I10 Essential (primary) hypertension; E78.5 Hyperlipidemia, unspecified; Z03.818 Encounter for observation for suspected exposure to other biological agents ruled out
CPT/HCPCS: 0241U; 36415; 51798; 71046; 80053; 80061; 81003; 87651; 99202; 99281; 99283

== ENCOUNTER → 2024-07-15 11:21 | Outpatient (BNV) | payer OTHER, SELFPAY | PROVIDERS: Emergency Provider Emergency Medicine; PCP Internal Medicine; Visit Provider Radiology Diagnostic Radiology | DX: R05.9 Cough, unspecified (principal) | CPT/HCPCS: 71046 ==

== ENCOUNTER 2024-08-16 10:24 | Outpatient (REF) | payer OTHER, SELFPAY ==
--- NOTE | ~2024-08-16 | CT_ITS ---
CLINICAL HISTORY: J84.9 - Interstitial pulmonary disease, unspecified CT chest without contrast Comparison: 08/04/2023 Findings: The heart size is normal. The visualized thyroid and mediastinum are unremarkable. There is interstitial consolidation not significantly changed. No new consolidation or effusion. The upper abdomen is unremarkable. No acute fractures. IMPRESSION: 1. Findings consistent with interstitial lung disease, not significantly progressed from previous exam. This document has been electronically signed by: Jonathan Betts MD on 08/17/2024 08:06:27
--- NOTE | ~2024-08-16 | XR_ITS ---
CLINICAL HISTORY: M25.561 - Pain in right knee 2 view right knee Comparison: 04/06/2023 Findings: Bones intact. No dislocations. No significant loss of joint space, osteophytes, or erosions. No joint effusion. No radiopaque foreign body. IMPRESSION: 1. No acute findings. This document has been electronically signed by: Jonathan Betts MD on 08/17/2024 08:00:58
--- NOTE | ~2024-08-16 | XR_ITS ---
CLINICAL HISTORY: M79.671 - Pain in right foot 3 view right foot Comparison: None Findings: Bones intact. No dislocations. No significant arthritic change or erosions. No ankle effusion. No radiopaque foreign body. IMPRESSION: 1. No acute findings. This document has been electronically signed by: Jonathan Betts MD on 08/17/2024 08:00:17
--- NOTE | 2024-08-16 10:35 | PFT_ITS ---
Indication: I LD Spirometry [FEV1 to FVC of 83%; FEV1 3.81 L; FVC 4.59 L. no significant response to bronchodilators noted] Lung Volumes [Total lung capacity 97% predicted; expiratory reserve volume 71% predicted] Diffusion Capacity [DLCO 69% predicted] Comparisons [none] Interpretation [No obstructive nor restrictive ventilatory defects identified. No significant response to bronchodilators noted. Normal lung volumes. The patient does have an isolated mild diffusion impairment. This could be secondary to occult interstitial lung disease. Should also correct for hemoglobin. Clinical correlation warranted.] MTDD
--- OUTSIDE RECORDS SUMMARY | 2024-08-16 11:15 | XMS_ITS ---
Author Organization [facility] Address [address] [place] [address] Care Team Providers Care Licensed Mental Health Counselor Name Role Phone Meagan De La Cruz Primary Care Provider Unavailab Frankie Edwards Jr REASON FOR VISIT Patient presents today for epigastric pain Encounters Encounter Location Date Provider Diagnosis [facility] [address] [place] [address] 03/09/2023 Frankie Vences Jr PLAN OF TREATMENT No Information
--- OUTSIDE RECORDS SUMMARY | 2024-08-16 11:15 | XMS_ITS ---
Author Organization [facility] Address [address] [place] [address] Care Team Providers Care Teller Supervisor Name Role Phone Meagan De La [...] reflux disease without esophagitis (K21.9) Active confirmed [id number] VITAL SIGNS BMI 29.09 kg/m2 08/09/2023 Blood pressure systolic 00 mm Hg 08/09/19 24 Blood pressure diastolic 00 mm Hg 024 Height 69 in 08/09/2023 Temperature 97.3 degrees Fahrenheit 08/09/19 24 Weight 197 lbs 08/09/2023 Encounters Encounter Location Date Provider Diagnosis [facility] [address] [place] [address] 08/09/2023 Frankie Vences Jr Gastroesophageal reflux disease [...]
--- OUTSIDE RECORDS SUMMARY | 2024-08-16 11:15 | XMS_ITS | Patient Health Record ---
Author Organization [facility] Address [address] [place] [address] Care Team Providers Care Net Mobile Developer Name Role Phone Meagan De La Cruz [...] Notes Problem Epigastric pain (R10.13) Active confirmed 28348219 Problem Rectal bleeding (K62.5) Active confirmed 90245513 Problem Colon cancer screening (Z12.11) Active confirmed [id number] Problem Diarrhea, unspecified type (R19.7) Active confirmed 12364094 Problem Abnormal CT scan, stomach (R93.3) Active confirmed 183816284 Problem Gastroesophageal reflux disease without esophagitis (K21.9) Active confirmed [id number] PLAN OF TREATMENT Pending Test Test Name [...] Insured Coverage Start Date Coverage End Date [employer] [address] [address] [place], [place] [id number] JACQUELINE MCDONALD Self - patient is the insured MEDICAL (GENERAL) HISTORY Medical History History ICD Code Hypertension HIV Fatty liver Pneumonia Gout Anxiety Gastroesophageal reflux dise ase, EGD 02/21, no Horne's esophagus or H. pylori Colonoscopy 02/21, no polyps, ten-year fo llowup Surgical History Surgery Date(Month/Year)
--- OUTSIDE RECORDS SUMMARY | 2024-08-16 11:15 | XMS_ITS ---
Author Organization [facility] Address [address] [place] [address] Care Team Providers Care Bullet Assembly Press Setter Operator Name Role Phone Meagan De La Cruz Primary Care Provider Unavailab Frankie Edwards Jr [phone] REASON FOR VISIT epigastric pain Encounters Encounter Location Date Provider Diagnosis [facility] [address] [place] [address] 05/29/2023 Frankie Vences Jr PLAN OF TREATMENT No Information
--- OUTSIDE RECORDS SUMMARY | 2024-08-16 11:15 | XMS_ITS | Clinical Summary ---
Author Organization [facility] Address [address] [place] [address] Phone Care Team Providers Care Vibration Analyst Name Role Phone Meagan De La Cruz MD Primary Care Provider [phone] Allergies No known active allergies Medications albuterol HFA (PROVENTIL HFA;VENTOLIN HFA) 108 (90 Base) MCG/ACT inhaler Inhale 2 puffs every 6 (six) hours if needed for wheezing Active allopurinol (ZYLOPRIM) 100 MG tablet Take 100 mg by mouth 1 (one) time each day Active Bictegravir-Emt ricitab-Tenofov 50-200-25 MG tablet Take 1 tablet by mouth 1 (one) time each day Active colchicine 0.6 MG tablet Take 0.6 mg by mouth 1 (one) time each day Active diclofenac (VOLTAREN) 75 MG EC tablet Take 75 mg by mouth if needed Do not crush, chew, or split. Active escitalopram (LEXAPRO) 5 MG tablet Take 5 mg by mouth 1 (one) time each day Active tiZANidine (ZANAFLEX) 2 MG tablet Take 2 mg by mouth every 12 (twelve) hours if needed for muscle spasms Active valACYclovir (VALTREX) 1 g tablet Take 1,000 mg by mouth 1 (one) time each day Active lisinopril 2.5 MG tablet Take 1 tablet by mouth 1 (one) time each day 07/11/2022 Active pantoprazole (PROTONIX) 40 MG EC tablet Take 1 tablet by mouth 1 (one) time each day 07/11/2022 Active Vitamin D High Potency 25 MCG (1000 UT) capsule Take 1 capsule by mouth 1 (one) time each day 06/03/2022 Active Active Problems Problem Noted Date Diagnosed Date Stage 3a chronic kidney disease 07/13/2022 Proteinuria 07/12/2022 Resolved Problems Problem Noted Date Diagnosed Date Resolved Date CT of abdomen abnormal 07/12/202207/12 Diarrhea 07/12/2022 07/12/2022 Epigastric pain 07/12/2022 07/12/2022 Rectal hemorrhage 07/12/2022 07/12/2022 Screening for malignant neoplasm of colon 07/12/2022 07/12/2022 Family History Medical History Relation Comments Diabetes Father Hypertension Father Cancer Father's Sister Cancer Paternal Grandmother Relation Status Comments Father Father's Sister Mother Paternal Grandmother Social History Tobacco Use Types Packs/Day Years Used Date Smoking Tobacco: Every Day Cigarettes Smokeless Tobacco: Never Tobacco Cessation:Ready to Q uit: Not Asked; Counseling Given: Not Answered Alcohol Use Standard Drinks/Week Comments Yes 0 (1 standard drink = 0.6 oz pur e alcohol) Sex and Gender Information Value Date Recorded Sex Assigned at Not on file Legal Sex Male 9:11 AM EDT Gender Identity Not on file Sexual Orientation Not on file Last Filed Vital Signs Vital Sign Reading Time Taken Comments Blood Pressure 130/80 11/30/2022 2:49 PM EDT Pulse 69 11/30/2022 2:49 PM EDT Temperature - - Respiratory Rate - - Oxygen Saturation - - Inhaled Oxygen Concentration - - Weight 84.7 kg (186 lb 12.8 oz) 11/30/2022 2:49 PM EDT Height - - Body Mass Index - - Plan of Treatment Health Maintenance Due Date Last Done Comments Pneumococcal Vaccine: Pediat rics (0 to 5 Years) and At-Risk Patients (6 to 64 Years) (1 of 2 - PCV) 1970 Hepatitis B Vaccine (1 of 3 - 19+ 3-dose series) 10/06/1983 Colorectal Cancer Screening: Annual FOBT 2013 Colorectal Cancer Screening: Sigmoidoscopy 2013 Influenza Vaccine (#1) 2024 Colorectal Cancer Screening: Colonoscopy 02/12/2032 02/11/2022, 08/02/2019 Insurance [facility] Care Teams Vibration Analyst Relationship Specialty Start Date End Date Meagan De La Curz MD [address] [place] [address] PCP - General Internal Medicine 03/23/22
== END 2024-08-16 10:25 | disposition home or self-care (01) ==
LOC: HO.RESP 10:24
PROVIDERS: PCP Internal Medicine; Visit Provider Internal Medicine Pulmonary Disease
DX: J84.9 Interstitial pulmonary disease, unspecified (principal); M79.671 Pain in right foot; M25.561 Pain in right knee
CPT/HCPCS: 71250; 73560; 73620; 94010; 94640; 94727; 94729

== ENCOUNTER → 2024-08-16 10:35 | Outpatient (BNV) | payer OTHER, SELFPAY | PROVIDERS: PCP Internal Medicine; Visit Provider Hospitalist | DX: J84.9 Interstitial pulmonary disease, unspecified (principal) | CPT/HCPCS: 94060; 94727; 94729 ==

== ENCOUNTER → 2024-08-16 11:11 | Outpatient (BNV) | payer OTHER, SELFPAY | PROVIDERS: PCP Internal Medicine; Visit Provider Specialist | DX: J84.9 Interstitial pulmonary disease, unspecified (principal); M79.671 Pain in right foot; M25.561 Pain in right knee | CPT/HCPCS: 71250; 73560; 73620 ==

== ENCOUNTER 2024-08-22 13:40 | Outpatient (AMB) | payer OTHER, SELFPAY ==
[2024-08-22 13:43] VITALS: BP 122/78; PULSE 80; O2SAT 98; BMI 27.3
--- NOTE | 2024-08-22 13:43 | MHC.OFFVIS ---
Vital Signs 08/22/24 13:43 Height 5 ft 9 in Weight 185 lb 3.013 oz BMI 27.3 BP 122/78 Blood Pressure Location Rt brachial Position Sitting Pulse 80 Pulse Source Doppler Pulse Oximetry (%) 98 Oxygen Delivery Method Room Air Intake Visit Reasons: Abnormal CT scan Cotton Grower Required: Yes Cotton Grower Name: Lala Merritt Carter Allergies No Known Allergies [No Known Allergies*] Allergy (Verified 07/15/24 11:18) HPI HPI Abnormal CT scan: Details: 57-year-old gentleman, active social smoker 1 pack lasting about a week, with underlying history of HIV on HAART, remote pneumonia in 2016 with post infection changes, referred after recent bout of pneumonia and a follow-up CT scan showed pulmonary nodules and interstitial changes, not significantly different from 2016. Patient denies any significant dyspnea on exertion, cough, or sputum production. He did have a pulmonary function testing that showed mild decrease in diffusion capacity. 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 He denies family history of lung disease. After the last office visit he had a follow-up CT chest with no significant changes from prior, no significant changes in his pulmonary function tests, and and no changes in his symptoms. [facility] Medical History Right hip pain Bleeding hemorrhoids Pneumonia Shortness of breath Cough Hyperlipidemia HTN (hypertension) Abdominal pain Anxiety Gout Right shoulder pain Left shoulder pain Hand numbness Screen for STD (sexually transmitted disease) Syphilis HIV (human immunodeficiency virus infection) Surgical History History of bronchoscopy History of esophagogastroduodenoscopy (EGD) H/O colonoscopy Family History Father ALS (amyotrophic lateral sclerosis) Diabetes Hypertension Mother Liver cirrhosis Brother Liver cirrhosis Sister Hyperlipidemia Paternal Grandmother Cancer Paternal Aunt Cancer Family/Other FH: mental illness Substance use disorder Social History Household Members: Friend(s) and None Housing: Other Alcohol intake: current Alcohol intake frequency: a few times a month Alcohol type: hard liquor Patient Tobacco Use Status: Current someday Tobacco user Tobacco use type: Cigarette Years Smoked: 30 e-Cigarette/Vaping Use: Never Used Second Hand Smoke Exposure: No service: No Current occupational status: unemployed Cognitive needs: No Hearing needs: No Vision needs: No Review of Systems Const Denies daytime sleepiness, Denies excessive sweating, Denies fatigue, Denies fever(s), Denies lethargy, Denies malaise, Denies night sweats, Denies snoring and Denies weight loss Eyes Denies blurry vision and Denies itchy eyes ENT Denies nasal congestion, Denies post nasal drip, Denies sinus pain, Denies sinus pressure and Denies other ( Thrush) Card Denies chest pain, Denies pedal edema, Denies dyspnea, Denies orthopnea and Denies paroxysmal nocturnal dyspnea Resp Denies cough, Denies hemoptysis, Denies excessive phlegm production, Denies dyspnea, Denies snoring and Denies wheezing GI Denies abdominal pain and Denies heartburn Musc Denies myalgias, Denies arthralgias and Denies joint swelling Skin/Breast Denies rash Neuro Denies memory loss and Denies seizure-like activity Psych Denies abnormal sleep pattern, Denies anxiety and Denies memory loss Endo Denies excessive sweating, Denies fatigue and Denies heat intolerance Ganga/Lymph Denies easy bruising Aller/Immun Denies itchy eyes, Denies seasonal rhinorrhea and Denies wheezing Physical Exam Vital Signs: Last Vital Signs Pulse 80 08/22/24 13:43 BP 122/78 08/22/24 13:43 Pulse Ox 98 08/22/24 13:43 Oxygen Delivery Method Room Air 08/22/24 13:43 BMI result Body Mass Index 27.3 Const General: no acute distress and alert Nutritional Appearance: not obese Orientation/consciousness: Other orientation findings ( oriented) HEENT Head: Yes atraumatic Eyes General: appearance normal, both eyes and all related structures Sclerae: sclerae normal EOM: EOMs intact bilaterally Neck Neck: Yes supple Lymphatic: no lymphadenopathy noted Resp Effort & Inspection: normal respiratory effort and no use of accessory muscles Auscultation: clear to auscultation bilaterally Cardio Rate: regular rate Rhythm: regular rhythm Heart sounds: no gallops, no murmurs and no rubs Skin General skin exam: other ( warm) Extrem General: No clubbing, No cyanosis and No edema Assessment & Plan Assessment & Plan (1) ILD (interstitial lung disease): Code(s): J84.9 - Interstitial pulmonary disease, unspecified Category: Medical Plan: Underlying fibrosed extrinsic alveolitis, stable on CT chest and pulmonary function testing. Will repeat CT chest in 12 months. Orders: Orders CT chest wo IV con 08/12/25 J84.9 - Interstitial pulmonary disease, unspecified Coding Level of Care Code Est Pt Level 3 (34244) Diagnoses ILD (interstitial lung disease) J84.9
--- OUTSIDE RECORDS SUMMARY | 2024-08-22 14:38 | XMS_ITS ---
Author Organization [facility] Address [address] [place] [address] Care Team Providers Care Automotive Brake Technician Name Role Phone Meagan De La Cruz Primary Care Provider Unavailab Frankie Edwards Jr REASON FOR VISIT epigastric pain Encounters Encounter Location Date Provider Diagnosis [facility] [address] [place] [address] 05/29/2023 Frankie Vences Jr PLAN OF TREATMENT No Information
--- OUTSIDE RECORDS SUMMARY | 2024-08-22 14:38 | XMS_ITS | Patient Health Record ---
Author Organization [facility] Address [address] [place] [address] Care Team Providers Care Tool And Die Maker Apprentice Name Role Phone Meagan De La Cruz [...] Notes Problem Epigastric pain (R10.13) Active confirmed 54258381 Problem Rectal bleeding (K62.5) Active confirmed 41101018 Problem Colon cancer screening (Z12.11) Active confirmed 284475712 Problem Diarrhea, unspecified type (R19.7) Active confirmed 16951821 Problem Abnormal CT scan, stomach (R93.3) Active confirmed 089242066 Problem Gastroesophageal reflux disease without esophagitis (K21.9) Active confirmed [id number] PLAN OF TREATMENT Pending Test Test Name [...] Insured Coverage Start Date Coverage End Date [facility] [address] [address] [place], [place] [id number] JACQUELINE MCDONALD Self - patient is the insured MEDICAL (GENERAL) HISTORY Medical History History ICD Code Hypertension HIV Fatty liver Pneumonia Gout Anxiety Gastroesophageal reflux dise ase, EGD 02/21, no Horne's esophagus or H. pylori Colonoscopy 02/21, no polyps, ten-year fo llowup Surgical History Surgery Date(Month/Year)
--- OUTSIDE RECORDS SUMMARY | 2024-08-22 14:38 | XMS_ITS ---
Author Organization [facility] Address [address] [place] [address] Care Team Providers Care Dermatology Nurse Name Role Phone Meagan De La Cruz Primary Care Provider Unavailab Frankie Edwards Jr REASON FOR VISIT Patient presents today for epigastric pain Encounters Encounter Location Date Provider Diagnosis [facility] [address] [place] [address] 03/09/2023 Frankie Vences Jr PLAN OF TREATMENT No Information
--- OUTSIDE RECORDS SUMMARY | 2024-08-22 14:38 | XMS_ITS | Clinical Summary ---
Author Organization [facility] Address [address] [place] [address] Phone Care Team Providers Care Shank Carrier Name Role Phone Meagan De La Cruz MD Primary Care Provider [phone] Allergies No known active allergies Medications albuterol [...] Screening: Colonoscopy 02/12/2032 02/11/2022, 08/02/2019 Insurance [facility] Care Teams Shank Carrier Relationship Specialty Start Date End Date Meagan De La Cruz MD [address] [place] [address] PCP - General Internal Medicine 03/23/22
--- OUTSIDE RECORDS SUMMARY | 2024-08-22 14:39 | XMS_ITS ---
Author Organization [facility] Address [address] [place] [address] Care Team Providers Care Tug Captain Name Role Phone Meagan De La Cruz [...] reflux disease without esophagitis (K21.9) Active confirmed [id number] VITAL SIGNS BMI 29.09 kg/m2 08/09/2023 Blood pressure systolic 00 mm Hg 08/09/19 24 Blood pressure diastolic 00 mm Hg 024 Height 69 in 08/09/2023 Temperature 97.3 degrees Fahrenheit 08/09/19 24 Weight 197 lbs 08/09/2023 Encounters Encounter Location Date Provider Diagnosis [facility] [address] [place] [address] 08/09/2023 Frankie Vences Jr Gastroesophageal reflux disease [...]
== END 2024-08-22 14:06 | disposition home or self-care (01) ==
PROVIDERS: PCP Internal Medicine; Visit Provider Internal Medicine Pulmonary Disease
DX: J84.9 Interstitial pulmonary disease, unspecified (principal)
CPT/HCPCS: 99213

== ENCOUNTER → 2024-08-22 13:40 | Outpatient (BNVA) | payer OTHER, SELFPAY | PROVIDERS: PCP Internal Medicine; Visit Provider Internal Medicine Pulmonary Disease | DX: J84.9 Interstitial pulmonary disease, unspecified (principal) | CPT/HCPCS: 99212 ==

== ENCOUNTER 2024-09-19 09:31 | Outpatient (REF) | payer OTHER, SELFPAY ==
[2024-09-19 09:57] LABS: MANUAL DIFF FLAG NO
[2024-09-19 10:30] LABS: Basophils Absolute Auto 0.1 X10*3/uL (0.0-0.2); Basophils Percent Auto 0.7 % (0-2); Eosinophils Absolute Auto 0.3 X10*3/uL (0.0-0.4); Eosinophils Percent Auto 4.1 % (0-4); Hematocrit 42.4 % (42.0-52.0); Hemoglobin 15.4 g/dl (14.0-18.0); Imm Gran Abs Auto 0.02 X10*3/uL (0.00-0.03); Imm Gran Pct Auto 0.3 % (0.0-0.4); Lymphocytes Absolute Auto 2.9 X10*3/uL (1.2-4.9); Lymphocytes Percent Auto 40.3 % (20-40); Mean Corpuscular HGB Conc 36.3 g/dl (31.0-36.0); Mean Corpuscular Hemoglobin 32.6 pg (27.0-33.0); Mean Corpuscular Volume 89.6 fL (80.0-98.0); Mean Platelet Volume 10.7 fL (9.4-12.4); Monocytes Absolute Auto 0.5 X10*3/uL (0.1-1.2); Monocytes Percent Auto 7.2 % (2-11); Neutrophils Absolute Auto 3.4 x10*3/uL (2.0-8.3); Neutrophils Percent Auto 47.4 % (45-73); Platelet Count 186 X10*3/uL (160-400); Red Blood Count 4.73 X10*6/uL (4.60-5.80); Red Cell Distribution Width 12.3 % (11.0-16.0); White Blood Count 7.1 X10*3/uL (4.8-10.8)
[2024-09-19 11:09] LABS: PSA,Total (Free>4and<10) 0.77 ng/mL (0.00-4.00)
[2024-09-19 11:11] LABS: Syphilis Screen Reactive (Nonreactive)
[2024-09-19 11:12] LABS: Albumin Level 4.3 g/dL (3.5-5.0); Alkaline Phosphatase 99 U/L (39-117); Anion Gap 11 (12-20); Aspartate Amino Transferase 25 U/L (5-37); Bilirubin Direct 0.1 mg/dL (0.0-0.5); Bilirubin Total 0.5 mg/dL (0.0-1.0); Blood Urea Nitrogen 17 mg/dL (9-16); Calcium 9.5 mg/dL (8.4-10.2); Carbon Dioxide 27 mmol/L (22-29); Chloride 108 mmol/L (96-108); Estimated Glomerular Filt Rate > 60; Glucose Random 91 mg/dL (60-115); Potassium 5.3 mmol/L (3.3-5.1); Sodium 141 mmol/L (135-145); Total Protein 7.6 g/dL (6.5-8.0)
[2024-09-19 11:23] LABS: Alanine Aminotransferase 33 U/L (0-40)
[2024-09-20 15:08] LABS: HIV RNA PCR Qn Copies 35 copies/mL (NOT DETECTED); HIV RNA PCR Qn Log Copies 1.54 (NOT DETECTED)
[2024-09-24 14:37] LABS: RPR Quantitative Reactive 1:1 (Nonreactive); T.Pallidum Particle Agg Test Reactive (Nonreactive)
[2024-09-24 22:08] LABS: Absolute CD3 Count 2337 cells/uL (840-3060); Absolute CD4 Count 1250 cells/uL (490-1740); Absolute CD8 Count 1084 cells/uL (180-1170); Absolute Lymphocytes 2966 cells/uL (850-3900); CD4 CD8 Ratio 1.15 (0.86-5.00); Percent CD3 Cells 79 % (57-85); Percent CD4 Cells 42 % (30-61); Percent CD8 Cells 37 % (12-42)
== END 2024-09-19 09:32 | disposition home or self-care (01) ==
LOC: HO.LAB 09:31
PROVIDERS: Urology; Absent Provider Nurse Practitioner Family; PCP Internal Medicine; Visit Provider Internal Medicine
DX: B20 Human immunodeficiency virus [HIV] disease (principal); Z12.5 Encounter for screening for malignant neoplasm of prostate
CPT/HCPCS: 36415; 80048; 80076; 84153; 85025; 86359; 86360; 86592; 86780; 87536

== ENCOUNTER 2024-09-23 12:19 | Outpatient (REF) | payer OTHER, SELFPAY ==
[2024-09-23 15:08] LABS: Alanine Aminotransferase 32 U/L (0-40); Albumin Level 4.5 g/dL (3.5-5.0); Alkaline Phosphatase 120 U/L (39-117); Anion Gap 12 (12-20); Aspartate Amino Transferase 25 U/L (5-37); Bilirubin Total 0.7 mg/dL (0.0-1.0); Blood Urea Nitrogen 22 mg/dL (9-16); Calcium 9.5 mg/dL (8.4-10.2); Carbon Dioxide 27 mmol/L (22-29); Chloride 105 mmol/L (96-108); Estimated Glomerular Filt Rate > 60; Glucose Fasting 85 mg/dL (60-99); Potassium 4.4 mmol/L (3.3-5.1); Sodium 140 mmol/L (135-145); Total Protein 7.5 g/dL (6.5-8.0)
== END 2024-09-23 12:20 | disposition home or self-care (01) ==
LOC: HO.LAB 12:19
PROVIDERS: PCP Internal Medicine; Visit Provider Internal Medicine
DX: S22.42XD Multiple fractures of ribs, left side, subsequent encounter for fracture with routine healing (principal); M10.9 Gout, unspecified; E87.6 Hypokalemia; B20 Human immunodeficiency virus [HIV] disease; E78.5 Hyperlipidemia, unspecified; F32.0 Major depressive disorder, single episode, mild; K21.9 Gastro-esophageal reflux disease without esophagitis
CPT/HCPCS: 36415; 80053; 84550; 96127; 99212

== ENCOUNTER 2024-09-23 12:19 | Outpatient (AMB) | payer OTHER, SELFPAY ==
[2024-09-23 12:58] VITALS: BP 120/70; BMI 28.9
--- NOTE | 2024-09-23 12:58 | MHC.PC.OV ---
Vital Signs 09/23/24 12:58 Height 5 ft 9 in Weight 196 lb BMI 28.9 BP 120/70 Blood Pressure Location Lt brachial Position Sitting Intake Visit Reasons: gout Operating Room Registered Nurse Required: Yes Operating Room Registered Nurse Language: Hospital Nurse Liaison Name: Meagan Marte MD Information Interpreted: non-clinical & clinical Accompanied by: Self / Same As Patient Allergies No Known Allergies [No Known Allergies*] Allergy (Verified 09/23/24 13:15) Medication List - Last Reconciled 09/23/24 by Meagan Marte MD acetaminophen mg PO albuterol sulfate 90 mcg/actuation 2 puffs inhalation Q6H PRN 30 days allopurinol 100 mg PO DAILY 90 days rcywqzvhj-jgwhtiaz-kyqufqo ala 50-200-25 mg (Biktarvy) 1 tab PO DAILY 30 days cholecalciferol (vitamin D3) 25 mcg PO DAILY 90 days clotrimazole 1% (Lotrimin AF (clotrimazole)) 1 appl topical BID 30 days colchicine 0.6 mg PO DAILY PRN 90 days cyclobenzaprine 10 mg PO TID escitalopram oxalate (Lexapro) 5 mg PO DAILY fenofibrate 54 mg PO DAILY 90 days gabapentin 400 mg PO TID hydrocortisone 2.5% 1 appl topical BID PRN hydrocortisone 2.5% (Proctosol HC) 1 appl NV BID PRN 30 days hydroxyzine HCl 25 mg PO TID PRN ibuprofen 600 mg PO TID lorazepam 1 mg (2 x 0.5 mg) PO DAILY PRN 1 day mirtazapine 15 mg PO BEDTIME 30 days mupirocin 2% 1 appl topical TID 7 days nitroglycerin 0.4%(w/w) (Rectiv) 1 inch NV BID 30 days oxycodone 5 mg PO QID PRN pantoprazole (Protonix) 20 mg PO DAILY tamsulosin (Flomax) 0.4 mg PO BEDTIME valacyclovir (Valtrex) 1,000 mg PO DAILY 30 days Tobacco use date assessed: 09/23/24 Dental Screening Dental Screen Date: 09/23/24 Did you have a dental visit in the last 12 months?: Yes Did you have a dental problem in the last 6 months where you did not have access to dental care?: No Was dental information given to patient?: Patient has dentist HPI HPI Comments History of Present Illness Details The patient is a 58-year-old male presenting with management and follow-up of multiple rib fractures. The fractures occurred following a fall after substance use during a social event on September 12. After hospitalization at [facility], it was determined he suffered two rib fractures. His hospitalization lasted four days primarily for observation and pain control, where he received oxycodone. He reports significant discomfort with breathing deeply and during sneezing, requiring ongoing pain management. The patient experiences dizziness attributed to gabapentin, interfering with daily dosing, and seeks optimization of his pain regimen. He is aware that oxycodone will not be refill because of his polysubstance abuse. The patient further mentions increased appetite complications, positing the effect of mirtazapine as a contributing factor. He voices concerns about potential insulin resistance linked to overeating episodes and asks to have his insulin levels checked as he did not receive this during prior bloodwork. He has history of gout and uric acid will be ordered. He also has history of hypertriglyceridemia which has decrease with diet. He also has HIV follow by a T stable with medications. 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 Also has hypokalemia that will be repeated. [facility] Medical History (Updated 09/23/24 @ 16:07 by Meagan Marte MD) Mild major depression Right hip pain Bleeding hemorrhoids Pneumonia Shortness of breath Cough Hyperlipidemia HTN (hypertension) Abdominal pain Anxiety Gout Right shoulder pain Left shoulder pain Hand numbness Screen for STD (sexually transmitted disease) Syphilis HIV (human immunodeficiency virus infection) Surgical History History of bronchoscopy History of esophagogastroduodenoscopy (EGD) H/O colonoscopy Family History Father ALS (amyotrophic lateral sclerosis) Diabetes Hypertension Mother Liver cirrhosis Brother Liver cirrhosis Sister Hyperlipidemia Paternal Grandmother Cancer Paternal Aunt Cancer Family/Other FH: mental illness Substance use disorder Social History Household Members: Friend(s) and None Housing: Other Alcohol intake: current Alcohol intake frequency: a few times a month Alcohol type: hard liquor Patient Tobacco Use Status: Current someday Tobacco user Tobacco use type: Cigarette Years Smoked: 30 e-Cigarette/Vaping Use: Never Used Second Hand Smoke Exposure: No service: No Current occupational status: unemployed Cognitive needs: No Hearing needs: No Vision needs: No Questionnaire PHQ-9 Over the last 2 weeks, how often have you been bothered by any of the following problems? 1. Little interest or pleasure in doing things: not at all 2. Feeling down, depressed, or hopeless: several days 3. Trouble falling or staying asleep, or sleeping too much: several days 4. Feeling tired or having little energy: several days 5. Poor appetite or overeating: several days 6. Feeling bad about yourself - or that you are a failure or have let yourself or your family down: not at all 7. Trouble concentrating on things, such as reading the newspaper or watching television: not at all 8. Moving or speaking so slowly that other people could have noticed. Or the opposite - being so fidgety or restless that you have been moving around a lot more than usual: not at all 9. Thoughts that you would be better off or of hurting yourself in some way: not at all Total score: 4 Depression Screening Interpretation: Positive Depression Screening Follow-up: Existing condition and Follow-up Visit Requested Depression Screening Done: Yes 22877 - PHQ-9 Billing: Yes Source: Developed by Drs. Juan Luis Payne, Elsy Tadeo, Raymon Franco and colleagues, with an educational brinda from [employer]. Thrive Questionnaire Date Thrive assessed: 09/23/24 I am a: Patient What is your living situation today?: I have a steady place to live Within the past 12 months, did the food you bought not last and you didn't have the money to get more?: Sometimes True Within the past 12 months, did you worry whether your food would run out before you got money to buy more?: Sometimes True Do you have trouble paying for medicines?: No Do you have trouble getting transportation to medical appointments?: No Do you have trouble paying your heating and electricity bill?: No Do you have trouble taking care of your child, family member or friend?: No Do you have trouble with day-to-day activities such as bathing, preparing meals, shopping, managing finances, etc.?: No Are you currently unemployed and looking for a job?: I choose not to answer this question Are you interested in more education?: I choose not to answer this question Please select the resources that you would like help with: None Currently or been in a relationship where the following occur: I choose not to answer THRIVE Score: 2 AUDIT C Alcohol Use Questionnaire (AUDIT-C) 1. How often do you have a drink containing alcohol?: 2-4 times a month 2. How many drinks containing alcohol do you have on a typical day when you are drinking?: 7 to 9 3. How often do you have six or more drinks on one occasion?: Weekly Total Score: 8 CRISTOBAL-7 AMB Questionnaire CRISTOBAL-7 Date CRISTOBAL - 7 assessed: 09/23/24 Feeling nervous, anxious, or on edge: 1 = Several days Not being able to stop or control worryin = Not at all Worrying too much about different things: 1 = Several days Trouble relaxin = Several days Being so restless that it is hard to sit still: 1 = Several days Becoming easily annoyed or irritable: 1 = Several days Feeling afraid as if something awful might happen: 1 = Several days Total CRISTOBAL-7 score (0-4 normal; 5-9 mild; 10-14 moderate; 15-21 severe): 6 Source: Developed by Drs. Juan Luis Payne, Elsy Tadeo, Raymon Franco and colleagues, with an educational brinda from [employer]. CRISTOBAL-7 Assessment Billing CRISTOBAL-7 Assessment Tool: CRISTOBAL-7 Assessment 64624 Review of Systems Const All systems reviewed & are unremarkable except as noted in HPI and below Card Reports chest pain at rest, Reports chest pain with activity, Denies edema, Denies irregular heart rhythm, Denies claudication, Denies dyspnea, Denies dyspnea on exertion, Denies orthopnea, Denies paroxysmal nocturnal dyspnea and Denies slow heart rate Resp Denies cough, Denies dyspnea and Denies dyspnea on exertion GI Denies abdominal pain, Denies change in bowel habits, Denies excessive flatus, Denies nausea and Denies vomiting Denies urinary hesitancy, Denies urinary incontinence and Denies urinary urgency Musc Denies abnormal gait, Denies atrophy, Denies deformity and Denies limited range of motion Skin/Breast Denies bleeding lesions, Denies changing lesions and Denies rash Neuro Denies abnormal gait and Denies lack of coordination Physical exam (Primary Care) Vital Signs: Last Vital Signs BP 120/70 09/23/24 12:58 BMI result Body Mass Index 28.9 Tobacco/Smoking Status: Tobacco use Status Tobacco use date assessed 09/23/24 09/23/24 13:04 Patient Tobacco Use Status Current someday Tobacco 09/23/24 13:04 Tobacco use type Cigarette 09/23/24 13:04 e-Cigarette/Vaping Use Never Used 09/23/24 13:04 PHQ-9: PHQ-9 Score PHQ-9: Total score 4 09/23/24 15:06 Depression Screening Interpretation: Positive Depression Screening Follow-up: Existing condition and Follow-up Visit Requested Thrive Assessment: Date of Thrive Assessment Date Thrive assessed 09/23/24 09/23/24 13:04 Currently or been in a relationship where the following occur: I choose not to answer Resp Effort & Inspection: normal respiratory effort Auscultation: clear to auscultation bilaterally Cardio Jugular venous distension: no JVD Rate: regular rate Rhythm: regular rhythm Heart sounds: S1 normal heart sound present and S2 normal heart sound present Extrem General: Yes full ROM Coding Level of Care Code Est Pt Level 4 (29201) Complex EM visit Add On G2211 Diagnoses Closed fracture of multiple ribs of left side, initial encounter S22.42XA Encounter type: initial encounter Rib fracture type: multiple ribs Fracture type: closed Gout M10.9 Gout site: unspecified site Encounter type: sequela Chronicity: chronic Presence of tophus: without tophus Hypokalemia E87.6 Asymptomatic HIV infection, with no history of HIV-related illness Z21 HIV symptom status: asymptomatic, with no history of HIV-related illness Moderate mixed hyperlipidemia not requiring statin therapy E78.2 Hyperlipidemia type: moderate mixed hyperlipidemia not requiring statin therapy Mild major depression F32.0 Additional Codes CRISTOBAL-7 Assessment Billing - CRISTOBAL-7 Assessment Tool: CRISTOBAL-7 Assessment 41340 ([id number]) PHQ-9 - 51156 - PHQ-9 Billing: Yes ([id number]) Time Spent (min) 25 Assessment & Plan Assessment & Plan (1) Left rib fracture: Code(s): S22.32XA - Fracture of one rib, left side, initial encounter for closed fracture Category: Medical Qualifiers: Encounter type: initial encounter Rib fracture type: multiple ribs Fracture type: closed Qualified Code(s): S22.42XA - Multiple fractures of ribs, left side, initial encounter for closed fracture (2) Gout: Code(s): M10.9 - Gout, unspecified Category: Medical Qualifiers: Gout site: unspecified site Encounter type: sequela Chronicity: chronic Presence of tophus: without tophus (3) Hypokalemia: Code(s): E87.6 - Hypokalemia Category: Medical (4) HIV (human immunodeficiency virus infection): Comment: He is doing well. His viral load is undetectable and CD4 count good at 953. Continue Biktarvy. See in six months Code(s): B20 - Human immunodeficiency virus [HIV] disease Category: Medical Qualifiers: HIV symptom status: asymptomatic, with no history of HIV-related illness Qualified Code(s): Z21 - Asymptomatic human immunodeficiency virus [HIV] infection status (5) Hyperlipidemia: Code(s): E78.5 - Hyperlipidemia, unspecified Category: Medical Qualifiers: Hyperlipidemia type: moderate mixed hyperlipidemia not requiring statin therapy Qualified Code(s): E78.2 - Mixed hyperlipidemia (6) Mild major depression: Code(s): F32.0 - Major depressive disorder, single episode, mild Category: Medical Plan We will continue pain management for rib fractures with the current regimen, monitoring closely for dizziness with medication alterations. The patient is encouraged by his dietary modifications to maintain lower triglyceride levels, and I will further evaluate blood glucose for any insulin resistance concerns. Repeat imaging for rib fractures will occur in a few weeks to track the healing. I advised against substance use to prevent adverse reactions with prescribed medications and will reassess the need for insulin testing per the patient's reported symptoms. Patient was informed and verbally consented to the use of an ambient scribe for clinic note documentation during this visit. Today, I reviewed management for the patient?s rib fractures, emphasizing pain management adjustments to minimize dizziness while maintaining efficacy. I discussed his dietary success in triglyceride management, emphasizing continued monitoring of these efforts. We discussed notable medication side effects, particularly related to mirtazapine and the patient?s concern regarding insulin resistance, explaining the steps for further evaluation. I reinforced the importance of avoiding substances that may interact with his medication and provided detailed instructions on dosing intervals to minimize dizziness and side effects. I have arranged for a reassessment of fracture recovery with planned imaging and laboratory work in the following weeks. Orders: Orders Comprehensive [place]. Panel Fast Today K21.9 - Gastro-esophageal reflux disease without esophagitis Potassium Today E87.6 - Hypokalemia Uric Acid Today M10.9 - Gout, unspecified XR chest 2V 4 Weeks S22.32XA - Fracture of one rib, left side, initial encounter for closed fracture Medications: New gabapentin 100 mg PO BID 30 days 60 caps 0RF oxycodone 5 mg PO Q8H 30 days PRN 90 tabs 0RF pain Patient Instructions: - Continue the adjusted pain management regimen, taking gabapentin 100 mg twice daily and oxycodone as necessary, with caution. - Monitor dietary intake for balanced nutrition with [place]-3 supplements as instructed. - Avoid substance use, including cocaine and alcohol, to prevent complications with medications. - Arrange follow-up imaging and labs as scheduled, including insulin testing, if cravings persist. - Report any significant changes or worsening pain promptly. - Seek further care if experiencing increased difficulty breathing or other concerning symptoms.
== END 2024-09-23 13:36 | disposition home or self-care (01) ==
LOC: HO.HMCH 12:20
PROVIDERS: PCP Internal Medicine; Visit Provider Internal Medicine
DX: S22.42XA Multiple fractures of ribs, left side, initial encounter for closed fracture (principal); Z21 Asymptomatic human immunodeficiency virus [HIV] infection status; F32.0 Major depressive disorder, single episode, mild; M10.9 Gout, unspecified; E87.6 Hypokalemia; E78.2 Mixed hyperlipidemia

== ENCOUNTER 2024-09-25 09:04 | Outpatient (REF) | payer OTHER, SELFPAY ==
--- NOTE | ~2024-09-25 | US_ITS ---
EXAMINATION: US RETROPERITONEUM HISTORY: N40.1 - Benign prostatic hyperplasia with lower urinary tract symptoms TECHNIQUE: Real-time grayscale ultrasound imaging of the kidneys was performed and images were reviewed. COMPARISON: Comparison is made with the prior examination dated 08/12/2022. FINDINGS: Right kidney: The right kidney measures 11.2 x 5.2 x 6.4 cm. Renal parenchymal echotexture and thickness are normal. There are no masses. There is no hydronephrosis or renal calculi. Left Kidney: The left kidney measures 11.2 x 5.4 x 5.6 cm. Renal parenchymal echotexture and thickness are normal. There are no masses. There is no hydronephrosis or renal calculi. The urinary bladder is unremarkable. Bilateral ureteral jets are identified. Before voiding, the urinary bladder measured 6.9 x 8.1 x 5.7 cm, for an estimated volume of 166 mL. After voiding, the urinary bladder measured 2.2 x 1.5 x 1.7 cm for an estimated volume of 3 mL. The prostate measures 3.5 x 3.5 x 3.5 cm and demonstrates calcifications. US/US retroperitoneal comp IMPRESSION: Unremarkable renal ultrasound. Post void bladder residual 3 mL. Electronically signed by: Juan Luis Guzmán MD 09/25/2024 11:00 AM EDT
== END 2024-09-25 09:05 | disposition home or self-care (01) ==
LOC: HO.HMGCX 09:04
PROVIDERS: PCP Internal Medicine; Visit Provider Urology
DX: N40.1 Benign prostatic hyperplasia with lower urinary tract symptoms (principal)
CPT/HCPCS: 76770

== ENCOUNTER → 2024-09-25 09:34 | Outpatient (BNV) | payer OTHER, SELFPAY | PROVIDERS: PCP Internal Medicine; Visit Provider Radiology Diagnostic Radiology | DX: N40.1 Benign prostatic hyperplasia with lower urinary tract symptoms (principal) | CPT/HCPCS: 76770 ==

== ENCOUNTER 2024-09-25 23:42 | Emergency (ER) | payer OTHER, SELFPAY ==
--- NOTE | ~2024-09-25 | CT_ITS ---
CLINICAL HISTORY: headache and dizziness p head injury [address] head without contrast Comparison: CT/MI/SR - CT HEAD/BRAIN WO IV CON - 07/10/22 23:27 EST Findings: No intra-axial mass, midline shift, hydrocephalus, or acute hemorrhage. No significant atrophy-like change or white matter disease. Mucosal thickening the sinuses. Small amount of fluid in the sphenoid sinus. The orbits are unremarkable. There is no acute fracture. IMPRESSION: 1. No acute intracranial findings. 2. Mild sinus disease of uncertain chronicity. This document has been electronically signed by: Dominic Ramos MD on 09/26/2024 04:27:08
--- NOTE | ~2024-09-25 | XR_ITS ---
CLINICAL HISTORY: Chest pain. HAd Left rib fxs 2 weeks ago 2 view chest x-ray Comparison: CR/SR - XR CHEST 2V - 07/15/24 11:52 EST Findings: No consolidation or effusion. Normal size heart. No acute fractures. Chest x-ray has a low sensitivity for detection of rib fractures without the addition of dedicated rib films. IMPRESSION: 1. No acute findings. This document has been electronically signed by: Dominic Ramos MD on 09/26/2024 01:26:46
[2024-09-25 23:50] VITALS: BP 134/91; PULSE 74; O2SAT 99
[2024-09-25 23:52] VITALS: BP 121/70; PULSE 66; RESP 18; TEMP 37.1; O2SAT 97; BMI 28.4
--- NOTE | 2024-09-26 | ECG_ITS ---
Test Reason : CP Blood Pressure : */* mmHG Vent. Rate : 68 BPM Atrial Rate : 68 BPM P-R Int : 200 ms QRS Dur : 82 ms QT Int : 396 ms P-R-T Axes : 49 -1 34 degrees QTcB Int : 421 ms Normal sinus rhythm Normal ECG When compared with ECG of 14-Apr-2023 15:09, No significant change was found Referred By: Generic ED Physician Electronically Signed By: SHANTA COURTNEY MD
[2024-09-26 00:05] VITALS: BP 121/70; PULSE 66; RESP 18; TEMP 37.1; O2SAT 97
[2024-09-26 00:23] LABS: MANUAL DIFF FLAG NO
[2024-09-26 00:24] LABS: Basophils Percent Auto 0.6 % (0-2); Eosinophils Absolute Auto 0.3 X10*3/uL (0.0-0.4); Eosinophils Percent Auto 4.2 % (0-4); Hematocrit 37.8 % (42.0-52.0); Hemoglobin 13.9 g/dl (14.0-18.0); Imm Gran Abs Auto 0.01 X10*3/uL (0.00-0.03); Imm Gran Pct Auto 0.1 % (0.0-0.4); Lymphocytes Absolute Auto 2.6 X10*3/uL (1.2-4.9); Lymphocytes Percent Auto 37.3 % (20-40); Mean Corpuscular HGB Conc 36.8 g/dl (31.0-36.0); Mean Corpuscular Hemoglobin 32.9 pg (27.0-33.0); Mean Corpuscular Volume 89.4 fL (80.0-98.0); Mean Platelet Volume 10.2 fL (9.4-12.4); Monocytes Absolute Auto 0.6 X10*3/uL (0.1-1.2); Monocytes Percent Auto 8.2 % (2-11); Neutrophils Absolute Auto 3.5 x10*3/uL (2.0-8.3); Neutrophils Percent Auto 49.6 % (45-73); Platelet Count 176 X10*3/uL (160-400); Red Blood Count 4.23 X10*6/uL (4.60-5.80); Red Cell Distribution Width 12.4 % (11.0-16.0); White Blood Count 7.1 X10*3/uL (4.8-10.8)
--- NOTE | 2024-09-26 00:25 | ED.CHESTPAIN ---
HPI - Chest Pain General Chief Complaint: Chest Pain Stated Complaint: Chest wall pain & head pressure, hx 2 broken ribs Time Seen by Provider: 09/26/24 00:25 History of Present Illness ED Provider: Deborah PADILLA narrative: The patient is a 58-year-old male who says that approximally 2 weeks ago he fainted while urinating and landed on his left side injuring his left chest and the left side of his head. He was taken to the emergency room at [facility] and was admitted to the Trauma Service. He says that he was found to have 2 left-sided rib fractures. He also had a small laceration in the left side of his head which was closed with Steri-Strips. He says that he was in the hospital for 4 days he says that over the last several days he has started having some chest pains which are different from the pain on the left side where he had the rib fractures. He has been taking oxycodone extra pain. Over the last few days he has had a new pressure-like pain which he feels in the episodes of this pain last about 2 minutes at a time. He has also been experiencing dizziness over the last couple of days. The patient says that he went to a follow up appointment at [facility] (possibly with the Trauma Service) and had a chest x-ray that he thinks looked good. While he was at the appointment he complained of feeling dizzy and was taken to the emergency room. There was a very long wait in the emergency room and he ultimately left the emergency room and went home. During the evening he ate dinner but later felt some episodes of this new chest pain and he also felt dizzy and called an ambulance and was brought to the hospital. No fever, sweats cough or sputum. He has been eating normally he has had no nausea or vomiting. He has had no dark stools. Related Data Home Medications ?Medication ?Instructions ?Recorded ?Confirmed hydrocortisone 2.5 % topical cream 1 appl topical BID PRN Muscle Spasm 06/23/20 09/23/24 escitalopram oxalate 5 mg tablet 5 mg PO DAILY 11/21/22 09/23/24 (Lexapro) acetaminophen 325 mg tablet mg PO 09/23/24 09/23/24 cyclobenzaprine 10 mg tablet 10 mg PO TID 09/23/24 09/23/24 ibuprofen 600 mg tablet 600 mg PO TID 09/23/24 09/23/24 Previous Rx's ?Medication ?Instructions ?Recorded clotrimazole 1 % topical cream 1 appl topical BID 30 days #45 02/22/21 (Lotrimin AF (clotrimazole)) grams nitroglycerin 0.4 % (w/w) rectal 1 inch SD BID 30 days #30 grams 12/07/21 ointment (Rectiv) albuterol sulfate 90 mcg/actuation 2 puff inhalation Q6H PRN 09/30/22 aerosol inhaler bronchospasm 30 days #8.5 grams pantoprazole 20 mg tablet,delayed 20 mg PO DAILY #90 tabs 11/18/23 release (Protonix) valacyclovir 1 gram tablet 1,000 mg PO DAILY 30 days #30 tabs 11/28/23 (Valtrex) hydroxyzine HCl 25 mg tablet 25 mg PO TID PRN itching #15 tabs 01/27/24 cholecalciferol (vitamin D3) 25 25 mcg PO DAILY 90 days #90 caps 04/03/24 mcg (1,000 unit) capsule fenofibrate 54 mg tablet 54 mg PO DAILY 90 days #90 tabs 04/25/24 lorazepam 0.5 mg tablet 1 mg (2 x 0.5 mg) PO DAILY PRN 04/25/24 anxiety 1 day #2 tabs mupirocin 2 % topical ointment 1 appl topical TID 7 days #15 grams 04/25/24 allopurinol 100 mg tablet 100 mg PO DAILY 90 days #90 tabs 05/29/24 colchicine 0.6 mg tablet 0.6 mg PO DAILY PRN gout 90 days 05/29/24 #90 tabs mirtazapine 15 mg tablet 15 mg PO BEDTIME 30 days #30 tabs 06/23/24 tamsulosin 0.4 mg capsule (Flomax) 0.4 mg PO BEDTIME #30 caps 07/15/24 bictegravir 50 mg-emtricitabine 1 tab PO DAILY 30 days #30 tabs 08/05/24 200 mg-tenofovir alafenam 25 mg tablet (Biktarvy) hydrocortisone 2.5 % topical cream 1 appl SD BID PRN hemorrhoids 30 08/21/24 with perineal applicator days #30 grams (Proctosol HC) gabapentin 100 mg capsule 100 mg PO BID 30 days #60 caps 09/23/24 oxycodone 5 mg tablet 5 mg PO Q8H PRN pain 30 days #90 09/23/24 tabs Allergies Allergy/AdvReac Type Severity Reaction Status Date / Time No Known Allergies Allergy Verified 09/26/24 00:02 [No Known Allergies*] Review of Systems Review of Systems: Yes all other systems are reviewed and are negative [facility] Past Medical History Medical History (Updated 09/26/24 @ 05:34 by Meño Cabrera MD) Mild major depression Right hip pain Bleeding hemorrhoids Pneumonia Shortness of breath Cough Hyperlipidemia HTN (hypertension) Abdominal pain Anxiety Gout Right shoulder pain Left shoulder pain Hand numbness Screen for STD (sexually transmitted disease) Syphilis HIV (human immunodeficiency virus infection) Surgical History History of bronchoscopy History of esophagogastroduodenoscopy (EGD) H/O colonoscopy Family History Family History Father ALS (amyotrophic lateral sclerosis) Diabetes Hypertension Mother Liver cirrhosis Brother Liver cirrhosis Sister Hyperlipidemia Paternal Grandmother Cancer Paternal Aunt Cancer Family/Other FH: mental illness Substance use disorder Social History Social History Household Members: Friend(s) and None Housing: Other Alcohol intake: current Alcohol intake frequency: holidays/special occasions only Alcohol type: hard liquor Patient Tobacco Use Status: Current someday Tobacco user Tobacco use type: Cigarette Years Smoked: 30 e-Cigarette/Vaping Use: Never Used Second Hand Smoke Exposure: No service: No Current occupational status: unemployed Cognitive needs: No Hearing needs: No Vision needs: No Physical Exam Vital Signs: Vital Signs: Last Vital Signs Temp 98 F 09/26/24 05:49 Pulse 62 09/26/24 05:49 Resp 18 09/26/24 05:49 BP 135/78 09/26/24 05:49 Pulse Ox 96 09/26/24 05:49 O2 Del Method Room Air 09/26/24 05:49 BMI result Body Mass Index 28.4 Const: Other: The patient is awake and alert with normal mental status. He does not appear in overt distress in any way. He does not seem obviously acutely ill. HEENT: Other: Face is symmetrical. Mucous membranes are moist. Posterior pharynx is unremarkable. Eyes: General: appearance normal, both eyes and all related structures Neck: Neck: Yes no lymphadenopathy Chest: Other: There is some left-sided chest wall tenderness without crepitus or subcutaneous emphysema. Resp: Effort & Inspection: normal respiratory effort Auscultation: clear to auscultation bilaterally Cardio: Rate: regular rate Rhythm: regular rhythm Heart sounds: S1 normal heart sound present and S2 normal heart sound present GI: Other: Abdomen is soft and nontender. Rectal exam revealed good rectal tone. There was no stool in the rectum. There is really nothing to test for Hemoccult testing. Skin: Other: The skin is pale and dry. Neuro: Other: The patient is awake alert with normal mental status. Cranial nerves 2-12 are intact. There is no nystagmus. He has normal strength and sensation is extremities. He has steady gait. Extrem: Other: no peripheral edema Medications Administered Discontinued Medications Generic Name Dose Route Start Last Admin Trade Name [place] PRN Reason Stop Dose Admin Lactated Ringer's 1,000 mls @ 999 mls/hr 09/26/24 01:00 09/26/24 03:24 Lr IV 09/26/24 02:00 Infused .Q1H1M THOM Infusion Acetaminophen 1,000 mg in 100 mls @ 400 mls/hr 09/26/24 00:50 09/26/24 01:39 Ofirmev IV 09/26/24 01:04 Infused ONCE ONE Infusion Ketorolac Tromethamine 10 mg 09/26/24 00:50 09/26/24 01:11 Ketorolac Tromethamine 15 Mg/Ml Vial IVPUSH 09/26/24 00:51 10 mg ONCE ONE Administration Medical Decision Making Medical Decision Making [facility] Narrative: the patient is a 58-year-old male with HIV on anti-retroviral therapy who sustained rib fractures to his left chest 2 weeks ago when he had a syncopal episode. He was hospitalized at [facility]. He has been taking acetaminophen, ibuprofen, and oxycodone for pain related to his rib fractures. Earlier today he had follow-up appointment I believe at the [facility]uma [facility]. At that appointment I think they felt that he was doing well from a trauma standpoint but the patient also mentions some chest pressure with symptoms that were unrelated to his rib pain symptoms and also mentions some dizziness. He was taken from the Trauma Clinic to the emergency room at [facility] but the patient left from the waiting room because of a long wait time. He went home but felt worse and came to the emergency room. Here he does not appear obviously acutely ill. His description of his chest symptoms is not highly suggestive of an acute coronary syndrome. He has an unremarkable EKG and undetectable troponins. The patient a has a clear chest x-ray. The patient was quite concerned that something very bad might be happening. He described feeling very dizzy when he changed positions. His lab testing shows a slight drop in his hemoglobin compared to previous outpatient results but he denies any history of melena. A rectal exam revealed that there was no stool at all in the rectum so there was nothing for Hemoccult testing. Orthostatic measurements were taken given his complaint of dizziness when he sits up. However his heart rate remained in the 60s and his blood pressures actually went up when he was standing. He has a steady gait. Overall I do not have a good explanation for the patient's symptoms but similarly I do not have any grounds and which I feel the patient should be hospitalized or have ongoing testing in the emergency room today. I think the patient may be reasonably discharged from the emergency room to follow up with his primary care doctor as an outpatient or to return if worse. He is advised to stop using ibuprofen and to monitor himself for dark stools. If he develops any dark stools he should return to the emergency room. Lab Data 09/26/24 02:36 09/26/24 00:13 Labs: Lab Results 09/26/24 09/26/24 09/26/24 Range/Units 00:13 02:36 04:40 WBC 7.1 7.1 (4.8-10.8) X10*3/uL RBC 4.23 L 4.06 L (4.60-5.80) X10*6/uL Hgb 13.9 L 13.3 L (14.0-18.0) g/dl Hct 37.8 L 36.0 L (42.0-52.0) % MCV 89.4 88.7 (80.0-98.0) fL MCH 32.9 32.8 (27.0-33.0) pg MCHC 36.8 H 36.9 H (31.0-36.0) g/dl RDW 12.4 12.3 (11.0-16.0) % Plt Count 176 170 (160-400) X10*3/uL MPV 10.2 10.3 (9.4-12.4) fL Immature Gran % (Auto) 0.1 (0.0-0.4) % Neut % (Auto) 49.6 (45-73) % Lymph % (Auto) 37.3 (20-40) % [place] % (Auto) 8.2 (2-11) % Eos % (Auto) 4.2 H (0-4) % Baso % (Auto) 0.6 (0-2) % Lymph # (Auto) 2.6 (1.2-4.9) X10*3/uL [place] # (Auto) 0.6 (0.1-1.2) X10*3/uL Eos # (Auto) 0.3 (0.0-0.4) X10*3/uL Baso # (Auto) 0.0 (0.0-0.2) X10*3/uL Abs Immat Gran (auto) 0.01 (0.00-0.03) X10*3/uL Absolute Neuts (auto) 3.5 (2.0-8.3) x10*3/uL Absolute Nucleated RBC 0.000 0.000 (0.0-0.012) X10*3/uL Nucleated RBC % (auto) 0.0 0.0 (0.0-0.2) /100WBC Sodium 139 (135-145) mmol/L Potassium 4.6 (3.3-5.1) mmol/L Chloride 110 H (96-108) mmol/L Carbon Dioxide 24 (22-29) mmol/L Anion Gap 10 L (12-20) BUN 25 H (9-16) mg/dL Creatinine 0.96 (0.5-1.4) mg/dL Estim Creat Clear Calc 90.5 Estimated GFR > 60 Random Glucose 101 (60-115) mg/dL Calcium 8.9 D (8.4-10.2) mg/dL Total Bilirubin 0.4 (0.0-1.0) mg/dL AST 21 (5-37) U/L ALT 23 (0-40) U/L Alkaline Phosphatase 105 (39-117) U/L Troponin I High Sens < 2.7 < 2.7 (<3.5-35.0) ng/L Total Protein 6.6 (6.5-8.0) g/dL Albumin 4.0 (3.5-5.0) g/dL Discharge Plan Discharge Clinical Impression: Chest pain, Postural dizziness Patient Disposition: Home, Self-Care Additional Instructions: Although you are having significant symptoms your testing in the emergency room seems reassuring. There is no sign of a heart attack. Your chest x-ray is stable. The CT scan of your head does not show any concerning findings. I would recommend that you stop using ibuprofen. Also I would recommend increasing salt in your diet. This may help raise your blood pressure slightly and you may feel less dizzy. Please monitor your stools. If you have any black stools you need to return to the emergency room. Please contact your primary care doctor's office in the morning for a follow up appointment soon to discuss these symptoms further. If at any point you are significantly worse please return to the emergency department. Prescriptions: No Action pantoprazole [Protonix] 20 mg tablet,delayed release (DR/EC) 20 mg PO DAILY Qty: 90 0RF cholecalciferol (vitamin D3) 25 mcg (1,000 unit) capsule 25 mcg PO DAILY 90 Days Qty: 90 0RF lorazepam 0.5 mg tablet 1 mg PO DAILY PRN (Reason: anxiety) 1 Days Qty: 2 0RF allopurinol 100 mg tablet 100 mg PO DAILY 90 Days Qty: 90 0RF colchicine 0.6 mg tablet 0.6 mg PO DAILY PRN (Reason: gout) 90 Days Qty: 90 0RF mirtazapine 15 mg tablet 15 mg PO BEDTIME 30 Days Qty: 30 0RF Biktarvy 50-200-25 mg tablet 1 tab PO DAILY 30 Days Qty: 30 2RF hydrocortisone [Proctosol HC] 2.5 % cream with perineal applicator 1 appl SD BID PRN (Reason: hemorrhoids) 30 Days Qty: 30 0RF escitalopram oxalate [Lexapro] 5 mg tablet 5 mg PO DAILY hydroxyzine HCl 25 mg tablet 25 mg PO TID PRN (Reason: itching) Qty: 15 0RF hydrocortisone 2.5 % cream 1 appl topical BID PRN (Reason: Muscle Spasm) Rectiv 0.4 % (w/w) ointment 1 inch SD BID 30 Days Qty: 30 0RF albuterol sulfate 90 mcg/actuation HFA aerosol inhaler 2 puff inhalation Q6H PRN (Reason: bronchospasm) 30 Days Qty: 8.5 6RF valacyclovir [Valtrex] 1 gram tablet 1,000 mg PO DAILY 30 Days Qty: 30 5RF clotrimazole [Lotrimin AF (clotrimazole)] 1 % cream 1 appl topical BID 30 Days Qty: 45 11RF fenofibrate 54 mg tablet 54 mg PO DAILY 90 Days Qty: 90 1RF mupirocin 2 % ointment 1 appl topical TID 7 Days Qty: 15 0RF tamsulosin [Flomax] 0.4 mg capsule 0.4 mg PO BEDTIME Qty: 30 3RF cyclobenzaprine 10 mg tablet 10 mg PO TID acetaminophen 325 mg tablet PO ibuprofen 600 mg tablet 600 mg PO TID gabapentin 100 mg capsule 100 mg PO BID 30 Days Qty: 60 0RF oxycodone 5 mg tablet 5 mg PO Q8H PRN (Reason: pain) 30 Days Qty: 90 0RF Interventions: ED Discharge Assessment Last Done: 09/26/24 05:49 Discharge Date/Time: 09/26/24 05:51 Print Language: Nepali
[2024-09-26 00:37] LABS: Alanine Aminotransferase 23 U/L (0-40); Alkaline Phosphatase 105 U/L (39-117); Anion Gap 10 (12-20); Aspartate Amino Transferase 21 U/L (5-37); Bilirubin Total 0.4 mg/dL (0.0-1.0); Blood Urea Nitrogen 25 mg/dL (9-16); Calcium 8.9 mg/dL (8.4-10.2); Carbon Dioxide 24 mmol/L (22-29); Chloride 110 mmol/L (96-108); Creatinine Clr Calc Pharmacy 90.5; Estimated Glomerular Filt Rate > 60; Glucose Random 101 mg/dL (60-115); Potassium 4.6 mmol/L (3.3-5.1); Sodium 139 mmol/L (135-145); Total Protein 6.6 g/dL (6.5-8.0)
[2024-09-26 00:43] LABS: Troponin-I High Sensitivity < 2.7 ng/L (<3.5-35.0)
[2024-09-26] MEDS: Ketorolac Tromethamine 15 MG/ML VIAL 10 MG IVPUSH (01:11)
[2024-09-26] MEDS: Lactated Ringers 1,000 ML 999 ML IV (01:12)
[2024-09-26] MEDS: Acetaminophen 1,000 MG/100 ML PIGGYBACK 400 MG IV (01:12)
[2024-09-26 01:52] VITALS: BP 108/72; PULSE 66; RESP 18; TEMP 36.6; O2SAT 98
[2024-09-26 02:44] LABS: Hemoglobin 13.3 g/dl (14.0-18.0); Mean Corpuscular HGB Conc 36.9 g/dl (31.0-36.0); Mean Corpuscular Hemoglobin 32.8 pg (27.0-33.0); Mean Corpuscular Volume 88.7 fL (80.0-98.0); Mean Platelet Volume 10.3 fL (9.4-12.4); Platelet Count 170 X10*3/uL (160-400); Red Blood Count 4.06 X10*6/uL (4.60-5.80); Red Cell Distribution Width 12.3 % (11.0-16.0); White Blood Count 7.1 X10*3/uL (4.8-10.8)
[2024-09-26 03:43] VITALS: BP 116/67; PULSE 62
[2024-09-26 03:45] VITALS: BP 124/75; BP 134/81; PULSE 63; PULSE 64
[2024-09-26 05:07] LABS: Troponin-I High Sensitivity < 2.7 ng/L (<3.5-35.0)
[2024-09-26 05:49] VITALS: BP 135/78; PULSE 62; RESP 18; TEMP 36.6; O2SAT 96
== END 2024-09-26 05:51 | disposition home or self-care (01) ==
PROVIDERS: Emergency Provider Emergency Medicine; PCP Internal Medicine
DX: R07.9 Chest pain, unspecified (principal); R42 Dizziness and giddiness; B20 Human immunodeficiency virus [HIV] disease; I10 Essential (primary) hypertension; E78.5 Hyperlipidemia, unspecified; R06.02 Shortness of breath; Z79.899 Other long term (current) drug therapy; F17.210 Nicotine dependence, cigarettes, uncomplicated
CPT/HCPCS: 36415; 70450; 71046; 80053; 84484; 85025; 85027; 93005; 96361; 96365; 99285; J0131; J1885; J7120

== ENCOUNTER → 2024-09-26 00:13 | Outpatient (BNV) | payer OTHER, SELFPAY | PROVIDERS: Emergency Provider Emergency Medicine; PCP Internal Medicine; Visit Provider Internal Medicine Cardiovascular Disease | DX: R07.9 Chest pain, unspecified (principal) | CPT/HCPCS: 93010 ==

== ENCOUNTER → 2024-09-26 00:51 | Outpatient (BNV) | payer OTHER, SELFPAY | PROVIDERS: Emergency Provider Emergency Medicine; PCP Internal Medicine; Visit Provider Radiology Diagnostic Radiology | DX: R07.9 Chest pain, unspecified (principal); R51.9 Headache, unspecified | CPT/HCPCS: 70450; 71046 ==

== ENCOUNTER 2024-09-30 13:56 | Outpatient (AMB) | payer OTHER, SELFPAY ==
--- NOTE | 2024-09-30 14:03 | A.OFFVIS_ITS ---
Vital Signs 09/30/24 14:14 Height 5 ft 9 in Weight 198 lb BMI 29.2 BP 125/84 Blood Pressure Location Lt brachial Position Sitting Pulse 92 Pulse Source Pulse Oximeter Pulse Oximetry (%) 99 Oxygen Delivery Method Room Air Intake Visit Reasons: 6 mth.f/u lab Phone Technician Required: Yes Phone Technician Services: Phone Technician Present Phone Technician Name: Jf Jain CMA Information Interpreted: clinical only Allergies No Known Allergies [No Known Allergies*] Allergy (Verified 09/30/24 14:15) HPI Comments Details: He has viral load 35 and CD4 count 1250 on 09/19/2024. He mentions missing two to three pills of Biktarvy. He describes dissabling vertigo and has gone to ER in past and meclizine not working. [facility] Medical History Mild major depression Right hip pain Bleeding hemorrhoids Pneumonia Shortness of breath Cough Hyperlipidemia HTN (hypertension) Abdominal pain Anxiety Gout Right shoulder pain Left shoulder pain Hand numbness Screen for STD (sexually transmitted disease) Syphilis HIV (human immunodeficiency virus infection) Surgical History History of bronchoscopy History of esophagogastroduodenoscopy (EGD) H/O colonoscopy Family History Father ALS (amyotrophic lateral sclerosis) Diabetes Hypertension Mother Liver cirrhosis Brother Liver cirrhosis Sister Hyperlipidemia Paternal Grandmother Cancer Paternal Aunt Cancer Family/Other FH: mental illness Substance use disorder Social History Household Members: Friend(s) and None Housing: Other Alcohol intake: current Alcohol intake frequency: holidays/special occasions only Alcohol type: hard liquor Patient Tobacco Use Status: Current someday Tobacco user Tobacco use type: Cigarette Years Smoked: 30 e-Cigarette/Vaping Use: Never Used Second Hand Smoke Exposure: No service: No Current occupational status: unemployed Cognitive needs: No Hearing needs: No Vision needs: No Review of Systems Const All systems reviewed & are unremarkable except as noted in HPI and below Physical Exam Vital Signs: Last Vital Signs Pulse 92 09/30/24 14:14 BP 125/84 09/30/24 14:14 Pulse Ox 99 09/30/24 14:14 Oxygen Delivery Method Room Air 09/30/24 14:14 BMI result Body Mass Index 29.2 Const General: cooperative Orientation/consciousness: patient oriented x3 HEENT Head: Yes normal to inspection Mouth: Normal oral and palatal mucosa present Eyes General: appearance normal, both eyes and all related structures Pupils: Equal, round and reactive pupils present Resp Effort & Inspection: normal respiratory effort Cardio Rate: regular rate Rhythm: regular rhythm GI Palpation (GI): Soft to palpation and nontender General: Yes no CVA tenderness Back/Spine/Pelvis Back: no CVA tenderness Skin General skin exam: no rashes or lesions noted Neuro General: patient oriented x3 Cranial nerves: Yes CN's II-XII intact bilaterally and Yes Equal, round and reactive pupils present Extrem General: Yes normal to inspection Psych Appearance: grossly normal Assessment & Plan Assessment & Plan (1) HIV (human immunodeficiency virus infection): Comment: He is doing well with CD4 count 1250 but viral load indicates need for daily medication Would ask PCP for referral vertigo physical therapy See in six months.,labs and meds written for. Follow anal Pap. Code(s): B20 - Human immunodeficiency virus [HIV] disease Category: Medical Qualifiers: HIV symptom status: asymptomatic, with no history of HIV-related illness Qualified Code(s): Z21 - Asymptomatic human immunodeficiency virus [HIV] infection status Plan na Coding Level of Care Code Est Pt Level 4 (11790) Diagnoses Asymptomatic HIV infection, with no history of HIV-related illness Z21 HIV symptom status: asymptomatic, with no history of HIV-related illness
[2024-09-30 14:14] VITALS: BP 125/84; PULSE 92; O2SAT 99; BMI 29.2
--- OUTSIDE RECORDS SUMMARY | 2024-09-30 15:44 | XMS_ITS ---
Author Organization [facility] Address [address] [place] [address] Care Team Providers Care Inclusion Intern Name Role Phone Meagan De La Cruz Primary Care Provider UnavailFrankie Monaco Jr Unavailable [phone] Allergies No Known Allergies REASON FOR VISIT Patient presents today for epigastric pain Medications Medication SIG (Take, Route, Frequency, Duration) Notes [...] Allopurinol 100 MG Oral for 90 Active Social History Tobacco Use: Social History Observation Description Date Details (start date - stop date) Current Smoker NA - NA Tobacco Use/Smoking Question Answer Notes Patient is [...] drinks (2 points) Points 5 Interpretation Positive Problems Problem Type SNOMED Code ICD Code Onset Dates Problem Status W/U Status Risk Notes Problem [id number] Gastroesophageal reflux disease without esophagitis (K21.9) Active confirmed Vital Signs Temperature 97.3 degrees Fahrenheit 08/09/19 24 Blood pressure systolic 00 mm Hg 08/09/19 24 Blood pressure diastolic 00 mm Hg 024 Height 69 in 08/09/2023 Weight 197 lbs 08/09/2023 BMI 29.09 kg/m2 08/09/2023 Encounters Encounter Location Date Provider Diagnosis [facility] [address] [place] [address] 08/09/2023 Frankie Vences Jr Gastroesophageal reflux disease without esophagitis K21.9 and Colon cancer screening Z12.11 Assessments Encounter Date Diagnosis (ICD Code) Assessment Notes Treatment Notes Treatment Clinical Notes Section Notes 08/09/2023 Gastroesophageal reflux disease without esophagitis (ICD-10 - K21.9) Gastroesophageal reflux disease material was printed Currently he is doing well. We discussed gastroesophageal reflux disease today. We discussed diet, lifestyle modifications, and weight management regarding the treatment of reflux. He'll continue pantoprazole. Followup will be in one year. He is up-to-date on colorectal cancer screening. We reviewed this today. 08/09/2023 Colon cancer screening (ICD-10 - Z12.11) Currently he is doing well. We discussed gastroesophageal reflux disease today. We discussed diet, lifestyle modifications, and weight management regarding the treatment of reflux. He'll continue pantoprazole. Followup will be in one year. He is up-to-date on colorectal cancer screening. We reviewed this today. Plan Of Treatment Treatment Notes Assessment Notes Gastroesophageal reflux dise ase without esophagitis Gastroesophageal reflux disease material was printed Next Appt Details Follow Up: 1 Year, Reason: Progress Notes * JACQUELINE MCDONALDDOB:[birth year] (57 yo M)Acc No.[id number]:08/09/2023 Progress Notes Patient:?JACQUELINE MCDONALD Provider:?Frankie Vences MD :1965???Age:57 Y???Sex:Male Zay e:08/09/2023 Address:[address] [place] [address] [address] , [place] Pcp:Meagan Marte Subjective: * Chief Complaints: * ???1. Patient presents today for epigastric pain. * HPI: ???New symptom(s):? Mr. Mcdonald is seen today in followup. She was last seen for upper endoscopy and colonoscopy in January of 2022 and the procedures were done because of an abnormal CT scan of the stomach, and rectal bleeding. Both endoscopy and colonoscopy looked normal and biopsies showed no H. pylori or Horne's esophagus. We reviewed this today. ?Currently he feels well. He reports reflux symptoms are under good control on pantoprazole 40 mg daily. He has no dysphagia, hematemesis, or melena. Weight and appetite have been stable. * Medical History:?Hypertensio n, HIV, Fatty liver, Pneumonia, Gout, Anxiety, Gastroesophageal reflux disease, EGD 02/21, no Horne's esophagus or H. pylori, Colonoscopy 02/21, no polyps, ten-year followup. * Family History:?Father: dece ased.?Mother: .? NO FAMILY HX. * Social History:?Tobacco Use:?Tobacco Use/Smoking?Patient is a?current smoker,?How often do you smoke cigarettes??some days, but not every day,?How many cigarettes a day do you smoke??5 or less.?Drugs/Alcohol:?Alcohol Screen?Did you have a drink containing alcohol in the past year??Yes,?How often did you have a drink containing alcohol in the past year??2 to 3 times a week (3 points),?How many drinks did you have on a typical day when you were drinking in the past year??5 or 6 drinks (2 points),?Points?5,?Interpretation?Positive.?Miscellaneous:?Marital status: . Occupation: unemployed. * Medications:?Taking Flexeril 5 MG Tablet 1 tablet at bedtime as needed Orally Once a day, Taking Albuterol Sulfate 108 (90 Base) MCG/ACT Aerosol Powder Breath Activated 1 puff as needed Inhalation every 4 hrs, Taking Biktarvy 50-200-25 MG Tablet TOME CALIXTO TABLETA TODOS LOS D? Oral , Taking valACYclovir HCl 1 GM Tablet TAKE 1 TABLET BY MOUTH TWICE A DAY Oral , Taking Vitamin D High Potency 25 MCG (1000 UT) Capsule Oral , Taking Escitalopram Oxalate 5 MG Tablet Oral , Taking Allopurinol 100 MG Tablet Oral , Taking Pantoprazole Sodium 40 MG Tablet Delayed Release 1 tablet Orally Once a day, Discontinued Omeprazole 20 MG Capsule Delayed Release 1 Orally Once a day, Discontinued Diclofenac Sodium 75 MG Tablet Delayed Release Oral , Discontinued MiraLax (colon prep) 17 GM/SCOOP Powder mixed with Gatorade or Crystal Light Orally begin at 5:00 p.m. the day before the procedure, Discontinued Dulcolax (colon prep) 5 MG Tablet Delayed Release take at 3:00 p.m and 7:00p.m. Orally two tablets twice a day for one day, Medication List reviewed and reconciled with the patient * Allergies:?N.K.D.A. Objective: * Vitals:?Wt: 197 lbs, Ht: 69 in, BMI:29.09 Index, BP: 00/00 mm Hg, Temp: 97.3. * Examination: ???General Examination: ???On examination today, he appears well. Skin is anicteric. Lungs are clear. Heart shows regular rate and rhythm. Abdomen is soft without focal mass or tenderness. Extremities are without edema. Assessment: * Assessment: 1.?Gastroesophageal reflux d isease without esophagitis - K21.9 (Primary)?2.?Colon cancer screening - Z12.11? Currently he is doing well. We discussed gastroesophageal reflux disease today. We discussed diet, lifestyle modifications, and weight management regarding the treatment of reflux. He'll continue pantoprazole. Followup will be in one year. He is up-to-date on colorectal cancer screening. We reviewed this today. Plan: * Treatment: * Procedure Codes:?3017F COLOR ECTAL CA SCREEN DOC REV, G9902 Pt scrn tbco and id as user, G9744 PATIENT NOT ELIG D/T ACTIVE DX HTN * Preventive Medicine:? ??Counseling:?Care goal follow-up plan:?Above Normal BMI Follow-up?Giving encouragement to exercise,?BMI management provided?Yes.? * Follow Up:?1 Year * * Sign off status: Completed true * Provider:?Frankie Vences MD Date:?0 08/09/2023 Generated for Fabio hidalgo/Kristen/Rodneyitting on:?09/30/2024 03:44 PM EDT History and Physical Notes * HPI (History of Present Illness) Category Sub-Category Detail Notes Category Not es New symptom(s) Mr. Mcdonald is seen today in followup. She was last seen for upper endoscopy and colonoscopy in January of 2022 and the procedures were done because of an abnormal CT scan of the stomach, and rectal bleeding. Both endoscopy and colonoscopy looked normal and biopsies showed no H. pylori or Horne's esophagus. We reviewed this today. Currently he feels well. He reports reflux symptoms are under good control on pantoprazole 40 mg daily. He has no dysphagia, hematemesis, or melena. Weight and appetite have been stable. Examination Category Sub-Category Detail Notes Category Not es General Examination On exami nation today, he appears well. Skin is anicteric. Lungs are clear. Heart shows regular rate and rhythm. Abdomen is soft without focal mass or tenderness. Extremities are without edema.
--- OUTSIDE RECORDS SUMMARY | 2024-09-30 15:44 | XMS_ITS | Clinical Summary ---
Author Organization [facility] Address [address] [place] [address] Phone Care Team Providers Care Microelectronics Technician Name Role Phone Meagan De La Cruz MD Primary Care Provider [phone] Allergies No known active allergies Medications albuterol [...] Screening: Colonoscopy 02/12/2032 02/11/2022, 08/02/2019 Insurance [facility] Care Teams Microelectronics Technician Relationship Specialty Start Date End Date Meagan De La Cruz MD [address] [place] [address] PCP - General Internal Medicine 03/23/22
--- OUTSIDE RECORDS SUMMARY | 2024-09-30 15:44 | XMS_ITS | Continuity of Care Document ---
Author Organization [facility] Address [address] [place] [address]- Care Team Providers Care Jig And Fixture Maker Name Role Phone Trip Marte MD, Michelle Primary Care Physician [place] [facility] [place] - 09/25/[address] [address]- Discharge Disposition: A-D/C Walkout Attending Physician: Not on Staff, Attending MD Admitting Physician: Not on Staff, Admitting MD Referring Physician: Not on Staff, Referring MD Encounter Type: Disch ES Allergies, Adverse Reactions, Alerts No Known Allergies Immunizations Given and Recorded Vaccine Date Status Refusal Reason tetanus/diphtheria/pertussis, acel(Tdap) 09/07/24 Given Medications Albuterol (Eqv-ProAir HFA) 90 mcg/inh inhalation aerosol 2 inhalation = 180 mcg, Inhalation, Every 6 hours, PRN as needed for shortness of breath or wheezing, # 6.7 Gm, 0 Refills, Maintenance, 09/08/24 5:17:00 AM EDT, Aerosol, Partial fill upon patient request if the prescription is for a schedule II opioid drug. Start Date: 09/08/24 Status: Ordered Quantity: 6.7 Unit: g Repeat number: 1 allopurinol 100 mg oral tablet 100 mg, 1, tablet, By Mouth, Daily, Refills 0, Maintenance, 09/08/24 5:12:00 AM EDT, Partial fill upon patient request if the prescription is for a schedule II opioid drug. Start Date: 09/08/24 Status: Ordered Repeat number: 1 Bactrim DS Tablet 1, tablet, By Mouth, 2 times a day, Maintenance, 04/11/16 4:06:49 PM EDT Start Date: 04/11/16 Status: Ordered Repeat number: 1 Biktarvy 50 mg-200 mg-25 mg oral tablet 1 tablet, By Mouth, Daily, 0 Refills, Maintenance, 09/08/24 5:11:00 AM EDT, Partial fill upon patientrequest if the prescription is for a schedule II opioid drug. Start Date: 09/08/24 Status: Ordered Repeat number: 1 Cholecalciferol = 25 mcg, By Mouth, Daily, 0 Refills, Maintenance, 09/08/24 5:19:00 AM EDT, Partial fill upon patientrequest if the prescription is for a schedule II opioid drug. Start Date: 09/08/24 Status: Ordered Repeat number: 1 Clotrimazole 1% Topical 1 application, Topically, 2 times a day, 0 Refills, Maintenance, Cream Start Date: 09/08/24 Status: Ordered Repeat number: 1 Colace Clear = 50 mg, By Mouth, 2 times a day, 0 Refills, Maintenance, 04/11/16 4:06:21 PM EDT Start Date: 04/11/16 Status: Ordered Repeat number: 1 colchicine 0.6 mg oral capsule 1 capsule = 0.6 mg, By Mouth, Daily, 0 Refills, Maintenance, 09/08/24 5:23:00 AM EDT, Partial fill upon patient request if the prescription is for a schedule II opioid drug. Start Date: 09/08/24 Status: Ordered Repeat number: 1 escitalopram 5 mg oral tablet 1 tablet = 5 mg, By Mouth, Daily, # 30 tablet, 0 Refills, Maintenance, 09/08/24 5:27:00 AM EDT, Tablet, Partial fill upon patient request if the prescription is for a schedule II opioid drug. Start Date: 09/08/24 Status: Ordered Quantity: 30.0 Unit: tablet Repeat number: 1 fenofibrate 54 mg oral tablet 1 tablet = 54 mg, By Mouth, Daily, 0 Refills, Maintenance, 09/08/24 5:28:00 AM EDT, Partial fill uponpatient request if the prescription is for a schedule II opioid drug. Start Date: 09/08/24 Status: Ordered Repeat number: 1 ferrous sulfate extended release By Mouth, Daily, 0 Refills, Maintenance, 04/11/16 4:06:41 PM EDT Start Date: 04/11/16 Status: Ordered Repeat number: 1 gabapentin 400 mg oral capsule 400 mg, By Mouth, Every 8 hours, # 42 capsule, Refills 0, Tot. Refills 0, Maintenance, 09/11/24 10:28:00 AM EDT, Route to Pharmacy Electronically, [facility], Partial fill upon patient request if the prescription is for a schedule II opioid drug., 175, cm, 09/11/24 8:09:00 EDT, Height,86.5, kg, 09/08/24 3:40:00 EDT, Dry Weight Start Date: 09/11/24 Stop Date: 09/25/24 Status: Ordered Quantity: 42.0 Unit: capsule Repeat number: 1 Hydrocortisone 0 Refills, Maintenance, 04/11/16 4:06:27 PM EDT Start Date: 04/11/16 Status: Ordered Repeat number: 1 HydroCORTisone 2.5% Topical 1 application, Topically, 2 times a day, PRN Spasm, 0 Refills, Maintenance, Cream Start Date: 09/08/24 Status: Ordered Repeat number: 1 hydrOXYzine hydrochloride 25 mg oral tablet 1 tablet = 25 mg, By Mouth, 3 times a day, PRN for itching, # 40 tablet, 0 Refills, Maintenance, 09/08/24 5:29:00 AM EDT, Tablet, Partial fill upon patient request if the prescription is for a scheduleII opioid drug. Start Date: 09/08/24 Status: Ordered Quantity: 40.0 Unit: tablet Repeat number: 1 Iron Chews = 15 mg, By Mouth, Daily, 0 Refills, Maintenance, 04/11/16 4:07:15 PM EDT Start Date: 04/11/16 Status: Ordered Repeat number: 1 LORazepam 0.5 mg oral tablet 2 tablet = 1 mg, By Mouth, Daily, PRN for anxiety, 0 Refills, Maintenance, 09/08/24 5:30:00 AM EDT, Tablet, Partial fill upon patient request if the prescription is for a schedule II opioid drug. Start Date: 09/08/24 Status: Ordered Repeat number: 1 mirtazapine 15 mg oral tablet 1 tablet = 15 mg, By Mouth, Daily at bedtime, # 30 tablet, 0 Refills, Maintenance, 09/08/24 5:34:00 AM EDT, Tablet, Partial fill upon patient request if the prescription is for a schedule II opioid drug. Start Date: 09/08/24 Status: Ordered Quantity: 30.0 Unit: tablet Repeat number: 1 mupirocin 2% topical cream 1 application, Topically, 3 times a day, # 15 Gm, 0 Refills, Maintenance, 09/08/24 5:35:00 AM EDT, Cream, Partial fill upon patient request if the prescription is for a schedule II opioid drug. Start Date: 09/08/24 Status: Ordered Quantity: 15.0 Unit: g Repeat number: 1 nitroglycerin 0.4% rectal ointment 1 application, Rectally, Every 12 hours, # 30 Gm, 0 Refills, Maintenance, 09/08/24 5:38:00 AM EDT, Ointment, Partial fill upon patient request if the prescription is for a schedule II opioid drug. Start Date: 09/08/24 Status: Ordered Quantity: 30.0 Unit: g Repeat number: 1 Pantoprazole = 20 mg, By Mouth, Daily, 0 Refills, Maintenance, 09/08/24 5:14:00 AM EDT Start Date: 09/08/24 Status: Ordered Repeat number: 1 Pantoprazole Daily, 0 Refills, Maintenance, 04/11/16 4:08:02 PM EDT Start Date: 04/11/16 Status: Ordered Repeat number: 1 tamsulosin 0.4 mg oral capsule 0.4 mg, 1, capsule, By Mouth, Daily at bedtime, Refills 0, Maintenance, 09/08/24 5:15:00 AM EDT, Partial fill upon patient request if the prescription is for a schedule II opioid drug. Start Date: 09/08/24 Status: Ordered Repeat number: 1 ValACYclovir = 1,000 mg, By Mouth, Daily, 0 Refills, Maintenance, 09/08/24 5:13:00 AM EDT, Partial fill upon patient request if the prescription is for a schedule II opioid drug. Start Date: 09/08/24 Status: Ordered Repeat number: 1 Vital Signs Most recent to oldest [Reference Range]: 1 2 Oxygen Saturation [94-100 %] 100 % (09/25/24 2:45 PM) 100 % (09/25/24 2:37 PM) Pulse Rate [55-90 bpm] 69 bpm (09/25/24 2:45 PM) 67 bpm (09/25/24 2:37 PM) Blood Pressure [90-138/55-84 mm Hg] 141/ 89mm Hg *H* (09/25/24 2:45 PM) Respiratory Rate [16-30 br/min] 18 br/mi n (09/25/24 2:45 PM) Temperature [96.8-100.4 DegF] 98.4 DegF (09/25/24 2:45 PM) Mode of Delivery (Oxygen) Room air (09/25/24 2:45 PM) Blood pressure sites Arm, left (09/25/24 2:45 PM) Temperature Route Oral (09/25/24 2:45 PM) Dry Weight 87.5 kg (09/25/24 2:45 PM) Dry Weight Obtained Via Patient/family s tated (09/25/24 2:45 PM) Patient Care team information Care Team Personnel Name: Martha Sloan RN Position: S RN Member Role: Primary Care Nurse Name: Trip Marte MD , Meagan Mathews Position: Reference Physician Member Role: PCP Address: [address] [place] [address] Telecom: Name: Letty Gibson RN Position: S RN Member Role: Primary Care Nurse Care Team Related Persons Name: CIPRIANO LAYNE Name: NONE, GIVEN Insurance Providers Guarantor name: KULDEEP Health Plan Information #: 1 Payer: [employer] Member Number: [id number] Policy Number: NA Group Number: [id number] Plan Information #: 2 Payer: [employer] Member Number: [id number] Policy Number: NA Group Number: NA
--- OUTSIDE RECORDS SUMMARY | 2024-09-30 15:44 | XMS_ITS | Patient Health Record ---
Author Organization [facility] Address [address] [place] [address] Care Team Providers Care Home Care Associate Name Role Phone Meagan De La Cruz Primary Care Provider UnavailFrankie Monaco Jr Unavailable Allergies No Known Allergies Reason For Referral No Information Medications Medication SIG (Take, Route, Frequency, Duration) [...] Allopurinol 100 MG Oral for 90 Active Immunizations Vaccine Route Administration Date Status Comme nts Influenza Unknown 01/05/2022 Refused Social History Tobacco Use: Social History Observation [...] Problem Status W/U Status Risk Notes Problem 387875893 Colon cancer screening (Z12.11) Active confirmed Problem 10373319 Rectal bleeding (K62.5) Active confirmed Problem 53284452 Epigastric pain (R10.13) Active confirmed Problem 537665305 Gastroesophageal reflux disease without esophagitis (K21.9) Active confirmed Problem 914553077 Abnormal CT scan , stomach (R93.3) Active confirmed Problem 01314355 Diarrhea, unspecified type (R19.7) Active confirmed Plan Of Treatment Pending Test Test Name Order Date STOOL WBC 07/12/2022 OVA & PARASITES (O&P) 07/12/2022 GI PANEL 07/12/2022 Future Test Test Name Order Date UPPER GI ENDOSCOPY 03/24/2016 COLONOSCOPY 03/24/2016 COLONOSCOPY 05/29/2019 UPPER GI ENDOSCOPY 01/05/2022 COLONOSCOPY 01/05/2022 Insurance Providers Payer Name Payer Address Payer Phone Subscriber Number Group Number Insured Name Patient Relationship to Insured Coverage Start Date Coverage End Date [facility] [address] [address] [place], [place] [id number] JACQUELINE MCDONALD Self - patient is the insured Medical (General) History Medical History History ICD Code Hypertension HIV Fatty liver Pneumonia Gout Anxiety Gastroesophageal reflux dise ase, EGD 02/21, no Horne's esophagus or H. pylori Colonoscopy 02/21, no polyps, ten-year fo llowup Surgical History Surgery Date(Month/Year)
--- OUTSIDE RECORDS SUMMARY | 2024-09-30 15:44 | XMS_ITS ---
Author Organization [facility] Address [address] [place] [address] Care Team Providers Care Plaster Mold Maker Name Role Phone Meagan De La Cruz Primary Care Provider Frankie Joyner Jr REASON FOR VISIT epigastric pain Encounters Encounter Location Date Provider Diagnosis [facility] [address] [place] [address] 05/29/2023 Frankie Vences Jr Plan Of Treatment No Information Progress Notes * JACQUELINE MCDONALDDOB:[birth year] (58 yo M)Acc No.[id number]:05/29/2023 Progress Notes Patient:?JACQUELINE MCDONALD Provider:?Frankie Vences MD :1965???Age:57 Y???Sex:Male Zay e:05/29/2023 Address:[address] [place] [address] , [place] Pcp:Meagan Marte Subjective: * Chief Complaints: * ???1. Epigastric pain. * Medical History:? Objective: * Vitals:? Assessment: Plan: * Treatment: * * The named appointment provid er may or may not be the originator of this progress note, and it is not deemed complete until electronically signed by the appointment provider. Sign off status: Pending * Provider:?Frankie Vences MD Date:?1 07/29/2022 Generated for Fabio hidalgo/Kristen/eTransmitting on:?09/30/2024 03:44 PM EDT
== END 2024-09-30 14:41 | disposition home or self-care (01) ==
LOC: HO.HID 13:57
PROVIDERS: PCP Internal Medicine; Visit Provider Internal Medicine
DX: Z21 Asymptomatic human immunodeficiency virus [HIV] infection status (principal)
CPT/HCPCS: 99214

== ENCOUNTER → 2024-09-30 13:56 | Outpatient (BNVA) | payer OTHER, SELFPAY | PROVIDERS: PCP Internal Medicine; Visit Provider Internal Medicine | DX: Z21 Asymptomatic human immunodeficiency virus [HIV] infection status (principal) | CPT/HCPCS: 99212 ==

== ENCOUNTER 2024-10-03 12:23 | Outpatient (AMB) | payer OTHER, SELFPAY ==
--- NOTE | 2024-10-03 12:28 | A.OFFPC_ITS ---
Vital Signs 10/03/24 12:29 Height 5 ft 9 in Weight 194 lb BMI 28.6 BP 126/80 Blood Pressure Location Lt brachial Position Sitting Intake Visit Reasons: [facility] 09/26 chest wall pain/head pressure/dizziness [employer] Required: No Accompanied by: Self / Same As Patient Allergies No Known Allergies [No Known Allergies*] Allergy (Verified 10/03/24 12:34) Medication List - Last Reconciled 10/03/24 by Meagan Marte MD acetaminophen mg PO albuterol sulfate 90 mcg/actuation 2 puffs inhalation Q6H PRN 30 days allopurinol 100 mg PO DAILY 90 days duzbhdasx-pdrejlzb-undcsry ala 50-200-25 mg (Biktarvy) 1 tab PO DAILY 30 days cholecalciferol (vitamin D3) 25 mcg PO DAILY 90 days clotrimazole 1% (Lotrimin AF (clotrimazole)) 1 appl topical BID 30 days colchicine 0.6 mg PO DAILY PRN 90 days cyclobenzaprine 10 mg PO TID escitalopram oxalate (Lexapro) 5 mg PO DAILY hydrocortisone 2.5% 1 appl topical BID PRN hydrocortisone 2.5% (Proctosol HC) 1 appl NJ BID PRN 30 days hydroxyzine HCl 25 mg PO TID PRN meclizine 25 mg PO BID PRN 5 days mirtazapine 15 mg PO BEDTIME 30 days mupirocin 2% 1 appl topical TID 7 days nitroglycerin 0.4%(w/w) (Rectiv) 1 inch NJ BID 30 days oxycodone 5 mg PO Q8H PRN 30 days pantoprazole (Protonix) 20 mg PO DAILY valacyclovir (Valtrex) 1,000 mg PO DAILY 30 days Tobacco use date assessed: 09/23/24 Dental Screening Dental Screen Date: 09/23/24 HPI HPI Comments History of Present Illness Details The patient is a 58-year-old male with HIV and anemia presenting with dizziness and sinus-related symptoms. The dizziness initiated three days following a previous visit to the emergency room. He describes a pronounced sensation of pressure throughout the head, predominantly without headaches, but with notable pressure. When moving his head quickly or when supine, the dizziness intensifies, and he references a troubling sensation of detachment. The patient reveals persistent left ear discomfort, with episodes of minor pain and irritation. A CT scan recognized sinus disease potentially contributing to his vertigo. The use of sqde-mia-bxspwxj medication diminishes symptoms somewhat, augmented by Meclizine, which did not cause drowsiness but provided some relief from vertigo symptoms. The previous examination indicated a red hue on the left ear, while a prior diagnosis of positional vertigo suggests potential vestibular therapy. The CT scan displayed normal cerebral results, corroborating sinus conditions, with ear distress potentially inducing the vertiginous events. [facility] Medical History (Updated 10/03/24 @ 12:56 by Meagan Marte MD) Mild major depression Right hip pain Bleeding hemorrhoids Pneumonia Shortness of breath Cough Hyperlipidemia HTN (hypertension) Abdominal pain Anxiety Gout Right shoulder pain Left shoulder pain Hand numbness Screen for STD (sexually transmitted disease) Syphilis HIV (human immunodeficiency virus infection) Surgical History History of bronchoscopy History of esophagogastroduodenoscopy (EGD) H/O colonoscopy Family History Father ALS (amyotrophic lateral sclerosis) Diabetes Hypertension Mother Liver cirrhosis Brother Liver cirrhosis Sister Hyperlipidemia Paternal Grandmother Cancer Paternal Aunt Cancer Family/Other FH: mental illness Substance use disorder Social History Household Members: Friend(s) and None Housing: Other Alcohol intake: current Alcohol intake frequency: holidays/special occasions only Alcohol type: hard liquor Patient Tobacco Use Status: Current someday Tobacco user Tobacco use type: Cigarette Years Smoked: 30 e-Cigarette/Vaping Use: Never Used Second Hand Smoke Exposure: No service: No Current occupational status: unemployed Cognitive needs: No Hearing needs: No Vision needs: No Questionnaire Thrive Questionnaire Date Thrive assessed: 09/23/24 CRISTOBAL-7 AMB Questionnaire CRISTOBAL-7 Date CRISTOBAL - 7 assessed: 09/23/24 Source: Developed by Drs. Juan Luis Payne, Elsy Tadeo, Raymon Franco and colleagues, with an educational brinda from [employer] Review of Systems Const All systems reviewed & are unremarkable except as noted in HPI and below Reports headache(s) ENT Reports vertigo, Reports dizziness, Reports otalgia, Reports headache(s) and Reports tinnitus Card Denies chest pain at rest, Denies chest pain with activity, Denies edema, Denies irregular heart rhythm, Denies claudication, Denies dyspnea, Denies dyspnea on exertion, Denies orthopnea, Denies paroxysmal nocturnal dyspnea and Denies slow heart rate Resp Denies cough, Denies dyspnea and Denies dyspnea on exertion GI Denies abdominal pain, Denies change in bowel habits, Denies excessive flatus, Denies nausea and Denies vomiting Neuro Reports vertigo, Reports dizziness and Reports headache(s) Physical exam (Primary Care) Vital Signs: Last Vital Signs BP 126/80 10/03/24 12:29 BMI result Body Mass Index 28.6 Tobacco/Smoking Status: Tobacco use Status Tobacco use date assessed 09/23/24 10/03/24 12:33 Patient Tobacco Use Status Current someday Tobacco 10/03/24 12:33 Tobacco use type Cigarette 10/03/24 12:33 e-Cigarette/Vaping Use Never Used 10/03/24 12:33 Thrive Assessment: Date of Thrive Assessment Date Thrive assessed 09/23/24 10/03/24 12:33 HENMT Ears: external ears normal and TM abnormal erythematous on the left Resp Effort & Inspection: normal respiratory effort Auscultation: clear to auscultation bilaterally Cardio Jugular venous distension: no JVD Rate: regular rate Rhythm: regular rhythm Heart sounds: S1 normal heart sound present and S2 normal heart sound present Neuro General: no focal motor deficits Romberg Test: Negative Extrem General: Yes full ROM Coding Level of Care Code Est Pt Level 4 (98680) Complex EM visit Add On G2211 Diagnoses Hospital discharge follow-up Z09 Benign paroxysmal positional vertigo of left ear H81.12 Laterality: left Acute non-recurrent maxillary sinusitis J01.00 Sinusitis location: maxillary Recurrence: non-recurrent Otitis of left ear H66.92 Laterality: left Asymptomatic HIV infection, with no history of HIV-related illness Z21 HIV symptom status: asymptomatic, with no history of HIV-related illness Anemia D64.9 Time Spent (min) 22 Assessment & Plan Assessment & Plan (1) Hospital discharge follow-up: Code(s): Z09 - Encounter for follow-up examination after completed treatment for cond itions other than malignant neoplasm Category: Medical (2) BPPV (benign paroxysmal positional vertigo): Code(s): H81.10 - Benign paroxysmal vertigo, unspecified ear Category: Medical Qualifiers: Laterality: left Qualified Code(s): H81.12 - Benign paroxysmal vertigo, left ear (3) Acute sinusitis: Code(s): J01.90 - Acute sinusitis, unspecified Category: Medical Qualifiers: Sinusitis location: maxillary Recurrence: non-recurrent Qualified Code(s): J01.00 - Acute maxillary sinusitis, unspecified (4) Otitis: Code(s): H66.90 - Otitis media, unspecified, unspecified ear Category: Medical Qualifiers: Laterality: left Qualified Code(s): H66.92 - Otitis media, unspecified, left ear (5) HIV (human immunodeficiency virus infection): Comment: He is doing well with CD4 count 1250 but viral load indicates need for daily medication Would ask PCP for referral vertigo physical therapy See in six months.,labs and meds written for. Follow anal Pap. Code(s): B20 - Human immunodeficiency virus [HIV] disease Category: Medical Qualifiers: HIV symptom status: asymptomatic, with no history of HIV-related illness Qualified Code(s): Z21 - Asymptomatic human immunodeficiency virus [HIV] infection status (6) Anemia: Code(s): D64.9 - Anemia, unspecified Category: Medical Plan Considering the symptoms of vertigo and sinus discomfort, the likely diagnosis is Benign Paroxysmal Positional Vertigo BPPV). Meclizine was recommended to control vertigo, although sometimes it causes drowsiness. Vestibular therapy could be pursued to amend semicircular ear canal alignment with continued symptoms. An antibiotic is indicated for discernible left ear redness and sinus disease, addressing potential infections causing dizziness. Flonase was advised to reduce sinus symptoms without dependency; reassurance was given against typical concerns. Monitoring progress and adjusting treatment is essential. Patient was informed and verbally consented to the use of an ambient scribe for clinic note documentation during this visit. During the consultation, I deliberated on the diagnosis of Benign Paroxysmal Positional Vertigo (BPPV), reviewing treatment with Meclizine, which can manage vertigo though sometimes it results in sleepiness. I discussed vestibular therapy as an additional treatment option if symptoms persist. An antibiotic was given for the left ear redness to counter infection possibly aggravating dizziness; the risks and benefits were elucidated. Flonase was suggested to manage sinus conditions, with reassurance provided regarding its safety and lack of dependency. Future follow-up was encouraged to assess treatment efficacy and make necessary modifications. Orders: Orders PT Evaluation and Treatment Today H81.10 - Benign paroxysmal vertigo, unspecified ear Medications: New 2 fluticasone propionate 50 mcg/actuation (Flonase Allergy Relief) administer into each nostril 1 spray intranasal DAILY 30 days 16 grams 0RF amoxicillin 500 mg PO Q12H 7 days 14 tabs 0RF Refilled meclizine 25 mg PO BID 5 days PRN 10 tabs 0RF dizziness Patient Instructions: - Take Meclizine as prescribed for dizziness. If drowsiness occurs, use caution with activities. - Begin the antibiotic for the ear infection as instructed. - Use Flonase nasal spray for sinus symptoms to help with dizziness and discomfort. - Attend vestibular therapy if dizziness persists. - Return for follow-up to assess treatment success and make necessary adjustments. - Seek immediate care if symptoms worsen or new symptoms appear.
[2024-10-03 12:29] VITALS: BP 126/80; BMI 28.6
--- OUTSIDE RECORDS SUMMARY | 2024-10-03 13:30 | XMS_ITS | Continuity of Care Document ---
Author Organization [facility] Address [address] [place] [address] [address] [place] [address]- Care Team Providers Care Hairspring Vibrator Name Role Phone Trip Marte MD, Michelle Primary Care Physician Encounter [facility] Date(s): 09/25/24 - 10/02/[address] [place] [address]- Attending Physician: Not on Staff, Attending MD Encounter Type: Office Visit Allergies, Adverse Reactions, Alerts No Known Allergies [...] 10:28:00 AM EDT, Route to Pharmacy Electronically, [facility], Partial fill upon patient request [...] Most recent to oldest [Reference Range]: 1 Height 175 cm (09/25/24 1:22 PM) Pulse Rate [55-90 bpm] 80 bpm (09/25/24 1:22 PM) Blood Pressure [90-138/55-84 mm Hg] 145/ 80mm Hg *H* (09/25/24 1:22 PM) Temperature [96.8-100.4 DegF] 97.6 DegF (09/25/24 1:22 PM) Blood pressure sites Arm, left (09/25/24 1:22 PM) Temperature Route Temporal (09/25/24 1:22 PM) Patient Care team information Care Team Personnel Name: Martha Sloan RN Position: S RN Member Role: Primary Care Nurse Name: Trip Marte MD , Meagan Mathews Position: Reference Physician Member Role: PCP Address: [address] [place] [address] [address] [place] [address]- Telecom: Name: Letty Gibson RN Position: S RN Member Role: Primary Care Nurse Care Team Related Persons Name: CIPRIANO LAYNE Name: NONE, GIVEN Insurance Providers Guarantor name: KULDEEP Health Plan Information #: 2 Payer: ipadio [facility] DIRECT Member Number: [id number] Policy Number: KULDEEP Group Number: KULDEEP Health Plan Information #: 1 Payer: [employer] Member Number: [id number] Policy Number: KULDEEP Group Number: [id number]
--- OUTSIDE RECORDS SUMMARY | 2024-10-03 13:30 | XMS_ITS ---
Author Organization [facility] Address [address] [place] [address] Care Team Providers Care Office Services Associate Name Role Phone Meagan De La Cruz Primary Care Provider Frankie Joyner Jr REASON FOR VISIT epigastric pain Encounters Encounter Location Date Provider Diagnosis [facility] [address] [place] [address] 05/29/2023 Frankie Vences Jr Plan Of Treatment No Information Progress Notes * JACQUELINE MCDONALDDOB:[birth year] (58 yo M)Acc No.[id number]:05/29/2023 Progress Notes Patient:?JACQUELINE MCDONALD Provider:?Frankie Vences MD :1965???Age:57 Y???Sex:Male Zay e:05/29/2023 Address:[address] [place] [address] , [place] Pcp:Meagan Marte Subjective: * Chief Complaints: * [...] MD Date:?1 07/29/2022 Generated for Fabio hidalgo/Kristen/eTransmitting on:?10/03/2024 01:30 PM EDT
--- OUTSIDE RECORDS SUMMARY | 2024-10-03 13:31 | XMS_ITS ---
Author Organization [facility] Address [address] [place] [address] Care Team Providers Care Teacher Theater Arts Name Role Phone Meagan De La Cruz Primary Care Provider UnavailFrankie Monaco Jr Unavailable Allergies No Known Allergies REASON FOR VISIT [...] Problem Status W/U Status Risk Notes Problem [id number] Gastroesophageal reflux disease without esophagitis (K21.9) Active confirmed Vital Signs Temperature 97.3 degrees Fahrenheit 08/09/19 24 Blood pressure systolic 00 mm Hg 08/09/19 24 Blood pressure diastolic 00 mm Hg 024 Height 69 in 08/09/2023 Weight 197 lbs 08/09/2023 BMI 29.09 kg/m2 08/09/2023 Encounters Encounter Location Date Provider Diagnosis [facility] [address] [place] [address] 08/09/2023 Frankie Vences Jr Gastroesophageal reflux disease [...] * JACQUELINE MCDONALDDOB:[birth year] (57 yo M)Acc No.[id number]:08/09/2023 Progress Notes Patient:?JACQUELINE MCDONALD Provider:?Frankie Vences MD :1965???Age:57 Y???Sex:Male Zay e:08/09/2023 Address:[address] [place] [address] [address] , [place] Pcp:Meagan Marte Subjective: * Chief Complaints: * [...] MD Date:?0 08/09/2023 Generated for Fabio hidalgo/Kristen/Rodneyitting on:?10/03/2024 01:31 PM EDT History and Physical Notes * [...]
--- OUTSIDE RECORDS SUMMARY | 2024-10-03 13:31 | XMS_ITS | Patient Health Record ---
Author Organization [facility] Address [address] [place] [address] Care Team Providers Care Ironmolder Name Role Phone Meagan De La Cruz [...] Problem Status W/U Status Risk Notes Problem 143465917 Colon cancer screening (Z12.11) Active confirmed Problem 25789640 Rectal bleeding (K62.5) Active confirmed Problem 72698763 Epigastric pain (R10.13) Active confirmed Problem 713350076 Gastroesophageal reflux disease without esophagitis (K21.9) Active confirmed Problem 345439234 Abnormal CT scan , stomach (R93.3) Active confirmed Problem 48758778 Diarrhea, unspecified type (R19.7) Active confirmed Plan [...] Insured Coverage Start Date Coverage End Date [facility] [address] [address] [place], [place] [id number] JACQUELINE MCDONALD Self - patient is the insured Medical (General) History Medical History History ICD Code Hypertension HIV Fatty liver Pneumonia Gout Anxiety Gastroesophageal reflux dise ase, EGD 02/21, no Horne's esophagus or H. pylori Colonoscopy 02/21, no polyps, ten-year fo llowup Surgical History Surgery Date(Month/Year)
--- OUTSIDE RECORDS SUMMARY | 2024-10-03 13:31 | XMS_ITS | Clinical Summary ---
Author Organization [facility] Address [address] [place] [address] Phone Care Team Providers Care Salon Sales Consultant Name Role Phone Meagan De La Cruz MD Primary Care Provider [phone] Allergies No known active allergies Medications albuterol [...] Colorectal Cancer Screening: Sigmoidoscopy 2013 Influenza Vaccine (Season Ended) 2025 Colorectal Cancer Screening: Colonoscopy 02/12/2032 02/11/2022, 08/02/2019 Insurance [employer] [facility] Care Teams Salon Sales Consultant Relationship Specialty Start Date End Date Meagan De La Cruz MD [address] [place] [address] PCP - General Internal Medicine 03/23/22
== END 2024-10-03 12:49 | disposition home or self-care (01) ==
LOC: HO.HMCH 12:24
PROVIDERS: PCP Internal Medicine; Visit Provider Internal Medicine
DX: Z09 Encounter for follow-up examination after completed treatment for conditions other than malignant neoplasm (principal); H81.12 Benign paroxysmal vertigo, left ear; J01.00 Acute maxillary sinusitis, unspecified; H66.92 Otitis media, unspecified, left ear; Z21 Asymptomatic human immunodeficiency virus [HIV] infection status; D64.9 Anemia, unspecified

== ENCOUNTER → 2024-10-03 12:23 | Outpatient (BNVA) | payer OTHER, SELFPAY | PROVIDERS: PCP Internal Medicine; Visit Provider Internal Medicine | DX: D64.9 Anemia, unspecified (principal); H81.12 Benign paroxysmal vertigo, left ear; J01.00 Acute maxillary sinusitis, unspecified; H66.92 Otitis media, unspecified, left ear; Z09 Encounter for follow-up examination after completed treatment for conditions other than malignant neoplasm; Z21 Asymptomatic human immunodeficiency virus [HIV] infection status | CPT/HCPCS: 99212 ==

== ENCOUNTER 2024-10-07 15:16 | Outpatient (AMB) | payer OTHER, SELFPAY ==
--- NOTE | 2024-10-07 15:50 | MHC.OFFVIS ---
Intake Visit Reasons: Followup Intake Note: Patient is present for a follow up/PSA PSA:0.77 Urology Medications: Allopurinol Antibiotic Allergy: None Blood Thinner: None Ceo & Board Director Required: Yes Ceo & Board Director Language: Malay Accompanied by: Self / Same As Patient Allergies No Known Allergies [No Known Allergies*] Allergy (Verified 10/07/24 16:03) HPI Comments Details: 07/15/24--Brian is a 58-year-old Malay-speaking male who complains of slowing of urinary stream and dribbling. The patient is a 58-year-old male with HIV and anemia. Bladder scan PVR today was within normal limits. I have discussed trial of tamsulosin. Discussed side effects of dizziness and retrograde ejaculation. We will check a screening PSA. Renal/bladder ultrasound. Follow-up in 2-3 months. The patient states he has had some swelling and pain in his neck. He was advised to go to urgent care. [facility] Medical History Mild major depression Right hip pain Bleeding hemorrhoids Pneumonia Shortness of breath Cough Hyperlipidemia HTN (hypertension) Abdominal pain Anxiety Gout Right shoulder pain Left shoulder pain Hand numbness Screen for STD (sexually transmitted disease) Syphilis HIV (human immunodeficiency virus infection) Surgical History History of bronchoscopy History of esophagogastroduodenoscopy (EGD) H/O colonoscopy Family History Father ALS (amyotrophic lateral sclerosis) Diabetes Hypertension Mother Liver cirrhosis Brother Liver cirrhosis Sister Hyperlipidemia Paternal Grandmother Cancer Paternal Aunt Cancer Family/Other FH: mental illness Substance use disorder Social History Household Members: Friend(s) and None Housing: Other Alcohol intake: current Alcohol intake frequency: holidays/special occasions only Alcohol type: hard liquor Patient Tobacco Use Status: Current someday Tobacco user Tobacco use type: Cigarette Years Smoked: 30 e-Cigarette/Vaping Use: Never Used Second Hand Smoke Exposure: No service: No Current occupational status: unemployed Cognitive needs: No Hearing needs: No Vision needs: No Results Reviewed Results Reviewed: Date of Service: 09/25/24 EXAMINATION: US RETROPERITONEUM HISTORY: N40.1 - Benign prostatic hyperplasia with lower urinary tract symptoms TECHNIQUE: Real-time grayscale ultrasound imaging of the kidneys was performed and images were reviewed. COMPARISON: Comparison is made with the prior examination dated 08/12/2022. FINDINGS: Right kidney: The right kidney measures 11.2 x 5.2 x 6.4 cm. Renal parenchymal echotexture and thickness are normal. There are no masses. There is no hydronephrosis or renal calculi. Left Kidney: The left kidney measures 11.2 x 5.4 x 5.6 cm. Renal parenchymal echotexture and thickness are normal. There are no masses. There is no hydronephrosis or renal calculi. The urinary bladder is unremarkable. Bilateral ureteral jets are identified. Before voiding, the urinary bladder measured 6.9 x 8.1 x 5.7 cm, for an estimated volume of 166 mL. After voiding, the urinary bladder measured 2.2 x 1.5 x 1.7 cm for an estimated volume of 3 mL. The prostate measures 3.5 x 3.5 x 3.5 cm and demonstrates calcifications. IMPRESSION: Unremarkable renal ultrasound. Post void bladder residual 3 mL. Assessment & Plan Assessment & Plan Medications: Refilled tamsulosin (Flomax) 0.4 mg PO BEDTIME 30 caps 3RF Coding
--- OUTSIDE RECORDS SUMMARY | 2024-10-07 18:04 | XMS_ITS ---
Author Organization [facility] Address [address] [place] [address] Care Team Providers Care Bundle Wrapper Name Role Phone Meagan De La Cruz Primary Care Provider Frankie Joyner Jr REASON FOR VISIT epigastric pain Encounters Encounter Location Date Provider Diagnosis [facility] [address] [place] [address] 05/29/2023 Frankie Vences Jr Plan Of Treatment No Information Progress Notes * JACQUELINE MCDONALDDOB:[birth year] (59 yo M)Acc No.[id number]:05/29/2023 Progress Notes Patient:?JACQUELINE MCDONALD Provider:?Frankie Vences MD :1965???Age:57 Y???Sex:Male Zay e:05/29/2023 Address:[address] [place] [address] , [place] Pcp:Meagan Marte Subjective: * Chief Complaints: * [...] MD Date:?1 07/29/2022 Generated for Fabio hidalgo/Kristen/eTransmitting on:?10/07/2024 06:04 PM EDT
--- OUTSIDE RECORDS SUMMARY | 2024-10-07 18:05 | XMS_ITS | Patient Health Record ---
Author Organization [facility] Address [address] [place] [address] Care Team Providers Care Demolition Specialist Name Role Phone Meagan De La [...] Problem Status W/U Status Risk Notes Problem 553644524 Colon cancer screening (Z12.11) Active confirmed Problem 33030552 Rectal bleeding (K62.5) Active confirmed Problem 15076428 Epigastric pain (R10.13) Active confirmed Problem 851718468 Gastroesophageal reflux disease without esophagitis (K21.9) Active confirmed Problem 788553079 Abnormal CT scan , stomach (R93.3) Active confirmed Problem 68841475 Diarrhea, unspecified type (R19.7) Active confirmed Plan [...] Insured Coverage Start Date Coverage End Date [facility] [address] [address] [place], [place] [id number] JACQUELINE MCDONALD Self - patient is the insured Medical (General) History Medical History History ICD Code Hypertension HIV Fatty liver Pneumonia Gout Anxiety Gastroesophageal reflux dise ase, EGD 02/21, no Horne's esophagus or H. pylori Colonoscopy 02/21, no polyps, ten-year fo llowup Surgical History Surgery Date(Month/Year)
--- OUTSIDE RECORDS SUMMARY | 2024-10-07 18:05 | XMS_ITS ---
Author Organization [facility] Address [address] [place] [address] Care Team Providers Care Redrying Machine Operator Name Role Phone Meagan De La [...] Problem Status W/U Status Risk Notes Problem 930131222 Gastroesophageal reflux disease without esophagitis (K21.9) Active confirmed Vital Signs Temperature 97.3 degrees Fahrenheit 08/09/19 24 Blood pressure systolic 00 mm Hg 08/09/19 24 Blood pressure diastolic 00 mm Hg 024 Height 69 in 08/09/2023 Weight 197 lbs 08/09/2023 BMI 29.09 kg/m2 08/09/2023 Encounters Encounter Location Date Provider Diagnosis [facility] [address] [place] [address] 08/09/2023 Frankie Vences Jr Gastroesophageal reflux disease [...] * JACQUELINE MCDONALDDOB:[birth year] (57 yo M)Acc No.[id number]:08/09/2023 Progress Notes Patient:?JACQUELINE MCDONALD Provider:?Frankie Vences MD :1965???Age:57 Y???Sex:Male Zay e:08/09/2023 Address:[address] [place] [address] [address] , [place], [place] Pcp:Meagan Marte Subjective: * Chief Complaints: * [...] MD Date:?0 08/09/2023 Generated for Fabio hidalgo/Kristen/Rodneyitting on:?10/07/2024 06:05 PM EDT History and Physical Notes * [...]
--- OUTSIDE RECORDS SUMMARY | 2024-10-07 18:05 | XMS_ITS | Clinical Summary ---
Author Organization [facility] Address [address] [place] [address] Phone Care Team Providers Care Manager Environmental Services Name Role Phone Meagan De La Cruz MD Primary Care Provider [phone] Allergies No known active allergies Medications albuterol [...] Due Date Last Done Comments Pneumococcal Vaccine: Pediatrics (0 to 5 Years) and At-Risk Patients (6 to 64 Years) (1 of 2 - PCV) 1970 Colorectal Cancer Screening: Annual FOBT 2013 Colorectal Cancer Screening: Sigmoidoscopy 2013 Influenza Vaccine (Season Ended) 2025 Colorectal Cancer Screening: Colonoscopy 02/12/2032 02/11/2022, 08/02/2019 Hepatitis B Vaccine Aged Out No longe r eligible based on patient's age to complete this [place] [address] [place] [address] [place] [address] [employer] Care Teams Manager Environmental Services Relationship Specialty Start Date End Date Meagan De La Cruz MD [address] [place], [place] PCP - General Internal Medicine 03/23/22
== END 2024-10-07 16:32 | disposition home or self-care (01) ==
LOC: HO.HUSH 15:17
PROVIDERS: PCP Internal Medicine; Visit Provider Urology
DX: Z13.9 Encounter for screening, unspecified (principal)

== ENCOUNTER → 2024-10-07 15:16 | Outpatient (BNVA) | payer OTHER, SELFPAY | PROVIDERS: PCP Internal Medicine; Visit Provider Urology | DX: N40.1 Benign prostatic hyperplasia with lower urinary tract symptoms (principal); N39.43 Post-void dribbling | CPT/HCPCS: 81003; 99212 ==

== ENCOUNTER 2024-11-18 09:19 | Outpatient (REF) | payer OTHER, SELFPAY ==
--- NOTE | ~2024-11-18 | XR_ITS ---
EXAMINATION: XR CHEST CLINICAL INFORMATION: S22.32XA - Fracture of one rib, left side, initial encounter for closed ... COMPARISON: 09/26/2024, 07/15/2024. TECHNIQUE: 2 views of the chest were obtained. FINDINGS: The cardiac, hilar, and mediastinal contours are normal. The lungs again demonstrate increased fine reticular interstitial markings bilaterally. Calcified granuloma in the lateral mid lung abutting the chest wall. There is no pneumothorax or pleural effusion. There is no focal osseous or soft tissue abnormality. Specifically, no acute or healing rib fracture is identified on the left. XR/XR chest 2V IMPRESSION: 1. Stable appearance of the lungs with increased fine reticular interstitial pattern. No focal pneumonia. 2. No discrete healing or acute rib fractures identified on this 2 view chest. Electronically signed by: Jayson Adams MD 11/18/2024 10:07 AM EDT
--- OUTSIDE RECORDS SUMMARY | 2024-11-18 09:33 | XMS_ITS ---
Author Organization [facility] Address [address] [place] [address] Care Team Providers Care Hvac R Instructor Name Role Phone Meagan De La Cruz Primary Care Provider Frankie Joyner Jr REASON FOR VISIT epigastric pain Encounters Encounter Location Date Provider Diagnosis [facility] [address] [place] [address] 05/29/2023 Frankie Vences Jr Plan Of Treatment No Information Progress Notes * JACQUELINE MCDONALDDOB:[birth year] (59 yo M)Acc No.[id number]:05/29/2023 Progress Notes Patient:?JACQUELINE MCDONALD Provider:?Frankie Vences MD :1965???Age:57 Y???Sex:Male Zay e:05/29/2023 Address:[address] [place] [address] , [place] Pcp:Meagan Marte Subjective: * Chief Complaints: * [...] MD Date:?1 07/29/2022 Generated for Fabio hidalgo/Kristen/eTransmitting on:?11/18/2024 09:33 AM EDT
--- OUTSIDE RECORDS SUMMARY | 2024-11-18 09:33 | XMS_ITS | Clinical Summary ---
Author Organization [facility] Address [address] [place] [address] Phone Care Team Providers Care Diver Pumper Name Role Phone Meagan De La Cruz MD Primary Care Provider [phone] Allergies No known active allergies Medications albuterol [...] Due Date Last Done Comments Pneumococcal Vaccine: 50+ Years (1 of 2 - PCV) 10/06/1983 Colorectal Cancer Screening: Annual FOBT 2013 Colorectal Cancer Screening: Sigmoidoscopy 2013 Influenza Vaccine (Season Ended) 2025 Colorectal Cancer Screening: Colonoscopy 02/12/2032 02/11/2022, 08/02/2019 Hepatitis B Vaccine Aged Out No longe r eligible based on patient's age to complete this [place] [address] [place] [address] [place] [address] Care Teams Diver Pumper Relationship Specialty Start Date End Date Meagan De La Cruz MD [address] [place] [address] PCP - General Internal Medicine 03/23/22
--- OUTSIDE RECORDS SUMMARY | 2024-11-18 09:33 | XMS_ITS ---
Author Organization [facility] Address [address] [place] [address] Care Team Providers Care Business Process Manager Name Role Phone Meagan De La [...] Problem Status W/U Status Risk Notes Problem 943300209 Gastroesophageal reflux disease without esophagitis (K21.9) Active confirmed Vital Signs Temperature 97.3 degrees Fahrenheit 08/09/19 24 Blood pressure systolic 00 mm Hg 08/09/19 24 Blood pressure diastolic 00 mm Hg 024 Height 69 in 08/09/2023 Weight 197 lbs 08/09/2023 BMI 29.09 kg/m2 08/09/2023 Encounters Encounter Location Date Provider Diagnosis [facility] [address] [place] [address] 08/09/2023 Frankie Vences Jr Gastroesophageal reflux disease [...] * JACQUELINE MCDONALDDOB:[birth year] (57 yo M)Acc No.[id number]:08/09/2023 Progress Notes Patient:?JACQUELINE MCDONALD Provider:?Frankie Vences MD :1965???Age:57 Y???Sex:Male Zay e:08/09/2023 Address:[address] [place] [address] [address] , [place] Pcp:Meagan Marte Subjective: * Chief Complaints: * [...] MD Date:?0 08/09/2023 Generated for Fabio hidalgo/Kristen/Rodneyitting on:?11/18/2024 09:33 AM EDT History and Physical Notes * HPI [...]
--- OUTSIDE RECORDS SUMMARY | 2024-11-18 09:33 | XMS_ITS | Patient Health Record ---
Author Organization [facility] Address [address] [place] [address] Care Team Providers Care Science Writer Name Role Phone Meagan De La Cruz Primary Care Provider UnavailFrankie Monaco Jr Unavailable [phone] Allergies No Known Allergies Reason For Referral No Information Medications Medication SIG (Take, Route, Frequency, Duration) Notes Start Date End Date Status valACYclovir HCl 1 GM TAKE 1 TABLET BY M OUTH TWICE A DAY Oral for 30 Active Biktarvy 50-200-25 MG TOME CALIXTO TABLETA T ODOS LOS D? Oral for 30 Active Albuterol Sulfate 108 (90 Base) MCG/ACT 1 puff as needed Inhalation every 4 hrs Active Pantoprazole Sodium 40 MG TAKE 1 TABLET BY MOUTH DAILY Active Flexeril 5 MG 1 tablet at [...] Problem Status W/U Status Risk Notes Problem 463394271 Colon cancer screening (Z12.11) Active confirmed Problem 52123757 Rectal bleeding (K62.5) Active confirmed Problem 78040298 Epigastric pain (R10.13) Active confirmed Problem 147316391 Gastroesophageal reflux disease without esophagitis (K21.9) Active confirmed Problem 776508732 Abnormal CT scan , stomach (R93.3) Active confirmed Problem 23702433 Diarrhea, unspecified type (R19.7) Active confirmed Plan [...] Insured Coverage Start Date Coverage End Date [facility] [address] [address] [place], [place] [id number] JACQUELINE MCDONALD Self - patient is the insured Medical (General) History Medical History History ICD Code Hypertension HIV Fatty liver Pneumonia Gout Anxiety Gastroesophageal reflux dise ase, EGD 02/21, no Horne's esophagus or H. pylori Colonoscopy 02/21, no polyps, ten-year fo llowup Surgical History Surgery Date(Month/Year)
[2024-11-18 11:30] LABS: Potassium 4.5 mmol/L (3.3-5.1)
== END 2024-11-18 09:20 | disposition home or self-care (01) ==
LOC: HO.XRAY 09:19
PROVIDERS: PCP Internal Medicine; Visit Provider Internal Medicine
DX: S22.32XA Fracture of one rib, left side, initial encounter for closed fracture (principal); E87.6 Hypokalemia
CPT/HCPCS: 36415; 71046; 84132

== ENCOUNTER → 2024-11-18 09:26 | Outpatient (BNV) | payer OTHER, SELFPAY | PROVIDERS: PCP Internal Medicine; Visit Provider Radiology Diagnostic Radiology | DX: J84.10 Pulmonary fibrosis, unspecified (principal) | CPT/HCPCS: 71046 ==

== ENCOUNTER 2024-11-20 14:00 | Outpatient (AMB) | payer OTHER, SELFPAY ==
--- OUTSIDE RECORDS SUMMARY | 2024-11-20 14:29 | XMS_ITS | Patient Health Record ---
Author Organization [facility] Address [address] [place] [address] Care Team Providers Care Twister Tender Name Role Phone Meagan De La Cruz Primary Care Provider UnavailFrankie Monaco Jr Unavailable [phone] Allergies No Known Allergies Reason For [...] Problem Status W/U Status Risk Notes Problem 853802131 Colon cancer screening (Z12.11) Active confirmed Problem 11717457 Rectal bleeding (K62.5) Active confirmed Problem 14226449 Epigastric pain (R10.13) Active confirmed Problem 990186943 Gastroesophageal reflux disease without esophagitis (K21.9) Active confirmed Problem 437366499 Abnormal CT scan , stomach (R93.3) Active confirmed Problem 05766458 Diarrhea, unspecified type (R19.7) Active confirmed Plan [...] Insured Coverage Start Date Coverage End Date [facility] [address] [address] [place], [place] [id number] JACQUELINE MCDONALD Self - patient is the insured Medical (General) History Medical History History ICD Code Hypertension HIV Fatty liver Pneumonia Gout Anxiety Gastroesophageal reflux dise ase, EGD 02/21, no Horne's esophagus or H. pylori Colonoscopy 02/21, no polyps, ten-year fo llowup Surgical History Surgery Date(Month/Year)
--- OUTSIDE RECORDS SUMMARY | 2024-11-20 14:29 | XMS_ITS | Clinical Summary ---
Author Organization [facility] Address [address] [place] [address] Phone Care Team Providers Care Geophysical Prospecting Permit Agent Name Role Phone Meagan De La Cruz MD Primary Care Provider [phone] Allergies No known active allergies Medications albuterol [...] patient's age to complete this topic [place] [address] [place] [address] [employer] Care Teams Geophysical Prospecting Permit Agent Relationship Specialty Start Date End Date Meagan De La Cruz MD [address] [place] [address] PCP - General Internal Medicine 03/23/22
--- OUTSIDE RECORDS SUMMARY | 2024-11-20 14:29 | XMS_ITS ---
Author Organization [facility] Address [address] [place] [address] Care Team Providers Care Credit Office Manager Name Role Phone Meagan De La [...] Problem Status W/U Status Risk Notes Problem 306195391 Gastroesophageal reflux disease without esophagitis (K21.9) Active confirmed Vital Signs Temperature 97.3 degrees Fahrenheit 08/09/19 24 Blood pressure systolic 00 mm Hg 08/09/19 24 Blood pressure diastolic 00 mm Hg 024 Height 69 in 08/09/2023 Weight 197 lbs 08/09/2023 BMI 29.09 kg/m2 08/09/2023 Encounters Encounter Location Date Provider Diagnosis [facility] [address] [place] [address] 08/09/2023 Frankie Vences Jr Gastroesophageal reflux disease [...] * JACQUELINE MCDONALDDOB:[birth year] (57 yo M)Acc No.[id number]:08/09/2023 Progress Notes Patient:?JACQUELINE MCDONALD Provider:?Frankie Vences MD :1965???Age:57 Y???Sex:Male Zay e:08/09/2023 Address:[address] [place] [address] [address] , [place] Pcp:Meagan Marte Subjective: * Chief Complaints: * [...] MD Date:?0 08/09/2023 Generated for Fabio hidalgo/Kristen/Rodneyitting on:?11/20/2024 02:29 PM EDT History and Physical Notes * [...]
--- OUTSIDE RECORDS SUMMARY | 2024-11-20 14:29 | XMS_ITS ---
Author Organization [facility] Address [address] [place] [address] Care Team Providers Care Credentialing Analyst Name Role Phone Meagan De La Cruz Primary Care Provider Frankie Joyner Jr REASON FOR VISIT epigastric pain Encounters Encounter Location Date Provider Diagnosis [facility] [address] [place] [address] 05/29/2023 Frankie Vences Jr Plan Of Treatment No Information Progress Notes * JACQUELINE MCDONALDDOB:[birth year] (59 yo M)Acc No.[id number]:05/29/2023 Progress Notes Patient:?JACQUELINE MCDONALD Provider:?Frankie Vences MD :1965???Age:57 Y???Sex:Male Zay e:05/29/2023 Address:[address] [place] [address] , [place] Pcp:Meagan Marte Subjective: * Chief Complaints: * [...] MD Date:?1 07/29/2022 Generated for Fabio hidalgo/Kristen/eTransmitting on:?11/20/2024 02:28 PM EDT
--- NOTE | 2024-11-20 14:54 | MHC.OFFVIS ---
Intake Visit Reasons: f/u meds Intake Note: Patient is present for a med follow up Urology Medications: Allopurinol Antibiotic Allergy: None Blood Thinner: None Chip Silo Tender Required: Yes Chip Silo Tender Language: Angolan Information Interpreted: non-clinical & clinical Accompanied by: Self / Same As Patient Allergies No Known Allergies [No Known Allergies*] Allergy (Verified 11/20/24 15:01) HPI Comments Details: 11/20/24--Brian is here for follow-up. He is referred due to BPH and obstructive voiding symptoms. He was prescribed tamsulosin. Urinalysis today is negative for bladder leukocytes. Past medical history significant for HIV and anemia Results: PSA 08/2024--0.77 ng/mL Ultrasound bladder and kidneys-- 09/25/2024-within normal limits 10/07/34-- Brian is here in follow up, LV--07/15/24--Brian is a 58-year-old Angolan-speaking male who complains of slowing of urinary stream and dribbling. The patient is a 58-year-old male with HIV and anemia. Bladder scan PVR today was within normal limits. I have discussed trial of tamsulosin. Discussed side effects of dizziness and retrograde ejaculation. He was sent for renal/Bladder US and PSA screening. Reviewed results, are WNL, tamsulosin daily. Results: US Retroperitoneum- kidneys/bladder within normal limits, PVR minimal. PSA- 09/19/24--0.77 ng/mL [facility] Medical History Mild major depression Right hip pain Bleeding hemorrhoids Pneumonia Shortness of breath Cough Hyperlipidemia HTN (hypertension) Abdominal pain Anxiety Gout Right shoulder pain Left shoulder pain Hand numbness Screen for STD (sexually transmitted disease) Syphilis HIV (human immunodeficiency virus infection) Surgical History History of bronchoscopy History of esophagogastroduodenoscopy (EGD) H/O colonoscopy Family History Father ALS (amyotrophic lateral sclerosis) Diabetes Hypertension Mother Liver cirrhosis Brother Liver cirrhosis Sister Hyperlipidemia Paternal Grandmother Cancer Paternal Aunt Cancer Family/Other FH: mental illness Substance use disorder Social History Household Members: Friend(s) and None Housing: Other Alcohol intake: current Alcohol intake frequency: holidays/special occasions only Alcohol type: hard liquor Patient Tobacco Use Status: Current someday Tobacco user Tobacco use type: Cigarette Years Smoked: 30 e-Cigarette/Vaping Use: Never Used Second Hand Smoke Exposure: No service: No Current occupational status: unemployed Cognitive needs: No Hearing needs: No Vision needs: No Results AMB Urinalysis, Automated UA Leukoctes 0 Noemy/uL Last Edit by Merline Faria on 11/20/24 16:06 UA Nitrite Negative Last Edit by Merline Faria on 11/20/24 16:06 UA Urobilinogen 3.5 mg/dL Last Edit by Merline Faria on 11/20/24 16:06 UA Protein 0 mg/dL Last Edit by Merline Faria on 11/20/24 16:06 UA pH 6.0 Last Edit by Merline Faria on 11/20/24 16:06 UA Blood 0 Jovanni/uL Last Edit by Merline Faria on 11/20/24 16:06 UA Specific [place] 1.015 Last Edit by Merline Faria on 11/20/24 16:06 UA Ketone Negative Last Edit by Merline Faria on 11/20/24 16:06 UA Bilirubin 0 mg/dL Last Edit by Merline Faria on 11/20/24 16:06 UA Glucose 0 mg/dL Last Edit by Merline Fraia on 11/20/24 16:06 Assessment & Plan Assessment & Plan (1) Screening for prostate cancer: Code(s): Z12.5 - Encounter for screening for malignant neoplasm of prostate Category: Medical (2) BPH loc w urin obs/LUTS: Code(s): N40.1 - Benign prostatic hyperplasia with lower urinary tract symptoms Category: Medical (3) Benign prostatic hyperplasia with post-void dribbling: Code(s): N40.1 - Benign prostatic hyperplasia with lower urinary tract symptoms; N39.43 - Post-void dribbling Category: Medical Plan alfuzosin ER administer after the same meal each day 10 mg PO DAILY 90 tabs 3RF Orders: Orders AMB Urinalysis Automated Today Z13.9 - Encounter for screening, unspecified Medications: New alfuzosin ER administer after the same meal each day 10 mg PO DAILY 90 tabs 3RF Patient Instructions: The patient had an opportunity to ask questions regarding treatment plan. The patient expressed understanding and agreement with the above treatment plan. The patient is aware they should contact our office by phone for worsening of their current condition or the appearance of new symptoms. Compliance is encouraged with any medications and followup testing that is ordered. It is a privilege to be allowed the opportunity to participate in the urologic care of your patient. If you have any questions or concerns regarding treatment for the above conditions please do not hesitate to contact me. The office telephone contact is [phone]. This note is constructed in part using voice recognition software. While every effort has been made to ensure accuracy stitch bonding machine operator errors may have been included. Yours sincerely, Efren Alanis MD Coding Level of Care Code Est Pt Level 4 (94807) Diagnoses Screening for prostate cancer Z12.5 BPH loc w urin obs/LUTS N40.1 Benign prostatic hyperplasia with post-void dribbling N40.1; N39.43
== END 2024-11-20 15:34 | disposition home or self-care (01) ==
PROVIDERS: PCP Internal Medicine; Visit Provider Urology
DX: Z13.9 Encounter for screening, unspecified (principal)

== ENCOUNTER → 2024-11-20 14:00 | Outpatient (BNVA) | payer OTHER, SELFPAY | PROVIDERS: PCP Internal Medicine; Visit Provider Urology | DX: Z12.5 Encounter for screening for malignant neoplasm of prostate (principal); N40.1 Benign prostatic hyperplasia with lower urinary tract symptoms; N39.43 Post-void dribbling | CPT/HCPCS: 81003; 99212 ==

== ENCOUNTER 2024-12-31 13:07 | Outpatient (REF) | payer OTHER, SELFPAY ==
--- OUTSIDE RECORDS SUMMARY | 2024-12-31 14:10 | XMS_ITS | Patient Health Record ---
Author Organization [facility] Address [address] [place] [address] Care Team Providers Care Certified Master Locksmith Name Role Phone Meagan De La Cruz Primary Care Provider UnavailFrankie Monaco Jr Unavailable [phone] Allergies No Known Allergies Reason For [...] Problem Status W/U Status Risk Notes Problem 644403719 Colon cancer screening (Z12.11) Active confirmed Problem 09553016 Rectal bleeding (K62.5) Active confirmed Problem 06770307 Epigastric pain (R10.13) Active confirmed Problem 965851765 Gastroesophageal reflux disease without esophagitis (K21.9) Active confirmed Problem 021022891 Abnormal CT scan , stomach (R93.3) Active confirmed Problem 10744464 Diarrhea, unspecified type (R19.7) Active confirmed Plan [...] Insured Coverage Start Date Coverage End Date [facility] [address] [address] [place], [place] [id number] JACQUELINE MCDONALD Self - patient is the insured Medical (General) History Medical History History ICD Code Hypertension HIV Fatty liver Pneumonia Gout Anxiety Gastroesophageal reflux dise ase, EGD 02/21, no Horne's esophagus or H. pylori Colonoscopy 02/21, no polyps, ten-year fo llowup Surgical History Surgery Date(Month/Year)
--- OUTSIDE RECORDS SUMMARY | 2024-12-31 14:10 | XMS_ITS | Clinical Summary ---
Author Organization [facility] Address [address] [place] [address] Phone Care Team Providers Care Lighting Specialist Name Role Phone Meagan De La Cruz MD Primary Care Provider [phone] Allergies No known active allergies Medications albuterol [...] patient's age to complete this topic [place] [address] [place] [address] [place] [address] Care Teams Lighting Specialist Relationship Specialty Start Date End Date Meagan De La Cruz MD [address] [place] [address] PCP - General Internal Medicine 03/23/22
[2024-12-31 14:27] LABS: Anion Gap 10 (12-20); Blood Urea Nitrogen 19 mg/dL (9-16); Carbon Dioxide 28 mmol/L (22-29); Chloride 107 mmol/L (96-108); Estimated Glomerular Filt Rate > 60; Potassium 4.4 mmol/L (3.3-5.1); Sodium 141 mmol/L (135-145)
== END 2024-12-31 13:08 | disposition home or self-care (01) ==
LOC: HO.LAB 13:07
PROVIDERS: PCP Internal Medicine; Visit Provider Internal Medicine Nephrology
DX: N18.2 Chronic kidney disease, stage 2 (mild) (principal)
CPT/HCPCS: 36415; 80051; 82565; 84520

== ENCOUNTER 2025-01-08 10:34 | Outpatient (AMB) | payer OTHER, SELFPAY ==
[2025-01-08 10:50] VITALS: BP 120/70; PULSE 75; O2SAT 96; BMI 28.8
--- NOTE | 2025-01-08 10:50 | HO.NEPHOV ---
Vital Signs 01/08/25 10:50 Height 5 ft 9 in Weight 195 lb BMI 28.8 BP 120/70 Blood Pressure Location Rt brachial Position Sitting Pulse 75 Pulse Source Pulse Oximeter Pulse Oximetry (%) 96 Oxygen Delivery Method Room Air Intake Visit Reasons: CKD-Conf Life Specialist Required: Yes Life Specialist Name: Federico [id number] Accompanied by: Self / Same As Patient Allergies No Known Allergies (No Known Allergies*) Allergy (Verified 01/08/25 10:54) HPI Comments Details: Brian in follow up for proteinuria. Life Specialist was available throughout the patient encounter. He has HIV and is on anti retrovirals which he claims to be compliant .He denies neuropathy , retinopathy, CAD, CVA, CHF, KISHAN , PAD , hepatitis or carotid stenosis. He has H/O gout but does not take NSAID's regularly. He denies any nausea, vomiting, diarrhea, SOB, edema, PND, orthopnea, hematuria, hearing deficits. He does not take SGLT2i. He has no sinusitis, epistaxis, photosensitivity, bone pain, sore throat , hemoptysis, skin lesions or recent antibiotic intake. He denied any active complaints at the time of this office visit [facility] Medical History Mild major depression Right hip pain Bleeding hemorrhoids Pneumonia Shortness of breath Cough Hyperlipidemia HTN (hypertension) Abdominal pain Anxiety Gout Right shoulder pain Left shoulder pain Hand numbness Screen for STD (sexually transmitted disease) Syphilis HIV (human immunodeficiency virus infection) Surgical History History of bronchoscopy History of esophagogastroduodenoscopy (EGD) H/O colonoscopy Family History Father ALS (amyotrophic lateral sclerosis) Diabetes Hypertension Mother Liver cirrhosis Brother Liver cirrhosis Sister Hyperlipidemia Paternal Grandmother Cancer Paternal Aunt Cancer Family/Other FH: mental illness Substance use disorder Social History Household Members: Friend(s) and None Housing: Other Alcohol intake: current Alcohol intake frequency: holidays/special occasions only Alcohol type: hard liquor Patient Tobacco Use Status: Current someday Tobacco user Tobacco use type: Cigarette Years Smoked: 30 e-Cigarette/Vaping Use: Never Used Second Hand Smoke Exposure: No service: No Current occupational status: unemployed Cognitive needs: No Hearing needs: No Vision needs: No Review of Systems Const All systems reviewed & are unremarkable except as noted in HPI and below Physical Exam Vital Signs: Last Vital Signs Pulse 75 01/08/25 10:50 BP 120/70 01/08/25 10:50 Pulse Ox 96 01/08/25 10:50 Oxygen Delivery Method Room Air 01/08/25 10:50 BMI result Body Mass Index 28.8 Const General: comfortable and no acute distress Orientation/consciousness: patient oriented x3 HEENT Head: Yes normocephalic Mouth: Normal oral and palatal mucosa present Eyes EOM: EOMs intact bilaterally Neck Neck: Yes supple Resp Auscultation: clear to auscultation bilaterally Cardio Jugular venous distension: no JVD Rate: regular rate GI Palpation (GI): Soft to palpation Auscultation: normal bowel sounds General: Yes no CVA tenderness Back/Spine/Pelvis Back: no CVA tenderness Skin General skin exam: no rashes or lesions noted Neuro General: patient oriented x3 and moves all extremities Extrem General: Yes no pedal edema Results Reviewed Nephrology Results: Sodium, (135-145) 141 mmol/L 12/31/24 Potassium, (3.3-5.1) 4.4 mmol/L 12/31/24 Chloride, (96-108) 107 mmol/L 12/31/24 Carbon Dioxide, (22-29) 28 mmol/L 12/31/24 BUN, (9-16) 19 mg/dL H 12/31/24 Creatinine, (0.5-1.4) 1.18 mg/dL 12/31/24 Renal US 08/12/22 Assessment & Plan Assessment & Plan (1) CKD (chronic kidney disease) stage 2, GFR 60-89 ml/min: Code(s): N18.2 - Chronic kidney disease, stage 2 (mild) Category: Medical Plan Has had some protein in the urine- resolved BP has been at goal; Last urine no significant protein Doesn't take NSAID's. On uric acid lowering medications DDx- HIVAN vs other etiology; Last serum creatinine at baseline Not on ACEI. NO renal stones; Maintain good hydration No medication changes done today; 24 hour for cr cl reviewed Answered all questions; F/U given Orders: Orders Protein Creatinine Ratio, Ur 1 Year N18.2 - Chronic kidney disease, stage 2 (mild) Creatinine 1 Year N18.2 - Chronic kidney disease, stage 2 (mild) Blood Urea Nitrogen 1 Year N18.2 - Chronic kidney disease, stage 2 (mild) Electrolytes 1 Year N18.2 - Chronic kidney disease, stage 2 (mild) Coding Level of Care Code Est Pt Level 4 (67651) Diagnoses CKD (chronic kidney disease) stage 2, GFR 60-89 ml/min N18.2
--- OUTSIDE RECORDS SUMMARY | 2025-01-08 11:35 | XMS_ITS | Clinical Summary ---
Author Organization [facility] Address [address] [place] [address] Phone Care Team Providers Care Clinical Research Nurse Name Role Phone Meagan De La Cruz MD Primary Care Provider [phone] Allergies No known active allergies Medications albuterol [...] Cancer Screening: Sigmoidoscopy 2013 Influenza Vaccine (#1) 2025 Colorectal Cancer Screening: Colonoscopy 02/12/2032 02/11/2022, 08/02/2019 Hepatitis B Vaccine Aged Out No longe r eligible based on patient's age to complete this [place] [address] [place] [address] Healthnet Care Teams Clinical Research Nurse Relationship Specialty Start Date End Date Meagan De La Cruz MD [address] [place] [address] PCP - General Internal Medicine 03/23/22
--- OUTSIDE RECORDS SUMMARY | 2025-01-08 11:35 | XMS_ITS | Patient Health Record ---
Author Organization [facility] Address [address] [place] [address] Care Team Providers Care Usps Letter Carrier Name Role Phone Meagan De La Cruz Primary Care Provider UnavailFrankie Monaco Jr Unavailable [phone] Allergies No Known Allergies Reason For [...] Problem Status W/U Status Risk Notes Problem [id number] Colon cancer screening (Z12.11) Active confirmed Problem 01553037 Rectal bleeding (K62.5) Active confirmed Problem 59636152 Epigastric pain (R10.13) Active confirmed Problem 276625453 Gastroesophageal reflux disease without esophagitis (K21.9) Active confirmed Problem 420698670 Abnormal CT scan , stomach (R93.3) Active confirmed Problem 67829689 Diarrhea, unspecified type (R19.7) Active confirmed Plan [...] Date [facility] [address] [address] [place], [place] [phone] [id number] JACQUELINE MCDONALD Self - patient is the insured Medical (General) History Medical History History ICD Code Hypertension HIV Fatty liver Pneumonia Gout Anxiety Gastroesophageal reflux dise ase, EGD 02/21, no Horne's esophagus or H. pylori Colonoscopy 02/21, no polyps, ten-year fo llowup Surgical History Surgery Date(Month/Year)
== END 2025-01-08 11:14 | disposition home or self-care (01) ==
LOC: HO.HKA 10:35
PROVIDERS: PCP Internal Medicine; Visit Provider Internal Medicine Nephrology
DX: N18.2 Chronic kidney disease, stage 2 (mild) (principal)
CPT/HCPCS: 99214

== ENCOUNTER → 2025-01-08 10:34 | Outpatient (BNVA) | payer OTHER, SELFPAY | PROVIDERS: PCP Internal Medicine; Visit Provider Internal Medicine Nephrology | DX: N18.2 Chronic kidney disease, stage 2 (mild) (principal); R80.9 Proteinuria, unspecified | CPT/HCPCS: 99212 ==

== ENCOUNTER 2025-03-11 13:31 | Outpatient (REF) | payer OTHER, SELFPAY ==
--- OUTSIDE RECORDS SUMMARY | 2025-03-11 16:04 | XMS_ITS | Clinical Summary ---
Author Organization [facility] Address [address] [place] [address] Phone Care Team Providers Care Acid Operator Name Role Phone Meagan De La Cruz MD Primary Care Provider [phone] Allergies No known active allergies Medications albuterol [...] patient's age to complete this topic Insurance [place] [address] [place] [address] [employer]net Care Teams Acid Operator Relationship Specialty Start Date End Date Meagan De La Cruz MD [address] [place] [address] PCP - General Internal Medicine 03/23/22
--- OUTSIDE RECORDS SUMMARY | 2025-03-11 16:04 | XMS_ITS | Patient Health Record ---
Author Organization [facility] Address [address] [place] [address] Care Team Providers Care Electronic Scanner Operator Name Role Phone Meagan De La Cruz Primary Care Provider UnavailFrankie Monaco Jr Unavailable [phone] Allergies No Known Allergies Reason For [...] Problem Status W/U Status Risk Notes Problem [id number] Colon cancer screening (Z12.11) Active confirmed Problem 16732537 Rectal bleeding (K62.5) Active confirmed Problem 72447761 Epigastric pain (R10.13) Active confirmed Problem 940430690 Gastroesophageal reflux disease without esophagitis (K21.9) Active confirmed Problem 494794734 Abnormal CT scan , stomach (R93.3) Active confirmed Problem 22856638 Diarrhea, unspecified type (R19.7) Active confirmed Plan [...] Insured Coverage Start Date Coverage End Date [facility] [address] [address] [place], [place] [id number] JACQUELINE MCDONALD Self - patient is the insured Medical (General) History Medical History History ICD Code Hypertension HIV Fatty liver Pneumonia Gout Anxiety Gastroesophageal reflux dise ase, EGD 02/21, no Horne's esophagus or H. pylori Colonoscopy 02/21, no polyps, ten-year fo llowup Surgical History Surgery Date(Month/Year)
[2025-03-12 14:49] LABS: HIV RNA PCR Qn Copies 100 copies/mL (NOT DETECTED); HIV RNA PCR Qn Log Copies 2.00 (NOT DETECTED)
[2025-03-15 21:03] LABS: Absolute CD3 Count 2037 cells/uL (840-3060); Absolute CD8 Count 908 cells/uL (180-1170); Percent CD3 Cells 79 % (57-85); Percent CD8 Cells 35 % (12-42)
== END 2025-03-11 13:32 | disposition home or self-care (01) ==
LOC: HO.LAB 13:31
PROVIDERS: PCP Internal Medicine; Visit Provider Internal Medicine
DX: A53.9 Syphilis, unspecified (principal); Z21 Asymptomatic human immunodeficiency virus [HIV] infection status
CPT/HCPCS: 36415; 86359; 86360; 86592; 87536

== ENCOUNTER 2025-03-28 13:43 | Outpatient (AMB) | payer OTHER, SELFPAY ==
--- NOTE | 2025-03-28 14:21 | MHC.OFFVIS ---
Intake Visit Reasons: 4m/ med follow up Intake Note: Patient is present for a 4m/med follow up Urology Medications:Alfuzosin, Allopurinol Antibiotic Allergy: None Blood Thinner: None Glazing Machine Operator Required: Yes Glazing Machine Operator Language: Assistant Paralegal Name: samantha [id number] Information Interpreted: non-clinical & clinical Accompanied by: Self / Same As Patient Allergies No Known Allergies (No Known Allergies*) Allergy (Verified 03/28/25 14:22) Medication List - Last Reconciled 03/28/25 by Efren Alanis MD acetaminophen mg PO albuterol sulfate 90 mcg/actuation 2 puffs inhalation Q6H PRN 30 days alfuzosin ER 10 mg PO DAILY allopurinol 100 mg PO DAILY 90 days hkjgqwymq-nyirgkex-ndaxpph ala 50-200-25 mg (Biktarvy) 1 tab PO DAILY 30 days cholecalciferol (vitamin D3) 25 mcg PO DAILY 90 days clotrimazole 1% (Lotrimin AF (clotrimazole)) 1 appl topical BID 30 days colchicine 0.6 mg PO DAILY PRN 90 days cyclobenzaprine 10 mg PO TID escitalopram oxalate (Lexapro) 5 mg PO DAILY hydrocortisone 2.5% (Proctosol HC) 1 appl WV BID PRN 30 days meclizine 25 mg PO BID PRN 5 days mirtazapine 15 mg PO BEDTIME 30 days nitroglycerin 0.4%(w/w) (Rectiv) 1 inch WV BID 30 days pantoprazole (Protonix) 20 mg PO DAILY triamcinolone acetonide (24 Hour Nasal Allergy) 1 spray intranasal DAILY 30 days valacyclovir (Valtrex) 1,000 mg PO DAILY 30 days HPI Comments Details: 03/28/25--a 59-year-old male HIV positive followed due to BPH obstructive voiding symptoms he was last 11/20/2024. History of Present Illness The patient is a 59-year-old male presenting with obstructive voiding symptoms due to Benign Prostatic Hyperplasia (BPH). He was last seen on 11/20/24 and started on alfuzosin 10 mg daily, which has reduced his symptoms but not significantly. The patient has not been taking the medication daily, he is advised to take it with breakfast to avoid interference for optimal benefit of symptom relief. 1. Benign Prostatic Hyperplasia (Bph) - Continue alfuzosin 10 mg daily, preferably with breakfast - Follow-up 4 months to assess symptom improvement. 11/20/24--Brian is here for follow-up. He is referred due to BPH and obstructive voiding symptoms. He was prescribed tamsulosin. Urinalysis today is negative for bladder leukocytes. Past medical history significant for HIV and anemia Results: PSA 08/2024--0.77 ng/mL Ultrasound bladder and kidneys-- 09/25/2024-within normal limits 10/07/34-- Brian is here in follow up, LV--07/15/24--Brian is a 58-year-old Libyan-speaking male who complains of slowing of urinary stream and dribbling. The patient is a 58-year-old male with HIV and anemia. Bladder scan PVR today was within normal limits. I have discussed trial of tamsulosin. Discussed side effects of dizziness and retrograde ejaculation. He was sent for renal/Bladder US and PSA screening. Reviewed results, are WNL, tamsulosin daily. Results: US Retroperitoneum- kidneys/bladder within normal limits, PVR minimal. PSA- 09/19/24--0.77 ng/mL [facility] Medical History Mild major depression Right hip pain Bleeding hemorrhoids Pneumonia Shortness of breath Cough Hyperlipidemia HTN (hypertension) Abdominal pain Anxiety Gout Right shoulder pain Left shoulder pain Hand numbness Screen for STD (sexually transmitted disease) Syphilis HIV (human immunodeficiency virus infection) Surgical History History of bronchoscopy History of esophagogastroduodenoscopy (EGD) H/O colonoscopy Family History Father ALS (amyotrophic lateral sclerosis) Diabetes Hypertension Mother Liver cirrhosis Brother Liver cirrhosis Sister Hyperlipidemia Paternal Grandmother Cancer Paternal Aunt Cancer Family/Other FH: mental illness Substance use disorder Social History Household Members: Friend(s) and None Housing: Other Alcohol intake: current Alcohol intake frequency: holidays/special occasions only Alcohol type: hard liquor Patient Tobacco Use Status: Current someday Tobacco user Tobacco use type: Cigarette Years Smoked: 30 e-Cigarette/Vaping Use: Never Used Second Hand Smoke Exposure: No service: No Current occupational status: unemployed Cognitive needs: No Hearing needs: No Vision needs: No Review of Systems Const All systems reviewed & are unremarkable except as noted in HPI and below Reports no additional complaints Eyes Reports no additional complaints ENT Reports no additional complaints Card Reports no additional complaints Resp Reports no additional complaints GI Reports no additional complaints Reports as per HPI Musc Reports no additional complaints Skin/Breast Reports system reviewed and no additional complaints, except as documented Neuro Reports no additional complaints Psych Reports no additional complaints Endo Reports no additional complaints Ganga/Lymph Reports no additional complaints Aller/Immun Reports no additional complaints Assessment & Plan Assessment & Plan (1) Screening for prostate cancer: Code(s): Z12.5 - Encounter for screening for malignant neoplasm of prostate Category: Medical (2) BPH loc w urin obs/LUTS: Code(s): N40.1 - Benign prostatic hyperplasia with lower urinary tract symptoms Category: Medical (3) Benign prostatic hyperplasia with post-void dribbling: Code(s): N40.1 - Benign prostatic hyperplasia with lower urinary tract symptoms; N39.43 - Post-void dribbling Category: Medical Plan 1. Benign Prostatic Hyperplasia (Bph) - Continue alfuzosin 10 mg daily, preferably with breakfast - Follow-up 4 months to assess symptom improvement. Medications: Refilled alfuzosin ER administer after the same meal each day 10 mg PO DAILY 90 tabs 3RF Patient Instructions: The patient had an opportunity to ask questions regarding treatment plan. The patient expressed understanding and agreement with the above treatment plan. The patient is aware they should contact our office by phone for worsening of their current condition or the appearance of new symptoms. Compliance is encouraged with any medications and followup testing that is ordered. It is a privilege to be allowed the opportunity to participate in the urologic care of your patient. If you have any questions or concerns regarding treatment for the above conditions please do not hesitate to contact me. The office telephone contact is [phone]. This note is constructed in part using voice recognition software. While every effort has been made to ensure accuracy structural steel fitter errors may have been included. Yours sincerely, Efren Alanis MD Scribe Plan - Not visible on output: Patient was informed and verbally consented to the use of an ambient scribe for clinic note documentation during this visit. Coding Level of Care Code Est Pt Level 3 (52935) Complex EM visit Add On G2211 Diagnoses Screening for prostate cancer Z12.5 BPH loc w urin obs/LUTS N40.1 Benign prostatic hyperplasia with post-void dribbling N40.1; N39.43
--- OUTSIDE RECORDS SUMMARY | 2025-03-28 14:55 | XMS_ITS | Patient Health Record ---
Author Organization [facility] Address [address] [place] [address] Care Team Providers Care Horse Race Timer Name Role Phone Meagan De La Cruz Primary Care Provider UnavailFrankie Monaco Jr Unavailable [phone] Allergies No Known Allergies Reason For [...] Problem Status W/U Status Risk Notes Problem [id number] Colon cancer screening (Z12.11) Active confirmed Problem 86253899 Rectal bleeding (K62.5) Active confirmed Problem 97445320 Epigastric pain (R10.13) Active confirmed Problem 199271921 Gastroesophageal reflux disease without esophagitis (K21.9) Active confirmed Problem 410818966 Abnormal CT scan , stomach (R93.3) Active confirmed Problem 73998858 Diarrhea, unspecified type (R19.7) Active confirmed Plan [...] Insured Coverage Start Date Coverage End Date [facility] [address] [address] [place], [place] [id number] JACQUELINE MCDONALD Self - patient is the insured Medical (General) History Medical History History ICD Code Hypertension HIV Fatty liver Pneumonia Gout Anxiety Gastroesophageal reflux dise ase, EGD 02/21, no Horne's esophagus or H. pylori Colonoscopy 02/21, no polyps, ten-year fo llowup Surgical History Surgery Date(Month/Year)
--- OUTSIDE RECORDS SUMMARY | 2025-03-28 14:55 | XMS_ITS | Clinical Summary ---
Author Organization [facility] Address [address] [place] [address] Phone Care Team Providers Care Cdl Company Driver Name Role Phone Meagan De La Cruz MD Primary Care Provider [phone] Allergies No known active allergies Medications albuterol [...] patient's age to complete this topic [place] [address] [place] [address] [employer]net Care Teams Cdl Company Driver Relationship Specialty Start Date End Date Meagan De La Cruz MD [address] [place] [address] PCP - General Internal Medicine 03/23/22
== END 2025-03-28 14:58 | disposition home or self-care (01) ==
LOC: HO.HUSH 13:44
PROVIDERS: PCP Internal Medicine; Visit Provider Urology
DX: Z12.5 Encounter for screening for malignant neoplasm of prostate (principal); N40.1 Benign prostatic hyperplasia with lower urinary tract symptoms; N39.43 Post-void dribbling
CPT/HCPCS: 99213

== ENCOUNTER → 2025-03-28 13:43 | Outpatient (BNVA) | payer OTHER, SELFPAY | PROVIDERS: PCP Internal Medicine; Visit Provider Urology | DX: Z12.5 Encounter for screening for malignant neoplasm of prostate (principal); N40.1 Benign prostatic hyperplasia with lower urinary tract symptoms; N39.43 Post-void dribbling | CPT/HCPCS: 81003; 99212 ==

== ENCOUNTER 2025-04-04 14:16 | Outpatient (AMB) | payer OTHER, SELFPAY ==
--- OUTSIDE RECORDS SUMMARY | 2025-04-04 14:22 | XMS_ITS | Clinical Summary ---
Author Organization [facility] Address [address] [place] [address] Phone Care Team Providers Care Bridge Ironworker Name Role Phone Meagan De La Cruz MD Primary Care Provider [phone] Allergies No known active allergies Medications albuterol [...] patient's age to complete this [place] [address] [place] [place] [address] Healthnet Care Teams Bridge Ironworker Relationship Specialty Start Date End Date Meagan De La Cruz MD [address] [place] [address] PCP - General Internal Medicine 03/23/22
--- OUTSIDE RECORDS SUMMARY | 2025-04-04 14:22 | XMS_ITS | Patient Health Record ---
Author Organization [facility] Address [address] [place] [address] Care Team Providers Care Rolling Up Machine Operator Name Role Phone Meagan De La Cruz Primary Care Provider UnavailFrankie Monaco Jr Unavailable [phone] Allergies No Known Allergies Reason For [...] Problem Status W/U Status Risk Notes Problem [id number] Colon cancer screening (Z12.11) Active confirmed Problem 86001182 Rectal bleeding (K62.5) Active confirmed Problem 09594594 Epigastric pain (R10.13) Active confirmed Problem 767225517 Gastroesophageal reflux disease without esophagitis (K21.9) Active confirmed Problem 772274422 Abnormal CT scan , stomach (R93.3) Active confirmed Problem 98590768 Diarrhea, unspecified type (R19.7) Active confirmed Plan [...] Insured Coverage Start Date Coverage End Date [facility] [address] [address] [place], [place] [id number] JACQUELINE MCDONALD Self - patient is the insured Medical (General) History Medical History History ICD Code Hypertension HIV Fatty liver Pneumonia Gout Anxiety Gastroesophageal reflux dise ase, EGD 02/21, no Horne's esophagus or H. pylori Colonoscopy 02/21, no polyps, ten-year fo llowup Surgical History Surgery Date(Month/Year)
--- NOTE | 2025-04-04 14:41 | MHC.OFFVIS ---
Intake Visit Reasons: 6 mth follow up Allergies No Known Allergies (No Known Allergies*) Allergy (Verified 03/28/25 14:22) HPI Comments Details: History of Present Illness The patient is a 59-year-old male presenting for HIV care and management. He has maintained excellent adherence to his prescribed Biktarvy regimen, not missing doses and picking up medication consistently every month. There is a slight elevation in viral load to 100, yet it remains a low-level concern. His CD4 count is robust at 1,143, indicating well-managed HIV. The patient has recently undergone syphilis testing, yielding negative results, and receives STI testing through oral and rectal examinations at [facility]. His vital signs are stable, and he reports no new symptoms or changes. Physical examination results include a clear oropharynx, stable cardiac rhythm, and clear lungs, with a soft and non-tender abdomen. The patient remains vigilant about his health, planning to report any emerging issues promptly. Review of Systems - Immune: Reports good compliance with HIV medication - General: Denies fever, weight change, or fatigue - Respiratory: Denies shortness of breath or coughing - Cardiovascular: Denies chest pain - Gastrointestinal: Denies nausea, vomiting, or abdominal pain - Neurological: Denies headaches, dizziness, or focal weakness - Urological: Denies changes in urinary habits - Dermatological: Denies rashes or skin changes Physical Exam - Vitals- Stable - Oropharynx- Clear - Respiratory- Clear lungs - Cardiovascular- Regular heart rhythm - Gastrointestinal- Abdomen soft and nontender - Neurological- No focal deficits - Dermatological- Skin clear Results - Lab: CD4 count 1,143; Viral load 100 - Test: Syphilis testing negative Plan Patient was informed and verbally consented to the use of an ambient scribe for clinic note documentation during this visit. 1. Human immunodeficiency virus [HIV] disease B20 HCC 1 The plan is to continue the current regimen of Biktarvy, as it effectively maintains a low viral load and high CD4 counts. Monthly adherence is crucial, and the patient's consistent pharmacy pickups are noted positively. STI tests, including those conducted at [facility], are crucial for ongoing management. A follow-up is planned in six months to evaluate treatment efficacy and adjust as necessary. 2. Low Viral Load Slight viral load detected will be closely monitored. Current antiretroviral regimen remains unchanged due to effective viral suppression and patient adherence. Future lab reviews will dictate any potential treatment modifications. Discussion Notes During our discussion, I emphasized the importance of continued compliance with Biktarvy to manage his HIV effectively. We reviewed his slight viral load of 100, which, although low, necessitates regular monitoring. I underlined the need for consistency in medication pick-ups and advised maintaining scheduled appointments for STI testing at [facility]. Plans for a follow-up visit in six months were discussed unless new issues arise sooner, in which case he should contact us promptly. Medical Decision Making Upon reviewing the patient's current health status, slight viral load increase, and CD4 count, I concluded the continuation of the existing antiretroviral therapy was most prudent. The patient's history of impeccable adherence supports this decision. Given the low risk associated with the current viral load and ongoing negative test results for syphilis and other STIs, no immediate change in treatment is necessary. My central goal is maintaining virologic suppression to prevent resistance, with scheduled assessments ensuring our approach remains optimal. Patient Instructions - Continue taking Biktarvy every day as prescribed. - Keep picking up your medication each month without delay. - Call us if new symptoms develop or you have any concerns. - Attend your regular STI testing appointments at [facility]. - Plan to return for a follow-up in six months unless instructed otherwise. - Monitor for any side effects and inform us immediately. [facility] Medical History Mild major depression Right hip pain Bleeding hemorrhoids Pneumonia Shortness of breath Cough Hyperlipidemia HTN (hypertension) Abdominal pain Anxiety Gout Right shoulder pain Left shoulder pain Hand numbness Screen for STD (sexually transmitted disease) Syphilis HIV (human immunodeficiency virus infection) Surgical History History of bronchoscopy History of esophagogastroduodenoscopy (EGD) H/O colonoscopy Family History Father ALS (amyotrophic lateral sclerosis) Diabetes Hypertension Mother Liver cirrhosis Brother Liver cirrhosis Sister Hyperlipidemia Paternal Grandmother Cancer Paternal Aunt Cancer Family/Other FH: mental illness Substance use disorder Social History Household Members: Friend(s) and None Housing: Other Alcohol intake: current Alcohol intake frequency: holidays/special occasions only Alcohol type: hard liquor Patient Tobacco Use Status: Current someday Tobacco user Tobacco use type: Cigarette Years Smoked: 30 e-Cigarette/Vaping Use: Never Used Second Hand Smoke Exposure: No service: No Current occupational status: unemployed Cognitive needs: No Hearing needs: No Vision needs: No Assessment & Plan Assessment & Plan (1) HIV (human immunodeficiency virus infection): Comment: He is doing well with CD4 count 1250 but viral load indicates need for daily medication Would ask PCP for referral vertigo physical therapy See in six months.,labs and meds written for. Follow anal Pap. Code(s): B20 - Human immunodeficiency virus [HIV] disease Category: Medical Qualifiers: HIV symptom status: asymptomatic, with no history of HIV-related illness Qualified Code(s): Z21 - Asymptomatic human immunodeficiency virus [HIV] infection status Plan: na Plan na Orders: Orders HIV-1 RNA QN PCR Expanded 5 Months Z21 - Asymptomatic human immunodeficiency virus [HIV] infection status Lymphocyte Subset Panel 3 5 Months Z21 - Asymptomatic human immunodeficiency virus [HIV] infection status Medications: Refilled fqjtmknlz-ctlspqcp-jfxcdtv ala 50-200-25 mg (Biktarvy) 1 tab PO DAILY 30 tabs 5RF 30 days Coding Level of Care Code Est Pt Level 4 (55245) Diagnoses Asymptomatic HIV infection, with no history of HIV-related illness Z21 HIV symptom status: asymptomatic, with no history of HIV-related illness
== END 2025-04-04 15:14 | disposition home or self-care (01) ==
LOC: HO.HID 14:16
PROVIDERS: PCP Internal Medicine; Visit Provider Internal Medicine
DX: Z21 Asymptomatic human immunodeficiency virus [HIV] infection status (principal)
CPT/HCPCS: 99214

== ENCOUNTER → 2025-04-04 14:16 | Outpatient (BNVA) | payer OTHER, SELFPAY | PROVIDERS: PCP Internal Medicine; Visit Provider Internal Medicine | DX: Z21 Asymptomatic human immunodeficiency virus [HIV] infection status (principal) | CPT/HCPCS: 99212 ==

== ENCOUNTER 2025-04-08 11:50 | Outpatient (REF) | payer OTHER, SELFPAY ==
--- OUTSIDE RECORDS SUMMARY | 2025-04-08 14:55 | XMS_ITS | Patient Health Record ---
Author Organization [facility] Address [address] [place] [address] Care Team Providers Care Gear Hobber Name Role Phone Meagan De La Cruz Primary Care Provider UnavailFrankie Monaco Jr Unavailable [phone] Allergies No Known Allergies Reason For [...] Problem Status W/U Status Risk Notes Problem 984972023 Colon cancer screening (Z12.11) Active confirmed Problem 93325311 Rectal bleeding (K62.5) Active confirmed Problem 99958223 Epigastric pain (R10.13) Active confirmed Problem 495809664 Gastroesophageal reflux disease without esophagitis (K21.9) Active confirmed Problem 759775999 Abnormal CT scan , stomach (R93.3) Active confirmed Problem 10079276 Diarrhea, unspecified type (R19.7) Active confirmed Plan [...] Insured Coverage Start Date Coverage End Date [facility] [address] [address] [place], [place] [id number] JACQUELINE MCDONALD Self - patient is the insured Medical (General) History Medical History History ICD Code Hypertension HIV Fatty liver Pneumonia Gout Anxiety Gastroesophageal reflux dise ase, EGD 02/21, no Horne's esophagus or H. pylori Colonoscopy 02/21, no polyps, ten-year fo llowup Surgical History Surgery Date(Month/Year)
--- OUTSIDE RECORDS SUMMARY | 2025-04-08 14:55 | XMS_ITS | Clinical Summary ---
Author Organization [facility] Address [address] [place] [address] Phone Care Team Providers Care Security Alarm Installer Name Role Phone Meagan De La Cruz MD Primary Care Provider [phone] Allergies No known active allergies Medications albuterol [...] patient's age to complete this topic [place] [address] [place] [address] Healthnet Care Teams Security Alarm Installer Relationship Specialty Start Date End Date Meagan De La Cruz MD [address] [place] [address] PCP - General Internal Medicine 03/23/22
[2025-04-09 21:08] LABS: HIV RNA PCR Qn Copies NOT DETECTED copies/mL (NOT DETECTED); HIV RNA PCR Qn Log Copies NOT DETECTED (NOT DETECTED)
== END 2025-04-08 11:51 | disposition home or self-care (01) ==
LOC: HO.LAB 11:50
PROVIDERS: PCP Internal Medicine; Visit Provider Internal Medicine
DX: Z21 Asymptomatic human immunodeficiency virus [HIV] infection status (principal)
CPT/HCPCS: 36415; 87536

== ENCOUNTER 2025-05-06 12:41 | Outpatient (AMB) | payer OTHER, SELFPAY ==
--- NOTE | 2025-05-06 12:53 | A.OFFPC_ITS ---
Vital Signs 05/06/25 12:54 Height 5 ft 9 in Weight 195 lb BMI 28.8 BP 100/66 Blood Pressure Location Lt brachial Position Sitting Pulse 75 Pulse Source Pulse Oximeter Temp 97.5 F Temp Source Temporal Artery Scan Pulse Oximetry (%) 98 Oxygen Delivery Method Room Air Intake Visit Reasons: Annual exam Intake Note: Patient is here today for a physical. Bereavement Program Coordinator Required: No Superintendent Of Generation: Not Required per policy Accompanied by: Self / Same As Patient Allergies No Known Allergies (No Known Allergies*) Allergy (Verified 05/06/25 13:09) Medication List - Last Reconciled 05/06/25 by Meagan Marte MD albuterol sulfate 90 mcg/actuation 2 puffs inhalation Q6H PRN 30 days alfuzosin ER 10 mg PO DAILY allopurinol 100 mg PO DAILY 90 days pigpwoimr-qppaeate-khmyiqo ala 50-200-25 mg (Biktarvy) 1 tab PO DAILY 30 days cholecalciferol (vitamin D3) 25 mcg PO DAILY 90 days clotrimazole 1% (Lotrimin AF (clotrimazole)) 1 appl topical BID 30 days escitalopram oxalate (Lexapro) 5 mg PO DAILY hydrocortisone 2.5% (Proctosol HC) 1 appl NC BID PRN 30 days mirtazapine 15 mg PO BEDTIME 30 days nitroglycerin 0.4%(w/w) (Rectiv) 1 inch NC BID 30 days pantoprazole (Protonix) 20 mg PO DAILY triamcinolone acetonide (24 Hour Nasal Allergy) 1 spray intranasal DAILY 30 days valacyclovir (Valtrex) 1,000 mg PO DAILY 30 days Tobacco use date assessed: 05/06/25 Dental Screening Dental Screen Date: 09/23/24 HPI HPI Comments History of Present Illness Details The patient is a 59-year-old male with HIV and mild major depression that comes for his physical exam. Complains of blurry vision and would go to Ophthalmology. Colonoscopy was done 2021 and was normal. On medications for mild major depression but admits not being compliant. HIV follow by ID. The patient reports a facial rash that is red, slightly swollen, itchy, and has a pinching sensation. He notes a history of similar recurrent skin lesions for which a previously prescribed cream, which was not triamcinolone, was effective. He reports feeling anxious, particularly when alone at home, and associates this with increased hunger where he does not feel satiated after eating. Past medical history includes pneumonia and a bronchoscopy in 2015. He has had endoscopies and colonoscopies but denies any surgical history. His father is and had a history of amyotrophic lateral sclerosis and diabetes, and his mother is also . Regarding recent labs, the patient had tests performed in March and repeated on April 08, where a previously elevated marker was subsequently undetected. [facility] Medical History (Updated 05/06/25 @ 13:31 by Meagan Marte MD) ILD (interstitial lung disease) Mild major depression Right hip pain Bleeding hemorrhoids Pneumonia Shortness of breath Cough Hyperlipidemia HTN (hypertension) Abdominal pain Anxiety Gout Right shoulder pain Left shoulder pain Hand numbness Screen for STD (sexually transmitted disease) Syphilis HIV (human immunodeficiency virus infection) Surgical History History of bronchoscopy History of esophagogastroduodenoscopy (EGD) H/O colonoscopy Family History Father ALS (amyotrophic lateral sclerosis) Diabetes Hypertension Mother Liver cirrhosis Brother Liver cirrhosis Sister Hyperlipidemia Paternal Grandmother Cancer Paternal Aunt Cancer Family/Other FH: mental illness Substance use disorder Social History (Updated 05/06/25 @ 13:21 by Meagan Marte MD) Household Members: Friend(s) and None Housing: Other Alcohol intake: current Alcohol intake frequency: holidays/special occasions only Alcohol type: hard liquor Patient Tobacco Use Status: Current someday Tobacco user Tobacco use type: Cigarette Cigarette Packs Per Day: 0.5 Cigarettes Per Day: 4 Years Smoked: 30 e-Cigarette/Vaping Use: Never Used Second Hand Smoke Exposure: Yes service: No Current occupational status: unemployed Cognitive needs: No Hearing needs: No Vision needs: No Questionnaire PHQ-9 Over the last 2 weeks, how often have you been bothered by any of the following problems? 1. Little interest or pleasure in doing things: several days 2. Feeling down, depressed, or hopeless: more than half the days 3. Trouble falling or staying asleep, or sleeping too much: nearly every day 4. Feeling tired or having little energy: several days 5. Poor appetite or overeating: nearly every day 6. Feeling bad about yourself - or that you are a failure or have let yourself or your family down: several days 7. Trouble concentrating on things, such as reading the newspaper or watching television: not at all 8. Moving or speaking so slowly that other people could have noticed. Or the opposite - being so fidgety or restless that you have been moving around a lot more than usual: not at all 9. Thoughts that you would be better off or of hurting yourself in some way: several days Total score: 12 Depression Screening Interpretation: Positive Depression Screening Follow-up: Existing condition, In treatment and Follow-up Visit Requested Depression Screening Done: Yes 82661 - PHQ-9 Billing: Yes Source: Developed by Drs. Juan Luis Payne, Elsy Tadeo, Raymon Franco and colleagues, with an educational brinda from [employer]. Thrive Questionnaire Date Thrive assessed: 09/23/24 I am a: Patient What is your living situation today?: I have a steady place to live Within the past 12 months, did the food you bought not last and you didn't have the money to get more?: Often true Within the past 12 months, did you worry whether your food would run out before you got money to buy more?: Sometimes True Do you have trouble paying for medicines?: No Do you have trouble getting transportation to medical appointments?: Yes Do you have trouble paying your heating and electricity bill?: No Do you have trouble taking care of your child, family member or friend?: No Do you have trouble with day-to-day activities such as bathing, preparing meals, shopping, managing finances, etc.?: No Are you currently unemployed and looking for a job?: I choose not to answer this question Are you interested in more education?: I choose not to answer this question Please select the resources that you would like help with: Food and Transportation Currently or been in a relationship where the following occur: No concerns reported THRIVE Score: 3 AUDIT C Alcohol Use Questionnaire (AUDIT-C) 1. How often do you have a drink containing alcohol?: 2-3 times a week Total Score: 3 CRISTOBAL-7 AMB Questionnaire CRISTOBAL-7 Date CRISTOBAL - 7 assessed: 05/06/25 Feeling nervous, anxious, or on edge: 1 = Several days Not being able to stop or control worryin = Several days Worrying too much about different things: 1 = Several days Trouble relaxin = More than half the days Being so restless that it is hard to sit still: 0 = Not at all Becoming easily annoyed or irritable: 1 = Several days Feeling afraid as if something awful might happen: 3 = Nearly every day Total CRISTOBAL-7 score (0-4 normal; 5-9 mild; 10-14 moderate; 15-21 severe): 9 Source: Developed by Drs. Juan Luis Payne, Elsy Tadeo, Raymon Franco and colleagues, with an educational brinda from [employer]. CRISTOBAL-7 Assessment Billing CRISTOBAL-7 Assessment Tool: CRISTOBAL-7 Assessment 46179 Review of Systems Const All systems reviewed & are unremarkable except as noted in HPI and below Card Denies chest pain at rest, Denies chest pain with activity, Denies edema, Denies irregular heart rhythm, Denies claudication, Denies dyspnea, Denies dyspnea on exertion, Denies orthopnea, Denies paroxysmal nocturnal dyspnea and Denies slow heart rate Resp Denies cough, Denies dyspnea and Denies dyspnea on exertion Neuro Denies lack of coordination Physical exam (Primary Care) Vital Signs: Last Vital Signs Temp 97.5 F 05/06/25 12:54 Pulse 75 05/06/25 12:54 BP 100/66 05/06/25 12:54 Pulse Ox 98 05/06/25 12:54 Oxygen Delivery Method Room Air 05/06/25 12:54 BMI result Body Mass Index 28.8 Tobacco/Smoking Status: Tobacco use Status Tobacco use date assessed 05/06/25 05/06/25 13:02 Patient Tobacco Use Status Current someday Tobacco 05/06/25 13:21 Tobacco use type Cigarette 05/06/25 13:21 e-Cigarette/Vaping Use Never Used 05/06/25 13:21 PHQ-9: PHQ-9 Score PHQ-9: Total score 12 05/06/25 13:23 Depression Screening Interpretation: Positive Depression Screening Follow-up: Existing condition, In treatment and Follow-up Visit Requested Thrive Assessment: Date of Thrive Assessment Date Thrive assessed 09/23/24 05/06/25 13:02 Currently or been in a relationship where the following occur: No concerns reported [facility] Head: Yes normal to inspection, Yes normocephalic and Yes atraumatic Ears: external ears normal Eyes General: appearance normal, both eyes and all related structures Eyelids: Yes eyelids normal Conjunctivae: conjunctivae normal Neck Neck: Yes normal visual inspection and Yes supple Resp Effort & Inspection: normal respiratory effort Auscultation: clear to auscultation bilaterally Cardio Jugular venous distension: no JVD Rate: regular rate Rhythm: regular rhythm Heart sounds: S1 normal heart sound present and S2 normal heart sound present GI Inspection: Yes normal to inspection Palpation (GI): Soft to palpation and nontender Auscultation: normal bowel sounds Skin General skin exam: no rashes or lesions noted Neuro General: no focal motor deficits Extrem General: Yes full ROM Psych Appearance: grossly normal Office Procedures Flu Questionnaire Does the patient have a severe egg allergy?: No Does the patient have severe life threatening allergies?: No Does the patient have a fever or illness today?: No Has the patient ever had Guillain-[place] Syndrome?: No Has the patient ever had any past reaction to a flu shot?: No Coding Level of Care Code Est Pt Level 3 (16992) Est Pt Prev Care 40-64y(62828) Diagnoses Adult general medical exam Z00.00 Asymptomatic HIV infection, with no history of HIV-related illness Z21 HIV symptom status: asymptomatic, with no history of HIV-related illness Mild major depression F32.0 Rash R21 Blurry vision H53.8 Additional Codes PHQ-9 - 92370 - PHQ-9 Billing: Yes ([id number]) CRISTOBAL-7 Assessment Billing - CRISTOBAL-7 Assessment Tool: CRISTOBAL-7 Assessment 60593 ([id number]) Time Spent (min) 35 Assessment & Plan Assessment & Plan (1) Adult general medical exam: Code(s): Z00.00 - Encounter for general adult medical examination without abnormal findings Category: Medical (2) HIV (human immunodeficiency virus infection): Comment: He is doing well with CD4 count 1250 but viral load indicates need for daily medication Would ask PCP for referral vertigo physical therapy See in six months.,labs and meds written for. Follow anal Pap. Code(s): B20 - Human immunodeficiency virus [HIV] disease Category: Medical Qualifiers: HIV symptom status: asymptomatic, with no history of HIV-related illness Qualified Code(s): Z21 - Asymptomatic human immunodeficiency virus [HIV] infection status (3) Mild major depression: Code(s): F32.0 - Major depressive disorder, single episode, mild Category: Medical (4) Rash: Code(s): R21 - Rash and other nonspecific skin eruption Category: Medical (5) Blurry vision: Code(s): H53.8 - Other visual disturbances Category: Medical Plan Plan 1. Physical exam Repeat in a year. 2. Rash Cream sent. 3. Blurry vision Referred to Ophthalmology. Orders: Orders Complete Blood Count Auto Diff Today D64.9 - Anemia, unspecified IRON PROFILE Today D64.9 - Anemia, unspecified Lipid Panel Today E78.5 - Hyperlipidemia, unspecified Vitamin D 25-OH Total Today E55.9 - Vitamin D deficiency, unspecified Comprehensive [place]. Panel Fast Today E78.5 - Hyperlipidemia, unspecified Uric Acid Today M10.9 - Gout, unspecified Vitamin B12 and Folate Today E53.8 - Deficiency of other specified B group vitamins Influenza [id number] Immunization Today Z23 - Encounter for immunization Referrals Ophthalmology Referral H53.8 - Other visual disturbances Medications: New clotrimazole-betamethasone 1-0.05 % 1 appl topical BID 45 grams 0RF 2 weeks Refilled nitroglycerin 0.4%(w/w) (Rectiv) 1 inch NC BID 30 grams 0RF 30 days
[2025-05-06 12:54] VITALS: BP 100/66; PULSE 75; TEMP 36.4; O2SAT 98; BMI 28.8
--- OUTSIDE RECORDS SUMMARY | 2025-05-06 15:24 | XMS_ITS | Patient Health Record ---
Author Organization [facility] Address [address] [place] [address] Care Team Providers Care Small Engine Mechanic Name Role Phone Meagan De La Cruz Primary Care Provider UnavailFrankie Monaco Jr Unavailable Allergies No Known Allergies Reason For Referral No Information Medications Medication SIG (Take, Route, Frequency, Duration) Notes Start Date End Date Status valACYclovir HCl 1 GM TAKE 1 TABLET BY M OUTH TWICE A DAY Oral; Duration: 30 Active Biktarvy 50-200-25 MG TOME CALIXTO TABLETA T ODOS LOS D? Oral; Duration: 30 Active Albuterol Sulfate 108 (90 Base) MCG/ACT 1 puff as needed Inhalation every 4 hrs Active Pantoprazole Sodium 40 MG TAKE 1 TABLET BY MOUTH DAILY Active Flexeril 5 MG 1 tablet at bedtime as needed Orally Once a day; Duration: 30 day(s) Active Escitalopram Oxalate 5 MG Oral; Duration: 90 Active Vitamin D High Potency 25 MCG (1000 UT) Oral; Duration: 90 Active Allopurinol 100 MG Oral; Duration: 90 Active Immunizations Vaccine Route Administration Date [...] Problem Status W/U Status Risk Notes Problem Colon cancer screening (107334726) Colon cancer screening (Z12.11) Active confirmed Problem Rectal bleeding (09862926) Rectal bleeding (K62.5) Active confirmed Problem Epigastric pain (03506484) Epigastric pain (R10.13) Active confirmed Problem Gastroesophageal reflux disease without esophagitis (734136297) Gastroesophageal reflux disease without esophagitis (K21.9) Active confirmed Problem Computed tomography of abdomen abnormal (75685539399545472) Abnormal CT scan, stomach (R93.3) Active confirmed Problem Diarrhea (24364227) Diarrhea, unspecified type (R19.7) Active confirmed Plan [...] Insured Coverage Start Date Coverage End Date [facility] [address] [address] [place], [place] [id number] JACQUELINE MCDONALD Self - patient is the insured Medical (General) History Medical History History ICD Code Hypertension HIV Fatty liver Pneumonia Gout Anxiety Gastroesophageal reflux dise ase, EGD 02/21, no Horne's esophagus or H. pylori Colonoscopy 02/21, no polyps, ten-year fo llowup Surgical History Surgery Date(Month/Year)
== END 2025-05-06 13:30 | disposition home or self-care (01) ==
LOC: HO.HMCH 12:42
PROVIDERS: PCP Internal Medicine; Visit Provider Internal Medicine
DX: Z00.00 Encounter for general adult medical examination without abnormal findings (principal); F32.0 Major depressive disorder, single episode, mild; Z21 Asymptomatic human immunodeficiency virus [HIV] infection status; R21 Rash and other nonspecific skin eruption; H53.8 Other visual disturbances; Z23 Encounter for immunization

== ENCOUNTER → 2025-05-06 12:41 | Outpatient (BNVA) | payer OTHER, SELFPAY | PROVIDERS: PCP Internal Medicine; Visit Provider Internal Medicine | DX: Z00.00 Encounter for general adult medical examination without abnormal findings (principal); R21 Rash and other nonspecific skin eruption; F32.0 Major depressive disorder, single episode, mild; H53.8 Other visual disturbances; Z21 Asymptomatic human immunodeficiency virus [HIV] infection status; Z23 Encounter for immunization | CPT/HCPCS: 90471; 90656; 96127; 99396 ==

== ENCOUNTER 2025-05-26 08:42 | Outpatient (REF) | payer OTHER, SELFPAY ==
[2025-05-26 08:56] LABS: MANUAL DIFF FLAG NO
--- OUTSIDE RECORDS SUMMARY | 2025-05-26 09:11 | XMS_ITS | Patient Health Record ---
Author Organization [facility] Address [address] [place] [address] Care Team Providers Care Machine Clothing Worker Name Role Phone Meagan De La Cruz Primary Care Provider Frankie Joyner Jr Unavailable Allergies No Known Allergies Reason For Referral No Information Medications Medication SIG (Take, Route, Frequency, Duration) Notes Start Date End Date Status valACYclovir HCl 1 GM Tablet TAKE 1 TABLET BY MOUTH TWICE A DAY Oral; Duration: 30 Active Biktarvy 50-200-25 MG Tablet TOME CALIXTO TABLETA TODOS LOS D? Oral; Duration: 30 Active Albuterol Sulfate 108 (90 Base) MCG/ACT Aerosol Powder Breath Activated 1 puff as needed Inhalation every 4 hrs Active Pantoprazole Sodium 40 MG Tablet Delayed Release TAKE 1 TABLET BY MOUTH DAILY Active Flexeril 5 MG Tablet 1 tablet at bedtime as needed Orally Once a day; Duration: 30 day(s) Active Escitalopram Oxalate 5 MG Tablet Oral; Duration: 90 Active Vitamin D High Potency 25 MCG (1000 UT) Capsule Oral; Duration: 90 Active Allopurinol 100 MG Tablet Oral; Duration: 90 Active Immunizations Vaccine Route Administration Date Status Comme nts Influenza Unknown 01/05/2022 Refused Social History Tobacco Use: Social History Observation Description Date Details (start date - stop date) Current Smoker NA - NA Social History Drugs/Alcohol: Social Info Question Answer Notes Alcohol Screen Did you have a drink containing alcohol in the past year? Yes How often did you have a drink containing alcohol in the past year? 2 to 3 times a week (3 points) How many drinks did you have on a typical day when you were drinking in the past year? 5 or 6 drinks (2 points) Points 5 Interpretation Positive Tobacco Use: Social Info Question Answer Notes Tobacco Use/Smoking Patient is a current smoker How often do you smoke cigarettes? some days, but not every day How many cigarettes a day do you smoke? 5 or less Additional Details Category Social Info Options Details Miscellaneous: Marital status: Occupation: unemployed Problems Problem Type SNOMED Code ICD Code Onset Dates Problem Status W/U Status Risk Notes Problem Colon cancer screening (810802214) Colon cancer screening (Z12.11) Active confirmed Problem Rectal bleeding (95180632) Rectal bleeding (K62.5) Active confirmed Problem Epigastric pain (32129221) Epigastric pain (R10.13) Active confirmed Problem Gastroesophageal reflux disease without esophagitis (506480953) Gastroesophageal reflux disease without esophagitis (K21.9) Active confirmed Problem Computed tomography of abdomen abnormal (15789820097318576) Abnormal CT scan, stomach (R93.3) Active confirmed Problem Diarrhea (82688722) Diarrhea, unspecified type (R19.7) Active confirmed Plan [...] Insured Coverage Start Date Coverage End Date [facility] [address] [address] [place], [place] [id number] JACQUELINE MCDONALD Self - patient is the insured Medical (General) History Medical History History ICD Code Hypertension HIV Fatty liver Pneumonia Gout Anxiety Gastroesophageal reflux dise ase, EGD 02/21, no Horne's esophagus or H. pylori Colonoscopy 02/21, no polyps, ten-year fo llowup Surgical History Surgery Date(Month/Year)
--- OUTSIDE RECORDS SUMMARY | 2025-05-26 09:11 | XMS_ITS | Clinical Summary ---
Author Organization [facility] Address [address] [place] [address] Phone Care Team Providers Care Aircraft Instrument Mechanic Name Role Phone Meagan De La Cruz MD Primary Care Provider [phone] Allergies No known active allergies Medications albuterol [...] patient's age to complete this topic [place] [address] [place] [address] [employer] Care Teams Aircraft Instrument Mechanic Relationship Specialty Start Date End Date Meagan De La Cruz MD [address] [place] [address] PCP - General Internal Medicine 03/23/22
[2025-05-26 09:19] LABS: Hematocrit 42.6 % (42.0-52.0); Hemoglobin 14.9 g/dl (14.0-18.0); Imm Gran Abs Auto 0.02 X10*3/uL (0.00-0.03); Imm Gran Pct Auto 0.3 % (0.0-0.4); Lymphocytes Absolute Auto 2.7 X10*3/uL (1.2-4.9); Mean Corpuscular HGB Conc 35.0 g/dl (31.0-36.0); Mean Corpuscular Hemoglobin 32.6 pg (27.0-33.0); Mean Corpuscular Volume 93.2 fL (80.0-98.0); NRBC Abs Auto 0.000 X10*3/uL (0.0-0.012); NRBC Pct Auto 0.0 /100WBC (0.0-0.2); Platelet Count 174 X10*3/uL (160-400); Red Blood Count 4.57 X10*6/uL (4.60-5.80); White Blood Count 7.1 X10*3/uL (4.8-10.8)
[2025-05-26 09:48] LABS: Alanine Aminotransferase 23 U/L (0-40); Albumin Level 4.6 g/dL (3.5-5.0); Alkaline Phosphatase 113 U/L (39-117); Anion Gap 10 (12-20); Aspartate Amino Transferase 33 U/L (5-37); Blood Urea Nitrogen 17 mg/dL (9-16); Calcium 9.3 mg/dL (8.4-10.2); Carbon Dioxide 29 mmol/L (22-29); Chloride 108 mmol/L (96-108); Cholesterol 164 mg/dL (<200); Estimated Glomerular Filt Rate > 60; HDL Cholesterol 40 mg/dL (>40); Iron 96 mcg/dL (45-160); Percent Iron Saturation 31 % (15-50); Potassium 4.7 mmol/L (3.3-5.1); Sodium 142 mmol/L (135-145); Total Iron Binding Capacity 312 mcg/dL (228-428); Total Protein 6.9 g/dL (6.5-8.0); Triglycerides 191 mg/dL (<150); Unsaturated Iron Binding 216 ug/dL; Uric Acid 6.3 mg/dL (3.4-7.0)
[2025-05-26 10:10] LABS: Folate 9.2 ng/mL (> or = 4.0); Vitamin B12 257 pg/mL (200-900)
== END 2025-05-26 08:43 | disposition home or self-care (01) ==
LOC: HO.LAB 08:42
PROVIDERS: PCP Internal Medicine; Visit Provider Internal Medicine
DX: E53.8 Deficiency of other specified B group vitamins (principal); E78.5 Hyperlipidemia, unspecified; E55.9 Vitamin D deficiency, unspecified; M10.9 Gout, unspecified; D64.9 Anemia, unspecified
CPT/HCPCS: 36415; 80053; 80061; 82306; 82607; 82746; 83540; 84550; 85025